=== PATIENT | female | born 1950 | race Caucasian/White ===

== ENCOUNTER 2024-09-03 23:57 | Inpatient (IN) | payer OTHER ==
[2024-09-04] MEDS ORDERED: ACETAMINOPHEN 500 MG TAB ONE (00:17)
[2024-09-04] MEDS ORDERED: ONDANSETRON 4 MG/2 ML VIAL ONE ×2 (00:17→18:12)
[2024-09-04] MEDS ORDERED: METHYLPREDNISOLONE 125 MG INJ ONE (00:17)
[2024-09-04] MEDS ORDERED: MORPHINE 2 MG/ML SYR ONE ×5 (00:18→16:24)
[2024-09-04 00:46] LABS: Absolute Basophils 0.1 K/uL (0-0.5); Absolute Eosinophils 0.2 K/uL (0-0.5); Absolute Lymphocytes (CBC) 1.1 K/uL (0.7-4.9); Absolute Monocytes 0.6 K/uL (0.1-1.3); Absolute Neutrophil 8.9 K/uL (1.8-8.0); Basophils % 0.8 % (0-1.3); Eosinophils % 1.6 % (0-4.4); Hematocrit 27.1 % (36.0-45.0); Hemoglobin 8.6 g/dL (12.0-15.0); Lymphocytes % 10.1 % (15.3-44.8); MCH 27.7 pg (27.0-35.0); MCHC 31.6 g/dL (32.0-36.0); MCV 87.4 fL (80-100); MPV 7.9 fL (7.6-11.3); Monocytes % 5.2 % (3.3-12.3); Neutrophils % 82.3 % (41.7-73.7); Nucleated Red Blood Cells % 0.1 % (0-0); Platelets 274 thou/uL (152-406); Red Cell Distribution Width 18.9 % (12.1-15.2)
[2024-09-04 01:17] LABS: ALT/SGPT 16 U/L (13-56); AST/SGOT 13 U/L (15-37); Albumin 2.7 g/dL (3.4-5.0); Albumin/Globulin Ratio 0.8 (1.1-1.8); Alkaline Phosphatase 99 U/L (45-117); Anion Gap 9.5 mEq/L (5.0-15.0); BUN Blood Urea Nitrogen 28 mg/dL (7-18); Bicarbonate 24 mEq/L (21-32); Bilirubin Total 0.3 mg/dL (0.2-1.0); Creatine Phosphokinase 45 U/L (26-192); D-Dimer 0.874 FEUug/mL (0-0.500); Globulin 3.2 g/dL (2.3-3.5); Glomerular Filtration Rate 61 ml/min (=/>90); Glucose Level 209 mg/dL (74-106); Lipase 21 U/L (13-75); Magnesium 2.1 mg/dL (1.6-2.4); NT PRO-BNP 1429 pg/mL (<450); Potassium 4.5 mEq/L (3.5-5.1); Protein, Total 5.9 g/dL (6.4-8.2); Protime INR 1.07; Sodium Level 140 mEq/L (136-145); Troponin High Sensitivity 13.6 pg/mL (<58.9)
[2024-09-04 01:27] LABS: Bilirubin Direct < 0.2 mg/dL (0-0.2); Bilirubin Indirect, Calculated 0.1 mg/dL (0.2-0.8)
[2024-09-04 01:43] LABS: SARS-CoV-2 Antigen CONTROL BLUE LINE VIS/BG OK; SARS-CoV-2 Antigen Rapid Res Negative (Negative)
--- NOTE | 2024-09-04 02:56 | RAD REPORT ---
EXAM: XR Chest, 1 View CLINICAL HISTORY: The patient is 74 years old and is Female; CHEST PAIN TECHNIQUE: Frontal view of the chest. COMPARISON: No relevant prior studies available. FINDINGS: Lungs: Mildly prominent interstitial markings. No consolidation. Small nonspecific 1 cm and 9 mm rounded opacities overlying the right lung base. Pleural space: Unremarkable. No pneumothorax. Heart: Unremarkable. Mediastinum: Unremarkable. Normal mediastinal contour. Bones/joints: No acute findings. Tubes, lines and devices: Left-sided pacemaker/AICD. IMPRESSION: No acute findings in the chest. Electronically signed by: Jason Kumar MD 09/04/2024 01:13 AM CDT RP 8 Due to temporary technical issues with the PACS/[employer] reporting system, reports are being nura d by the in-house radiologist without review as a courtesy to ensure prompt reporting the interpreting radiologist is fully responsible for the content of the report. Transcribed Date/Time: 09/04/2024 2:56 AM
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
--- NOTE | 2024-09-04 03:41 | EDPHYS ---
Physician Documentation [facility] Name: Caren Cuadra Age: 74 yrs Sex: Female : 1950 Arrival Date: 09/03/2024 Time: 23:57 Bed 7 Private MD: ED Physician Ferdinand Lobo HPI: 09/04 00:02 This 74 yrs old Female presents to ER via Unassigned with complaints of sp4 General complaint. 03:44 74-year-old female with past medical history of diabetes type 2, polyneuropathy, sp4 depression, back pain, anxiety, COPD, atrial fibrillation, history of CVA, overactive bladder, RLS, migraine headaches, left lower extremity chronic wounds, history of multiple allergies including iodine, presents with acute onset chest pain associated with chills. And recently admitted resident of [facility]. . Historical: - Allergies: 00:06 Codeine; bm8 00:06 Darvon; bm8 00:06 e-mycin; bm8 00:06 TETRACYCLINES; bm8 00:06 articane hydrochloride; bm8 00:06 dye senior care blue, green, red; bm8 00:06 idoxuridine; bm8 00:06 Iodine; bm8 00:06 Macrobid; bm8 - Home Meds: 00:06 Aimovig Autoinjector 140 mg/mL subcutaneous Auto-Injector 140 mg every month [Active]; bm8 alendronate 70 mg oral tablet 1 tab every week [Active]; aspirin 81 mg Oral capsule 1 cap daily [Active]; atorvastatin 20 mg oral tablet 1 tab daily [Active]; Breo Ellipta 100-25 mcg/dose inhalation Blister, With Inhalation Device 1 inhalation daily [Active]; carvedilol 3.125 mg oral tablet 1 tab 2 times per day [Active]; cetirizine 10 mg oral tablet 1 tab daily [Active]; donepezil 10 mg oral tablet 1 tab daily [Active]; FeroSul 325 mg (65 mg iron) oral tablet 1 tab daily [Active]; metformin 500 mg Oral Tablet, Extended Release 24 hr 1 tab 2 times per day [Active]; mirtazapine 30 mg Oral tablet 1 tab daily [Active]; montelukast 10 mg oral tablet 1 tab daily [Active]; oxybutynin chloride 15 mg Oral Tablet, Extended Release 24 hr 1 tab BID [Active]; pregabalin 25 mg Oral capsule 1 cap 2 times per day [Active]; ropinirole 0.5 mg oral tablet 1 tab daily [Active]; SPIRIVA 2.5 MCG DAILY INHALE 2 PUFFS DAILY [Active]; torsemide 20 mg oral tablet 2 tabs daily [Active]; hydrocodone-acetaminophen 5-325 mg Oral tablet 1 tab every 8 hours [Active]; nitroglycerin 0.4 mg SL Tablet, Sublingual 1 tab every 5 to 15 minutes for acute episode of anginal pain [Active]; Zofran Oral 4 mg as needed [Active]; Ubrelvy 100 mg oral tablet 1 tab [Active]; Ventolin HFA 90 mcg/actuation Nebulizer HFA Aerosol Inhaler 2 inhalations 6 times per day [Active]; - PMHx: 00:06 Diabetes mellitus; Depressive disorder; radiating back pain; Anxiety; COPD; Atrial bm8 fibrillation; CVA; OVERACTIVE BLADDER; RLS; Migraine; - PSHx: 00:06 None; bm8 - Immunization history:: Adult Immunizations up to date. - Infectious Disease History:: Denies. - Social history:: Smoking status: Patient denies any tobacco usage or history of. - Family history:: not pertinent. ROS: 03:44 Constitutional: Positive for chest pain and chills sp4 03:44 All other systems are negative, Exam: 03:44 Constitutional: Patient is elderly frail female with protuberant abdomen multiple sp4 chronic wounds to bilateral lower extremities, physically debilitated oxygen dependent female Head/Face: Normocephalic, atraumatic. Eyes: Pupils equal round and reactive to light, extra-ocular motions intact. Lids and lashes normal. Conjunctiva and sclera are not injected. Cornea within normal limits. Periorbital areas with no swelling, redness, or edema. ENT: Nares patent. No nasal discharge, no septal abnormalities noted. Tympanic membranes are normal and external auditory canals are clear. Oropharynx with no redness, swelling, or masses, exudates, or evidence of obstruction, uvula midline. Mucous membranes moist. Neck: Trachea midline, no thyromegaly or masses palpated, and no cervical lymphadenopathy. Supple, full range of motion without nuchal rigidity, or vertebral point tenderness. Chest/axilla: Normal chest wall appearance and motion. Nontender with no deformity. No lesions are appreciated. Cardiovascular: Regular rate and rhythm with a normal S1 and S2. No gallops, murmurs, or rubs. Normal PMI, no JVD. No pulse deficits. Respiratory: Lungs have equal breath sounds bilaterally, clear to auscultation and percussion. No rales, rhonchi or wheezes noted. No increased work of breathing, no retractions or nasal flaring. Abdomen/GI: Soft, with normal bowel sounds. No distension or tympany. No guarding or rebound. No evidence of tenderness throughout. Back: No spinal tenderness. No costovertebral tenderness. Skin: Warm, dry with normal turgor. Normal color with no rashes, no lesions, and no evidence of cellulitis. MS/ Extremity: Pulses equal, no cyanosis. Neurovascular intact. Full, normal range of motion. Neuro: Awake and alert, GCS 15, oriented to person, place, time, and situation. Cranial nerves II-XII grossly intact. Motor strength 5/5 in all extremities. Sensory grossly intact. Psych: Awake, alert, with orientation to person, place and time. Behavior, mood, and affect are within normal limits 03:44 ECG was reviewed by the Attending Physician. EKG at 000 2 electronic ventricular pacemaker rate 100 Vital Signs: 00:03 BP 133 / 79; Pulse 83; Resp 18; Temp 100.5; Pulse Ox 96% on 3 lpm NC; Weight 77.11 kg; bm8 Height 5 ft. 4 in. ; Pain 10/10; 00:45 BP 132 / 75; Pulse 87; Resp 18; Temp 99.6; Pulse Ox 97% on R/A; Pain 7/10; bm8 01:54 BP 134 / 76; Pulse 86; Resp 19; Temp 99.2; Pulse Ox 96% on 3 lpm NC; Pain 9/10; bm8 04:27 BP 120 / 85; Pulse 86; Resp 20; Temp 99.2; Pulse Ox 97% on 3 lpm NC; Pain 6/10; bm8 19:15 BP 114 / 66; Pulse 82; Resp 19; Pulse Ox 99% on R/A; br2 21:42 BP 114 / 66; Pulse 77; Resp 15; Temp 97.2; Pulse Ox 98% on 2 lpm NC; br2 00:03 Body Mass Index 29.18 (77.11 kg, 162.56 cm) bm8 00:03 Pain Scale: Adult bm8 00:45 Pain Scale: Adult bm8 01:54 Pain Scale: Adult bm8 04:27 Pain Scale: Adult bm8 Ariela Coma Score: 00:30 Eye Response: spontaneous(4). Motor Response: obeys commands(6). Verbal Response: bm8 oriented(5). Total: 15. 00:45 Eye Response: spontaneous(4). Motor Response: obeys commands(6). Verbal Response: bm8 oriented(5). Total: 15. 01:54 Eye Response: spontaneous(4). Motor Response: obeys commands(6). Verbal Response: bm8 oriented(5). Total: 15. 03:44 Eye Response: spontaneous(4). Motor Response: obeys commands(6). Verbal Response: sp4 oriented(5). Total: 15. 04:27 Eye Response: spontaneous(4). Motor Response: obeys commands(6). Verbal Response: bm8 oriented(5). Total: 15. MDM: 00:06 Medical Screening Exam initiated sp4 03:48 Differential Diagnosis altered mental status, sepsis, flu, Angina . Data reviewed: sp4 vital signs, nurses notes, EMS record, old medical records, lab test result(s), EKG, radiologic studies, CT scan, plain films. Consideration of Admission/Observation Patient was admitted/placed on observation. Escalation of care including admission/observation considered. 03:58 Management of patient was discussed with the following: Primary Care Provider: Eugene LANDRY sp4 . ED course: Presents with persistent chest pain that is rather atypical nonexertional however patient has extensive history of diabetes, hypertension, pacemaker, neuropathy, and she is a very high risk. At this time patient warrants admission for further evaluation cardiology consult. Patient also reported some fever. Will cover with Rocephin and Zithromax for atypical respiratory infections.. 09/04 00:08 Order name: BMP; Complete Time: sp4 09/04 00:08 Order name: Blood Culture Adult (2) sp4 09/04 00:08 Order name: CBC with Diff; Complete Time: sp4 09/04 00:08 Order name: CPK; Complete Time: 01:54 sp4 09/04 00:08 Order name: D-Dimer; Complete Time: :54 sp4 09/04 00:08 Order name: Hepatic Function; Complete Time: :4 09/04 00:08 Order name: Lipase; Complete Time: :4 09/04 00:08 Order name: Magnesium; Complete Time: :54 sp4 09/04 00:08 Order name: NT PRO-BNP; Complete Time: :4 09/04 00:08 Order name: PT-INR; Complete Time: :4 09/04 00:08 Order name: Ptt, Activated; Complete Time: :54 4 09/04 00:08 Order name: Troponin HS; Complete Time: :4 09/04 00:08 Order name: ABG; Complete Time: 07:4 09/04 00:14 Order name: Urinalysis W/Microscopic; Complete Time: 07:28 4 09/04 00:14 Order name: SARS RAPID; Complete Time: :54 4 09/04 00:14 Order name: Influenza Screen (a \T\ B); Complete Time: :4 09/04 03:25 Order name: Troponin High Sensitivity; Complete Time: 07:28 sp4 09/04 07:49 Order name: Glucose, Ancillary Testing; Complete Time: 20:55 EDMS 09/04 09:45 Order name: Troponin High Sensitivity; Complete Time: 20:55 EDMS 09/04 12:15 Order name: Glucose, Ancillary Testing; Complete Time: 20:55 EDMS 09/04 16:33 Order name: Glucose, Ancillary Testing; Complete Time: 20:55 EDMS 09/04 18:14 Order name: Troponin High Sensitivity; Complete Time: 20:55 EDMS 09/04 20:22 Order name: Troponin High Sensitivity; Complete Time: 20:55 EDMS 09/04 00:08 Order name: XRAY CXR (1 view); Complete Time: 07:28 sp4 09/04 03:36 Order name: CT Chest Abdomen Pelvis W/O Contrast; Complete Time: 07:28 sp4 09/04 00:08 Order name: EKG; Complete Time: 00:08 sp4 09/04 03:54 Order name: CONS Physician Consult EDMS 09/04 00:08 Order name: Cardiac monitoring; Complete Time: 00:34 sp4 09/04 00:08 Order name: EKG - Nurse/Tech; Complete Time: :34 sp4 09/04 00:08 Order name: Pena; Complete Time: 00:34 sp4 09/04 00:08 Order name: IV Saline Lock; Complete Time: 00:34 sp4 09/04 00:08 Order name: Labs collected and sent; Complete Time: 00: sp4 09/04 00:08 Order name: O2 Per Protocol; Complete Time: 00: sp4 09/04 00:08 Order name: O2 Sat Monitoring; Complete Time: 00: sp4 09/04 03:49 Order name: Misc. Order: apply Purevic; Complete Time: : sp4 EC:44 Rate is 100 beats/min. Rhythm is regular, Paced. Clinical impression: No evidence of sp4 ischemia. Interpreted by me. Reviewed by me. Administered Medications: 00:24 Drug: Acetaminophen PO 1000 mg PO once Route: PO; kd3 01:20 Follow up: Response: No adverse reaction bm8 00:24 Drug: morphine IVP or IV 2 mg IVP once over 4 mins Route: IVP; Infused Over: 4 mins; kd3 Site: right wrist; 01:20 Follow up: Response: No adverse reaction bm8 00:24 Drug: Ondansetron IVP 4 mg IVP once; over 2 minutes Route: IVP; Site: right wrist; kd3 01:20 Follow up: Response: No adverse reaction bm8 00:36 Drug: MethylPrednisoLONE IVP 125 mg IVP once Route: IVP; Site: right forearm; kd3 01:21 Follow up: Response: No adverse reaction bm8 01:52 Drug: morphine IVP or IV 2 mg IVP once over 4 mins Route: IVP; Infused Over: 4 mins; bm8 Site: right forearm; 02:28 Follow up: Response: No adverse reaction bm8 04:25 Drug: Furosemide IVP 40 mg IVP once; give over 2 minutes Route: IVP; Site: right bm8 antecubital; 04:30 Follow up: Response: No adverse reaction bm8 04:25 Drug: Rocephin - Rocephin (cefTRIAXone) IVPB 1 grams IVPB once over 30 mins; (mix in 50 bm8 mL NS) Route: IVPB; Infused Over: 30 mins; Site: right forearm; 04:30 Follow up: Response: No adverse reaction; IV Status: Completed infusion bm8 04:25 Drug: Zithromax IVPB 500 mg IVPB once over 1 hrs; mix in 250 mL NS Route: IVPB; Infused bm8 Over: 1 hrs; Site: right forearm; 05:15 Follow up: Response: No adverse reaction; IV Status: Completed infusion; IV Intake: bm8 250ml 04:26 Drug: morphine IVP or IV 2 mg IVP once over 4 mins Route: IVP; Infused Over: 4 mins; bm8 Site: right forearm; 04:30 Follow up: Response: No adverse reaction bm8 04:27 CANCELLED (Duplicate Order): [id number] mg IVP once bm8 Disposition Summary: 09/04/24 03:40 Hospitalization Ordered Notes: Hospitalization Status: Inpatient Admission sp4 Provider: Suresh Knight sp4 Condition: Stable sp4 Problem: new sp4 Symptoms: have improved sp4 Bed/Room Type: Standard sp4 Location: Telemetry/MedSurg (Inpatient)(09/04/24 20:35) rv1 Room Assignment: 212(09/04/24 20:35) rv1 Diagnosis - Unstable angina, COPD exacerbation, Anemia of chronic disease, sp4 Forms: - Medication Reconciliation Form sp4 - SBAR form sp4 - Leadership Thank You Letter sp4 Signatures: Dispatcher [employer] EDMS Maryjane Guillory RN RN lg3 Elodia Gaston RN RN kd3 Leidy Peterson rv1 Ferdinand Lobo MD MD sp4 Benjamin Suarez RN RN bm8 Corrections: (The following items were deleted from the chart) 00:08 00:08 BASIC METABOLIC PANEL+C.LAB.BRZ ordered. EDMS EDMS 00:08 00:08 BLOOD CULTURE*+BA.LAB.BRZ ordered. EDMS EDMS 00:08 00:08 CBC+H.LAB.BRZ ordered. EDMS EDMS 00:08 00:08 CREATINE PHOSPHOKINASE+C.LAB.BRZ ordered. EDMS EDMS 00:08 00:08 D-DIMER+COAG.LAB.BRZ ordered. EDMS EDMS 00:08 00:08 HEPATIC FUNCTION+C.LAB.BRZ ordered. EDMS EDMS 00:08 00:08 LIPASE+C.LAB.BRZ ordered. EDMS EDMS 00:08 00:08 MAGNESIUM+C.LAB.BRZ ordered. EDMS EDMS 00:08 00:08 PROBNP+C.LAB.BRZ ordered. EDMS EDMS 00:08 00:08 PROTIME (+INR)+COAG.LAB.BRZ ordered. EDMS EDMS 00:08 00:08 PTT, ACTIVATED+COAG.LAB.BRZ ordered. EDMS EDMS 00:08 00:08 Troponin High Sensitivity+C.LAB.BRZ ordered. EDMS EDMS 03:25 03:25 Troponin High Sensitivity+C.LAB.BRZ ordered. EDMS EDMS 03:47 03:40 Telemetry/MedSurg (observation) sp4 lg3 03:47 03:40 sp4 lg3 03:49 03:36 Chest For PE Angio+CT.RAD.BRZ ordered. EDMS EDMS 04:27 03:35 MethylPrednisoLONE IVP 125 mg IVP once ordered. sp4 bm8 20:35 03:47 BR ER HOLD lg3 rv1 20:35 03:47 ERHOLD- lg3 rv1
[2024-09-04] MEDS ORDERED: AZITHROMYCIN 500 MG INJ IVPB ONE (04:00)
[2024-09-04] MEDS ORDERED: CEFTRIAXONE 1000 MG/VIAL ONE (04:00)
[2024-09-04] MEDS ORDERED: FUROSEMIDE 40 MG/4 ML VIAL ONE (04:01)
[2024-09-04] MEDS ORDERED: NA CHLORIDE 0.9% 250 ML ONE (04:01)
[2024-09-04 04:31] LABS: Arterial Blood Carboxyhemoglob 0.9 % (0-1.5); Blood Gas Oxyhemoglobin 94.4 % (94-97); Blood Gas THB 8.7 g/dl (12-18); Blood O2 Saturation 98.1 % (92-98.5)
--- NOTE | 2024-09-04 05:07 | RAD REPORT ---
EXAM: CT Chest, Abdomen and Pelvis Without Intravenous Contrast CLINICAL HISTORY: The patient is 74 years old and is Female; Abdominal distention. TECHNIQUE: Axial computed tomography images of the chest, abdomen and pelvis without intravenous co ntrast. Sagittal and coronal reformatted images were created and reviewed. This CT exam was performed using one or more of the following dose reduction techniques: automated exposure control, adjustment of the mA and/or kV according to patient size, and/or use of iterative reconstruction technique. COMPARISON: XR Chest 09/04/2024, 12:41:13 AM. FINDINGS: CHEST: Lungs: Tree-in-bud opacities in the posterior right upper lobe and right lower lobe, suspicious f or small airways infection. Pleural space: Small bilateral pleural effusions, left larger than right. No pneumothorax. Heart: Cardiomegaly without significant pericardial fluid. No significant coronary artery calcifications. ABDOMEN: Liver: Unremarkable. Gallbladder and bile ducts: Gallbladder is contracted or removed. No choledocholithiasis. No ductal dilation. Pancreas: Unremarkable. No ductal dilation. Spleen: Unremarkable. No splenomegaly. Adrenals: Unremarkable. No mass. Kidneys and ureters: Lobulated kidneys. No hydronephrosis. Stomach and bowel: Prior gastric surgery. Colonic diverticulosis. No bowel dilatation or obstruction. No bowel wall thickening. PELVIS: Appendix: No findings to suggest acute appendicitis. Bladder: Unremarkable. No stones. Reproductive: Hysterectomy. No adnexal mass. CHEST, ABDOMEN and PELVIS: Intraperitoneal space: Unremarkable. No significant fluid collection. No free air. Bones/joints: Right hip arthroplasty hardware. No dislocation. Multilevel degenerative facet arthropathy. No acute fracture visualized. Soft tissues: Diffuse subcutaneous edema. Vasculature: Unremarkable. No aortic aneurysm. Lymph nodes: Unremarkable. No enlarged lymph nodes. Other findings: Left-sided ICD/pacer. IMPRESSION: 1. Tree-in-bud opacities in the posterior right upper lobe and right lower lobe, suspicious for sma ll airways infection. 2. Small pleural effusions. 3. Left-sided ICD/pacer. Cardiomegaly. 4. Prior gastric surgery. 5. Colonic diverticulosis. 6. Diffuse subcutaneous edema. 7. Additional non-emergent findings as above. Electronically signed by: Bere Jimenez MD 09/04/2024 05:02 AM CDT RP ND Due to temporary technical issues with the PACS/Powerscribe reporting system, reports are being nura d by the in-house radiologist without review as a courtesy to ensure prompt reporting the interpreting radiologist is fully responsible for the content of the report. Transcribed Date/Time: 09/04/2024 5:07 AM
[2024-09-04 05:14] VITALS: BMI 29.2
[2024-09-04 06:42] LABS: Specific Gravity 1.012 (1.005-1.030); Sqamous Epithelial None Seen /HPF (None Seen); Urine Bacteria 20-50 /HPF (<20); Urine Bilirubin NEGATIVE (Negative); Urine Blood Negative (Negative); Urine Clarity Turbid (Clear); Urine Color Light-Yellow (Yellow); Urine Culture Reflex Order NOT NEEDED; Urine Glucose NEGATIVE (Negative); Urine Ketones NEGATIVE (Negative); Urine Micro Reflex YN NO BILL MICROSCOPIC; Urine Nitrite NEGATIVE (Negative); Urine Protein NEGATIVE (Negative); Urine RBC <5 /HPF (None Seen); Urine Urobilinogen Normal (Normal); Urine WBC <5 /HPF (<5); Urine pH 5.5 (5.0-7.0)
[2024-09-04] MEDS ORDERED: GLUCAGON 1 MG/VIAL IM PRN (07:02)
[2024-09-04] MEDS ORDERED: D10W 125 ML IV PRN (07:02)
[2024-09-04] MEDS ORDERED: ACETAMINOPHEN 325 MG TABLET PO PRN (07:02)
[2024-09-04] MEDS: INSULIN REGULAR (HUMAN) 100 UNIT/ML SQ SCH (07:30)
[2024-09-04] MEDS ORDERED: INSULIN REGULAR (HUMAN) 100 UNIT/ML ONE ×3 (07:40→16:24)
[2024-09-04] MEDS: MORPHINE 2 MG/ML SYR IV PRN (07:42)
[2024-09-04] MEDS ORDERED: HYDRALAZINE HCL 20 MG/ML VIAL IV PRN (08:57)
[2024-09-04] MEDS ORDERED: ALBUTEROL 2.5 MG/3 ML NEB SOL NEB PRN (08:58)
[2024-09-04] MEDS: FUROSEMIDE 40 MG/4 ML VIAL IV SCH (09:00)
--- NOTE | 2024-09-04 09:05 | P.HP ---
Certification for Inpatient Patient admitted to: Inpatient With expected LOS: >2 Midnights Patient will require the following post-hospital care: None Practitioner: I am a practitioner with admitting privileges, knowledge of patient current condition, hospital course, and medical plan of care. Services: Services provided to patient in accordance with Admission requirements found in Title 42 Section 412.3 of the Code of Federal Regulations Patient History Date of Service: 09/04/24 Primary Care Provider: Eugene Reason for admission: CHF exacerbation History of Present Illness: Patient is a resident of [facility]. She has copd, chf, dementia and dm2. She is not very compliant with her diet or accuchecks. She was feeling cold and weak yesterday and asked to come to the ER. Was found to be hyperglycemic with an elevated bnp. She had fluid on her lungs on xray. Decision was made to admit her Allergies adhesive tape Allergy (Verified 09/04/24 06:22) Hives/Rash articaine Allergy (Verified 09/04/24 06:22) Hives codeine Allergy (Verified 09/04/24 06:22) Itching erythromycin base Allergy (Verified 09/04/24 06:22) Hives idoxuridine Allergy (Verified 09/04/24 06:22) Hives iodine Allergy (Verified 09/04/24 06:22) Hives nitrofurantoin Allergy (Verified 09/04/24 06:22) Hives propoxyphene [From Darvon] Allergy (Verified 09/04/24 06:22) Hives Tetracyclines Allergy (Verified 09/04/24 06:22) Hives dye LONG TERM blue, green, red Allergy (Uncoded 09/04/24 06:22) Hives - Past Medical/Surgical History Has patient received pneumonia vaccine in the past: Yes -: DM -: CVA -: Depression -: COPD -: Atrial Fibrillation -: RLS -: Migraines -: Overactive Bladder -: Pacemaker - Social History Smoking Status: Never smoker Review of Systems 10-point ROS is otherwise unremarkable General: Chills, Weakness, Malaise Physical Examination - Vital Signs Temperature: 98.5 F Blood Pressure: 125/78 Pulse: 90 Respirations: 18 Pulse Ox (%): 97 - Physical Exam General: Alert, In no apparent distress HEENT: Atraumatic, PERRLA, Mucous membr. moist/pink, EOMI, Sclerae nonicteric Neck: Supple, 2+ carotid pulse no bruit, No LAD, Without JVD or thyroid abnormality Respiratory: Clear to auscultation bilaterally, Normal air movement Cardiovascular: Regular rate/rhythm, Normal S1 S2, Edema (2+) Gastrointestinal: Normal bowel sounds, No tenderness Musculoskeletal: No tenderness Integumentary: No rashes Neurological: Normal gait, Normal speech, Normal strength at 5/5 x4 extr, Normal tone, Normal affect Lymphatics: No axilla or inguinal lymphadenopathy - Studies Laboratory Data (last 24 hrs) 09/04/24 09/04/24 09/04/24 00:09 00:09 00:09 WBC 10.80 Hgb 8.6 L Hct 27.1 L Plt Count 274 PT 12.0 INR 1.07 APTT 33.0 Sodium 140 Potassium 4.5 BUN 28 H Creatinine 0.97 Glucose 209 H Magnesium 2.1 Total Bilirubin 0.3 AST 13 L ALT 16 Alkaline Phosphatase 99 Lipase 21 Microbiology Data (last 24 hrs): 09/04/24 01:11 Nasopharnyx Influenza Type A Antigen Screen - Final 09/04/24 01:11 Nasopharnyx Influenza Type B Antigen Screen - Final Assessment and Plan - Problems (Diagnosis) (1) Acute exacerbation of CHF (congestive heart failure) Current Visit: Yes Status: Acute Plan: will start diuresis. Restart her on carvdilol and aspirin. Consult to Dr. Segovia and will order an echocardiogram Qualifiers: Heart failure type: unspecified Qualified Code(s): I50.9 - Heart failure, unspecified (2) DM2 (diabetes mellitus, type 2) Current Visit: Yes Status: Acute Plan: restart metformin tomorrow. Will start her on insulin sliding scale and a carb controlled diet Qualifiers: Diabetes mellitus fci insulin use: without terminal carman use Diabetes mellitus complication status: without complication Qualified Code(s): E11.9 - Type 2 diabetes mellitus without complications (3) Dementia Current Visit: Yes Status: Chronic Plan: restart her on home meds. Consult PT to ambulate the patient Qualifiers: Dementia type: unspecified type Dementia severity: moderate Dementia behavioral or psychological symptom: without behavioral, psychotic, or mood disturbance or anxiety Qualified Code(s): F03.B0 - Unspecified dementia, moderate, without behavioral disturbance, psychotic disturbance, mood disturbance, and anxiety (4) COPD (chronic obstructive pulmonary disease) Current Visit: Yes Status: Acute Plan: stable. She does not have her home inhalers. We can use albuterol nebulizer as needed Qualifiers: COPD type: chronic bronchitis Chronic bronchitis type: simple Qualified Code(s): J41.0 - Simple chronic bronchitis - Advance Directives Does patient have a Living Will: No Does patient have a Durable POA for Healthcare: No - Code Status/Comfort Care Code Status Assessed: No Physician Review: Patient Assessed, Agree with Above Assessment and Plan Critical Care: No Time Spent Managing Pts Care (In Minutes): 50
[2024-09-04] MEDS ORDERED: INSULIN REGULAR (HUMAN) 100 UNIT/ML SQ SCH (11:30)
--- NOTE | 2024-09-04 11:31 | P.CNS ---
Date of Consult: 09/04/24 Primary Care Provider: Eugene Chief Complaint: CHF exacerbation History of Present Illness: Patient with PMH of congestive heart failure, Atrial fibrillation, probably SSS, s/p pacemaker placement, presented with worsening SOB, weakness, report chest pain that has been going on for one week, feels like sharp, left sided, no radiation that is reproducible on exam, denies any other cardiac symptoms. Allergies adhesive tape Allergy (Verified 09/04/24 06:22) Hives/Rash articaine Allergy (Verified 09/04/24 06:22) Hives codeine Allergy (Verified 09/04/24 06:22) Itching erythromycin base Allergy (Verified 09/04/24 06:22) Hives idoxuridine Allergy (Verified 09/04/24 06:22) Hives iodine Allergy (Verified 09/04/24 06:22) Hives nitrofurantoin Allergy (Verified 09/04/24 06:22) Hives propoxyphene [From Darvon] Allergy (Verified 09/04/24 06:22) Hives Tetracyclines Allergy (Verified 09/04/24 06:22) Hives dye PENITENTIARY blue, green, red Allergy (Uncoded 09/04/24 06:22) Hives Home medications list reviewed: Yes - Past Medical/Surgical History -: DM -: CVA -: Depression -: COPD -: Atrial Fibrillation -: RLS -: Migraines -: Overactive Bladder -: Pacemaker Review of Systems 10-point ROS is otherwise unremarkable Physical Examination Temp Pulse Resp BP Pulse Ox 98.5 F 90 18 125/78 97 09/04/24 09:09 09/04/24 09:09 09/04/24 09:09 09/04/24 09:09 09/04/24 09:09 General: Alert, In no apparent distress HEENT: Atraumatic, PERRLA, Mucous membr. moist/pink, EOMI, Sclerae nonicteric Neck: Supple, 2+ carotid pulse no bruit, No LAD, Without JVD or thyroid abnormality Respiratory: Clear to auscultation bilaterally, Normal air movement Cardiovascular: Regular rate/rhythm, Normal S1 S2 Gastrointestinal: Normal bowel sounds, No tenderness Musculoskeletal: No tenderness Integumentary: No rashes Neurological: Normal gait, Normal speech, Normal tone, Normal affect Lymphatics: No axilla or inguinal lymphadenopathy Laboratory Data (last 24 hrs) 09/04/24 09/04/24 09/04/24 00:09 00:09 00:09 WBC 10.80 Hgb 8.6 L Hct 27.1 L Plt Count 274 PT 12.0 INR 1.07 APTT 33.0 Sodium 140 Potassium 4.5 BUN 28 H Creatinine 0.97 Glucose 209 H Magnesium 2.1 Total Bilirubin 0.3 AST 13 L ALT 16 Alkaline Phosphatase 99 Lipase 21 - Problems (1) Atrial fibrillation Current Visit: Yes Status: Acute Plan: Patient mention history of atrial fibrillation, EKG shows paced rhythm Continue Coreg 3.125 mg po BID Start Eliquis 5 mg po BID Monitor H&H (2) Acute exacerbation of CHF (congestive heart failure) Current Visit: Yes Status: Acute Plan: Patient mention that she was told she got congestive heart failure, elevated BNP. recommend Lasix 40 mg IV BID Monitor input and output and electrolytes get Echo Qualifiers: Heart failure type: unspecified Qualified Code(s): I50.9 - Heart failure, unspecified (3) Chest pain Current Visit: Yes Status: Acute Plan: looks like MSK in nature but patient gto multiple risk factors for CAD NPO after midnight for nuclear stress test in am (Lexiscan)
--- NOTE | 2024-09-04 11:50 | EKG ---
Test Date: 2024-09-04 Test Time: 00:02:47 Supervisor Rides: SATNAM MEASUREMENT RESULTS: Intervals: Rate: 101 IN: 134 QRSD: 146 QT: 412 QTc: 534 [place]: P: 70 IN: 134 QRS: 200 T: 57 INTERPRETIVE STATEMENTS: Electronic ventricular pacemaker No previous ECG available for comparison Electronically Signed On 09-04-24 11:49:49 CDT by Rigoberto Vasquez
--- NOTE | 2024-09-04 12:34 | ECHO ---
HEIGHT: 5 ft 4 in WEIGHT: 170 lb 0 oz DATE OF STUDY: 09/04/[address]: Suresh Knight MD 2-DIMENSIONAL: YES M.MODE: YES DOPPLER: YES COLOR FLOW: YES TDS: PORTABLE: YES DEFINITY: BUBBLE STUDY: DIAGNOSIS: CONGESTIVE HEART FAILURE EXACERBATION CARDIAC HISTORY: CATHERIZATION: YES SURGERY: NO PROSTHETIC VALVE: NO PACEMAKER: YES MEASUREMENTS (cm) DIASTOLIC (NORMALS) SYSTOLIC (NORMALS) IVSd 1.3 (0.6-1.2) LA Diam 2.9 (1.9-4.0) LVEF 55-60% LVIDd 3.5 (3.5-5.7) LVIDs 2.9 (2.0-3.5) %FS 17% LVPWd 1.3 (0.6-1.2) Ao Diam 2.9 (2.0-3.7) 2 DIMENSIONAL ASSESSMENT: RIGHT ATRIUM: NORMAL LEFT ATRIUM: NORMAL RIGHT VENTRICLE: NORMAL, PACEMAKER LEAD SEEN LEFT VENTRICLE: NORMAL TRICUSPID VALVE: MODERATE TRICUSPID REGURGITATION MITRAL VALVE: TRACE MITRAL REGURGITATION PULMONIC VALVE: NORMAL AORTIC VALVE: NORMAL PERICARDIAL EFFUSION: NONE AORTIC ROOT: NORMAL LEFT VENTRICULAR WALL MOTION: NORMAL DOPPLER/COLOR FLOW: GRADE II DIASTOLIC DYSFUNCTION COMMENTS: 1. NORMAL LEFT VENTRICULAR SYSTOLIC FUNCTION, EJECTION FRACTION 55-60%, NORMAL WALL MOTION 2. GRADE II DIASTOLIC DYSFUNCTION 3. MODERATE TRICUSPID REGURGITATION 4. MODERATE PULMONARY HYPERTENSION (RIGHT VENTRICULAR SYSTOLIC PRESSURE 50-55 mmHg) 5. ELEVATED FILLING PRESSURE (RIGHT ATRIUM 15-20 mmHg) TECHNOLOGIST: SULEMA MANUEL
[2024-09-04] MEDS ORDERED: FLU (Fluarix Triv) TS24-25(6MOS UP)/PF 45 MCG/0.5 ML Syringe IM ONE (16:00)
[2024-09-04] MEDS ORDERED: ENOXAPARIN 40 MG/0.4 ML SQ SCH (17:00)
[2024-09-04] MEDS: carvediloL 3.125 MG TAB PO SCH (18:00)
[2024-09-04] MEDS ORDERED: carvediloL 6.25 MG TAB ONE (18:12)
[2024-09-04] MEDS: ONDANSETRON 4 MG/2 ML VIAL IV PRN (18:15)
[2024-09-04] MEDS: DONEPEZIL HCL 5 MG TAB PO SCH (22:52)
[2024-09-04] MEDS: ATORVASTATIN 40 MG TAB PO SCH (22:53)
--- NOTE | 2024-09-05 09:06 | P.PN ---
Subjective Date of Service: 09/05/24 Primary Care Provider: Eugene Chief Complaint: CHF exacerbation Subjective: No new changes patient is in the respiratory lab for a stress test Review of Systems 10-point ROS is otherwise unremarkable Cardiovascular: Chest Pain Physical Examination - Vital Signs Temperature: 98.1 F Blood Pressure: 134/78 Pulse: 97 Respirations: 16 Pulse Ox (%): 98 - Physical Exam General: Alert, In no apparent distress HEENT: Atraumatic, PERRLA, EOMI Neck: Supple, JVD not distended Respiratory: Clear to auscultation bilaterally, Normal air movement Cardiovascular: Regular rate/rhythm, Normal S1 S2 Gastrointestinal: Normal bowel sounds, No tenderness Musculoskeletal: No tenderness Integumentary: No rashes Neurological: Normal speech, Normal tone, Normal affect Lymphatics: No axilla or inguinal lymphadenopathy Assessment And Plan - Current Problems (Diagnosis) (1) Acute exacerbation of CHF (congestive heart failure) Current Visit: Yes Status: Acute Plan: will start diuresis. Restart her on carvdilol and aspirin. Consult to Dr. Segovia and will order an echocardiogram Qualifiers: Heart failure type: unspecified Qualified Code(s): I50.9 - Heart failure, unspecified (2) DM2 (diabetes mellitus, type 2) Current Visit: Yes Status: Acute Plan: restart metformin tomorrow. Will start her on insulin sliding scale and a carb controlled diet Qualifiers: Diabetes mellitus intermodal customer service insulin use: without intermodal customer service use Diabetes mellitus complication status: without complication Qualified Code(s): E11.9 - Type 2 diabetes mellitus without complications (3) Dementia Current Visit: Yes Status: Chronic Plan: restart her on home meds. Consult PT to ambulate the patient Qualifiers: Dementia type: unspecified type Dementia severity: moderate Dementia behavioral or psychological symptom: without behavioral, psychotic, or mood disturbance or anxiety Qualified Code(s): F03.B0 - Unspecified dementia, moderate, without behavioral disturbance, psychotic disturbance, mood disturban ce, and anxiety (4) COPD (chronic obstructive pulmonary disease) Current Visit: Yes Status: Acute Plan: stable. She does not have her home inhalers. We can use albuterol nebulizer as needed Qualifiers: COPD type: chronic bronchitis Chronic bronchitis type: simple Qualified Code(s): J41.0 - Simple chronic bronchitis Discharge Plan: Home Plan to discharge in: 24 Hours - Code Status/Comfort Care Code Status Assessed: No Physician Review: Patient Assessed, Agree with Above Assessment and Plan Critical Care: No Time Spent Managing PTS Care (In Minutes): 20
[2024-09-05] MEDS ORDERED: REGADENOSON 0.4 MG/5 ML SYR IV ONE (09:16)
--- NOTE | 2024-09-05 10:24 | RAD REPORT ---
EXAM: Nuclear medicine cardiac perfusion examination with ejection fraction HISTORY: Chest pain [facility] MAIN 2 liter NC CP TECHNIQUE: Rest images: 10.5 mCi technetium 99m sestamibi Stress images: 28.3 mCi of technetium 99m sestamibi COMPARISON: None. FINDINGS: Tomographic images: No fixed or reversible perfusion defects. No finding to suspect hibernating myocardium. Ejection fraction of 50%. EDV: 67 mL ESV: 34 mL LHR: 0.31 TID: 0.94 IMPRESSION: No evidence of stress induced ischemia.
[2024-09-05] MEDS: ZOLPIDEM TARTRATE 5 MG TABLET PO PRN (22:02)
[2024-09-06] MEDS: ALBUTEROL 2.5 MG/3 ML NEB SOL NEB PRN (03:26)
[2024-09-06 04:40] VITALS: BP 139/72; TEMP 97
[2024-09-06 13:24] VITALS: O2SAT 97
--- NOTE | 2024-09-06 14:26 | P.DS ---
Admission Date: 09/04/24 Discharge Date: 09/06/24 Primary Care Provider: Eugene Disposition: ROUTINE DISCHARGE Discharge Condition: GOOD Reason for Admission: CHF exacerbation - Problems (1) Acute exacerbation of CHF (congestive heart failure) Current Visit: Yes Status: Acute Qualifiers: Heart failure type: unspecified Qualified Code(s): I50.9 - Heart failure, unspecified (2) DM2 (diabetes mellitus, type 2) Current Visit: Yes Status: Acute Qualifiers: Diabetes mellitus medical terminologist insulin use: without fpc use Diabetes mellitus complication status: without complication Qualified Code(s): E11.9 - Type 2 diabetes mellitus without complications (3) Dementia Current Visit: Yes Status: Chronic Qualifiers: Dementia type: unspecified type Dementia severity: moderate Dementia behavioral or psychological symptom: without behavioral, psychotic, or mood disturbance or anxiety Qualified Code(s): F03.B0 - Unspecified dementia, moderate, without behavioral disturbance, psychotic disturbance, mood disturbance, and anxiety (4) COPD (chronic obstructive pulmonary disease) Current Visit: Yes Status: Acute Qualifiers: COPD type: chronic bronchitis Chronic bronchitis type: simple Qualified Code(s): J41.0 - Simple chronic bronchitis Brief History of Present Illness: Patient is a resident of [facility]. She has copd, chf, dementia and dm2. She is not very compliant with her diet or accuchecks. She was feeling cold and weak yesterday and asked to come to the ER. Was found to be hyperglycemic with an elevated bnp. She had fluid on her lungs on xray. Decision was made to admit her Hospital Course: Patient was admitted for chf exacerbation. She had a stress test with Dr. Vasquez. No signs of ischemia and EF of 50%. she is doing well asks for a breathing treatment. She wheezes only when she wants. No wheeze when she talks. Is speaking in full sentences Will follow up with her in [facility]. Thank you for allowing me to take part in her care. Vital Signs/Physical Exam: Temp Pulse Resp BP Pulse Ox 97 F 77 16 139/72 99 09/06/24 04:00 09/06/24 04:00 09/06/24 13:21 09/06/24 04:00 09/06/24 13:21 General: Alert, In no apparent distress HEENT: Atraumatic, PERRLA, EOMI Neck: Supple, JVD not distended Respiratory: Clear to auscultation bilaterally, Normal air movement Cardiovascular: Regular rate/rhythm, Normal S1 S2 Gastrointestinal: Normal bowel sounds, No tenderness Musculoskeletal: No tenderness Integumentary: No rashes Neurological: Normal speech, Normal tone, Normal affect Lymphatics: No axilla or inguinal lymphadenopathy Laboratory Data at Discharge: WBC 10.80 thou/uL (4.3-10.9) 09/04/24 00:09 Hgb 8.6 g/dL (12.0-15.0) L 09/04/24 00:09 Hct 27.1 % (36.0-45.0) L 09/04/24 00:09 Plt Count 274 thou/uL (152-406) 09/04/24 00:09 PT 12.0 SECONDS (9.4-12.5) 09/04/24 00:09 INR 1.07 09/04/24 00:09 APTT 33.0 SECONDS (24.3-36.9) 09/04/24 00:09 Sodium 140 mEq/L (136-145) 09/04/24 00:09 Potassium 4.5 mEq/L (3.5-5.1) 09/04/24 00:09 BUN 28 mg/dL (7-18) H 09/04/24 00:09 Creatinine 0.97 mg/dL (0.55-1.02) 09/04/24 00:09 Glucose 209 mg/dL (74-106) H 09/04/24 00:09 Magnesium 2.1 mg/dL (1.6-2.4) 09/04/24 00:09 Total Bilirubin 0.3 mg/dL (0.2-1.0) 09/04/24 00:09 AST 13 U/L (15-37) L 09/04/24 00:09 ALT 16 U/L (13-56) 09/04/24 00:09 Alkaline Phosphatase 99 U/L (45-117) 09/04/24 00:09 Lipase 21 U/L (13-75) 09/04/24 00:09 Home Medications: Furosemide 40 mg PO DAILY 5 Days #5 tab 09/06/24 New Medications: Furosemide 40 mg PO DAILY 5 Days #5 tab Followup: Suresh Knight MD [Primary Care Provider] - Time spent managing pt's care (in minutes): 30
--- NOTE | 2024-09-06 21:36 | PN ---
Date of Progress Note: 09/05/2024 Subjective: Seen by bedside, doing clinically well. She is status post stress test that was negativ e. No further chest pain. Review of Systems: No chest pain. Has mild shortness of breath with no nausea, vomiting, diarrhea. No abdominal pain. No dysuria, polyuria, or urinary urgency. All other systems reviewed are negative. Physical Examination: Vital Signs: Reviewed. Head and Neck: Pupils are equal, reactive to light. Intact eye movements. No JVD no cervical. Nec k is supple. Thyroid is not enlarged. Lungs: Clear to auscultation bilaterally. No rhonchi, wheezing, or crackles. No accessory muscle u se. Heart: Irregularly irregular with systolic ejection murmur. Abdomen: Soft, nontender. Bowel sounds positive. No organomegaly. No masses or hernia. No rigidi ty or rebound. Extremities: No clubbing or cyanosis. Intact pulses. Skin: No rash. Neurologic: Alert, awake, and oriented x3. No acute focal deficits appreciated. Investigations: Labs reviewed. Assessment/recommendations: 1.Atrial fibrillation seems to be controlled. Her rhythm is paced. Continue beta gideon and Eliqu is. 2.Acute on chronic congestive heart failure exacerbation. Appears to be euvolemic. Continue curren t therapy. 3.Chest pain with negative stress test and pain is resolved. We will monitor. Asked her to follow up on outpatient basis. If pain recurs, then we will plan for outpatient angiogram. 4.Aortic systolic murmur suggestive of aortic valve stenosis. Recommend that she is to follow up within 3 months and repeat the official echo and plan accordingly. /SERJIO Voice ID: [id number] Report ID: [id number]
--- NOTE | 2024-09-08 08:22 | TREADPHA ---
DX: CHEST PAIN Date of Study: 09/05/2024 Ht: 5' 4 " Wt: 170 lb 0 oz Consulting Physician: ABDIEL MEDICATIONS: TYLENOL, PROVENTIL, LIPITOR, COREG, DEXTROSE, ARICEPT, GLUCAGEN, NOVOLIN-R, MORPHINE, ZOFRAN, AMBIEN HISTORY: 74 YEAR OLD FEMALE WITH COMPLAINTS OF CHEST PAIN, SHORTNESS OF BREATH. HISTORY OF CEREBRAL VASCULAR ACCIDENT, DEPRESSION, CHRONIC OBSTRUCTIVE PULMONARY DISEASE, ATRIAL FIBRILLTION, RESTLESS LEG SYNDROME, MIGRAINES, HYPERTENSION, HYPERLIPIDEMIA, CONGESTIVE HEART FALILURE, DEFIBRILLATOR/ PACEMAKER, NON SMOKER, NON DRINKER. PHYSICIAL EXAMINATION: RESTING B.P.: 119/57 RESTING H.R.: 75 RESTING EKG: VENTRICULAR PACED PROTOCOL: PHARMACOLOGIC EXERCISE TIME: 3:30 B.P. AT PEAK STRESS: 108/59 IMPRESSION: LEXISCAN INJECTED, FOLLOWED BY RON PER PROTOCOL. SEE NUCLEAR MEDICINE REPORT. NO SUPRAVENTRICULAR TACHYCARDIA, VENTRICULAR TACHYCARDIA, PREMATURE ATRIAL COMPLEXES, PREMATURE VENTRICULAR COMPLEXES. PATIENT HAS PACED RHYTHM. PATIENT REPOTS NO CHANGE IN CHEST PAIN. PATIENT HAD SHORT RUN OF VENTRICULAR TACHYCARDIA PRIOR TO TEST. DOCTOR GABRIELLA WAS NOTIFIED AND HIS ORDERS WERE CONTINUE WITH PLAN OF CARE. NO ELECTORCARDIOGRAM CHANGES WITH LEXISCAN.
== END 2024-09-06 16:54 | DRG 291 ==
LOC: ER 23:57 → ERHOLD 09-04 03:50 → 2ND 09-04 22:08
PROVIDERS: ADMIT Internal Medicine; ATTEND Internal Medicine
PROC: 4A033R1 Measurement of Arterial Saturation, Peripheral, Percutaneous Approach (ICD-10-PCS; principal; 2024-09-04)
DX: I11.0 Hypertensive heart disease with heart failure (principal); I50.33 Acute on chronic diastolic (congestive) heart failure; I20.0 Unstable angina; E11.42 Type 2 diabetes mellitus with diabetic polyneuropathy; E11.65 Type 2 diabetes mellitus with hyperglycemia; D63.8 Anemia in other chronic diseases classified elsewhere; G25.81 Restless legs syndrome; J41.0 Simple chronic bronchitis; I35.0 Nonrheumatic aortic (valve) stenosis; I48.91 Unspecified atrial fibrillation; F03.B0 Unspecified dementia, moderate, without behavioral disturbance, psychotic disturbance, mood disturbance, and anxiety; Z95.0 Presence of cardiac pacemaker; Z88.5 Allergy status to narcotic agent; Z88.1 Allergy status to other antibiotic agents; Z88.8 Allergy status to other drugs, medicaments and biological substances; Z79.82 Long term (current) use of aspirin; Z11.52 Encounter for screening for COVID-19; Z79.02 Long term (current) use of antithrombotics/antiplatelets; Z86.73 Personal history of transient ischemic attack (TIA), and cerebral infarction without residual deficits; Z79.899 Other long term (current) drug therapy; Z91.119 Patient's noncompliance with dietary regimen due to unspecified reason
CPT/HCPCS: 36415; 36600; 71045; 71250; 74176; 78452; 80048; 80076; 81001; 82550; 82805; 82947; 83690; 83735; 83880; 84484; 85025; 85379; 85610; 85730; 87040; 87804; 87811; 93005; 93017; 93306; 94640; 99285; A9500; J0696; J1940; J2270; J2405; J2785; J2919; J7050; J7613

== ENCOUNTER 2024-09-20 22:16 | Inpatient (IN) | payer OTHER ==
[2024-09-20 22:59] LABS: Absolute Basophils 0.1 K/uL (0-0.5); Absolute Eosinophils 0.4 K/uL (0-0.5); Absolute Lymphocytes (CBC) 1.2 K/uL (0.7-4.9); Absolute Monocytes 0.7 K/uL (0.1-1.3); Absolute Neutrophil 6.3 K/uL (1.8-8.0); Basophils % 1.1 % (0-1.3); Eosinophils % 4.3 % (0-4.4); Hematocrit 29.1 % (36.0-45.0); Hemoglobin 8.9 g/dL (12.0-15.0); MCH 27.2 pg (27.0-35.0); MCHC 30.6 g/dL (32.0-36.0); MCV 88.8 fL (80-100); MPV 8.1 fL (7.6-11.3); Monocytes % 7.6 % (3.3-12.3); Platelets 301 thou/uL (152-406); RBC Red Blood Cell Count 3.28 M/uL (3.86-4.86); Red Cell Distribution Width 18.6 % (12.1-15.2)
[2024-09-20 23:06] LABS: PT Prothrombin Time 11.9 SECONDS (9.4-12.5); Protime INR 1.06
[2024-09-20 23:20] LABS: Albumin 2.9 g/dL (3.4-5.0); Albumin/Globulin Ratio 0.8 (1.1-1.8); Alkaline Phosphatase 108 U/L (45-117); Anion Gap 8.7 mEq/L (5.0-15.0); BUN Blood Urea Nitrogen 34 mg/dL (7-18); Bicarbonate 27 mEq/L (21-32); Bilirubin Total 0.2 mg/dL (0.2-1.0); Globulin 3.8 g/dL (2.3-3.5); Glomerular Filtration Rate 45 ml/min (=/>90); Glucose Level 157 mg/dL (74-106); Lipase 35 U/L (13-75); Magnesium 2.2 mg/dL (1.6-2.4); NT PRO-BNP 1982 pg/mL (<450); Potassium 4.7 mEq/L (3.5-5.1); Protein, Total 6.7 g/dL (6.4-8.2); Sodium Level 137 mEq/L (136-145)
[2024-09-20] MEDS ORDERED: ONDANSETRON 4 MG/2 ML VIAL ONE (23:29)
[2024-09-20] MEDS ORDERED: FUROSEMIDE 20 MG/ 2ML VIAL ONE (23:30)
[2024-09-20] MEDS ORDERED: MORPHINE 2 MG/ML SYR ONE (23:30)
[2024-09-20 23:32] LABS: ALT/SGPT < 14 U/L (13-56); AST/SGOT < 10 U/L (15-37); Bilirubin Direct < 0.2 mg/dL (0-0.2)
[2024-09-20 23:46] LABS: Specific Gravity 1.011 (1.005-1.030); Sqamous Epithelial <5 /HPF (None Seen); Urine Bacteria 20-50 /HPF (<20); Urine Bilirubin NEGATIVE (Negative); Urine Blood Negative (Negative); Urine Clarity Turbid (Clear); Urine Color Light-Yellow (Yellow); Urine Culture Reflex Order NOT NEEDED; Urine Glucose NEGATIVE (Negative); Urine Ketones NEGATIVE (Negative); Urine Microscopic Reflex YN ORDER UMIC; Urine Mucus Slight /HPF (None Seen); Urine Nitrite 1+ (Negative); Urine Protein NEGATIVE (Negative); Urine RBC <5 /HPF (None Seen); Urine Urobilinogen Normal (Normal); Urine WBC Clump Rare /HPF (None Seen); Urine pH 5.5 (5.0-7.0)
--- NOTE | 2024-09-20 23:59 | EDPHYS ---
Physician Documentation [facility] Name: Caren Cuadra Age: 74 yrs Sex: Female : 1950 Arrival Date: 09/20/2024 Time: 22:16 Bed 2 Private MD: ED Physician Michael Preciado HPI: 09/20 23:02 This 74 yrs old Female presents to ER via EMS with complaints of Chest Pain, josue Shortness Of Breath. Historical: - Allergies: 22:36 articane hydrochloride; al5 22:36 Codeine; al5 22:36 Darvon; al5 22:36 dye fci blue; al5 22:36 e-mycin; al5 22:36 idoxuridine; al5 22:36 Iodine; al5 22:36 Macrobid; al5 22:36 TETRACYCLINES; al5 - Home Meds: 22:36 Aimovig Autoinjector 140 mg/mL subcutaneous Auto-Injector 140 mg every month [Active]; al5 alendronate 70 mg Oral tablet 1 tab every week [Active]; aspirin 81 mg Oral capsule 1 cap daily [Active]; atorvastatin 20 mg Oral tablet 1 tab daily [Active]; Breo Ellipta 100-25 mcg/dose inhalation Blister 1 inhalation daily [Active]; carvedilol 3.125 mg Oral tablet 1 tab 2 times per day [Active]; cetirizine 10 mg Oral tablet 1 tab daily [Active]; donepezil 10 mg Oral tablet 1 tab daily [Active]; FeroSul 325 mg (65 mg iron) Oral tablet 1 tab daily [Active]; hydrocodone-acetaminophen 5-325 mg Oral tablet 1 tab every 8 hours [Active]; metformin 500 mg Oral Tablet 1 tab 2 times per day [Active]; mirtazapine 30 mg Oral tablet 1 tab daily [Active]; montelukast 10 mg Oral tablet 1 tab daily [Active]; nitroglycerin 0.4 mg SL Tablet 1 tab every 5 to 15 minutes for acute episode of anginal pain [Active]; oxybutynin chloride 15 mg Oral Tablet 1 tab BID [Active]; pregabalin 25 mg Oral capsule 1 cap 2 times per day [Active]; ropinirole 0.5 mg Oral tablet 1 tab daily [Active]; SPIRIVA 2.5 MCG DAILY INHALE 2 PUFFS DAILY [Active]; torsemide 20 mg Oral tablet 2 tabs daily [Active]; Ubrelvy 100 mg Oral tablet 1 tab [Active]; Ventolin HFA 90 mcg/actuation Nebulizer HFA Aerosol Inhaler 2 inhalations 6 times per day [Active]; Zofran Oral 4 mg as needed [Active]; - PMHx: 22:36 Anxiety; Atrial fibrillation; COPD; CVA; depressive disorder; diabetes mellitus; al5 Migraine; overactive bladder; radiating back pain; RLS; - PSHx: 22:36 None; al5 - Immunization history:: Adult Immunizations up to date. - Infectious Disease History:: Denies. - Social history:: Smoking status: Patient denies any tobacco usage or history of. ROS: 23:03 Constitutional: Negative for fever, chills, and weight loss, Eyes: Negative for injury, josue pain, redness, and discharge, ENT: Negative for injury, pain, and discharge, Neck: Negative for injury, pain, and swelling, Cardiovascular: Negative for chest pain, palpitations, and edema, Abdomen/GI: Negative for abdominal pain, nausea, vomiting, diarrhea, and constipation, Back: Negative for injury and pain, : Negative for injury, bleeding, discharge, and swelling, Skin: Negative for injury, rash, and discoloration, Neuro: Negative for headache, weakness, numbness, tingling, and seizure, Psych: Negative for depression, anxiety, suicide ideation, homicidal ideation, and hallucinations, Allergy/Immunology: Negative for hives, rash, and allergies, Endocrine: Negative for neck swelling, polydipsia, polyuria, polyphagia, and marked weight changes, Hematologic/Lymphatic: Negative for swollen nodes, abnormal bleeding, and unusual bruising, 23:03 Respiratory: Positive for shortness of breath, Exam: 23:08 Constitutional: This is a well developed, well nourished patient who is awake, alert, josue and in no acute distress. Head/Face: Normocephalic, atraumatic. Eyes: Pupils equal round and reactive to light, extra-ocular motions intact. Lids and lashes normal. Conjunctiva and sclera are non-icteric and not injected. Cornea within normal limits. Periorbital areas with no swelling, redness, or edema. ENT: Nares patent. No nasal discharge, no septal abnormalities noted. Tympanic membranes are normal and external auditory canals are clear. Oropharynx with no redness, swelling, or masses, exudates, or evidence of obstruction, uvula midline. Mucous membranes moist. Neck: Trachea midline, no thyromegaly or masses palpated, and no cervical lymphadenopathy. Supple, full range of motion without nuchal rigidity, or vertebral point tenderness. No Meningismus. Chest/axilla: Normal chest wall appearance and motion. Nontender with no deformity. No lesions are appreciated. Cardiovascular: Regular rate and rhythm with a normal S1 and S2. No gallops, murmurs, or rubs. Normal PMI, no JVD. No pulse deficits. Abdomen/GI: Soft, non-tender, with normal bowel sounds. No distension or tympany. No guarding or rebound. No evidence of tenderness throughout. Back: No spinal tenderness. No costovertebral tenderness. Full range of motion. Female : Normal external genitalia. Skin: Warm, dry with normal turgor. Normal color with no rashes, no lesions, and no evidence of cellulitis. Neuro: Awake and alert, GCS 15, oriented to person, place, time, and situation. Cranial nerves II-XII grossly intact. Motor strength 5/5 in all extremities. Sensory grossly intact. Cerebellar exam normal. Normal gait. Psych: Awake, alert, with orientation to person, place and time. Behavior, mood, and affect are within normal limits. 23:08 ECG was reviewed by the Attending Physician. 23:08 Respiratory: the patient does not display signs of respiratory distress, Respirations: normal, Breath sounds: rales, decreased breath sounds, that are mild, are located in both bases, Vital Signs: 22:34 BP 137 / 74; Pulse 81; Resp 18; Temp 98.1; Pulse Ox 100% on 3 lpm NC; Weight 73.94 kg al5 (M); Height 5 ft. 5 in. ; Pain 9/10; 22:40 BP 142 / 124; Pulse 82; Resp 18; Pulse Ox 100% on 3 lpm NC; al5 23:00 BP 137 / 115; Pulse 109; Resp 18; Pulse Ox 100% on 3 lpm NC; al5 23:13 BP 117 / 80; Pulse 79; Resp 19; Pulse Ox 100% on 3 lpm NC; al5 23:26 BP 112 / 71; Pulse 79; Resp 15; Pulse Ox 100% on 3 lpm NC; al5 23:41 BP 123 / 71; Pulse 78; Resp 19; Pulse Ox 100% on 3 lpm NC; al5 09/21 00:00 BP 118 / 77; Pulse 79; Resp 18; Pulse Ox 100% on 3 lpm NC; al5 00:20 BP 120 / 78; Pulse 79; Resp 20; Pulse Ox 100% on 3 lpm NC; al5 00:40 BP 121 / 67; Pulse 77; Resp 16; Pulse Ox 100% on 3 lpm NC; al5 01:00 BP 118 / 77; Pulse 75; Resp 18; Pulse Ox 99% on 3 lpm NC; al5 01:20 BP 123 / 78; Pulse 82; Resp 15; Pulse Ox 100% on 3 lpm NC; al5 01:40 BP 104 / 68; Pulse 88; Resp 15; Pulse Ox 98% on R/A; al5 02:00 BP 126 / 79; Pulse 77; Resp 18; Pulse Ox 100% on 3 lpm NC; al5 02:30 BP 121 / 79; Pulse 74; Resp 16; Pulse Ox 99% on 3 lpm NC; al5 03:00 BP 122 / 80; Pulse 99; Resp 15; Pulse Ox 100% on 3 lpm NC; al5 09/20 22:34 Body Mass Index 27.12 (73.94 kg, 165.1 cm) ma5 09/20 22:34 Pain Scale: Adult [facility] MDM: 09/20 22:40 Medical Screening Exam initiated josue 23:10 Differential diagnosis: abnormal EKG, acute myocardial infarction, acute pericarditis, josue anxiety, coronary artery disease chest wall pain, Cholelithiasis esophagitis, hiatal hernia, pancreatitis, peptic ulcer disease, pericarditis, pleurisy, pneumonia, pneumothorax, pulmonary embolus, stable angina, unstable angina. HEART Score: ECG: Non specific repolarization disturbance / LBTB / PM (1), Risk Factors: > or = 3 Risk factors for atherosclerotic disease (2), [Hypertension] [DM] [+ Family HX] Troponin: < or = 1 x Normal Limit (0). Data reviewed: vital signs, nurses notes, EMS record, lab test result(s), EKG, radiologic studies, plain films. I considered the following discharge prescriptions or medication management in the emergency department Medications were administered in the Emergency Department. See MAR. Test considered but Not performed: Ultrasound no 2 d echo. Care significantly affected by the following chronic conditions: Diabetes, Hypertension, Congestive Heart Failure, depression, migrain , pacemaker. 09/20 22:26 Order name: Basic Metabolic Panel; Complete Time: 23:51 [facility] 09/20 22:26 Order name: CBC with Diff; Complete Time: 23:51 [facility] 09/20 22:26 Order name: LFT's; Complete Time: 23:51 [facility] 09/20 22:26 Order name: Magnesium; Complete Time: 23:51 [facility] 09/20 22:26 Order name: NT PRO-BNP; Complete Time: 23:51 [facility] 09/20 22:26 Order name: PT-INR; Complete Time: 23:51 [facility] 09/20 22:26 Order name: Troponin HS; Complete Time: 23:51 [facility] 09/20 22:26 Order name: Urinalysis w/ reflexes; Complete Time: 23:51 [facility] 09/20 22:26 Order name: Lipase; Complete Time: 23:51 [facility] 09/21 00:45 Order name: Creatine Phosphokinase [facility] 09/21 00:45 Order name: Lactate w/ 2H reflex if indic. [facility] 09/21 00:45 Order name: Magnesium [facility] 09/21 00:45 Order name: NT PRO-BNP [facility] 09/21 00:45 Order name: Phosphorus [facility] 09/21 00:45 Order name: Thyroid Stimulating Hormone [facility] 09/21 00:45 Order name: Urinalysis w/ reflexes [facility] 09/21 00:45 Order name: Lipid Profile [facility] 09/21 00:46 Order name: Lipid Profile [facility] 09/21 00:46 Order name: Troponin High Sensitivity [facility] 09/21 00:46 Order name: Troponin High Sensitivity [facility] 09/21 00:46 Order name: Troponin High Sensitivity [facility] 09/21 00:46 Order name: Troponin High Sensitivity [facility] 09/20 22:26 Order name: XRAY Chest (1 view) [facility] 09/20 22:55 Order name: US Extremity Venous W Compression Justin [facility] 09/21 00:47 Order name: Chest For Pe Angio [facility] 09/21 00:45 Order name: CONS Physician Consult [facility] 09/21 00:45 Order name: CONS Physician Consult [facility] 09/21 00:45 Order name: Physical Therapy Consult [facility] 09/21 00:46 Order name: Respiratory Therapy Consult [facility] 09/20 22:26 Order name: Cardiac monitoring; Complete Time: 23:05 [facility] 09/20 22:26 Order name: EKG - Nurse/Tech; Complete Time: 23:05 [facility] 09/20 22:26 Order name: IV Saline Lock; Complete Time: 22:49 [facility] 09/20 22:26 Order name: Labs collected and sent; Complete Time: 22:49 [facility] 09/20 22:26 Order name: O2 Per Protocol; Complete Time: 23:04 [facility] 09/20 22:26 Order name: O2 Sat Monitoring; Complete Time: 23:04 [facility] 09/20 23:26 Order name: Wound Care; Complete Time: 01:06 [facility] EC:08 Rate is 102 beats/min. Rhythm is regular. QRS [place] is Normal. MS interval is normal. josue QRS interval is normal. QT interval is normal. No Q waves. T waves are Normal. No ST changes noted. Clinical impression: Abnormal EKG without significant change and No evidence of ischemia. Interpreted by me. Reviewed by me. Administered Medications: 23:40 Drug: Furosemide IVP 20 mg IVP once; give over 2 minutes Route: IVP; Site: left forearm;al5 09/21 00:47 Follow up: Response: No adverse reaction [facility] 09/20 23:41 Drug: morphine IVP or IV 2 mg IVP once over 4 mins Route: IVP; Infused Over: 4 mins; al5 Site: left forearm; 09/21 00:46 Follow up: Response: No adverse reaction; Pain is decreased al5 09/20 23:41 Drug: Ondansetron IVP 4 mg IVP once; over 2 minutes Route: IVP; Site: left forearm; al5 09/21 00:46 Follow up: Response: No adverse reaction; Nausea is decreased al5 00:46 Drug: Mupirocin Topical Ointment 2 % 1 application Topical once Route: Topical; Site: al5 affected area; 00:55 Drug: Rocephin IV 1 grams IV at per protocol once; Given slow IV push per pharmacy al5 instructions Route: IV; Rate: per protocol; Site: right forearm; 01:37 Follow up: Response: No adverse reaction; IV Status: Completed infusion; IV Intake: al5 100ml Disposition Summary: 09/20/24 23:58 Hospitalization Ordered Notes: Hospitalization Status: Inpatient Admission josue Provider: Marlene Sharif cha Location: Telemetry/MedSurg (Inpatient) josue Condition: Stable josue Problem: new josue Symptoms: have improved josue Bed/Room Type: Standard josue Room Assignment: 207(09/21/24 00:56) kmf Diagnosis - Chest pain, unspecified josue - Chronic combined systolic (congestive) and diastolic (congestive) heart failure josue - Edema, unspecified josue - Venous insufficiency (chronic) (peripheral) josue - Presence of cardiac pacemaker josue - UTI/ Urinary tract infection, site not specified josue - Anemia, unspecified josue Forms: - Medication Reconciliation Form josue - SBAR form josue - Leadership Thank You Letter josue Signatures: Dispatcher [employer] EDMS Michael Preciado MD MD cha Forrester, Kelsey Maroul [facility] Kaia Red RN RN al5 Corrections: (The following items were deleted from the chart) 09/20 22:27 22:27 BASIC METABOLIC PANEL+C.LAB.BRZ ordered. EDNM EDNM 22:27 22:27 CBC+H.LAB.BRZ ordered. EDMS EDMS 22:27 22:27 HEPATIC FUNCTION+C.LAB.BRZ ordered. EDNM EDMS 22:27 22:27 MAGNESIUM+C.LAB.BRZ ordered. EDNM EDMS 22:27 22:27 PROBNP+C.LAB.BRZ ordered. EDNM EDMS 22:27 22:27 PROTIME (+INR)+COAG.LAB.BRZ ordered. EDNM EDMS 22:27 22:27 Troponin High Sensitivity+C.LAB.BRZ ordered. EDNM EDMS 22:27 22:27 Urinalysis+U.LAB.BRZ ordered. EDMS EDMS 22:27 22:27 LIPASE+C.LAB.BRZ ordered. EDNM EDMS 22:27 22:27 Chest Single View+RAD.RAD.BRZ ordered. EDNM EDNM :56 22:56 Extrem Venous W Compression Justin+US.RAD.BRZ ordered. EDNM EDNM 09/21 00:56 09/20 23:58 josue kmf
--- NOTE | 2024-09-20 23:59 | ER ---
Nurse's Notes [facility] Name: Caren Cuadra Age: 74 yrs Sex: Female : 1950 Arrival Date: 09/20/2024 Time: 22:16 Bed 2 Private MD: Diagnosis: Chest pain, unspecified;Chronic combined systolic (congestive) and diastolic (congestive) heart failure;Edema, unspecified;Venous insufficiency (chronic) (peripheral);Presence of cardiac pacemaker;UTI/ Urinary tract infection, site not specified;Anemia, unspecified Presentation: 09/20 22:34 Chief complaint: EMS states: from [facility] c/o CP and shortness of breath al5 since 3 pm, also is experiencing pain, swelling, redness, and tightening of the skin in the lower extremities. Coronavirus screen: At this time, the client does not indicate any symptoms associated with coronavirus-19. Ebola Screen: No symptoms or risks identified at this time. Initial Sepsis Screen: Does the patient meet any 2 criteria? No. Patient's initial sepsis screen is negative. Does the patient have a suspected source of infection? No. Patient's initial sepsis screen is negative. Risk Assessment: Do you want to hurt yourself or someone else? Patient reports no desire to harm self or others. Onset of symptoms was September 20, 2024. Care prior to arrival: Medication(s) given: 50 mcg fentanyl, 4 mg zofran IV initiated. 24G R hand. 22:34 Method Of Arrival: EMS: [facility] al5 22:34 Acuity: ROSEMARIE 2 al5 22:41 Care prior to arrival: nasal cannula, normally is on 3L at [facility]. al5 Triage Assessment: 22:38 General: Appears in no apparent distress. uncomfortable, Behavior is calm, cooperative. al5 Pain: Complains of pain in chest, right leg and left leg Pain currently is 9 out of 10 on a pain scale. EENT: No signs and/or symptoms were reported regarding the EENT system. Neuro: Level of Consciousness is awake, alert, obeys commands, Oriented to person, place, time, situation. Cardiovascular: Reports chest pain, shortness of breath, Capillary refill < 3 seconds Patient's skin is warm and dry. Rhythm is sinus rhythm. Respiratory: Airway is patent Respiratory effort is even, unlabored, Respiratory pattern is regular, symmetrical. GI: No signs and/or symptoms were reported involving the gastrointestinal system. Abdomen is round. : No signs and/or symptoms were reported regarding the genitourinary system. Derm: redness and swelling bilateral lower extremities. Musculoskeletal: No signs and/or symptoms reported regarding the musculoskeletal system. Historical: - Allergies: 22:36 articane hydrochloride; al5 22:36 Codeine; al5 22:36 Darvon; al5 22:36 dye assisted blue; al5 22:36 e-mycin; al5 22:36 idoxuridine; al5 22:36 Iodine; al5 22:36 Macrobid; al5 22:36 TETRACYCLINES; al5 - Home Meds: 22:36 Aimovig Autoinjector 140 mg/mL subcutaneous Auto-Injector 140 mg every month [Active]; al5 alendronate 70 mg Oral tablet 1 tab every week [Active]; aspirin 81 mg Oral capsule 1 cap daily [Active]; atorvastatin 20 mg Oral tablet 1 tab daily [Active]; Breo Ellipta 100-25 mcg/dose inhalation Blister 1 inhalation daily [Active]; carvedilol 3.125 mg Oral tablet 1 tab 2 times per day [Active]; cetirizine 10 mg Oral tablet 1 tab daily [Active]; donepezil 10 mg Oral tablet 1 tab daily [Active]; FeroSul 325 mg (65 mg iron) Oral tablet 1 tab daily [Active]; hydrocodone-acetaminophen 5-325 mg Oral tablet 1 tab every 8 hours [Active]; metformin 500 mg Oral Tablet 1 tab 2 times per day [Active]; mirtazapine 30 mg Oral tablet 1 tab daily [Active]; montelukast 10 mg Oral tablet 1 tab daily [Active]; nitroglycerin 0.4 mg SL Tablet 1 tab every 5 to 15 minutes for acute episode of anginal pain [Active]; oxybutynin chloride 15 mg Oral Tablet 1 tab BID [Active]; pregabalin 25 mg Oral capsule 1 cap 2 times per day [Active]; ropinirole 0.5 mg Oral tablet 1 tab daily [Active]; SPIRIVA 2.5 MCG DAILY INHALE 2 PUFFS DAILY [Active]; torsemide 20 mg Oral tablet 2 tabs daily [Active]; Ubrelvy 100 mg Oral tablet 1 tab [Active]; Ventolin HFA 90 mcg/actuation Nebulizer HFA Aerosol Inhaler 2 inhalations 6 times per day [Active]; Zofran Oral 4 mg as needed [Active]; - PMHx: 22:36 Anxiety; Atrial fibrillation; COPD; CVA; depressive disorder; diabetes mellitus; al5 Migraine; overactive bladder; radiating back pain; RLS; - PSHx: 22:36 None; al5 - Immunization history:: Adult Immunizations up to date. - Infectious Disease History:: Denies. - Social history:: Smoking status: Patient denies any tobacco usage or history of. Screenin:42 [facility] ED Fall Risk Assessment (Adult) History of falling in the last 3 months, al5 including since admission No falls in past 3 months (0 pts) Confusion or Disorientation No (0 pts) Intoxicated or Sedated Yes (3 pts) Impaired Gait Yes (1 pt) Mobility Assist Device Used Yes (1 pt) Altered Elimination Yes (1 pt) Score/Fall Risk Level 3 or more points = High Risk Oriented to surroundings, Maintained a safe environment, Hourly rounding (assess needs \T\ fall precautionary measures) done, Apply high fall risk patient identification: yellow non skid footwear/ fall signage. Abuse screen: Denies threats or abuse. Denies injuries from another. Nutritional screening: No deficits noted. Tuberculosis screening: No symptoms or risk factors identified. Assessment: 22:42 Reassessment: see triage assessment. Pain: Pain does not radiate. Pain began 7 hours al5 ago. 1103 00:00 Reassessment: Patient appears in no apparent distress at this time. No changes from al5 previously documented assessment. Patient and/or family updated on plan of care and expected duration. Pain level reassessed. Patient is alert, oriented x 3, equal unlabored respirations, skin warm/dry/pink. 01:16 Reassessment: Patient appears in no apparent distress at this time. No changes from al5 previously documented assessment. Patient and/or family updated on plan of care and expected duration. Pain level reassessed. Patient is alert, oriented x 3, equal unlabored respirations, skin warm/dry/pink. 03:16 Reassessment: Patient appears in no apparent distress at this time. No changes from al5 previously documented assessment. Patient and/or family updated on plan of care and expected duration. Pain level reassessed. Patient is alert, oriented x 3, equal unlabored respirations, skin warm/dry/pink. Vital Signs: 09/20 22:34 BP 137 / 74; Pulse 81; Resp 18; Temp 98.1; Pulse Ox 100% on 3 lpm NC; Weight 73.94 kg al5 (M); Height 5 ft. 5 in. ; Pain 9/10; 22:40 BP 142 / 124; Pulse 82; Resp 18; Pulse Ox 100% on 3 lpm NC; al5 23:00 BP 137 / 115; Pulse 109; Resp 18; Pulse Ox 100% on 3 lpm NC; al5 23:13 BP 117 / 80; Pulse 79; Resp 19; Pulse Ox 100% on 3 lpm NC; al5 23:26 BP 112 / 71; Pulse 79; Resp 15; Pulse Ox 100% on 3 lpm NC; al5 23:41 BP 123 / 71; Pulse 78; Resp 19; Pulse Ox 100% on 3 lpm NC; al5 09/21 00:00 BP 118 / 77; Pulse 79; Resp 18; Pulse Ox 100% on 3 lpm NC; al5 00:20 BP 120 / 78; Pulse 79; Resp 20; Pulse Ox 100% on 3 lpm NC; al5 00:40 BP 121 / 67; Pulse 77; Resp 16; Pulse Ox 100% on 3 lpm NC; al5 01:00 BP 118 / 77; Pulse 75; Resp 18; Pulse Ox 99% on 3 lpm NC; al5 01:20 BP 123 / 78; Pulse 82; Resp 15; Pulse Ox 100% on 3 lpm NC; al5 01:40 BP 104 / 68; Pulse 88; Resp 15; Pulse Ox 98% on R/A; al5 02:00 BP 126 / 79; Pulse 77; Resp 18; Pulse Ox 100% on 3 lpm NC; al5 02:30 BP 121 / 79; Pulse 74; Resp 16; Pulse Ox 99% on 3 lpm NC; al5 03:00 BP 122 / 80; Pulse 99; Resp 15; Pulse Ox 100% on 3 lpm NC; al5 09/20 22:34 Body Mass Index 27.12 (73.94 kg, 165.1 cm) al5 09/20 22:34 Pain Scale: Adult [facility] ED Course: 09/20 22:25 Patient arrived in ED. jj7 22:26 Michael Preciado MD is Attending Physician. [facility] 22:33 Kaia Red RN is Primary Nurse. al5 22:36 Triage completed. al5 22:41 Arm band placed on right wrist. Patient placed in the treatment room, on a stretcher. al5 22:43 Patient has correct armband on for positive identification. Bed in low position. Call al5 light in reach. Side rails up X2. Provided Education on: plan of care. Client placed on continuous cardiac and pulse oximetry monitoring. NIBP monitoring applied. potline monitor on. 22:43 No provider procedures requiring assistance completed. Maintain EMS IV. Dressing al5 intact. Good blood return noted. Site clean \T\ dry. Gauge \T\ site: 24G R hand. Oxygen administration via nasal cannula \T\ 3L/min. 22:49 Basic Metabolic Panel Sent. af3 22:49 CBC with Diff Sent. af3 22:49 LFT's Sent. af3 22:49 Magnesium Sent. af3 22:49 NT PRO-BNP Sent. af3 22:49 PT-INR Sent. af3 22:49 Troponin HS Sent. af3 22:49 Lipase Sent. af3 22:49 Inserted saline lock: 22 gauge in left forearm, using aseptic technique. Blood af3 collected. Flushed with 10 mL NS. 23:03 XRAY Chest (1 view) In Process Unspecified. EDMS 23:05 EKG done, by debug technician. af3 23:56 Marlene Sharif MD is Hospitalizing Provider. [facility] 09/21 00:15 US Extremity Venous W Compression Justin In Process Unspecified. EDMS 01:19 Patient admitted, IV remains in place. al5 Administered Medications: 09/20 23:40 Drug: Furosemide IVP 20 mg IVP once; give over 2 minutes Route: IVP; Site: left forearm;al5 09/21 00:47 Follow up: Response: No adverse reaction al5 09/20 23:41 Drug: morphine IVP or IV 2 mg IVP once over 4 mins Route: IVP; Infused Over: 4 mins; al5 Site: left forearm; 09/21 00:46 Follow up: Response: No adverse reaction; Pain is decreased al5 09/20 23:41 Drug: Ondansetron IVP 4 mg IVP once; over 2 minutes Route: IVP; Site: left forearm; al5 09/21 00:46 Follow up: Response: No adverse reaction; Nausea is decreased al5 00:46 Drug: Mupirocin Topical Ointment 2 % 1 application Topical once Route: Topical; Site: al5 affected area; 00:55 Drug: Rocephin IV 1 grams IV at per protocol once; Given slow IV push per pharmacy al5 instructions Route: IV; Rate: per protocol; Site: right forearm; 01:37 Follow up: Response: No adverse reaction; IV Status: Completed infusion; IV Intake: al5 100ml Medication: 09/20 22:43 VIS not applicable for this client. al5 Intake: 09/21 01:37 IV: 100ml; Total: 100ml. al5 Outcome: 09/20 23:58 Decision to Hospitalize by Provider. josue 09/21 01:53 Admitted to Med/surg room 207, Report called to SACHIN KHOURY AND SBAR FAXED TO M/S juanElizabeth 207 03:16 Condition: stable al5 03:18 Patient left the ED. al5 Signatures: Dispatcher [employer] EDLA Michael Preciado MD MD cha Johnson, Juwairiyah RN RN jjKaia Boland RN RN al5 Fry, Ashley af3
--- NOTE | 2024-09-21 00:21 | RAD REPORT ---
EXAM: XR Chest, 1 View CLINICAL HISTORY: The patient is 74 years old and is Female; DYSPNEA TECHNIQUE: Frontal view of the chest. COMPARISON: Chest radiograph September 04, 2024 FINDINGS: LUNGS: Unremarkable. No consolidation. PLEURAL SPACE: Unremarkable. No pneumothorax. HEART: The cardiac silhouette is enlarged. MEDIASTINUM: Unremarkable. Normal mediastinal contour. BONES/JOINTS: Degenerative changes of the bones is noted. No acute fracture. TUBES, LINES AND DEVICES: A left-sided pacemaker is present. UPPER ABDOMEN: Unremarkable as visualized. IMPRESSION: Cardiomegaly without failure. Electronically signed by: Nicole Morrison MD 09/20/2024 11:47 PM CDT RP Due to temporary technical issues with the PACS/[employer] reporting system, reports are being nura d by the in-house radiologist without review as a courtesy to ensure prompt reporting the interpreting radiologist is fully responsible for the content of the report. Transcribed Date/Time: 09/21/2024 12:21 AM
[2024-09-21] MEDS ORDERED: ALBUTEROL 2.5 MG/3 ML NEB SOL NEB PRN (00:38)
[2024-09-21] MEDS ORDERED: D10W 125 ML IV PRN (00:44)
[2024-09-21] MEDS ORDERED: GLUCAGON 1 MG/VIAL IM PRN (00:44)
[2024-09-21] MEDS: CEFTRIAXONE 1000 MG/VIAL IM ONE (00:45)
[2024-09-21] MEDS ORDERED: NA CHLORIDE 0.9% 50 ML ONE (00:49)
[2024-09-21] MEDS ORDERED: CEFTRIAXONE 1000 MG/VIAL ONE (00:49)
--- NOTE | 2024-09-21 00:56 | P.HP ---
Certification for Inpatient With expected LOS: <2 Midnights <Abbey Landin - Last Filed: 09/21/24 00:50> Patient History Date of Service: 09/21/24 Reason for admission: CHF exacerbation, UTI History of Present Illness: 74-year-old woman with a past medical history significant for dementia, A-fib, DM non-insulin dependent, COPD, and CHF presented [facility] emergency room [facility] complaining of shortness of breath that began earlier today. The patient was last seen in this ED on 09/11 with similar complaint. She reports that she is not on home oxygen. Also, she reports she noticed swelling in her bilateral lower extremities today. She has not attempted any treatment for her complaint, and states that nothing worsens her shortness of breath. Patient states that she is a never smoker. She denies fever and chest pain at this time. - Past Medical/Surgical History Diabetic: Yes -: DM -: CVA -: Depression -: COPD -: Atrial Fibrillation -: RLS -: Migraines -: Overactive Bladder -: dementia -: Pacemaker - Social History Smoking Status: Never smoker Alcohol use: No <Abbey Landin - Last Filed: 09/21/24 00:50> Date of Service: 09/21/24 <brian goyal - Last Filed: 09/21/24 17:30> Allergies adhesive tape Allergy (Verified 09/04/24 06:22) Hives/Rash articaine Allergy (Verified 09/04/24 06:22) Hives codeine Allergy (Verified 09/04/24 06:22) Itching erythromycin base Allergy (Verified 09/04/24 06:22) Hives idoxuridine Allergy (Verified 09/04/24 06:22) Hives iodine Allergy (Verified 09/04/24 06:22) Hives nitrofurantoin Allergy (Verified 09/04/24 06:22) Hives propoxyphene [From Darvon] Allergy (Verified 09/04/24 06:22) Hives Tetracyclines Allergy (Verified 09/04/24 06:22) Hives dye JAIL blue, green, red Allergy (Uncoded 09/04/24 06:22) Hives Home Medications: Furosemide 40 mg PO DAILY 5 Days #5 tab 09/06/24 Review of Systems Respiratory: Shortness of Breath Cardiovascular: Edema Gastrointestinal: Abdominal Pain (right upper quadrant) Genitourinary: Other (adult diaper intact) <,Abbey Q - Last Filed: 09/21/24 00:50> Physical Examination - Vital Signs Temperature: 98.1 F Blood Pressure: 118/77 Pulse: 75 Respirations: 20 Pulse Ox (%): 100 (has nasal cannula) - Physical Exam General: Alert, Oriented x3 HEENT: Atraumatic, Normocephalic Neck: JVD not distended Respiratory: Crackles/rales Cardiovascular: Regular rate/rhythm, No gallops, No murmurs Gastrointestinal: Normal bowel sounds, Non-distended, Tenderness (right upper quadrant) Musculoskeletal: Swelling, Tenderness (b/l lower extremites edematous, right worse than left. open blister to left leg, covered blister on right leg) Neurological: Normal strength at 5/5 x4 extr, Sensation intact Urinary: Other (adult diaper intact) - Studies Laboratory Data (last 24 hrs) 09/20/24 09/20/24 09/20/24 22:47 22:47 22:47 WBC 8.60 Hgb 8.9 L Hct 29.1 L Plt Count 301 PT 11.9 INR 1.06 Sodium 137 Potassium 4.7 BUN 34 H Creatinine 1.24 H Glucose 157 H Magnesium 2.2 Total Bilirubin 0.2 AST < 10 L ALT < 14 Alkaline Phosphatase 108 Lipase 35 <Abbey Landin Q - Last Filed: 09/21/24 00:50> - Studies Laboratory Data (last 24 hrs) 09/20/24 09/20/24 09/20/24 22:47 22:47 22:47 WBC 8.60 Hgb 8.9 L Hct 29.1 L Plt Count 301 PT 11.9 INR 1.06 Sodium 137 Potassium 4.7 BUN 34 H Creatinine 1.24 H Glucose 157 H Magnesium 2.2 Total Bilirubin 0.2 AST < 10 L ALT < 14 Alkaline Phosphatase 108 Lipase 35 <brian goyal - Last Filed: 09/21/24 17:30> Assessment and Plan - Problems (Diagnosis) (1) Acute exacerbation of CHF (congestive heart failure) Current Visit: No Status: Acute Qualifiers: Heart failure type: diastolic Qualified Code(s): I50.33 - Acute on chronic diastolic (congestive) heart failure (2) COPD (chronic obstructive pulmonary disease) Current Visit: No Status: Acute Qualifiers: COPD type: chronic bronchitis Chronic bronchitis type: simple Qualified Code(s): J41.0 - Simple chronic bronchitis (3) DM2 (diabetes mellitus, type 2) Current Visit: No Status: Acute Qualifiers: Diabetes mellitus detention insulin use: without detention use Diabetes mellitus complication status: without complication Qualified Code(s): E11.9 - Type 2 diabetes mellitus without complications (4) Dementia Current Visit: No Status: Chronic Qualifiers: Dementia type: unspecified type Dementia severity: moderate Dementia behavioral or psychological symptom: without behavioral, psychotic, or mood disturbance or anxiety Qualified Code(s): F03.B0 - Unspecified dementia, mod erate, without behavioral disturbance, psychotic disturbance, mood disturbance, and anxiety (5) UTI (urinary tract infection) Current Visit: Yes Status: Acute (6) Frailty Current Visit: Yes Status: Acute - Plan CHF exacerbation: Admit to floor Telemetry ordered Cardiology consulted Pulm consulted Echocardiogram from 09/11 revealed diastolic dysfunction. EF 55 to 60% Nuclear stress test from 09/11 revealed no stress induced ischemia Pharm stress test from 09/11 revealed paced rhythm (has pacemaker appropriately placed) IV Lasix ordered (IV Lasix 20 given in ED) CT chest ordered to rule out pulmonary embolism (premedicated with Benadryl due to allergy) BNP, trop, other lab work ordered to trend Will monitor input/output, daily weights COPD: IV Solu-Medrol once ordered CXR revealed no abnormality Ultrasound of bilateral lower extremities revealed no DVT UTI: Ceftriaxone once given Pena order placed Dementia: Resumed home medication DM: On insulin sliding scale Frailty: PT/OT ordered to improve function Encouraged increased protein intake Encouraged healthy sleep habits - Advance Directives Does patient have a Living Will: No Does patient have a Durable POA for Healthcare: No - Code Status/Comfort Care Code Status Assessed: Yes Code Status: Full Code <Abbey Landin - Last Filed: 09/21/24 00:50>
--- NOTE | 2024-09-21 00:58 | RAD REPORT ---
EXAM: US Duplex Bilateral Lower Extremities Veins CLINICAL HISTORY: The patient is 74 years old and is Female; Pain;Swelling TECHNIQUE: Real-time duplex ultrasound scan of the bilateral lower extremity veins integrating B-mode two-dime nsional vascular structure, Doppler spectral analysis, color flow Doppler imaging and compression. COMPARISON: No relevant prior studies available. FINDINGS: RIGHT DEEP VEINS: Unremarkable. No DVT in the visualized common femoral, femoral, proximal deep femoral, popliteal, posterior tibial veins. The veins demonstrate normal color flow, are normally compressible, with normal phasic flow and/or augmentation response. RIGHT SUPERFICIAL VEINS: Unremarkable. No thrombus in the visualized right great saphenous vein . LEFT DEEP VEINS: Unremarkable. No DVT in the visualized common femoral, femoral, proximal deep femoral, popliteal, posterior tibial veins. The veins demonstrate normal color flow, are normally compressible, with normal phasic flow and/or augmentation response. LEFT SUPERFICIAL VEINS: Unremarkable. No thrombus in the visualized left great saphenous vein. SOFT TISSUES: A linear collection within the subcutaneous tissues of the right inner thigh is noted of uncertain etiology. No popliteal cyst. IMPRESSION: 1. No DVT within the bilateral lower extremity vessels. 2. Small anechoic collection within the subcutaneous tissues of the right inner thigh. Electronically signed by: Nicole Morrison MD 09/21/2024 12:54 AM CDT RP Due to temporary technical issues with the PACS/[employer] reporting system, reports are being sign ed by the in-house radiologist without review as a courtesy to ensure prompt reporting the interpreting rad iologist is fully responsible for the content of the report. Transcribed Date/Time: 09/21/2024 12:58 AM
[2024-09-21] MEDS: INSULIN REGULAR (HUMAN) 100 UNIT/ML SQ SCH (01:00)
[2024-09-21] MEDS: DIPHENHYDRAMINE 25 MG TAB/CAP PO ONE (01:12)
[2024-09-21] MEDS ORDERED: IPRATROPIUM BROM 0.5MG/2.5ML ONE (02:27)
[2024-09-21] MEDS: IPRATROPIUM BROM 0.5MG/2.5ML NEB SCH (02:43)
[2024-09-21] MEDS: DIPHENHYDRAMINE 25 MG TAB/CAP ONE (03:47)
[2024-09-21] MEDS: METHYLPREDNISOLONE 125 MG INJ ONE (03:48)
[2024-09-21] MEDS: METHYLPREDNISOLONE 125 MG INJ IV ONE (04:05)
[2024-09-21] MEDS: MORPHINE 2 MG/ML SYR IV ONE (04:47)
[2024-09-21 07:50] LABS: Magnesium 2.2 mg/dL (1.6-2.4); Phosphorus 4.1 mg/dL (2.5-4.9); Thyroid Stimulating Hormone 3.15 uIU/mL (0.358-3.740)
[2024-09-21] MEDS: FUROSEMIDE 40 MG/4 ML VIAL IV SCH (08:19)
[2024-09-21] MEDS: ENOXAPARIN 40 MG/0.4 ML SQ SCH ×2 (08:24→09:00)
[2024-09-21] MEDS: ACETAMINOPHEN 325 MG TABLET PO PRN (08:26)
[2024-09-21] MEDS: Oxycodone HCl/Acetaminophen 5/325 MG TAB PO PRN (10:26)
[2024-09-21] MEDS: SPIRONOLACTONE 25 MG TABLET PO SCH (10:52)
[2024-09-21] MEDS: CEPHALEXIN 500 MG CAP PO SCH (12:28)
[2024-09-21] MEDS: ONDANSETRON 4 MG (ODT) TAB PO PRN (13:08)
[2024-09-21] MEDS: MORPHINE 2 MG/ML SYR IV PRN (13:16)
[2024-09-21] MEDS: ARFORMOTEROL TARTRATE 15 MCG/2 ML VIAL.NEB NEB SCH (20:01)
[2024-09-21] MEDS: DONEPEZIL HCL 5 MG TAB PO SCH (20:36)
[2024-09-22 05:38] LABS: Troponin High Sensitivity 9.7 pg/mL (<58.9)
[2024-09-22 06:49] LABS: Absolute Basophils 0.1 K/uL (0-0.5); Absolute Eosinophils 0.3 K/uL (0-0.5); Absolute Lymphocytes (CBC) 1.5 K/uL (0.7-4.9); Absolute Monocytes 0.6 K/uL (0.1-1.3); Absolute Neutrophil 3.9 K/uL (1.8-8.0); Eosinophils % 4.4 % (0-4.4); Hematocrit 29.4 % (36.0-45.0); Hemoglobin 9.1 g/dL (12.0-15.0); Lymphocytes % 23.1 % (15.3-44.8); MCH 27.4 pg (27.0-35.0); MCHC 30.9 g/dL (32.0-36.0); MCV 88.8 fL (80-100); MPV 8.1 fL (7.6-11.3); Neutrophils % 61.5 % (41.7-73.7); Nucleated Red Blood Cells % 0.1 % (0-0); Platelets 326 thou/uL (152-406); RBC Red Blood Cell Count 3.31 M/uL (3.86-4.86); Red Cell Distribution Width 18.2 % (12.1-15.2)
[2024-09-22] MEDS: FLU (Fluarix Triv) TS24-25(6MOS UP)/PF 45 MCG/0.5 ML Syringe IM ONE (07:15)
[2024-09-22 07:47] LABS: AST/SGOT 14 U/L (15-37); Albumin 2.6 g/dL (3.4-5.0); Albumin/Globulin Ratio 0.7 (1.1-1.8); Alkaline Phosphatase 100 U/L (45-117); Anion Gap 9.8 mEq/L (5.0-15.0); BUN Blood Urea Nitrogen 40 mg/dL (7-18); Bicarbonate 27 mEq/L (21-32); Bilirubin Total 0.2 mg/dL (0.2-1.0); Ferritin 8.2 ng/mL (8-252); Globulin 3.7 g/dL (2.3-3.5); Glomerular Filtration Rate 46 ml/min (=/>90); Glucose Level 173 mg/dL (74-106); NT PRO-BNP 1766 pg/mL (<450); Potassium 4.8 mEq/L (3.5-5.1); Protein, Total 6.3 g/dL (6.4-8.2); Sodium Level 137 mEq/L (136-145)
[2024-09-22 07:50] LABS: ALT/SGPT < 14 U/L (13-56)
[2024-09-22] MEDS: SILVER SULFADIAZINE 1% 50 GM TOP SCH (09:00)
--- NOTE | 2024-09-22 10:39 | P.PN ---
Date of Service: 09/22/24 Review of Systems Respiratory: Shortness of Breath Cardiovascular: Edema Gastrointestinal: Abdominal Pain (right upper quadrant) Genitourinary: Other Physical Examination - Vital Signs reviewed (HTN this am, will reconcile meds, Nifedepine for now) - Physical Exam General: Alert, Oriented x3 HEENT: Atraumatic, Normocephalic Neck: JVD not distended Respiratory: Crackles/rales, expiratory wheeze Cardiovascular: Regular rate/rhythm, No gallops, No murmurs Gastrointestinal: Normal bowel sounds, Non-distended, Tenderness (right upper quadrant) Musculoskeletal: Swelling, Tenderness (b/l lower extremites edematous, right worse than left. covered open blister to left leg, covered blister on right leg) Neurological: Normal strength at 5/5 x4 extr, Sensation intact Urinary: Other (adult diaper intact) Assessment and Plan - Problems (Diagnosis) (1) Acute exacerbation of CHF (congestive heart failure) Current Visit: No Status: Acute Qualifiers: Heart failure type: diastolic Qualified Code(s): I50.33 - Acute on chronic diastolic (congestive) heart failure (2) COPD (chronic obstructive pulmonary disease) Current Visit: No Status: Acute Qualifiers: COPD type: chronic bronchitis Chronic bronchitis type: simple Qualified Code(s): J41.0 - Simple chronic bronchitis (3) DM2 (diabetes mellitus, type 2) Current Visit: No Status: Acute Qualifiers: Diabetes mellitus head librarian insulin use: without head librarian use Diabetes mellitus complication status: without complication Qualified Code(s): E11.9 - Type 2 diabetes mellitus without complications (4) Dementia Current Visit: No Status: Chronic Qualifiers: Dementia type: unspecified type Dementia severity: moderate Dementia behavioral or psychological symptom: without behavioral, psychotic, or mood disturbance or anxiety Qualified Code(s): F03.B0 - Unspecified dementia, moderate, without behavioral disturbance, psychotic disturbance, mood disturbance, and anxiety (5) UTI (urinary tract infection) Current Visit: Yes Status: Acute (6) Frailty Current Visit: Yes Status: Acute - Plan CHF exacerbation: Admit to floor Telemetry ordered Cardiology consulted Pulm consulted Echocardiogram from 09/11 revealed diastolic dysfunction. EF 55 to 60% Nuclear stress test from 09/11 revealed no stress induced ischemia Pharm stress test from 09/11 revealed paced rhythm (has pacemaker appropriately placed) IV Lasix ordered (IV Lasix 20 given in ED) CT chest ordered to rule out pulmonary embolism (premedicated with Benadryl due to allergy) BNP, trop, other lab work ordered to trend Will monitor input/output, daily weights COPD: IV Solu-Medrol once ordered CXR revealed no abnormality Ultrasound of bilateral lower extremities revealed no DVT UTI: Ceftriaxone Pena order placed Dementia: Resumed home medication DM: On insulin sliding scale blood glucose monitoring Frailty: PT/OT ordered to improve function Encouraged increased protein intake Encouraged healthy sleep habits - Advance Directives Does patient have a Living Will: No Does patient have a Durable POA for Healthcare: No - Code Status/Comfort Care Code Status Assessed: Yes Code Status: Full Code
--- NOTE | 2024-09-22 11:23 | P.CNS ---
Date of Consult: 09/22/24 Chief Complaint: CHF exacerbation, UTI History of Present Illness: patient with PMH of diastolic heart failure, atrial fibrillation, presented with worsening SOB and bilateral lower extremities swelling, denies any other cardiac symptoms. Allergies adhesive tape Allergy (Verified 09/04/24 06:22) Hives/Rash articaine Allergy (Verified 09/04/24 06:22) Hives codeine Allergy (Verified 09/04/24 06:22) Itching erythromycin base Allergy (Verified 09/04/24 06:22) Hives idoxuridine Allergy (Verified 09/04/24 06:22) Hives iodine Allergy (Verified 09/04/24 06:22) Hives nitrofurantoin Allergy (Verified 09/04/24 06:22) Hives propoxyphene [From Darvon] Allergy (Verified 09/04/24 06:22) Hives Tetracyclines Allergy (Verified 09/04/24 06:22) Hives dye SHELTER blue, green, red Allergy (Uncoded 09/04/24 06:22) Hives Home medications list reviewed: Yes Home Medications: Furosemide 40 mg PO DAILY 5 Days #5 tab 09/06/24 - Past Medical/Surgical History Diabetic: Yes -: DM -: CVA -: Depression -: COPD -: Atrial Fibrillation -: RLS -: Migraines -: Overactive Bladder -: dementia -: Pacemaker - Social History Alcohol use: No Place of Residence: Prison Review of Systems 10-point ROS is otherwise unremarkable Physical Examination Temp Pulse Resp BP Pulse Ox 96.8 F 77 20 137/71 99 09/22/24 08:00 09/22/24 08:00 09/22/24 10:35 09/22/24 08:00 09/22/24 10:35 General: Alert, In no apparent distress HEENT: Atraumatic, PERRLA, Mucous membr. moist/pink, EOMI, Sclerae nonicteric Neck: Supple, 2+ carotid pulse no bruit, No LAD, Without JVD or thyroid abnormality Respiratory: Clear to auscultation bilaterally, Normal air movement Cardiovascular: Regular rate/rhythm, Normal S1 S2 Gastrointestinal: Normal bowel sounds, No tenderness Musculoskeletal: No tenderness Integumentary: No rashes Neurological: Normal gait, Normal speech, Normal tone, Normal affect Lymphatics: No axilla or inguinal lymphadenopathy - Problems (1) Acute on chronic diastolic heart failure Current Visit: Yes Status: Acute Plan: Lasix 40 mg IV bid Aldactone 25 mg daily Continue to monitor input and output and electrolytes. (2) Atrial fibrillation Current Visit: No Status: Acute Plan: Currently she is paced Metoprolol 12.5 mg po BID Eliquis 2.5 mg po BID
[2024-09-22] MEDS: SOD FERRIC GLUC COMPLX/SUCROSE 125 MG in NA CHLORIDE 0.9% 100 ML IV SCH (11:44)
--- NOTE | 2024-09-22 12:15 | EKG ---
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
[2024-09-22] MEDS: METOPROLOL TAR 25 MG TAB PO SCH (17:11)
[2024-09-22] MEDS: APIXABAN 2.5 MG TABLET PO SCH (20:31)
[2024-09-23 06:14] LABS: Albumin 2.8 g/dL (3.4-5.0); Albumin/Globulin Ratio 0.8 (1.1-1.8); Alkaline Phosphatase 94 U/L (45-117); Anion Gap 8.8 mEq/L (5.0-15.0); BUN Blood Urea Nitrogen 41 mg/dL (7-18); Bicarbonate 29 mEq/L (21-32); Bilirubin Total 0.2 mg/dL (0.2-1.0); Globulin 3.5 g/dL (2.3-3.5); Glomerular Filtration Rate 56 ml/min (=/>90); Glucose Level 162 mg/dL (74-106); Potassium 4.8 mEq/L (3.5-5.1); Protein, Total 6.3 g/dL (6.4-8.2); Sodium Level 136 mEq/L (136-145); Troponin High Sensitivity 10.6 pg/mL (<58.9)
[2024-09-23 06:20] LABS: ALT/SGPT < 14 U/L (13-56); AST/SGOT < 10 U/L (15-37)
[2024-09-23 06:26] LABS: Absolute Eosinophils 0.4 K/uL (0-0.5); Absolute Lymphocytes (CBC) 0.8 K/uL (0.7-4.9); Absolute Monocytes 0.3 K/uL (0.1-1.3); Absolute Neutrophil 5.2 K/uL (1.8-8.0); Basophils % 0.7 % (0-1.3); Eosinophils % 5.6 % (0-4.4); Hemoglobin 9.5 g/dL (12.0-15.0); Lymphocytes % 12.5 % (15.3-44.8); MCHC 31.5 g/dL (32.0-36.0); MCV 88.8 fL (80-100); MPV 7.9 fL (7.6-11.3); Monocytes % 3.8 % (3.3-12.3); Neutrophils % 77.4 % (41.7-73.7); Platelets 313 thou/uL (152-406); RBC Red Blood Cell Count 3.38 M/uL (3.86-4.86); Red Cell Distribution Width 18.2 % (12.1-15.2)
--- NOTE | 2024-09-23 11:40 | P.PN ---
Subjective Date of Service: 09/23/24 Chief Complaint: CHF exacerbation, UTI Subjective: No new changes, No C/O voiced, Tolerating diet, Ambulating, Improving Review of Systems 10-point ROS is otherwise unremarkable Physical Examination - Vital Signs Temperature: 98.4 F Blood Pressure: 134/81 Pulse: 105 Respirations: 18 Pulse Ox (%): 98 - Physical Exam General: Alert, In no apparent distress HEENT: Atraumatic, PERRLA, EOMI Neck: Supple, JVD not distended Respiratory: Clear to auscultation bilaterally, Normal air movement Cardiovascular: Regular rate/rhythm, Normal S1 S2 Gastrointestinal: Normal bowel sounds, No tenderness Musculoskeletal: No tenderness Integumentary: No rashes Neurological: Normal speech, Normal tone, Normal affect Lymphatics: No axilla or inguinal lymphadenopathy - Studies Medications List Reviewed: Yes Assessment And Plan - Current Problems (Diagnosis) (1) Acute on chronic diastolic heart failure Current Visit: Yes Status: Acute Plan: Lasix 40 mg IV bid Aldactone 25 mg daily Continue to monitor input and output and electrolytes. (2) Atrial fibrillation Current Visit: No Status: Acute Plan: Currently she is paced Metoprolol 12.5 mg po BID Eliquis 2.5 mg po BID
--- NOTE | 2024-09-24 12:51 | P.PN ---
Subjective Date of Service: 09/24/24 Chief Complaint: CHF exacerbation, UTI Subjective: No new changes, No C/O voiced, Tolerating diet, Ambulating, Improving still feel she got fluids Review of Systems 10-point ROS is otherwise unremarkable Physical Examination - Vital Signs Temperature: 97.4 F Blood Pressure: 111/65 Pulse: 78 Respirations: 16 Pulse Ox (%): 97 - Physical Exam General: Alert, In no apparent distress HEENT: Atraumatic, PERRLA, EOMI Neck: Supple, JVD not distended Respiratory: Clear to auscultation bilaterally, Normal air movement Cardiovascular: Regular rate/rhythm, Normal S1 S2 Gastrointestinal: Normal bowel sounds, No tenderness Musculoskeletal: No tenderness Integumentary: No rashes Neurological: Normal speech, Normal tone, Normal affect Lymphatics: No axilla or inguinal lymphadenopathy - Studies Medications List Reviewed: Yes Assessment And Plan - Current Problems (Diagnosis) (1) Acute on chronic diastolic heart failure Current Visit: Yes Status: Acute Plan: Lasix 40 mg IV bid Aldactone 25 mg daily Continue to monitor input and output and electrolytes. (2) Atrial fibrillation Current Visit: No Status: Acute Plan: Currently she is paced Metoprolol 12.5 mg po BID Eliquis 2.5 mg po BID
--- NOTE | 2024-09-24 15:47 | P.PN ---
Date of Service: 09/24/24 Review of Systems leg pain all other 10 pt ROS unremarkable Physical Examination - Vital Signs reviewed - Physical Exam General: Alert, Oriented x3 HEENT: Atraumatic, Normocephalic Neck: JVD not distended Respiratory: Crackles/rales, expiratory wheeze Cardiovascular: Regular rate/rhythm, No gallops, No murmurs Gastrointestinal: Normal bowel sounds, Non-distended, Tenderness (right upper quadrant) Musculoskeletal: Swelling, Tenderness (b/l lower extremites mildly edematous, clean and dry dressings to bilateral lower ankles Neurological: Normal strength at 5/5 x4 extr, Sensation intact Urinary: Other (adult diaper intact) Assessment and Plan - Problems (Diagnosis) (1) Acute exacerbation of CHF (congestive heart failure) Current Visit: No Status: Acute Qualifiers: Heart failure type: diastolic Qualified Code(s): I50.33 - Acute on chronic diastolic (congestive) heart failure (2) COPD (chronic obstructive pulmonary disease) Current Visit: No Status: Acute Qualifiers: COPD type: chronic bronchitis Chronic bronchitis type: simple Qualified Code(s): J41.0 - Simple chronic bronchitis (3) DM2 (diabetes mellitus, type 2) Current Visit: No Status: Acute Qualifiers: Diabetes mellitus prison insulin use: without ocean transportation intermediary use Diabetes mellitus complication status: without complication Qualified Code(s): E11.9 - Type 2 diabetes mellitus without complications (4) Dementia Current Visit: No Status: Chronic Qualifiers: Dementia type: unspecified type Dementia severity: moderate Dementia behavioral or psychological symptom: without behavioral, psychotic, or mood disturbance or anxiety Qualified Code(s): F03.B0 - Unspecified dementia, moderate, without behavioral disturbance, psychotic disturbance, mood disturbance, and anxiety (5) UTI (urinary tract infection) Current Visit: Yes Status: Acute (6) Frailty Current Visit: Yes Status: Acute - Plan CHF exacerbation: Admit to floor Telemetry ordered Cardiology consulted Pulm consulted Echocardiogram from 09/11 revealed diastolic dysfunction. EF 55 to 60% Nuclear stress test from 09/11 revealed no stress induced ischemia Pharm stress test from 09/11 revealed paced rhythm (has pacemaker appropriately placed) IV Lasix ordered (IV Lasix 20 given in ED) CT chest ordered to rule out pulmonary embolism (premedicated with Benadryl due to allergy) BNP, trop, other lab work ordered to trend Will monitor input/output, daily weights COPD: IV Solu-Medrol once ordered CXR revealed no abnormality Ultrasound of bilateral lower extremities revealed no DVT UTI: Ceftriaxone Pena order placed Dementia: Resumed home medication DM: On insulin sliding scale blood glucose monitoring Frailty: PT/OT ordered to improve function Encouraged increased protein intake Encouraged healthy sleep habits 09/24/24 Pt medically ready to return to [facility]. She has thus far refused PT. Discussed with her that she must work with PT or will not be able to return to [facility]. Awaiting PT eval - Advance Directives Does patient have a Living Will: No Does patient have a Durable POA for Healthcare: No - Code Status/Comfort Care Code Status Assessed: Yes Code Status: Full Code
[2024-09-24] MEDS: Oxycodone HCl/Acetaminophen 5/325 MG TAB PO PRN (17:52)
[2024-09-24] MEDS: MORPHINE 2 MG/ML SYR IV ONE (20:01)
[2024-09-24] MEDS: MORPHINE 2 MG/ML SYR IM PRN (21:20)
[2024-09-25 00:21] VITALS: O2SAT 98
[2024-09-25] MEDS: HYDROCODONE/APAP 5/325 MG TAB PO PRN (00:58)
[2024-09-25] MEDS: MORPHINE 2 MG/ML SYR IM ONE (03:35)
[2024-09-25 04:49] LABS: Absolute Eosinophils 0.4 K/uL (0-0.5); Absolute Lymphocytes (CBC) 1.3 K/uL (0.7-4.9); Absolute Monocytes 0.5 K/uL (0.1-1.3); Basophils % 0.9 % (0-1.3); Hematocrit 27.4 % (36.0-45.0); Hemoglobin 8.4 g/dL (12.0-15.0); Lymphocytes % 25.3 % (15.3-44.8); MCH 27.2 pg (27.0-35.0); MCHC 30.7 g/dL (32.0-36.0); MCV 88.8 fL (80-100); Neutrophils % 56.8 % (41.7-73.7); Platelets 294 thou/uL (152-406); RBC Red Blood Cell Count 3.08 M/uL (3.86-4.86); Red Cell Distribution Width 17.8 % (12.1-15.2)
[2024-09-25 05:07] LABS: AST/SGOT 11 U/L (15-37); Albumin 2.6 g/dL (3.4-5.0); Albumin/Globulin Ratio 0.7 (1.1-1.8); Alkaline Phosphatase 88 U/L (45-117); Anion Gap 8.7 mEq/L (5.0-15.0); BUN Blood Urea Nitrogen 38 mg/dL (7-18); Bicarbonate 30 mEq/L (21-32); Bilirubin Total 0.2 mg/dL (0.2-1.0); Globulin 3.6 g/dL (2.3-3.5); Glomerular Filtration Rate 54 ml/min (=/>90); Glucose Level 190 mg/dL (74-106); Potassium 4.7 mEq/L (3.5-5.1); Protein, Total 6.2 g/dL (6.4-8.2); Sodium Level 135 mEq/L (136-145)
[2024-09-25 05:09] LABS: ALT/SGPT < 14 U/L (13-56)
[2024-09-25 07:26] VITALS: BMI 26.4
[2024-09-25 08:22] VITALS: TEMP 97.6
--- NOTE | 2024-09-25 10:48 | P.PN ---
Subjective Date of Service: 09/25/24 Chief Complaint: CHF exacerbation, UTI Subjective: No new changes, No C/O voiced, Tolerating diet, Ambulating, Improving still feel she got fluids Review of Systems 10-point ROS is otherwise unremarkable Physical Examination - Vital Signs Temperature: 97.6 F Blood Pressure: 111/72 Pulse: 85 Respirations: 14 Pulse Ox (%): 100 - Physical Exam General: Alert, In no apparent distress HEENT: Atraumatic, PERRLA, EOMI Neck: Supple, JVD not distended Respiratory: Clear to auscultation bilaterally, Normal air movement Cardiovascular: Regular rate/rhythm, Normal S1 S2 Gastrointestinal: Normal bowel sounds, No tenderness Musculoskeletal: No tenderness Integumentary: No rashes Neurological: Normal speech, Normal tone, Normal affect Lymphatics: No axilla or inguinal lymphadenopathy - Studies Medications List Reviewed: Yes Assessment And Plan - Current Problems (Diagnosis) (1) Acute on chronic diastolic heart failure Current Visit: Yes Status: Acute Plan: switch Lasix to 40 mg po BID Aldactone 25 mg daily Cardiology will sign off (2) Atrial fibrillation Current Visit: No Status: Acute Plan: Currently she is paced Metoprolol 12.5 mg po BID Eliquis 2.5 mg po BID
--- NOTE | 2024-09-25 11:47 | P.DS ---
Admission Date: 09/21/24 Discharge Date: 09/25/24 Disposition: TRANSFER TO LONGTERM Comment: [place] Reason for Admission: CHF exacerbation, UTI Consultations: Dr. Vasquez Brief History of Present Illness: 74-year-old woman with a past medical history significant for dementia, A-fib, DM non-insulin dependent, COPD, and CHF presented to the emergency room from her residential complaining of shortness of breath that began earlier today. The patient was last seen in this ED on 09/11 with similar complaint. She reports that she is not on home oxygen. Also, she reports she noticed swelling in her bilateral lower extremities today. She has not attempted any treatment for her complaint, and states that nothing worsens her shortness of breath. Patient states that she is a never smoker. She denies fever and chest pain at this time. Hospital Course: Mrs. Cuadra is stable for discharge. She declined working with PT while inpatient. The wounds on bilateral shins and clean and look healthy. We will continue wound care with her current regimen. She does have some acute on chronic heart failure. Dr. Vasquez recommends Lasix 40mg po BID, Spironolactone 25mg po daily, and continuation of her regular medications. She has been on 1-2L O2 "for comfort" but has not been hypoxic. No respiratory distress. Mrs. Cuadra transferred to W/C with assist to void x 2 overnight. W/C requested by patient has been delivered. renewal order to [facility] ordered. Vital Signs/Physical Exam: Temp Pulse Resp BP Pulse Ox 97.6 F 85 14 111/72 100 09/25/24 10:48 09/25/24 10:48 09/25/24 10:48 09/25/24 10:48 09/25/24 10:48 General: Alert, In no apparent distress, Oriented x3, Obese HEENT: Atraumatic, Normocephalic Neck: Supple Respiratory: Expiratory wheezes (mild) Cardiovascular: Regular rate/rhythm (paced), Edema (mild), Systolic murmur Capillary refill: <2 Seconds Gastrointestinal: Normal bowel sounds Musculoskeletal: Tenderness (bilateral lower ext) Integumentary: Other (ruptured blisters to anterior shins bilat. Clean and dry. Right side is larger than left. Both healthy appearing) Neurological: Normal speech, Normal affect, Abnormal tone Lymphatics: No axilla or inguinal lymphadenopathy External genitalia: Deferred Rectal: Deferred Laboratory Data at Discharge: WBC 5.30 thou/uL (4.3-10.9) 09/25/24 04:23 Hgb 8.4 g/dL (12.0-15.0) L 09/25/24 04:23 Hct 27.4 % (36.0-45.0) L 09/25/24 04:23 Plt Count 294 thou/uL (152-406) 09/25/24 04:23 PT 11.9 SECONDS (9.4-12.5) 09/20/24 22:47 INR 1.06 09/20/24 22:47 Sodium 135 mEq/L (136-145) L 09/25/24 04:23 Potassium 4.7 mEq/L (3.5-5.1) 09/25/24 04:23 BUN 38 mg/dL (7-18) H 09/25/24 04:23 Creatinine 1.07 mg/dL (0.55-1.02) H 09/25/24 04:23 Glucose 190 mg/dL (74-106) H 09/25/24 04:23 Phosphorus 4.1 mg/dL (2.5-4.9) 09/21/24 07:15 Magnesium 2.2 mg/dL (1.6-2.4) 09/21/24 07:15 Total Bilirubin 0.2 mg/dL (0.2-1.0) 09/25/24 04:23 AST 11 U/L (15-37) L 09/25/24 04:23 ALT < 14 U/L (13-56) 09/25/24 04:23 Alkaline Phosphatase 88 U/L (45-117) 09/25/24 04:23 Triglycerides 57 mg/dL (<150) 09/22/24 05:03 Cholesterol 76 mg/dL (<200) 09/22/24 05:03 HDL Cholesterol 52 mg/dL (40-60) 09/22/24 05:03 Cholesterol/HDL Ratio 1.46 09/22/24 05:03 Lipase 35 U/L (13-75) 09/20/24 22:47 Home Medications: Furosemide 40 mg PO DAILY 5 Days #5 tab 09/06/24 Apixaban [Eliquis *] 2.5 mg PO BID 09/25/24 Cephalexin [Keflex*] 500 mg PO Q6HR #40 cap 09/25/24 Donepezil [Aricept*] 10 mg PO BEDTIME tab 09/25/24 Furosemide [Lasix] 40 mg PO BIDL #60 tab 09/25/24 Hydrocodone 5/APAP 325 [[place] 5/325*] 1 tab PO Q6H PRN tab 09/25/24 Insulin Regular, Human [Novolin R] See Protocol SQ ACHS ml 09/25/24 Silver Sulfadiazine Crm [Silvadene*] 1 appl TOP DAILY #1 tube 09/25/24 Spironolactone [Aldactone*] 25 mg PO DAILY #30 tab 09/25/24 New Medications: Spironolactone [Aldactone*] 25 mg PO DAILY #30 tab Cephalexin [Keflex*] 500 mg PO Q6HR #40 cap Furosemide [Lasix] 40 mg PO BIDL #60 tab Silver Sulfadiazine Crm [Silvadene*] 1 appl TOP DAILY #1 tube Physician Discharge Instructions: Follow up appointments scheduled by [employer]: Dr. Segovia: 10/13/24 at 2:40pm Dr. Watts: reordered Mrs. Cuadra is stable for discharge. She declined working with PT while inpatient. The wounds on bilateral shins and clean and look healthy. We will continue wound care with her current regimen. She does have some acute on chronic heart failure. Dr. Vasquez recommends Lasix 40mg po BID, Spironolactone 25mg po daily, and continuation of her regular medications. She has been on 1-2L O2 "for comfort" but has not been hypoxic. No respiratory distress. Mrs. Cuadra transferred to W/C with assist to void x 2 overnight. W/C requested by patient has been delivered. renewal order to [facility] ordered. Continue home medicines as previously prescribed GOAL: Clear understanding of disease process Diet: AHA, low sodium Activity: Fall precautions INSTRUCTIONS: Physician Discharge Instructions: Okay to DC IV and DC home Follow-up with primary care provider in 1 to 2 weeks Please call the inpatient unit for any questions or concerns regarding hospital stay Return to the ER for worsening symptoms Diet: AHA Activity: Fall precautions Followup: Josh Watts MD [ACTIVE - CAN ADMIT] - Jitendra Segovia MD [ACTIVE - CAN ADMIT] - Queenie Nice MD [Primary Care Provider] -
[2024-09-25 12:05] VITALS: BP 123/70
== END 2024-09-25 13:50 | DRG 291 ==
LOC: ER 22:16 → ERHOLD 09-21 00:38 → 2ND 09-21 01:51
PROVIDERS: ADMIT Hospitalist; ATTEND Internal Medicine
PROC: 0T9B70Z Drainage of Bladder with Drainage Device, Via Natural or Artificial Opening (ICD-10-PCS; principal; 2024-09-21)
DX: I11.0 Hypertensive heart disease with heart failure (principal); I50.33 Acute on chronic diastolic (congestive) heart failure; J96.20 Acute and chronic respiratory failure, unspecified whether with hypoxia or hypercapnia; N39.0 Urinary tract infection, site not specified; E11.9 Type 2 diabetes mellitus without complications; I48.91 Unspecified atrial fibrillation; I87.2 Venous insufficiency (chronic) (peripheral); D64.9 Anemia, unspecified; J41.0 Simple chronic bronchitis; G25.81 Restless legs syndrome; F03.B0 Unspecified dementia, moderate, without behavioral disturbance, psychotic disturbance, mood disturbance, and anxiety; Z88.5 Allergy status to narcotic agent; Z88.1 Allergy status to other antibiotic agents; Z88.8 Allergy status to other drugs, medicaments and biological substances; Z79.82 Long term (current) use of aspirin; Z79.02 Long term (current) use of antithrombotics/antiplatelets; Z79.899 Other long term (current) drug therapy; Z79.84 Long term (current) use of oral hypoglycemic drugs; Z86.73 Personal history of transient ischemic attack (TIA), and cerebral infarction without residual deficits; Z95.0 Presence of cardiac pacemaker
CPT/HCPCS: 36415; 71045; 80048; 80053; 80061; 80076; 81001; 82550; 82728; 82947; 83540; 83605; 83690; 83735; 83880; 84100; 84443; 84484; 85025; 85610; 93005; 93970; 94640; 94760; 96365; 96366; 96375; 97116; 97161; 97530; 99285; J0696; J1650; J1940; J2270; J2405; J2916; J2919; J7605; J7644; Q0162

== ENCOUNTER 2024-10-26 21:55 | Inpatient (IN) | payer OTHER ==
[2024-10-26] MEDS ORDERED: MORPHINE 4 MG/ML SYR ONE (23:08)
[2024-10-26 23:25] LABS: Absolute Basophils 0.1 K/uL (0-0.5); Absolute Eosinophils 0.2 K/uL (0-0.5); Absolute Lymphocytes (CBC) 1.1 K/uL (0.7-4.9); Absolute Monocytes 0.4 K/uL (0.1-1.3); Absolute Neutrophil 7.1 K/uL (1.8-8.0); Basophils % 0.7 % (0-1.3); Eosinophils % 1.7 % (0-4.4); Hematocrit 32.3 % (36.0-45.0); Hemoglobin 10.1 g/dL (12.0-15.0); Lymphocytes % 12.6 % (15.3-44.8); MCH 28.7 pg (27.0-35.0); MCHC 31.2 g/dL (32.0-36.0); MCV 92.2 fL (80-100); Platelets 208 thou/uL (152-406); RBC Red Blood Cell Count 3.51 M/uL (3.86-4.86); Red Cell Distribution Width 21.1 % (12.1-15.2)
[2024-10-26 23:26] LABS: PT Prothrombin Time 13.6 SECONDS (9.4-12.5); Protime INR 1.22
[2024-10-26 23:42] LABS: Anion Gap 8.7 mEq/L (5.0-15.0); Potassium 4.7 mEq/L (3.5-5.1)
--- NOTE | 2024-10-27 00:53 | RAD REPORT ---
EXAM DESCRIPTION: Chest Single View CLINICAL HISTORY: CHEST PAIN COMPARISON: None TECHNIQUE: Single AP view of the chest. FINDINGS: Left-sided cardiac conduction device noted. Lung volumes adequate. Cardiac silhouette is normal in size. No pneumothorax. No large pleural effusion. No focal consolidation. No acute bony finding. IMPRESSION: No acute cardiopulmonary findings. Electronically signed by: Miguel Rodriguez MD 10/26/2024 11:02 PM [employer] Z9 Due to temporary technical issues with the PACS/Dennoo reporting system, reports are being nura d by the in-house radiologist without review as a courtesy to ensure prompt reporting the interpreting radiologist is fully responsible for the content of the report. Transcribed Date/Time: 10/27/2024 12:52 AM
[2024-10-27 01:02] LABS: Anisocytosis 1+; Blood Morphology Comment NOTED (NOT SEEN); Platelet Estimate ADEQ; White Blood Cell Scan OK (OK)
[2024-10-27] MEDS ORDERED: MORPHINE 4 MG/ML SYR ONE (02:14)
--- NOTE | 2024-10-27 02:27 | ER ---
Nurse's Notes [facility] Name: Caren Cuadra Age: 74 yrs Sex: Female : 1950 Arrival Date: 10/26/2024 Time: 21:55 Bed 20 Private MD: Diagnosis: Chest pain, unspecified Presentation: 10/26 22:06 Chief complaint: EMS states: patient complaints of severe chest pain and she had it rg5 ongoing intermittently for over a week now. Coronavirus screen: Client denies travel out of the [place] in the last 14 days. Ebola Screen: Patient denies exposure to infectious person. Initial Sepsis Screen: Does the patient meet any 2 criteria? No. Patient's initial sepsis screen is negative. Does the patient have a suspected source of infection? No. Patient's initial sepsis screen is negative. Risk Assessment: Do you want to hurt yourself or someone else? Patient reports no desire to harm self or others. Onset of symptoms was October 26, 2024. Care prior to arrival: Medication(s) given: ASA, 81 mg, x 4, Nitroglycerin, 0.4 mg SL IV initiated. 20 GA, in the left hand, Glucose check: 270 Oxygen administered. via nasal cannula, 3LPM. 22:06 Method Of Arrival: EMS: [facility] rg5 22:06 Acuity: ROSEMARIE 3 rg5 Triage Assessment: 22:11 General: Appears in no apparent distress. comfortable, Behavior is calm, cooperative, rg5 appropriate for age. Pain: Complains of pain in chest Pain currently is 8 out of 10 on a pain scale. Quality of pain is described as aching. EENT: No deficits noted. Neuro: Level of Consciousness is awake, alert, obeys commands, Oriented to person, place, time. Cardiovascular: Reports chest pain, Patient's skin is warm and dry. Rhythm is atrial fibrillation. Respiratory: Airway is patent Trachea midline Respiratory effort is even, unlabored, Respiratory pattern is regular, symmetrical, Breath sounds are clear bilaterally. GI: Abdomen is round obese, Abd is soft and non tender. : No signs and/or symptoms were reported regarding the genitourinary system. Derm: Skin is fragile, Skin is dry, Skin is normal. Musculoskeletal: Circulation, motion, and sensation intact. Range of motion: intact in all extremities. Historical: - Allergies: 22:11 Codeine; rg5 22:11 Iodine; rg5 22:11 TETRACYCLINES; rg5 22:11 Macrobid; rg5 22:11 idoxuridine; rg5 22:11 e-mycin; rg5 22:11 Darvon; rg5 22:11 articane hydrochloride; rg5 - Home Meds: 22:11 Aimovig Autoinjector 140 mg/mL subcutaneous Auto-Injector 140 mg every month [Active]; rg5 alendronate 70 mg Oral tablet 1 tab every week [Active]; aspirin 81 mg Oral capsule 1 cap daily [Active]; atorvastatin 20 mg Oral tablet 1 tab daily [Active]; 10/27 01:29 Zofran Oral 4 mg as needed [Active]; montelukast 10 mg Oral tablet 1 tab daily rg5 [Active]; mirtazapine 30 mg Oral tablet 1 tab daily [Active]; metformin 500 mg Oral tablet 1 tab 2 times per day [Active]; hydrocodone-acetaminophen 5-325 mg Oral tablet 1 tab every 8 hours [Active]; pregabalin 25 mg Oral capsule 1 cap 2 times per day [Active]; donepezil 10 mg Oral tablet 1 tab daily [Active]; cetirizine 10 mg Oral tablet 1 tab daily [Active]; carvedilol 3.125 mg Oral tablet 1 tab 2 times per day [Active]; oxybutynin chloride 15 mg Oral tablet 1 tab BID [Active]; SPIRIVA 2.5 MCG DAILY INHALE 2 PUFFS DAILY [Active]; ropinirole 0.5 mg Oral tablet 1 tab daily [Active]; - PMHx: 10/26 22:11 CVA; Atrial fibrillation; COPD; diabetes mellitus; depressive disorder; RLS; Anxiety; rg5 Migraine; overactive bladder; radiating back pain; - Immunization history:: Adult Immunizations not up to date. - Infectious Disease History:: Denies. - Social history:: Smoking status: Patient denies any tobacco usage or history of. Screenin:16 [facility] ED Fall Risk Assessment (Adult) History of falling in the last 3 months, rg5 including since admission No falls in past 3 months (0 pts) Confusion or Disorientation No (0 pts) Intoxicated or Sedated No (0 pts) Impaired Gait Yes (1 pt) Mobility Assist Device Used Yes (1 pt) Altered Elimination Yes (1 pt) Score/Fall Risk Level 3 or more points = High Risk Oriented to surroundings, Maintained a safe environment, Hourly rounding (assess needs \T\ fall precautionary measures) done. Abuse screen: Denies threats or abuse. Nutritional screening: No deficits noted. Tuberculosis screening: No symptoms or risk factors identified. Assessment: 22:00 Reassessment: No changes from previously documented assessment. Patient and/or family rg5 updated on plan of care and expected duration. Pain level reassessed. Patient is alert, oriented x 3, equal unlabored respirations, skin warm/dry/pink. Pain: Complains of pain in chest Pain does not radiate. Pain began 1 hour ago. 22:16 Reassessment: SEE TRIAGE ASSESSMENT. rg5 23:00 Reassessment: No changes from previously documented assessment. Patient and/or family rg5 updated on plan of care and expected duration. Pain level reassessed. Patient is alert, oriented x 3, equal unlabored respirations, skin warm/dry/pink. 10/27 00:10 Reassessment: No changes from previously documented assessment. Patient and/or family rg5 updated on plan of care and expected duration. Pain level reassessed. Patient is alert, oriented x 3, equal unlabored respirations, skin warm/dry/pink. Patient states symptoms have improved. 01:15 Reassessment: Patient and/or family updated on plan of care and expected duration. Pain rg5 level reassessed. Patient is alert, oriented x 3, equal unlabored respirations, skin warm/dry/pink. 02:21 Reassessment: Patient and/or family updated on plan of care and expected duration. Pain rg5 level reassessed. Patient is alert, oriented x 3, equal unlabored respirations, skin warm/dry/pink. Vital Signs: 10/26 22:06 BP 118 / 68; Pulse 76; Resp 19; Temp 98(O); Pulse Ox 98% on 3 lpm NC; Weight 77.56 kg; rg5 Height 5 ft. 6 in. ; Pain 7/10; 22:30 BP 112 / 80; Pulse 77; Resp 18 S; Pulse Ox 99% on 3 lpm NC; rg5 23:00 BP 111 / 75; Pulse 71; Resp 18; Pulse Ox 96% on 3 lpm NC; Pain 7/10; rg5 10/27 00:06 BP 105 / 68; Pulse 89; Resp 18; Pulse Ox 97% on 3 lpm NC; Pain 5/10; rg5 01:26 BP 114 / 92; Pulse 77; Resp 18; Pulse Ox 99% on 3 lpm NC; rg5 02:24 BP 105 / 72; Pulse 103; Resp 18; Pulse Ox 97% on 3 lpm NC; Pain 8/10; rg5 08 22:06 Body Mass Index 27.60 (77.56 kg, 167.64 cm) rg5 10/26 22:06 Pain Scale: Adult rg5 23:00 Pain Scale: Adult rg5 10/27 00:06 Pain Scale: Adult rg5 02:24 Pain Scale: Adult rg5 ED Course: 10/26 22:01 Patient arrived in ED. gm2 22:06 George Simmons, RN is Primary Nurse. rg5 22:11 Triage completed. rg5 22:11 Arm band placed on. EKG completed in triage. Results shown to MD. rg5 22:16 Patient has correct armband on for positive identification. Bed in low position. Call rg5 light in reach. Side rails up X 1. Client placed on continuous cardiac and pulse oximetry monitoring. NIBP monitoring applied. monitoring engineer on. Pulse ox on. Door closed. Noise minimized. Warm blanket given. 22:16 No provider procedures requiring assistance completed. Maintain EMS IV. Dressing rg5 intact. IV is patent, Flushed left hand with 5 ml normal saline. Oxygen administration via nasal cannula \T\ 3L/min. 22:21 Arias Rico MD is Attending Physician. ec2 22:30 Inserted saline lock: 20 gauge in right forearm, using aseptic technique. Blood rg5 collected. Flushed with 10 mL NS. 22:41 XRAY Chest (1 view) In Process Unspecified. EDMS 10/27 02:26 Gabriel Mckenna MD is Hospitalizing Provider. ec2 03:12 Patient admitted, IV remains in place. intact, No redness/swelling at site. rg5 03:13 Provided Education on: need for admit. rg5 06:37 Arias Rico MD is Attending Physician. ec2 Administered Medications: 10/26 23:11 Drug: morphine IVP or IV 4 mg IVP once over 4 mins Route: IVP; Infused Over: 4 mins; rg5 Site: right forearm; 10/27 02:42 Follow up: Response: No adverse reaction; Pain is decreased rg5 02:20 Drug: morphine IVP or IV 4 mg IVP once over 4 mins Route: IVP; Infused Over: 4 mins; rg5 Site: right forearm; 02:42 Follow up: Response: No adverse reaction; Pain is decreased rg5 Medication: 10/26 22:16 VIS not applicable for this client. rg5 Outcome: 10/27 02:26 Decision to Hospitalize by Provider. ec2 03:13 Admitted to ER Hold. Please see [facility] for further documentation. rg5 03:13 Condition: stable 03:13 Instructed on the need for admit, 14:29 Patient left the ED. kc6 Signatures: Dispatcher [employer] Naomi Zabala, RN RN kc6 Arias Rico MD MD ec2 Galina Gupta 2 George Simmons RN RN rg5
--- NOTE | 2024-10-27 02:27 | EDPHYS ---
Physician Documentation [facility] Name: Caren Cuadra Age: 74 yrs Sex: Female : 1950 Arrival Date: 10/26/2024 Time: 21:55 Bed 20 Private MD: ED Physician Arias Rico HPI: 10/26 23:03 This 74 yrs old Female presents to ER via EMS with complaints of Chest Pain. ec2 23:03 Patient arrives today for left-sided nonexertional chest pain that has been ongoing for ec2 the past week that is intermittent without any specific alleviating or exacerbating factors. Reports history of heart disease, hypertension, hyperlipidemia, history of implantable defibrillator.. Historical: - Allergies: 22:11 Codeine; rg5 22:11 Iodine; rg5 22:11 TETRACYCLINES; rg5 22:11 Macrobid; rg5 22:11 idoxuridine; rg5 22:11 e-mycin; rg5 22:11 Darvon; rg5 22:11 articane hydrochloride; rg5 - Home Meds: 22:11 Aimovig Autoinjector 140 mg/mL subcutaneous Auto-Injector 140 mg every month [Active]; rg5 alendronate 70 mg Oral tablet 1 tab every week [Active]; aspirin 81 mg Oral capsule 1 cap daily [Active]; atorvastatin 20 mg Oral tablet 1 tab daily [Active]; 10/27 01:29 Zofran Oral 4 mg as needed [Active]; montelukast 10 mg Oral tablet 1 tab daily rg5 [Active]; mirtazapine 30 mg Oral tablet 1 tab daily [Active]; metformin 500 mg Oral tablet 1 tab 2 times per day [Active]; hydrocodone-acetaminophen 5-325 mg Oral tablet 1 tab every 8 hours [Active]; pregabalin 25 mg Oral capsule 1 cap 2 times per day [Active]; donepezil 10 mg Oral tablet 1 tab daily [Active]; cetirizine 10 mg Oral tablet 1 tab daily [Active]; carvedilol 3.125 mg Oral tablet 1 tab 2 times per day [Active]; oxybutynin chloride 15 mg Oral tablet 1 tab BID [Active]; SPIRIVA 2.5 MCG DAILY INHALE 2 PUFFS DAILY [Active]; ropinirole 0.5 mg Oral tablet 1 tab daily [Active]; - PMHx: 10/26 22:11 CVA; Atrial fibrillation; COPD; diabetes mellitus; depressive disorder; RLS; Anxiety; rg5 Migraine; overactive bladder; radiating back pain; - Immunization history:: Adult Immunizations not up to date. - Infectious Disease History:: Denies. - Social history:: Smoking status: Patient denies any tobacco usage or history of. ROS: 23:03 Constitutional: as per hpi ec2 Exam: 23:03 Constitutional: GEN: NAD Head: atraumatic Eyes: EOMI Ears: External ears are ec2 normal. CV: regular rate LUNGS: no respiratory distress ABD: non-distended SKIN: no evidence of rashes MSK: no evidence of trauma Vital Signs: 22:06 BP 118 / 68; Pulse 76; Resp 19; Temp 98(O); Pulse Ox 98% on 3 lpm NC; Weight 77.56 kg; [facility] Height 5 ft. 6 in. ; Pain 7/10; 22:30 BP 112 / 80; Pulse 77; Resp 18 S; Pulse Ox 99% on 3 lpm NC; 5 23:00 BP 111 / 75; Pulse 71; Resp 18; Pulse Ox 96% on 3 lpm NC; Pain 7/10; [facility] 10/27 00:06 BP 105 / 68; Pulse 89; Resp 18; Pulse Ox 97% on 3 lpm NC; Pain 5/10; [facility] 01:26 BP 114 / 92; Pulse 77; Resp 18; Pulse Ox 99% on 3 lpm NC; [facility] 02:24 BP 105 / 72; Pulse 103; Resp 18; Pulse Ox 97% on 3 lpm NC; Pain 8/10; [facility] 10/26 22:06 Body Mass Index 27.60 (77.56 kg, 167.64 cm) [facility] 10/26 22:06 Pain Scale: Adult [facility] 23:00 Pain Scale: Adult [facility] 10/27 00:06 Pain Scale: Adult [facility] 02:24 Pain Scale: Adult [facility] MDM: 10/26 22:30 Medical Screening Exam initiated ec2 23:03 Data reviewed: vital signs, nurses notes. ED course: Patient arrives today for ec2 evaluation of the left-sided chest pain. Examination is revealing for well-appearing nontoxic hemodynamically stable individuals otherwise in no acute distress will obtain lab work, chest x-ray and treat the patient's pain.. 23:13 ED course: EKG independently reviewed and interpreted by me, shows ventricularly paced ec2 rate at 77 otherwise no actionable processes identified.. 10/27 02:25 ED course: Patient with recurrent chest pain, will admit for chest pain evaluation. ec2 Discussed with hospitalist, pending admission.. 10/26 22:04 Order name: Basic Metabolic Panel; Complete Time: 02:13 ec2 10/26 22:04 Order name: CBC with Diff; Complete Time: 02:13 ec2 10/26 22:04 Order name: NT PRO-BNP; Complete Time: 02:13 ec2 10/26 22:04 Order name: PT-INR; Complete Time: 02:13 ec2 10/26 22:04 Order name: Troponin HS; Complete Time: 02:13 ec2 10/26 23:30 Order name: CBC Smear Scan; Complete Time: 02:13 EDMS 10/27 02:13 Order name: Troponin High Sensitivity ec2 10/27 02:44 Order name: Urinalysis w/ reflexes EDMS 10/27 02:44 Order name: CBC with Automated Diff EDMS 10/27 02:44 Order name: CBC with Automated Diff EDMS 10/27 02:44 Order name: Comprehensive Metabolic Panel EDMS 10/27 02:44 Order name: Comprehensive Metabolic Panel EDMS 10/27 02:44 Order name: Troponin High Sensitivity EDMS 10/27 02:44 Order name: Troponin High Sensitivity EDMS 10/27 02:44 Order name: Troponin High Sensitivity EDMS 10/27 02:44 Order name: Troponin High Sensitivity EDMS 10/27 07:27 Order name: Glucose, Ancillary Testing EDMS 10/27 08:27 Order name: Basic Metabolic Panel EDMS 10/27 08:27 Order name: Magnesium EDMS 10/27 11:42 Order name: Phosphorus kc6 10/27 11:55 Order name: Glucose, Ancillary Testing EDMS 10/27 12:12 Order name: Phosphorus EDMS 10/26 22:04 Order name: XRAY Chest (1 view) ec2 10/26 22:04 Order name: EKG; Complete Time: 22:04 ec2 10/26 22:04 Order name: Cardiac monitoring; Complete Time: 22:34 ec2 10/26 22:04 Order name: EKG - Nurse/Tech; Complete Time: 22:34 ec2 10/26 22:04 Order name: IV Saline Lock; Complete Time: 22:34 ec2 10/26 22:04 Order name: Labs collected and sent; Complete Time: 22:50 ec2 10/26 22:04 Order name: O2 Per Protocol; Complete Time: 22:34 ec2 10/26 22:04 Order name: O2 Sat Monitoring; Complete Time: 22:34 ec2 10/27 02:13 Order name: EKG - Nurse/Tech; Complete Time: 02:42 ec2 Administered Medications: 10/26 23:11 Drug: morphine IVP or IV 4 mg IVP once over 4 mins Route: IVP; Infused Over: 4 mins; rg5 Site: right forearm; 10/27 02:42 Follow up: Response: No adverse reaction; Pain is decreased rg5 02:20 Drug: morphine IVP or IV 4 mg IVP once over 4 mins Route: IVP; Infused Over: 4 mins; rg5 Site: right forearm; 02:42 Follow up: Response: No adverse reaction; Pain is decreased rg5 Disposition Summary: 10/27/24 02:26 Hospitalization Ordered Notes: Hospitalization Status: Inpatient Admission ec2 Provider: Gabriel Mckenna ec2 Condition: Stable ec2 Problem: an acute exacerbation ec2 Symptoms: have improved ec2 Bed/Room Type: Standard ec2 Location: Telemetry/MedSurg (Inpatient)(10/27/24 12:56) bd Room Assignment: 417(10/27/24 12:56) bd Diagnosis - Chest pain, unspecified ec2 Forms: - Medication Reconciliation Form ec2 - SBAR form ec2 - Leadership Thank You Letter ec2 Signatures: Dispatcher [employer] Merle Ellison Shawna sp Corral, Edwin, MD MD ec2 George Simmons RN RN rg5 Corrections: (The following items were deleted from the chart) 10/26 22:04 22:04 BASIC METABOLIC PANEL+C.LAB.BRZ ordered. EDMS EDMS 22:04 22:04 CBC+H.LAB.BRZ ordered. EDMS EDMS 22:04 22:04 PROBNP+C.LAB.BRZ ordered. EDMS EDMS 22:04 22:04 PROTIME (+INR)+COAG.LAB.BRZ ordered. EDMS EDMS 22: 22:04 Troponin High Sensitivity+C.LAB.BRZ ordered. EDMS EDMS 10/27 02:50 02:26 Telemetry/MedSurg (Inpatient) ec2 sp 02:50 02:26 ec2 sp 12:56 02:50 [facility] ER HOLD sp bd 12:56 02:50 ERHOLD- sp bd
[2024-10-27] MEDS ORDERED: ACETAMINOPHEN 325 MG TABLET PO PRN (02:38)
--- NOTE | 2024-10-27 02:38 | P.HP ---
Certification for Inpatient Patient admitted to: Observation With expected LOS: <2 Midnights Practitioner: I am a practitioner with admitting privileges, knowledge of patient current condition, hospital course, and medical plan of care. Services: Services provided to patient in accordance with Admission requirements found in Title 42 Section 412.3 of the Code of Federal Regulations Patient History Date of Service: 10/27/24 Reason for admission: CP History of Present Illness: 74 yrs old Female with past medical history of hypertension, hyperlipidemia, dementia, A-fib, DM , COPD, CAD, and CHF brought to ER with complaints of chest pain. Patient has left-sided nonexertional chest pain which has been going on for the last 1 week and has been progressively getting worse. Pain is intermittent. Worse with movements and exertions. No diaphoresis. Denies any shortness of breath. Has a previous history of hypertension, hyperlipidemia, history of CHF status post AICD placement. Patient was assessed in the ER and is admitted for further management of chest pain to rule out ACS. Allergies adhesive tape Allergy (Verified 09/04/24 06:22) Hives/Rash articaine Allergy (Verified 09/04/24 06:22) Hives codeine Allergy (Verified 09/04/24 06:22) Itching erythromycin base Allergy (Verified 09/04/24 06:22) Hives idoxuridine Allergy (Verified 09/04/24 06:22) Hives iodine Allergy (Verified 09/04/24 06:22) Hives nitrofurantoin Allergy (Verified 09/04/24 06:22) Hives propoxyphene [From Darvon] Allergy (Verified 09/04/24 06:22) Hives Tetracyclines Allergy (Verified 09/04/24 06:22) Hives dye [facility] blue, green, red Allergy (Uncoded 09/04/24 06:22) Hives Home medications list reviewed: Yes Home Medications: Furosemide 40 mg PO DAILY 5 Days #5 tab 09/06/24 Apixaban [Eliquis *] 2.5 mg PO BID 09/25/24 Cephalexin [Keflex*] 500 mg PO Q6HR #40 cap 09/25/24 Donepezil [Aricept*] 10 mg PO BEDTIME tab 09/25/24 Furosemide [Lasix] 40 mg PO BIDL #60 tab 09/25/24 Hydrocodone 5/APAP 325 [[place] 5/325*] 1 tab PO Q6H PRN tab 09/25/24 Insulin Regular, Human [Novolin R] See Protocol SQ ACHS ml 09/25/24 Silver Sulfadiazine Crm [Silvadene*] 1 appl TOP DAILY #1 tube 09/25/24 Spironolactone [Aldactone*] 25 mg PO DAILY #30 tab 09/25/24 - Past Medical/Surgical History Diabetic: Yes Past Medical History: Reviewed- Non-Contributory -: DM -: CVA -: Depression -: COPD -: Atrial Fibrillation -: RLS -: Migraines -: Overactive Bladder -: dementia Past Surgical History: Reviewed- Non-Contributory -: Pacemaker - Family History Family History: Reviewed- Non-Contributory - Social History Smoking Status: Never smoker Alcohol use: No Review of Systems 10-point ROS is otherwise unremarkable Physical Examination - Vital Signs Temperature: 97.9 F Blood Pressure: 113/82 Pulse: 73 Respirations: 18 Pulse Ox (%): 98 - Physical Exam General: Alert, In no apparent distress, Demented HEENT: Atraumatic, Normocephalic Neck: Supple, No Thyromegaly Respiratory: Clear to auscultation bilaterally, Normal air movement Cardiovascular: Regular rate/rhythm, Normal S1 S2 Capillary refill: <2 Seconds Gastrointestinal: Soft and benign, W/out hepatosplenomegaly Musculoskeletal: No clubbing, No swelling Integumentary: No rashes, Skin breakdown, Tenderness/swelling Neurological: Normal speech, Cranial nerves 3-12 intact, Normal reflexes 2+, Normal affect Lymphatics: No axilla or inguinal lymphadenopathy - Studies Laboratory Data (last 24 hrs) 10/26/24 10/26/24 10/26/24 23:04 23:04 23:04 WBC 8.80 Hgb 10.1 L Hct 32.3 L Plt Count 208 PT 13.6 H INR 1.22 Sodium 138 Potassium 4.7 BUN 37 H Creatinine 1.13 H Glucose 181 H Assessment and Plan - Plan Unstable angina Will trend cardiac enzymes Will monitor telemetry Started on aspirin and statin EKG did not show any acute changes suggestive of acute ischemia Will get an echocardiogram Cardiology consult COPD not in exacerbation Continue home medications and titrate as needed CHF not in exacerbation Continue home medications and titrate as needed Dementia: Resumed home medication Hypertension Antihypertensives titrated Continue home medications and titrate as needed Hyperlipidemia Continue statin CKD stage II Monitor renal parameters Electrolytes monitor and replace accordingly Diabetes Insulin sliding scale Accu-Chek before every meal and at bedtime GI/DVT prophylaxis Advanced directive full code Discharge Plan: Long-Term Plan to discharge in: 48 Hours - Advance Directives Does patient have a Living Will: No Does patient have a Durable POA for Healthcare: No - Code Status/Comfort Care Code Status: Full Code Time Spent Managing Pts Care (In Minutes): 48
[2024-10-27 03:30] VITALS: BMI 27.6
[2024-10-27] MEDS: INSULIN REGULAR (HUMAN) 100 UNIT/ML SQ SCH (07:17)
[2024-10-27] MEDS ORDERED: FUROSEMIDE 40 MG TABLET ONE (08:00)
[2024-10-27] MEDS ORDERED: HYDROCODONE/APAP 5/325 MG TAB ONE (08:01)
[2024-10-27] MEDS ORDERED: ASPIRIN EC 81 MG TAB PO ONE (08:01)
[2024-10-27] MEDS: FUROSEMIDE 40 MG TABLET PO SCH (08:08)
[2024-10-27] MEDS: HYDROCODONE/APAP 5/325 MG TAB PO PRN (08:08)
[2024-10-27] MEDS: ASPIRIN EC 81 MG TAB PO SCH (08:08)
[2024-10-27] MEDS: APIXABAN 2.5 MG TABLET PO SCH (08:08)
[2024-10-27 08:26] LABS: Anion Gap 6.1 mEq/L (5.0-15.0); Magnesium 2.4 mg/dL (1.6-2.4); Potassium 5.1 mEq/L (3.5-5.1); Troponin High Sensitivity 8.9 pg/mL (<58.9)
[2024-10-27] MEDS ORDERED: ENOXAPARIN 40 MG/0.4 ML SQ SCH (09:00)
--- NOTE | 2024-10-27 11:52 | P.PN ---
Date of Service: 10/27/24 Problem List Chest pain a-fib s/p pacemaker; on anticoagulation hx CAD Chronic CHF COPD, chronic Dementia HTN, HLD, CKD, DM Recent stress test 09/05/24 negative for stress induced ischemia Echo 09/05: 55-60%EF, grade 2 diastolic dysfunction, moderate TR, moderate pulm htn, elevated filling pressure. Cardiology consult trend troponins check EKG confirm home meds states recently saw Dr. Segovia in office and planning for cardiac cath in November also reports some dysuria for last ~2 days or so urine sample not obtained yet, UA ordered no SIRS
[2024-10-27 12:12] LABS: Phosphorus 5.4 mg/dL (2.5-4.9); Troponin High Sensitivity 8.6 pg/mL (<58.9)
[2024-10-27] MEDS ORDERED: INSULIN REGULAR (HUMAN) 100 UNIT/ML ONE (13:13)
[2024-10-27] MEDS ORDERED: ONDANSETRON 4 MG/2 ML VIAL ONE (13:37)
[2024-10-27] MEDS: ONDANSETRON 4 MG/2 ML VIAL IV PRN (13:45)
[2024-10-27] MEDS ORDERED: FLU (Fluarix Triv) TS24-25(6MOS UP)/PF 45 MCG/0.5 ML Syringe IM ONE (16:15)
[2024-10-27 18:05] LABS: Specific Gravity 1.011 (1.005-1.030); Sqamous Epithelial <5 /HPF (None Seen); Urine Bacteria 20-50 /HPF (<20); Urine Bilirubin NEGATIVE (Negative); Urine Blood Negative (Negative); Urine Clarity Turbid (Clear); Urine Color Light-Yellow (Yellow); Urine Culture Reflex Order NOT NEEDED; Urine Glucose NEGATIVE (Negative); Urine Ketones NEGATIVE (Negative); Urine Microscopic Reflex YN ORDER UMIC; Urine Mucus Slight /HPF (None Seen); Urine Nitrite 2+ (Negative); Urine Protein NEGATIVE (Negative); Urine RBC <5 /HPF (None Seen); Urine Urobilinogen Normal (Normal); Urine WBC None Seen /HPF (<5); Urine pH 5.5 (5.0-7.0)
[2024-10-27] MEDS: ATORVASTATIN 40 MG TAB PO SCH (20:47)
[2024-10-27] MEDS: DONEPEZIL HCL 5 MG TAB PO SCH (20:47)
[2024-10-27] MEDS: MORPHINE 2 MG/ML SYR IV ONE (21:55)
[2024-10-28 07:09] LABS: Absolute Eosinophils 0.3 K/uL (0-0.5); Absolute Lymphocytes (CBC) 0.8 K/uL (0.7-4.9); Absolute Monocytes 0.4 K/uL (0.1-1.3); Absolute Neutrophil 5.1 K/uL (1.8-8.0); Basophils % 0.6 % (0-1.3); Hematocrit 32.7 % (36.0-45.0); Hemoglobin 10.3 g/dL (12.0-15.0); Lymphocytes % 12.6 % (15.3-44.8); MCH 29.1 pg (27.0-35.0); MCHC 31.4 g/dL (32.0-36.0); MCV 92.7 fL (80-100); MPV 8.2 fL (7.6-11.3); Monocytes % 5.9 % (3.3-12.3); Neutrophils % 76.9 % (41.7-73.7); Nucleated Red Blood Cells % 0.1 % (0-0); Platelets 208 thou/uL (152-406); RBC Red Blood Cell Count 3.53 M/uL (3.86-4.86)
[2024-10-28 07:40] LABS: AST/SGOT 12 U/L (15-37); Albumin 2.6 g/dL (3.4-5.0); Albumin/Globulin Ratio 0.8 (1.1-1.8); Alkaline Phosphatase 90 U/L (45-117); Anion Gap 9.4 mEq/L (5.0-15.0); BUN Blood Urea Nitrogen 38 mg/dL (7-18); Bicarbonate 26 mEq/L (21-32); Bilirubin Total 0.3 mg/dL (0.2-1.0); Globulin 3.2 g/dL (2.3-3.5); Glomerular Filtration Rate 67 ml/min (=/>90); Glucose Level 111 mg/dL (74-106); Potassium 4.4 mEq/L (3.5-5.1); Protein, Total 5.8 g/dL (6.4-8.2); Sodium Level 138 mEq/L (136-145)
[2024-10-28 07:44] LABS: ALT/SGPT < 14 U/L (13-56)
--- NOTE | 2024-10-28 11:54 | P.CNS ---
Date of Consult: 10/28/24 Chief Complaint: CP History of Present Illness: Patient with PMH of AF, diastolic heart failure, PAD presented with chest pain, left sided, SOB, and bilateral lower extremities non healing wounds, she sees cardiology as outpatient and had a negative stress test recently. Allergies adhesive tape Allergy (Verified 09/04/24 06:22) Hives/Rash articaine Allergy (Verified 09/04/24 06:22) Hives codeine Allergy (Verified 09/04/24 06:22) Itching erythromycin base Allergy (Verified 09/04/24 06:22) Hives idoxuridine Allergy (Verified 09/04/24 06:22) Hives iodine Allergy (Verified 09/04/24 06:22) Hives nitrofurantoin Allergy (Verified 09/04/24 06:22) Hives propoxyphene [From Darvon] Allergy (Verified 09/04/24 06:22) Hives Tetracyclines Allergy (Verified 09/04/24 06:22) Hives dye [facility] blue, green, red Allergy (Uncoded 09/04/24 06:22) Hives Home medications list reviewed: Yes Home Medications: Furosemide 40 mg PO DAILY 5 Days #5 tab 09/06/24 Apixaban [Eliquis *] 2.5 mg PO BID 09/25/24 Cephalexin [Keflex*] 500 mg PO Q6HR #40 cap 09/25/24 Donepezil [Aricept*] 10 mg PO BEDTIME tab 09/25/24 Furosemide [Lasix] 40 mg PO BIDL #60 tab 09/25/24 Insulin Regular, Human [Novolin R] See Protocol SQ ACHS ml 09/25/24 Silver Sulfadiazine Crm [Silvadene*] 1 appl TOP DAILY #1 tube 09/25/24 Spironolactone [Aldactone*] 25 mg PO DAILY #30 tab 09/25/24 Alendronate Sodium 70 mg PO Q7D 10/27/24 Aspirin [Aspirin EC] 81 mg PO DAILY 10/27/24 Atorvastatin Calcium 20 mg PO BEDTIME 10/27/24 Carvedilol [Coreg] 3.125 mg PO BID 10/27/24 Cetirizine HCl [All Day Allergy] 10 mg PO DAILY 10/27/24 Donepezil [Aricept*] 10 mg PO DAILY 10/27/24 Ferosul Tab 325 mg PO DAILY 10/27/24 Fluticasone/Vilanterol [Breo Ellipta 100-25 Mcg INH] 1 each IH DAILY 10/27/24 Hydrocodone 5/APAP 325 [[place] 5/325*] 1 tab PO Q8HR PRN 10/28/24 Ubrogepant [Ubrelvy] 100 mg PO SEECOM PRN 10/28/24 - Past Medical/Surgical History Diabetic: Yes -: DM -: CVA -: Depression -: COPD -: Atrial Fibrillation -: RLS -: Migraines -: Overactive Bladder -: dementia -: Pacemaker - Social History Alcohol use: No Review of Systems 10-point ROS is otherwise unremarkable Physical Examination Temp Pulse Resp BP Pulse Ox 98.6 F 84 16 118/74 100 10/28/24 08:00 10/28/24 08:12 10/28/24 08:00 10/28/24 08:12 10/28/24 08:00 General: Alert, In no apparent distress HEENT: Atraumatic, PERRLA, Mucous membr. moist/pink, EOMI, Sclerae nonicteric Neck: Supple, 2+ carotid pulse no bruit, No LAD, Without JVD or thyroid abnormality Respiratory: Clear to auscultation bilaterally, Normal air movement Cardiovascular: Regular rate/rhythm, Normal S1 S2 Gastrointestinal: Normal bowel sounds, No tenderness Musculoskeletal: No tenderness Integumentary: No rashes Neurological: Normal gait, Normal speech, Normal tone, Normal affect Lymphatics: No axilla or inguinal lymphadenopathy - Problems (1) Atrial fibrillation Current Visit: No Status: Acute Plan: Patient is currently paced. continue Eliquis 2.5 mg po BID (2) Chest pain Current Visit: No Status: Acute Plan: troponin negative x 3, ACS ruled out keep outpatient scheduled cath in November with Dr. Segovia no further inpatient cardiac work up needed. (3) Acute on chronic diastolic heart failure Current Visit: No Status: Acute Plan: continue patient home dose coreg and spironlactone continue lasix, lower down to 40 mg daily
[2024-10-28 12:30] VITALS: BP 105/60; TEMP 98.8
--- NOTE | 2024-10-28 13:41 | P.DS ---
Admission Date: 10/27/24 Discharge Date: 10/28/24 Disposition: ROUTINE DISCHARGE Discharge Condition: FAIR Reason for Admission: CP Hospital Course: Diagnosis Chest pain Acute on chronic diastolic heart failure Chronic atrial fibrillation DM type II Chronic anemia Bilateral lower extremity venous stasis dermatitis and ulcers Patient presents with intermittent chest pain for ~1 week. Cardiac workup including Chest xray, EKG, troponins were all negative. Patient noted to recently have stress test 09/05 which was negative for stress induced ischemia. Patient also had echo at the time which noted 55-60%EF, grade 2 diastolic dysfunction, moderate TR, moderate pulm htn, elevated filling pressure. Cardiology was consulted and recommended following up in office in next 2-4 weeks for further management. No evidence to warrant further inpatient work up. Patient was feeling better, chest pain resolved, no shortness of breath and stable on room air, and was deemed stable for discharge. Vital Signs/Physical Exam: Temp Pulse Resp BP Pulse Ox 98.8 F 85 16 105/60 100 10/28/24 12:00 10/28/24 12:00 10/28/24 12:00 10/28/24 12:00 10/28/24 12:00 General: Alert, In no apparent distress, Oriented x3 HEENT: Mucous membr. moist/pink, Sclerae nonicteric Neck: Supple, JVD not distended Respiratory: Clear to auscultation bilaterally, Normal air movement Cardiovascular: No edema, Normal S1 S2, Irregular heart rate/rhythm Gastrointestinal: Normal bowel sounds, Soft and benign, Non-distended, No tenderness Musculoskeletal: No swelling, No warmth Integumentary: Other (Bilateral lower extremity venous stasis dermatitis and ulcers) Neurological: Normal speech, Normal strength at 5/5 x4 extr Laboratory Data at Discharge: WBC 6.60 thou/uL (4.3-10.9) 10/28/24 06:04 Hgb 10.3 g/dL (12.0-15.0) L 10/28/24 06:04 Hct 32.7 % (36.0-45.0) L 10/28/24 06:04 Plt Count 208 thou/uL (152-406) 10/28/24 06:04 PT 13.6 SECONDS (9.4-12.5) H 10/26/24 23:04 INR 1.22 10/26/24 23:04 Sodium 138 mEq/L (136-145) 10/28/24 06:04 Potassium 4.4 mEq/L (3.5-5.1) D 10/28/24 06:04 BUN 38 mg/dL (7-18) H 10/28/24 06:04 Creatinine 0.90 mg/dL (0.55-1.02) 10/28/24 06:04 Glucose 111 mg/dL (74-106) H 10/28/24 06:04 Phosphorus Cancelled 10/27/24 11:42 Magnesium 2.4 mg/dL (1.6-2.4) 10/27/24 07:44 Total Bilirubin 0.3 mg/dL (0.2-1.0) 10/28/24 06:04 AST 12 U/L (15-37) L 10/28/24 06:04 ALT < 14 U/L (13-56) 10/28/24 06:04 Alkaline Phosphatase 90 U/L (45-117) 10/28/24 06:04 Home Medications: Furosemide 40 mg PO DAILY 5 Days #5 tab 09/06/24 Apixaban [Eliquis *] 2.5 mg PO BID 09/25/24 Cephalexin [Keflex*] 500 mg PO Q6HR #40 cap 09/25/24 Donepezil [Aricept*] 10 mg PO BEDTIME tab 09/25/24 Insulin Regular, Human [Novolin R] See Protocol SQ ACHS ml 09/25/24 Silver Sulfadiazine Crm [Silvadene*] 1 appl TOP DAILY #1 tube 09/25/24 Spironolactone [Aldactone*] 25 mg PO DAILY #30 tab 09/25/24 Alendronate Sodium 70 mg PO Q7D 10/27/24 Aspirin [Aspirin EC] 81 mg PO DAILY 10/27/24 Atorvastatin Calcium 20 mg PO BEDTIME 10/27/24 Carvedilol [Coreg] 3.125 mg PO BID 10/27/24 Cetirizine HCl [All Day Allergy] 10 mg PO DAILY 10/27/24 Donepezil [Aricept*] 10 mg PO DAILY 10/27/24 Ferosul Tab 325 mg PO DAILY 10/27/24 Fluticasone/Vilanterol [Breo Ellipta 100-25 Mcg Inhalr] 1 each IH DAILY 10/27/24 Furosemide [Lasix*] 40 mg PO DAILY #30 tab 10/28/24 Hydrocodone 5/APAP 325 [[place] 5/325*] 1 tab PO Q8HR PRN 10/28/24 Ubrogepant [Ubrelvy] 100 mg PO SEECOM PRN 10/28/24 New Medications: Furosemide [Lasix*] 40 mg PO DAILY #30 tab Physician Discharge Instructions: Physician discharge instructions: Patient presents with intermittent chest pain for ~1 week. Cardiac workup including Chest xray, EKG, troponins were all negative. Patient noted to recently have stress test 09/05 which was negative for stress induced ischemia. Patient also had echo at the time which noted 55-60%EF, grade 2 diastolic dysfunction, moderate TR, moderate pulm htn, elevated filling pressure. Cardiology was consulted and recommended following up in office in next 2-4 weeks for further management. No evidence to warrant further inpatient work up. Patient was feeling better, chest pain improved, breathing okay on room air, and was deemed stable for discharge. Medications: Follow up: PCP 3-5 days Cardiology 2-4 weeks Please call to schedule / confirm appointments Diet: ADA Activity: Fall precautions Followup: OOT,OOT [UNKNOWN] - 1 Week Jitendra Segovia MD [ACTIVE - CAN ADMIT] - Time spent managing pt's care (in minutes): 34
[2024-10-28 15:32] VITALS: O2SAT 99
--- NOTE | 2024-10-31 16:03 | EKG ---
Test Date: 2024-10-27 Test Time: 02:34:31 Powder Blender And Pourer: MARI MEASUREMENT RESULTS: Intervals: Rate: 91 [place]: 136 QRSD: 136 QT: 442 QTc: 543 [place]: P: 66 [place]: 136 QRS: 214 T: 62 INTERPRETIVE STATEMENTS: Electronic ventricular pacemaker Compared to ECG 10/26/2024 22:01:57 No significant changes Electronically Signed On 10-31-24 15:54:41 [employer] PACKER by Rigoberto Vasquez
--- NOTE | 2024-10-31 16:04 | EKG ---
Test Date: 2024-10-26 Test Time: 22:01:57 Echo Vascular Tech: RV MEASUREMENT RESULTS: Intervals: Rate: 77 [place]: 140 QRSD: 134 QT: 450 QTc: 509 [place]: P: 64 [place]: 140 QRS: 201 T: 55 INTERPRETIVE STATEMENTS: Electronic ventricular pacemaker Compared to ECG 09/20/2024 23:01:22 Atrial-sensed ventricular-paced complex(es) or rhythm no longer present Electronically Signed On 10-31-24 15:55:22 [employer] by Rigoberto Vasquez
== END 2024-10-28 16:11 | DRG 291 ==
LOC: ER 21:55 → ERHOLD 10-27 02:38 → 4TH 10-27 13:29 → OBSVTOIN 10-28 15:50
PROVIDERS: ADMIT Family Medicine; ATTEND Internal Medicine
DX: I13.0 Hypertensive heart and chronic kidney disease with heart failure and stage 1 through stage 4 chronic kidney disease, or unspecified chronic kidney disease (principal); I50.33 Acute on chronic diastolic (congestive) heart failure; I48.20 Chronic atrial fibrillation, unspecified; L97.929 Non-pressure chronic ulcer of unspecified part of left lower leg with unspecified severity; L97.919 Non-pressure chronic ulcer of unspecified part of right lower leg with unspecified severity; I87.2 Venous insufficiency (chronic) (peripheral); N18.2 Chronic kidney disease, stage 2 (mild); E11.22 Type 2 diabetes mellitus with diabetic chronic kidney disease; E11.51 Type 2 diabetes mellitus with diabetic peripheral angiopathy without gangrene; E78.5 Hyperlipidemia, unspecified; J44.9 Chronic obstructive pulmonary disease, unspecified; I27.20 Pulmonary hypertension, unspecified; I25.10 Atherosclerotic heart disease of native coronary artery without angina pectoris; F03.90 Unspecified dementia, unspecified severity, without behavioral disturbance, psychotic disturbance, mood disturbance, and anxiety; Z79.4 Long term (current) use of insulin; Z88.5 Allergy status to narcotic agent; Z88.1 Allergy status to other antibiotic agents; Z88.8 Allergy status to other drugs, medicaments and biological substances; Z79.82 Long term (current) use of aspirin; Z79.84 Long term (current) use of oral hypoglycemic drugs; Z86.73 Personal history of transient ischemic attack (TIA), and cerebral infarction without residual deficits; Z79.899 Other long term (current) drug therapy; Z95.810 Presence of automatic (implantable) cardiac defibrillator
CPT/HCPCS: 36415; 71045; 80048; 80053; 81001; 82947; 83735; 83880; 84100; 84484; 85025; 85610; 87070; 87077; 87186; 87205; 93005; 94760; 96374; 99285; G0378; J2270; J2405

== ENCOUNTER 2024-11-16 03:48 | Inpatient (IN) | payer OTHER ==
[2024-11-16] MEDS ORDERED: MORPHINE 4 MG/ML SYR ONE (04:11)
[2024-11-16 04:31] LABS: PT Prothrombin Time 12.1 SECONDS (9.4-12.5); Protime INR 1.08
[2024-11-16 04:32] LABS: Absolute Basophils 0.1 K/uL (0-0.5); Absolute Eosinophils 0.2 K/uL (0-0.5); Absolute Monocytes 0.3 K/uL (0.1-1.3); Absolute Neutrophil 3.5 K/uL (1.8-8.0); Eosinophils % 4.8 % (0-4.4); Hematocrit 33.5 % (36.0-45.0); Hemoglobin 10.6 g/dL (12.0-15.0); Lymphocytes % 19.5 % (15.3-44.8); MCHC 31.8 g/dL (32.0-36.0); MCV 91.3 fL (80-100); MPV 7.6 fL (7.6-11.3); Monocytes % 6.4 % (3.3-12.3); Neutrophils % 68.3 % (41.7-73.7); Nucleated Red Blood Cells % 0.1 % (0-0); Platelets 267 thou/uL (152-406); RBC Red Blood Cell Count 3.67 M/uL (3.86-4.86); Red Cell Distribution Width 19.1 % (12.1-15.2)
[2024-11-16 04:47] LABS: Anion Gap 9.3 mEq/L (5.0-15.0); Potassium 4.3 mEq/L (3.5-5.1); Troponin High Sensitivity 11.4 pg/mL (<58.9)
[2024-11-16] MEDS ORDERED: FAMOTIDINE 20 MG/2 ML VIAL IV ONE (04:49)
[2024-11-16] MEDS ORDERED: FUROSEMIDE 40 MG/4 ML VIAL ONE (04:50)
--- NOTE | 2024-11-16 04:50 | ER ---
Nurse's Notes [facility] Name: Caren Cuadra Age: 74 yrs Sex: Female : 1950 Arrival Date: 11/16/2024 Time: 03:48 Bed 18 Private MD: Diagnosis: Volume Overload Presentation: 11/16 03:50 Chief complaint: Patient states: PT STATES SHE HAD SUDDEN ONSET OF CP WHILE SHE WAS br2 SLEEPING AND IT WOKE HER UP...LEFT CHEST WALL PRESSURE, SOB, COUGH. Coronavirus screen: Client denies travel out of the [place] in the last 14 days. Ebola Screen: Patient denies exposure to infectious person. Patient denies travel to an Ebola-affected area in the 21 days before illness onset. Initial Sepsis Screen: Does the patient meet any 2 criteria? No. Patient's initial sepsis screen is negative. Does the patient have a suspected source of infection? No. Patient's initial sepsis screen is negative. Risk Assessment: Do you want to hurt yourself or someone else? Patient reports no desire to harm self or others. Onset of symptoms was November 16, 2024 at 02:00. 03:50 Method Of Arrival: EMS: [facility] br2 03:50 Acuity: ROSEMARIE 3 br2 Triage Assessment: 03:50 General: Appears in no apparent distress. comfortable, Behavior is calm, cooperative. br2 Pain: Complains of pain in anterior aspect of left upper chest Pain does not radiate. Pain currently is 8 out of 10 on a pain scale. EENT: No signs and/or symptoms were reported regarding the EENT system. Neuro: Van Agitation-Sedation Scale (RASS): 0 - Alert and Calm Level of Consciousness is awake, alert, obeys commands, Oriented to person, place, time, situation. Cardiovascular: Reports chest pain, shortness of breath, Capillary refill < 3 seconds Rhythm is Respiratory: Airway is patent Respiratory effort is even, unlabored, Respiratory pattern is regular, symmetrical, Breath sounds with crackles bilaterally. GI: No signs and/or symptoms were reported involving the gastrointestinal system. : No signs and/or symptoms were reported regarding the genitourinary system. Derm: No signs and/or symptoms reported regarding the dermatologic system. Musculoskeletal: Reports weakness in right leg and left leg. Historical: - Allergies: 04:19 articane hydrochloride; br2 04:19 Codeine; br2 04:19 Darvon; br2 04:19 idoxuridine; br2 04:19 e-mycin; br2 04:19 Macrobid; br2 04:19 Iodine; br2 04:19 TETRACYCLINES; br2 - PMHx: 04:19 Anxiety; Atrial fibrillation; COPD; CVA; depressive disorder; diabetes mellitus; br2 Migraine; overactive bladder; radiating back pain; RLS; - Immunization history:: Adult Immunizations up to date. - Infectious Disease History:: Denies. - Social history:: Smoking status: Patient denies any tobacco usage or history of. Patient uses alcohol, occasionally. Screenin:50 [facility] ED Fall Risk Assessment (Adult) History of falling in the last 3 months, br2 including since admission Yes- fall prone (multiple falls) (3 pts) Confusion or Disorientation No (0 pts) Intoxicated or Sedated No (0 pts) Mobility Assist Device Used Yes (1 pt) Altered Elimination No (0 pt) Score/Fall Risk Level 3 or more points = High Risk Oriented to surroundings, Maintained a safe environment. [facility] ED Fall Risk Assessment (Adult) Impaired Gait Yes (1 pt). Abuse screen: Denies threats or abuse. Denies injuries from another. Nutritional screening: No deficits noted. Tuberculosis screening: No symptoms or risk factors identified. Assessment: 03:50 Reassessment: SEE TRIAGE ASSESSMENT. br2 03:50 Pain: Pain began suddenly. br2 06:34 Reassessment: Patient and/or family updated on plan of care and expected duration. Pain br2 level reassessed. Patient is alert, oriented x 3, equal unlabored respirations, skin warm/dry/pink. Patient states symptoms have improved. 06:43 Reassessment: Patient and/or family updated on plan of care and expected duration. Pain br2 level reassessed. 06:46 Reassessment: [place] LE[place]INGR[employer] AT BEDSIDE CHANGING PATIENT. br2 Vital Signs: 03:50 BP 118 / 81; Pulse 81; Resp 18; Temp 97.2(TE); Pulse Ox 100% on 3.5 lpm NC; Weight br2 77.11 kg; Height 5 ft. 6 in. ; Pain 8/10; 06:33 BP 117 / 75; Pulse 82; Resp 21 S; Pulse Ox 100% on R/A; br2 03:50 Body Mass Index 27.44 (77.11 kg, 167.64 cm) br2 03:50 Pain Scale: Adult br2 ED Course: 03:49 Patient arrived in ED. [email or web address] 03:50 Inserted saline lock: 22 gauge in right forearm, using aseptic technique. Blood br2 collected. Flushed with 10 mL NS Maintain EMS IV. Dressing intact. Gauge \T\ site: 20G LEFT WRIST. Flushed with 10 mL NS. Oxygen administration via nasal cannula \T\ 3L/min. 03:50 Allergy band placed. Placed in gown. Bed in low position. Call light in reach. Side br2 rails up X 1. Provided Education on: PLAN OF CARE. Client placed on continuous cardiac and pulse oximetry monitoring. NIBP monitoring applied. patient monitor on. 03:50 Arm band placed on right wrist. br2 03:55 Arias Rico MD is Attending Physician. ec2 03:57 Sanjana Camacho RN is Primary Nurse. br2 04:02 EKG done, by facility environmental technician. af3 04:09 Basic Metabolic Panel Sent. br2 04:09 CBC with Diff Sent. br2 04:09 NT PRO-BNP Sent. br2 04:09 PT-INR Sent. br2 04:09 Troponin HS Sent. br2 04:19 Triage completed. br2 04:25 X-ray completed. Portable x-ray completed in exam room. Patient tolerated procedure mh1 well. 04:30 XRAY Chest (1 view) In Process Unspecified. EDMS 04:49 Gabriel Mckenna MD is Hospitalizing Provider. ec2 05:[address] BY TSERING CURTIS. br2 06:41 No provider procedures requiring assistance completed. Patient admitted, IV remains in br2 place. Administered Medications: 04:16 Drug: morphine IVP or IV 4 mg IVP once over 4 mins Route: IVP; Infused Over: 4 mins; br2 Site: right wrist; 04:45 Follow up: Response: No adverse reaction; Pain is unchanged, physician notified br2 05:13 Drug: Furosemide IVP 40 mg IVP once; give over 2 minutes Route: IVP; Site: right br2 forearm; 05:45 Follow up: Response: No adverse reaction br2 05:14 Drug: Famotidine IVP 20 mg IVP once; dilute with 10 mL 0.9% NaCl; give over 2 minutes br2 Route: IVP; Site: right forearm; 05:45 Follow up: Response: No adverse reaction br2 Medication: 06:42 VIS not applicable for this client. br2 Outcome: 04:49 Decision to Hospitalize by Provider. ec2 06:41 Admitted to Med/surg accompanied by tech, via stretcher, room 204, with oxygen, br2 06:41 Condition: improved 06:41 Instructed on the need for admit, Demonstrated understanding of instructions, 06:50 Patient left the ED. vc1 Signatures: Dispatcher [employer] EDMS Arlyn San 1 Ceci Eastonj6 Chloe Kate RN RN vc1 Arias Rico MD MD ec2 Sanjana Camacho RN RN br2 Rola Helton3 Corrections: (The following items were deleted from the chart) 06:36 05:45 Response: No adverse reaction; Pain is unchanged, physician notified br2 br2 06:47 05:15 JIMI 2 br2
--- NOTE | 2024-11-16 04:50 | EDPHYS ---
Physician Documentation [facility] Name: Caren Cuadra Age: 74 yrs Sex: Female : 1950 Arrival Date: 11/16/2024 Time: 03:48 Bed 18 Private MD: ED Physician Arias Rico HPI: 11/16 03:55 This 74 yrs old Female presents to ER via Unassigned with complaints of Chest ec2 Pain. 03:55 Patient arrives today for cough, chest tightness and shortness of breath. Patient ec2 reports history of CHF, COPD, on baseline oxygen requirement. Patient reports some chest tightness has been progressively worsening. Patient reports history of similar types of chest pain. EMS reports they gave the patient aspirin prior to arrival.. Historical: - Allergies: 04:19 articane hydrochloride; br2 04:19 Codeine; br2 04:19 Darvon; br2 04:19 idoxuridine; br2 04:19 e-mycin; br2 04:19 Macrobid; br2 04:19 Iodine; br2 04:19 TETRACYCLINES; br2 - PMHx: 04:19 Anxiety; Atrial fibrillation; COPD; CVA; depressive disorder; diabetes mellitus; br2 Migraine; overactive bladder; radiating back pain; RLS; - Immunization history:: Adult Immunizations up to date. - Infectious Disease History:: Denies. - Social history:: Smoking status: Patient denies any tobacco usage or history of. Patient uses alcohol, occasionally. ROS: 03:56 Constitutional: as per hpi ec2 Exam: 03:56 Constitutional: GEN: NAD Head: atraumatic Eyes: EOMI Ears: External ears are ec2 normal. CV: regular rate, lower extremity edema LUNGS: no respiratory distress ABD: non-distended SKIN: no evidence of rashes MSK: no evidence of trauma Vital Signs: 03:50 BP 118 / 81; Pulse 81; Resp 18; Temp 97.2(TE); Pulse Ox 100% on 3.5 lpm NC; Weight br2 77.11 kg; Height 5 ft. 6 in. ; Pain 8/10; 06:33 BP 117 / 75; Pulse 82; Resp 21 S; Pulse Ox 100% on R/A; br2 03:50 Body Mass Index 27.44 (77.11 kg, 167.64 cm) br2 03:50 Pain Scale: Adult br2 MDM: 03:55 Medical Screening Exam initiated ec2 03:56 Data reviewed: vital signs, nurses notes. ED course: Patient arrives today for chest ec2 tightness. Examination yields lower extremity edema. Will obtain lab work, EKG, chest x-ray. Differential clues processes such as ACS, CHF exacerbation, doubt PE, doubt dissection.. 04:48 ED course: BNP elevated at 1600. Patient does have lower extremity edema and complains ec2 of cough and orthopnea. Will admit for diuresis. Discussed with hospitalist, pending admission.. 11/16 03:55 Order name: Basic Metabolic Panel; Complete Time: 04:48 ec2 11/16 03:55 Order name: CBC with Diff; Complete Time: 04:47 ec2 11/16 03:55 Order name: NT PRO-BNP; Complete Time: 04:48 ec2 11/16 03:55 Order name: PT-INR; Complete Time: 04:47 ec2 11/16 03:55 Order name: Troponin HS; Complete Time: 04:48 ec2 11/16 05:45 Order name: Urinalysis w/ reflexes EDMS 11/16 05:45 Order name: CBC with Automated Diff EDMS 11/16 05:45 Order name: CBC with Automated Diff EDMS 11/16 05:45 Order name: Comprehensive Metabolic Panel EDMS 11/16 05:45 Order name: Comprehensive Metabolic Panel EDMS 11/16 03:55 Order name: XRAY Chest (1 view) ec2 11/16 03:55 Order name: Cardiac monitoring; Complete Time: 04:02 ec2 11/16 03:55 Order name: EKG - Nurse/Tech; Complete Time: 04:02 ec2 11/16 03:55 Order name: IV Saline Lock; Complete Time: 04:45 ec2 11/16 03:55 Order name: Labs collected and sent; Complete Time: 04:09 ec2 11/16 03:55 Order name: O2 Per Protocol; Complete Time: 04:02 ec2 11/16 03:55 Order name: O2 Sat Monitoring; Complete Time: 04:02 ec2 Administered Medications: 04:16 Drug: morphine IVP or IV 4 mg IVP once over 4 mins Route: IVP; Infused Over: 4 mins; br2 Site: right wrist; 04:45 Follow up: Response: No adverse reaction; Pain is unchanged, physician notified br2 05:13 Drug: Furosemide IVP 40 mg IVP once; give over 2 minutes Route: IVP; Site: right br2 forearm; 05:45 Follow up: Response: No adverse reaction br2 05:14 Drug: Famotidine IVP 20 mg IVP once; dilute with 10 mL 0.9% NaCl; give over 2 minutes br2 Route: IVP; Site: right forearm; 05:45 Follow up: Response: No adverse reaction br2 Disposition Summary: 11/16/24 04:49 Hospitalization Ordered Notes: Hospitalization Status: Inpatient Admission ec2 Provider: Gabriel Mckenna ec2 Location: Telemetry/MedSurg (Inpatient) ec2 Condition: Stable ec2 Problem: an acute exacerbation ec2 Symptoms: are unchanged ec2 Bed/Room Type: Standard ec2 Room Assignment: 204(11/16/24 05:55) cg Diagnosis - Volume Overload ec2 Forms: - Medication Reconciliation Form ec2 - SBAR form ec2 - Leadership Thank You Letter ec2 Signatures: Dispatcher [employer] Jessica Rodriguez, RN RN cg Arias Rico MD MD ec2 Sanjana Camacho RN RN br2 Corrections: (The following items were deleted from the chart) 03:56 03:56 BASIC METABOLIC PANEL+C.LAB.BRZ ordered. EDMS EDMS 03:56 03:56 CBC+H.LAB.BRZ ordered. EDMS EDMS 03:56 03:56 PROBNP+C.LAB.BRZ ordered. EDMS EDMS 03:56 03:56 PROTIME (+INR)+COAG.LAB.BRZ ordered. EDMS EDMS 03:56 03:56 Troponin High Sensitivity+C.LAB.BRZ ordered. EDMS EDMS 03:56 03:56 Chest Single View+RAD.RAD.BRZ ordered. EDMS EDMS 05:55 04:49 ec2 cg
--- NOTE | 2024-11-16 05:39 | P.HP ---
Certification for Inpatient Patient admitted to: Inpatient With expected LOS: >2 Midnights Practitioner: I am a practitioner with admitting privileges, knowledge of patient current condition, hospital course, and medical plan of care. Services: Services provided to patient in accordance with Admission requirements found in Title 42 Section 412.3 of the Code of Federal Regulations Patient History Date of Service: 11/16/24 Reason for admission: SOB History of Present Illness: 74 yrs old Female with past medical history of hypertension, hyperlipidemia, dementia, A-fib, DM , COPD, CAD, and CHF brought to ER with complaints of cough, chest tightness and shortness of breath. Patient has left- sided nonexertional chest pain which has been going on for the last 1 week and has been progressively getting worse. Pain is intermittent. Worse with movements and exertions. No diaphoresis. Denies any shortness of breath. Has a previous history of hypertension, hyperlipidemia, history of CHF status post AICD placement. Patient was assessed in the ER and is admitted for further management of chest pain to rule out ACS. and CHF exacerbation Allergies adhesive tape Allergy (Verified 09/04/24 06:22) Hives/Rash articaine Allergy (Verified 09/04/24 06:22) Hives codeine Allergy (Verified 09/04/24 06:22) Itching erythromycin base Allergy (Verified 09/04/24 06:22) Hives idoxuridine Allergy (Verified 09/04/24 06:22) Hives iodine Allergy (Verified 09/04/24 06:22) Hives nitrofurantoin Allergy (Verified 09/04/24 06:22) Hives propoxyphene [From Darvon] Allergy (Verified 09/04/24 06:22) Hives Tetracyclines Allergy (Verified 09/04/24 06:22) Hives dye SNF blue, green, red Allergy (Uncoded 09/04/24 06:22) Hives Home medications list reviewed: Yes Home Medications: Furosemide 40 mg PO DAILY 5 Days #5 tab 09/06/24 Apixaban [Eliquis *] 2.5 mg PO BID 09/25/24 Cephalexin [Keflex*] 500 mg PO Q6HR #40 cap 09/25/24 Donepezil [Aricept*] 10 mg PO BEDTIME tab 09/25/24 Insulin Regular, Human [Novolin R] See Protocol SQ ACHS ml 09/25/24 Silver Sulfadiazine Crm [Silvadene*] 1 appl TOP DAILY #1 tube 09/25/24 Spironolactone [Aldactone*] 25 mg PO DAILY #30 tab 09/25/24 Alendronate Sodium 70 mg PO Q7D 10/27/24 Aspirin [Aspirin EC] 81 mg PO DAILY 10/27/24 Atorvastatin Calcium 20 mg PO BEDTIME 10/27/24 Carvedilol [Coreg] 3.125 mg PO BID 10/27/24 Cetirizine HCl [All Day Allergy] 10 mg PO DAILY 10/27/24 Donepezil [Aricept*] 10 mg PO DAILY 10/27/24 Ferosul Tab 325 mg PO DAILY 10/27/24 Fluticasone/Vilanterol [Breo Ellipta 100-25 Mcg Inhalr] 1 each IH DAILY 10/27/24 Furosemide [Lasix*] 40 mg PO DAILY #30 tab 10/28/24 Hydrocodone 5/APAP 325 [[place] 5/325*] 1 tab PO Q8HR PRN 10/28/24 Ubrogepant [Ubrelvy] 100 mg PO SEECOM PRN 10/28/24 - Past Medical/Surgical History Diabetic: Yes Past Medical History: Reviewed- Non-Contributory -: DM -: CVA -: Depression -: COPD -: Atrial Fibrillation -: RLS -: Migraines -: Overactive Bladder -: dementia Past Surgical History: Reviewed- Non-Contributory -: Pacemaker - Family History Family History: Reviewed- Non-Contributory - Social History Smoking Status: Never smoker Alcohol use: No Review of Systems 10-point ROS is otherwise unremarkable Physical Examination - Vital Signs Temperature: 97.8 F Pulse: 102 Respirations: 20 Pulse Ox (%): 94 - Physical Exam General: Alert, Oriented x3, Moderate distress HEENT: Atraumatic, Normocephalic Neck: Supple, JVD not distended Respiratory: Diminished, Crackles/rales Cardiovascular: Normal S1 S2, Edema Capillary refill: <2 Seconds Gastrointestinal: Soft and benign, W/out hepatosplenomegaly Musculoskeletal: No clubbing Integumentary: No rashes Neurological: Other (Alert, Awake ) Lymphatics: No axilla or inguinal lymphadenopathy - Studies Laboratory Data (last 24 hrs) 11/16/24 11/16/24 11/16/24 04:08 04:08 04:08 WBC 5.10 Hgb 10.6 L Hct 33.5 L Plt Count 267 PT 12.1 INR 1.08 Sodium 138 Potassium 4.3 BUN 31 H Creatinine 1.10 H Glucose 117 H Assessment and Plan - Plan Acute on chronic CHF Diastolic Monitor closely on telemetry Started on aggressive diuresis X-ray findings consistent with CHF Oxygen supplementation Will try to wean down oxygen requirement Continue home medications Titrate as needed Cardiology consult Recent echocardiogram in July showed normal EF with grade 2 diastolic dysfunction Unstable angina Will trend cardiac enzymes Will monitor telemetry Started on aspirin and statin EKG did not show any acute changes suggestive of acute ischemia COPD not in exacerbation Continue home medications and titrate as needed Afib Rate Controlled Continue Eliquis and betablocker Dementia: Resumed home medication Hypertension Antihypertensives titrated Continue home medications and titrate as needed Hyperlipidemia Continue statin CKD stage II Monitor renal parameters Electrolytes monitor and replace accordingly Diabetes Insulin sliding scale Accu-Chek before every meal and at bedtime GI/DVT prophylaxis Advanced directive full code Discharge Plan: Home Plan to discharge in: 48 Hours - Advance Directives Does patient have a Living Will: No Does patient have a Durable POA for Healthcare: No - Code Status/Comfort Care Code Status: Full Code Time Spent Managing Pts Care (In Minutes): 48
[2024-11-16] MEDS ORDERED: ALENDRONATE 70 MG TAB PO SCH (06:00)
--- NOTE | 2024-11-16 06:55 | RAD REPORT ---
EXAM: Chest Single View HISTORY: COUGH COMPARISON: 10/26/2022 FINDINGS: LUNGS/PLEURA: Pulmonary vascular congestion. No definite edema. No consolidative airspace disease. So me benign calcified nodules in the right lower lobe. MEDIASTINUM: The mediastinal silhouette is within normal limits. CARDIAC: Cardiomegaly. UPPER ABDOMEN: No significant abnormality. BONES: No acute fracture. LINES/TUBES/OTHER: Pacemaker/ICD. IMPRESSION: Pulmonary vascular congestion. No anthony pulmonary edema. No consolidative airspace disease.
[2024-11-16] MEDS: INSULIN REGULAR (HUMAN) 100 UNIT/ML SQ SCH (07:30)
[2024-11-16] MEDS: DULERA 100/5 (MOMETASONE/FORMOTEROL) INHALER IH SCH (09:00)
[2024-11-16] MEDS: ASPIRIN EC 81 MG TAB PO SCH (09:43)
[2024-11-16] MEDS: DONEPEZIL HCL 5 MG TAB PO SCH (09:43)
[2024-11-16] MEDS: SPIRONOLACTONE 25 MG TABLET PO SCH (09:43)
[2024-11-16] MEDS: carvediloL 3.125 MG TAB PO SCH (09:43)
[2024-11-16] MEDS: FUROSEMIDE 40 MG/4 ML VIAL IV SCH (09:44)
[2024-11-16] MEDS: APIXABAN 2.5 MG TABLET PO SCH (09:44)
[2024-11-16] MEDS: MORPHINE 2 MG/ML SYR IV ONE (10:27)
[2024-11-16] MEDS: FLU (Fluarix Triv) TS24-25(6MOS UP)/PF 45 MCG/0.5 ML Syringe IM ONE (12:00)
[2024-11-16] MEDS: PNEUMOCOCCAL VACCINE 0.5 ML IMVAC ONE (12:00)
[2024-11-16] MEDS: ATORVASTATIN 20 MG TAB PO SCH (22:43)
[2024-11-16] MEDS: HYDROCODONE/APAP 5/325 MG TAB PO PRN (22:49)
--- NOTE | 2024-11-17 01:39 | P.PN ---
Date of Service: 11/16/24 Subjective Patient is clinically doing well. Volume status is much better. Continue with diuresing patient. Physical Examination - Vital Signs Reviewed - Physical Exam General: Alert, Oriented x3, Moderate distress Respiratory: Diminished, Crackles/rales Cardiovascular: Normal S1 S2, Edema Gastrointestinal: Soft and benign, W/out hepatosplenomegaly Musculoskeletal: No clubbing Integumentary: No rashes Neurological: Other (Alert, Awake ) Assessment and Plan - Assessment /Plan 1. Acute on chronic CHF Diastolic; Patient was short of breath and patient was diuresed. Patient clinically doing much better. Continue with cardiac meds. Cardiology was consulted. Echocardiogram pending. Working on discharge planning. 2. COPD; COPD is stable. Continue with nebs and inhaler therapy. 3. Atrial fibrillation; rate control; continue with anticoagulation 4. Dementia; continue with home medications 5. History of hypertension; resume antihypertensive 6. CKD; continue monitoring renal function closely 7. Type 2 diabetes; strict blood sugar control 8. Hyperlipidemia; continue with statin therapy. Discharge Plan: Home Plan to discharge in: 48 Hours - Advance Directives Does patient have a Living Will: No Does patient have a Durable POA for Healthcare: No - Code Status/Comfort Care Code Status: Full Code Time Spent Managing Pts Care (In Minutes): 48
[2024-11-17 01:44] LABS: Specific Gravity 1.009 (1.005-1.030); Sqamous Epithelial <5 /HPF (None Seen); Urine Bacteria <20 /HPF (<20); Urine Bilirubin NEGATIVE (Negative); Urine Blood Negative (Negative); Urine Clarity Extremely Turbid (Clear); Urine Color Light-Yellow (Yellow); Urine Culture Reflex Order NOT NEEDED; Urine Glucose NEGATIVE (Negative); Urine Ketones NEGATIVE (Negative); Urine Microscopic Reflex YN ORDER UMIC; Urine Mucus Slight /HPF (None Seen); Urine Nitrite 2+ (Negative); Urine Protein NEGATIVE (Negative); Urine RBC None Seen /HPF (None Seen); Urine Urobilinogen Normal (Normal); Urine WBC <5 /HPF (<5); Urine pH 6.5 (5.0-7.0)
[2024-11-17] MEDS: MORPHINE 2 MG/ML SYR IV PRN (02:04)
[2024-11-17 05:38] LABS: Absolute Eosinophils 0.4 K/uL (0-0.5); Absolute Monocytes 0.4 K/uL (0.1-1.3); Absolute Neutrophil 4.4 K/uL (1.8-8.0); Basophils % 0.7 % (0-1.3); Eosinophils % 5.8 % (0-4.4); Hematocrit 32.7 % (36.0-45.0); Lymphocytes % 16.5 % (15.3-44.8); MCH 28.2 pg (27.0-35.0); MCHC 30.7 g/dL (32.0-36.0); MCV 91.9 fL (80-100); MPV 7.7 fL (7.6-11.3); Monocytes % 5.9 % (3.3-12.3); Neutrophils % 71.1 % (41.7-73.7); Nucleated Red Blood Cells % 0.1 % (0-0); Platelets 238 thou/uL (152-406); RBC Red Blood Cell Count 3.55 M/uL (3.86-4.86); Red Cell Distribution Width 19.7 % (12.1-15.2)
[2024-11-17 06:11] LABS: Albumin 2.6 g/dL (3.4-5.0); Albumin/Globulin Ratio 0.7 (1.1-1.8); Anion Gap 9.3 mEq/L (5.0-15.0); Bilirubin Total 0.3 mg/dL (0.2-1.0); Globulin 3.6 g/dL (2.3-3.5); Potassium 4.3 mEq/L (3.5-5.1); Protein, Total 6.2 g/dL (6.4-8.2)
[2024-11-17] MEDS ORDERED: GUAIFENESIN/DM 5 ML UCUP PO PRN (10:21)
[2024-11-17] MEDS: PNEUMOCOCCAL VACCINE 0.5 ML IMVAC ONE (10:35)
--- NOTE | 2024-11-17 11:12 | EKG ---
Test Date: 2024-11-16 Test Time: 03:58:50 Alley Tender: AF MEASUREMENT RESULTS: Intervals: Rate: 82 LA: 134 QRSD: 138 QT: 454 QTc: 530 [place]: P: 73 LA: 134 QRS: 199 T: 68 INTERPRETIVE STATEMENTS: Electronic ventricular pacemaker Compared to ECG 10/27/2024 02:34:31 No significant changes Electronically Signed On 11-17-24 11:09:22 MICROFILM CAMERA OPERATOR by Rigoberto Vasquez
[2024-11-17 11:43] LABS: SARS-CoV-2 Antigen CONTROL BLUE LINE VIS/BG OK; SARS-CoV-2 Antigen Rapid Res Negative (Negative)
--- NOTE | 2024-11-17 11:45 | P.PN ---
Subjective Date of Service: 11/17/24 Chief Complaint: SOB Subjective: No new changes Patient reports that she is not feeling well complaining of productive cough and shortness of breath in spite of diuresis on IV furosemide. Denied any fever or chill or chest pain or sick contact. Review of Systems Other: Consitutional; fever(-), chills (-), rigor(-), night sweat(-), unintentional weight loss(-), malaise (-) HEENT; diplopia (-), rhinorrhea (-), epistaxis (-), otorrhea (-), otalgia (-) Respiratory; shortness of breath (+), wheezing (-), cough (+), sputum (+), pleuritic chest pain (-) Cardiovascular; chest pain (-), peripheral edema (-), paroxysmal nocturnal dyspnea (-), orthopnea (-) Gastrointestinal; nausea (-), vomiting (-), abdominal pain (-), diarrhea (-), constipation (-), melena (-), hematochezia (-) Genitourinary; urinary frequency (-), dysuria (-), urgency (-), flank pain (-), gross hematuria (-), incontinence (-) Skin; rash (-), 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 General: Chronic ill- looking , in no apparent distress,. HEENT: Normocephalic, atraumatic, nonicteric sclera, nonanemic conjunctive. Neck: Supple, without JVD or goiter or thyroid mass. Respiratory: Normal breathing effort, clear to auscultation bilaterally, no crackles no wheezing or rhonchi. Cardiovascular: Regular rate and rhythm, S1, S2 normal, no murmur no gallop. Gastrointestinal: Normal bowel sounds, nondistended, nontender, No ascites, , No masses, no hepatosplenomegaly. Extremities : No clubbing, +1/+1 peripheral edema, full range of motion, no deformity, no muscle atrophy. Integumentary: No rashes, petechia, suspected lesions. Lymphatics: No axilla or cervical lymphadenopathy. Neurology; alert awake oriented x3, no focal neurologic deficit, normal affection . mood and behavior. Assessment And Plan - Plan All this is 74 years old female patient with multiple comorbidities including chronic diastolic heart failure status post AICD/PPM, COPD, atrial fibrillation on DOAC, hypertension, CKD, type 2 diabetes who presented to emergency room for evaluation of a few days of shortness of breath, cough, left-sided chest pain and admitted on medical floor #1 acute on chronic heart failure with preserved ejection fraction Chest x-ray on admission personally reviewed mild pulmonary edema, proBNP elevated at 1632, troponin normal x 1, 24-hour urine output 1.5 L, I will continue IV furosemide 40 mg every 6 hour, check input and output Transthoracic echocardiogram in August 2024 result reviewed #2 acute exacerbation of COPD I will check respiratory pathogen panel for COVID-19, influenza, RSV, will continue DuoNeb, add antitussive and I do not believe patient benefit from systemic steroid. #3 history of atrial fibrillation, hypertension Blood pressure and heart rate are reasonably controlled, I will continue carvedilol and apixaban at current dose #4 ROS on CKD BUN/creatinine 36/1.1, good response to IV diuretics, no serious electrolyte imbalance. DVT prophylaxis apixaban
[2024-11-17] MEDS: IPRATROPIUM BROM 0.5MG/2.5ML NEB PRN (12:27)
[2024-11-17] MEDS: ALBUTEROL 2.5 MG/3 ML NEB SOL NEB PRN (12:27)
[2024-11-17] MEDS: FLU (Fluarix Triv) TS24-25(6MOS UP)/PF 45 MCG/0.5 ML Syringe IM ONE (13:02)
[2024-11-17] MEDS: ONDANSETRON 4 MG/2 ML VIAL IV PRN (13:11)
[2024-11-17] MEDS: BENZONATATE 100 MG CAP PO SCH (13:11)
[2024-11-17] MEDS: FLUOXETINE 20 MG CAP PO SCH (18:25)
[2024-11-18] MEDS: ALBUTEROL 2.5 MG/3 ML NEB SOL ONE (00:22)
[2024-11-18] MEDS: IPRATROPIUM BROM 0.5MG/2.5ML ONE (00:22)
[2024-11-18 07:25] VITALS: BMI 25.8
--- NOTE | 2024-11-18 10:19 | P.PN ---
Subjective Date of Service: 11/18/24 Chief Complaint: SOB Subjective: Improving Patient states that she is feeling better but still having productive cough, shortness of breath on minimal exertion. Her cough medicine is helping with her cough, she reports she lives in assisted living facility. Review of Systems Other: Consitutional; fever(-), chills (-), rigor(-), night sweat(-), unintentional weight loss(-), malaise (-) HEENT; diplopia (-), rhinorrhea (-), epistaxis (-), otorrhea (-), otalgia (-) Respiratory; shortness of breath (+), wheezing (-), cough (-), sputum (+), pleuritic chest pain (-) Cardiovascular; chest pain (-), peripheral edema (-), paroxysmal nocturnal dyspnea (-), orthopnea (-) Gastrointestinal; nausea (-), vomiting (-), abdominal pain (-), diarrhea (-), constipation (-), melena (-), hematochezia (-) Genitourinary; urinary frequency (-), dysuria (-), urgency (-), flank pain (-), gross hematuria (-), incontinence (-) Skin; rash (-), 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 General: Chronic ill- looking , in no apparent distress,. HEENT: Normocephalic, atraumatic, nonicteric sclera, nonanemic conjunctive. Neck: Supple, without JVD or goiter or thyroid mass. Respiratory: Normal breathing effort, clear to auscultation bilaterally, no crackles no wheezing or rhonchi. Cardiovascular: Regular rate and rhythm, S1, S2 normal, no murmur no gallop. Gastrointestinal: Normal bowel sounds, nondistended, nontender, No ascites, , No masses, no hepatosplenomegaly. Extremities : No clubbing, +1/+1 peripheral edema, full range of motion, no deformity, no muscle atrophy. Integumentary: No rashes, petechia, suspected lesions. Lymphatics: No axilla or cervical lymphadenopathy. Neurology; alert awake oriented x3, no focal neurologic deficit, normal affection . mood and beh avior. Assessment And Plan - Plan All this is 74 years old female patient with multiple comorbidities including chronic diastolic heart failure status post AICD/PPM, COPD, atrial fibrillation on DOAC, hypertension, CKD, type 2 diabetes who presented to emergency room for evaluation of a few days of shortness of breath, cough, left-sided chest pain and admitted on medical floor #1 acute on chronic heart failure with preserved ejection fraction Chest x-ray on admission mild pulmonary edema, proBNP elevated at 1632, troponin normal x 1, 24-hour urine output 1.6 L, I will continue IV furosemide 40 mg every 8 hour, check input and output, I will order follow-up BMP, N-terminal proBNP Transthoracic echocardiogram in August 2024 result reviewed #2 acute exacerbation of COPD Gradually improving, Tested negative for COVID-19, influenza, RSV, will continue DuoNeb, antitussive and I do not believe patient benefit from systemic steroid. #3 history of atrial fibrillation, hypertension Blood pressure and heart rate are reasonably controlled, I will continue carvedilol and apixaban at current dose #4 ROS on CKD BUN/creatinine 36/1.1, good response to IV diuretics, no serious electrolyte imbalance. #5 history of diabetes Good glycemic control without any intervention, I will order hemoglobin A1c tomorrow morning. DVT prophylaxis apixaban
[2024-11-19 06:17] LABS: Magnesium 2.2 mg/dL (1.6-2.4); Phosphorus 3.8 mg/dL (2.5-4.9)
[2024-11-19] MEDS ORDERED: ALBUTEROL 2.5 MG/3 ML NEB SOL NEB PRN (09:01)
--- NOTE | 2024-11-19 09:08 | RAD REPORT ---
EXAMINATION: ONE VIEW CHEST XR CLINICAL INDICATION: follow-up on pulmonary edema after diuresis TECHNIQUE: Frontal chest projection is submitted. Examination is limited by patient positioning and t echnique. COMPARISON: 11/16/2024 FINDINGS: The lungs are well inflated and clear. The heart is mildly enlarged. Multilead pacer/defibrillator is present. No displaced fractures identified. IMPRESSION: No acute intrathoracic abnormalities.
--- NOTE | 2024-11-19 11:04 | P.PN ---
Subjective Date of Service: 11/19/24 Chief Complaint: SOB Subjective: Improving Patient states that she is feeling better except lower abdominal discomfort, denied any nausea and vomiting or diarrhea or dysuria. Patient states that she lives in assisted living facility she cannot go back there on the weekend or holiday Review of Systems Other: Consitutional; fever(-), chills (-), rigor(-), night sweat(-), unintentional weight loss(-), malaise (-) HEENT; diplopia (-), rhinorrhea (-), epistaxis (-), otorrhea (-), otalgia (-) Respiratory; shortness of breath (-), wheezing (-), cough (-), sputum (-), pleuritic chest pain (-) Cardiovascular; chest pain (-), peripheral edema (-), paroxysmal nocturnal dyspnea (-), orthopnea (-) Gastrointestinal; nausea (-), vomiting (-), abdominal pain (+), diarrhea (-), constipation (-), melena (-), hematochezia (-) Genitourinary; urinary frequency (-), dysuria (-), urgency (-), flank pain (-), gross hematuria (-), incontinence (-) Skin; rash (-), 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 General: Chronic ill- looking , in no apparent distress,. HEENT: Normocephalic, atraumatic, nonicteric sclera, nonanemic conjunctive. Neck: Supple, without JVD or goiter or thyroid mass. Respiratory: Normal breathing effort, clear to auscultation bilaterally, no crackles no wheezing or rhonchi. Cardiovascular: Regular rate and rhythm, S1, S2 normal, no murmur no gallop. Gastrointestinal: Normal bowel sounds, nondistended, mild tenderness in the suprapubic area, No ascites, , No masses, no hepatosplenomegaly. Extremities : No clubbing, +1/+1 peripheral edema, full range of motion, no deformity, no muscle atrophy. Integumentary: No rashes, petechia, suspected lesions. Lymphatics: No axilla or cervical lymphadenopathy. Neurology; alert awake oriented x3, no focal neurologic deficit, normal affection . mood and behavior. Assessment And Plan - Plan All this is 74 years old female patient with multiple comorbidities including chronic diastolic heart failure status post AICD/PPM, COPD, atrial fibrillation on DOAC, hypertension, CKD, type 2 diabetes who presented to emergency room for evaluation of a few days of shortness of breath, cough, left-sided chest pain and admitted on medical floor #1 acute on chronic heart failure with preserved ejection fraction Chest x-ray on admission mild pulmonary edema, proBNP elevated at 1632, follow- up 1400, troponin normal x 1, 24-hour urine output 0.8 L, A follow-up chest x-ray ordered today and personally reviewed, resolution of her pulmonary edema I will taper IV furosemide 40 mg every 24 hour, Transthoracic echocardiogram in August 2024 result reviewed #2 acute exacerbation of COPD Gradually improving, Tested negative for COVID-19, influenza, RSV, will continue DuoNeb, antitussive and I do not believe patient benefit from systemic steroid. #3 history of atrial fibrillationstatus post permanent pacemaker, hypertension Blood pressure and heart rate are reasonably controlled, I will continue carvedilol and apixaban at current dose Telemetry reviewed atrial and ventricular paced rhythm #4 ROS on CKD BUN/creatinine 36/1.1, good response to IV diuretics, no serious electrolyte imbalance. #5 type 2 diabetes Hemoglobin A1c 7.5, good glycemic control on diabetic diet and no hypoglycemic agent, will give her Farxiga at the time of discharge #6 major depression Started on fluoxetine, outpatient psychiatry DVT prophylaxis apixaban Disposition; plan to discharge home tomorrow
[2024-11-20] MEDS ORDERED: BISMUTH SUBSALICYL 262MG/15ML-240 ML BTL PO PRN (06:32)
--- NOTE | 2024-11-20 07:57 | RAD REPORT ---
EXAMINATION: CT ABDOMEN AND PELVIS WITHOUT CONTRAST CLINICAL INDICATION: Abdominal pain TECHNIQUE: CT abdomen and pelvis was performed, as per department protocol. IV contrast and oral was not administered.Axial, sagittal and coronal reconstructions were obtained. One or more of the following dose reduction techniques were used: Automated exposure control, adjustment of the mA and/o r kV according to the patient size, and/or iterative reconstruction. Unless otherwise specified, incidental findings do not require dedicated imaging follow-up. [id number]. COMPARISON: August 2024. FINDINGS: The lack of intravenous and oral contrast limits evaluation of solid organs, vessels and bowel. Mild tree-in-bud opacities right middle lobe small left pleural effusion. The liver, spleen, pancreas, adrenals and left kidney grossly normal. 1.2 cm mass extends off of the right kidney. Hounsfield units 16. 3 mm calculus right kidney. No hydronephrosis. There is cortical thinning kidneys may be secondary to prior aeration. Hysterectomy. No adnexal mass. Right hip arthroplasty. No evidence of diverticulitis 3 cm mass left rectus muscle mid to lower pelvis. Stranding within the adjacent subcutaneous tissue. Post surgical changes involve the stomach. Diffuse edema within the subcutaneous tissues IMPRESSION: 3 cm mass left rectus muscle within the pelvis could represent a hematoma or myositis. 1.2 cm right renal mass probably a benign complex cyst. However, it is recommended that the patient h ave a follow-up renal ultrasound in 3 months for reevaluation Mild tree-in-bud opacities right lung may indicate an atypical infection
[2024-11-20] MEDS ORDERED: FUROSEMIDE 40 MG/4 ML VIAL IV SCH (09:00)
--- NOTE | 2024-11-20 11:59 | P.PN ---
Subjective Date of Service: 11/20/24 Chief Complaint: SOB Subjective: No new changes She is complaining of pain in the left lower quadrant, tolerating oral diet well without any nausea and vomiting diarrhea. Denied any overt clinical bleeding or hematuria or melena or hematochezia or gum bleeding. She report her shortness of breath has improved, no chest pain or palpitation. Physical Examination - Vital Signs Temperature: 97.8 F Blood Pressure: 128/80 Pulse: 86 Respirations: 16 Pulse Ox (%): 94 - Physical Exam Other Physical/Emotional Findings: - Physical Exam. General: Chronic ill- looking , in no apparent distress,. HEENT: Normocephalic, atraumatic, nonicteric sclera, nonanemic conjunctive. Neck: Supple, without JVD or goiter or thyroid mass. Respiratory: Normal breathing effort, clear to auscultation bilaterally, no crackles no wheezing or rhonchi. Cardiovascular: Regular rate and rhythm, S1, S2 normal, no murmur no gallop. Gastrointestinal: Normal bowel sounds, nondistended, mild tenderness in the suprapubic area, no ecchymosis or palpable mass, no ascites,, no hepatosplenomegaly. Extremities : No clubbing, +1/+1 peripheral edema, full range of motion, no deformity, no muscle atrophy. Integumentary: No rashes, petechia, suspected lesions. Lymphatics: No axilla or cervical lymphadenopathy. Neurology; alert awake oriented x3, no focal neurologic deficit, normal affection . mood and behavior. Assessment And Plan - Plan All this is 74 years old female patient with multiple comorbidities including chronic diastolic heart failure status post AICD/PPM, COPD, atrial fibrillation on DOAC, hypertension, CKD, type 2 diabetes who presented to emergency room for evaluation of a few days of shortness of breath, cough, left-sided chest pain and admitted on medical floor #1 acute on chronic heart failure with preserved ejection fraction Chest x-ray on admission mild pulmonary edema, proBNP elevated at 1632, follow- up 1400, troponin normal x 1, 24-hour urine output 0.8 L, A follow-up chest x-ray on November 19, resolution of her pulmonary edema I will change IV furosemide to torsemide 10 mg once a day Transthoracic echocardiogram in August 2024 result reviewed #2 acute exacerbation of COPD Gradually improving, Tested negative for COVID-19, influenza, RSV, will continue DuoNeb, antitussive and I do not believe patient benefit from systemic steroid. #3 history of atrial fibrillationstatus post permanent pacemaker, hypertension Blood pressure and heart rate are reasonably controlled, I will continue carvedilol Telemetry reviewed atrial and ventricular paced rhythm #4 ROS on CKD BUN/creatinine 36/1.1, no serious electrolyte imbalance. #5 type 2 diabetes Hemoglobin A1c 7.5, good glycemic control on diabetic diet and no hypoglycemic agent, will give her Farxiga at the time of discharge #6 major depression Started on fluoxetine, outpatient psychiatry #[address] of the abdomen and pelvis shows 3 cm mass in rectus muscle and pelvis suggestive of hematoma I will hold apixaban and aspirin, apply ice pack, order repeat CBC, CPK coagulation panel tomorrow morning DVT prophylaxis sequential compression device Disposition; plan to discharge home in a couple of days
[2024-11-21 04:47] LABS: MCH 28.8 pg (27.0-35.0); MCHC 31.6 g/dL (32.0-36.0); MCV 91.1 fL (80-100); MPV 7.4 fL (7.6-11.3); Platelets 293 thou/uL (152-406); RBC Red Blood Cell Count 3.84 M/uL (3.86-4.86); Red Cell Distribution Width 19.3 % (12.1-15.2)
[2024-11-21 05:00] LABS: PT Prothrombin Time 12.8 SECONDS (9.4-12.5); PTT, Activated Partial Thromb 35.2 SECONDS (24.3-36.9); Protime INR 1.15
[2024-11-21] MEDS: TORSEMIDE 20 MG TAB PO SCH (07:55)
--- NOTE | 2024-11-21 10:58 | P.PN ---
Subjective Date of Service: 11/21/24 Chief Complaint: SOB Subjective: No new changes She is complaining of pain in the left lower quadrant, not feeling well, not ready to be discharged. Denied any chest pain or shortness of breath or peripheral edema.. Review of Systems Other: Consitutional; fever(-), chills (-), rigor(-), night sweat(-), unintentional weight loss(-), malaise (-) HEENT; diplopia (-), rhinorrhea (-), epistaxis (-), otorrhea (-), otalgia (-) Respiratory; shortness of breath (-), wheezing (-), cough (-), sputum (-), pleuritic chest pain (-) Cardiovascular; chest pain (-), peripheral edema (-), paroxysmal nocturnal dyspnea (-), orthopnea (-) Gastrointestinal; nausea (-), vomiting (-), abdominal wall pain (+), diarrhea (-), constipation (-), melena (-), hematochezia (-) Genitourinary; urinary frequency (-), dysuria (-), urgency (-), flank pain (-), gross hematuria (-), incontinence (-) Skin; 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 General: Chronic ill- looking , in no apparent distress,. HEENT: Normocephalic, atraumatic, nonicteric sclera, nonanemic conjunctive. Neck: Supple, without JVD or goiter or thyroid mass. Respiratory: Normal breathing effort, clear to auscultation bilaterally, no crackles no wheezing or rhonchi. Cardiovascular: Regular rate and rhythm, S1, S2 normal, no murmur no gallop. Gastrointestinal: Normal bowel sounds, nondistended, mild tenderness in the suprapubic area, no ecchymosis or palpable mass, no ascites,, no hepatosplenomegaly. Extremities : No clubbing, +1/+1 peripheral edema, full range of motion, no deformity, no muscle atrophy. Integumentary: No rashes, petechia, suspected lesions. Lymphatics: No axilla or cervical lymphadenopathy. Neurology; alert awake oriented x3, no focal neurologic deficit, normal affection . mood and behavior. Assessment And Plan - Plan All this is 74 years old female patient with multiple comorbidities including chronic diastolic heart failure status post AICD/PPM, COPD, atrial fibrillation on DOAC, hypertension, CKD, type 2 diabetes who presented to emergency room for evaluation of a few days of shortness of breath, cough, left-sided chest pain and admitted on medical floor #1 acute on chronic heart failure with preserved ejection fraction Improved, Chest x-ray on admission mild pulmonary edema, proBNP elevated at 1632, follow- up 1400, troponin normal x 1, 24-hour urine output 0.8 L, A follow-up chest x-ray on November 19, resolution of her pulmonary edema IV furosemide changed to torsemide 10 mg once a day along with spironolactone Transthoracic echocardiogram in August 2024 result reviewed #2 acute exacerbation of COPD Gradually resolved Tested negative for COVID-19, influenza, RSV, will continue DuoNeb, anti tussive and I do not believe patient benefit from systemic steroid. #3 history of atrial fibrillation status post permanent pacemaker, hypertension Blood pressure and heart rate are reasonably controlled, I will continue carvedilol Telemetry reviewed atrial and ventricular paced rhythm #4 ROS on CKD BUN/creatinine 36/1.1, no serious electrolyte imbalance. #5 type 2 diabetes Hemoglobin A1c 7.5, good glycemic control on diabetic diet and no hypoglycemic agent, will give her Farxiga at the time of discharge #6 major depression Started on fluoxetine, outpatient psychiatry #7 abdominal wall pain secondary to rectus muscle hematoma on apixaban and aspirin CT of the abdomen and pelvis shows 3 cm mass in rectus muscle in pelvis suggestive of hematoma Hemoglobin stable at 11.0, normal INR, normal CPK apixaban and aspirin on hold, apply ice pack, DVT prophylaxis sequential compression device Disposition; plan to discharge home in a couple of days
[2024-11-21] MEDS: LOPERAMIDE HCL 2 MG CAPSULE PO PRN (16:38)
[2024-11-22] MEDS ORDERED: ALENDRONATE 70 MG TAB PO SCH (06:00)
--- NOTE | 2024-11-22 09:27 | P.PN ---
Subjective Date of Service: 11/22/24 Chief Complaint: SOB Subjective: No new changes She is complaining of pain in the left lower quadrant, about the same as yesterday, it does not get worse, tolerating oral diet well without any nausea and vomiting or worsening abdominal pain, urinate well without any dysuria or hematuria. She is getting IV morphine for abdominal hour, advised her on opioid use. Patient says she is unsure whether she can go home today and asking to stay 1 more night. Review of Systems Other: Consitutional; fever(-), chills (-), rigor(-), night sweat(-), unintentional weight loss(-), malaise (-) HEENT; diplopia (-), rhinorrhea (-), epistaxis (-), otorrhea (-), otalgia (-) Respiratory; shortness of breath (-), wheezing (-), cough (-), sputum (-), pleuritic chest pain (-) Cardiovascular; chest pain (-), peripheral edema (-), paroxysmal nocturnal dyspnea (-), orthopnea (-) Gastrointestinal; nausea (-), vomiting (-), abdominal wall pain (+), diarrhea (-), constipation (-), melena (-), hematochezia (-) Genitourinary; urinary frequency (-), dysuria (-), urgency (-), flank pain (-), gross hematuria (-), incontinence (-) Skin; 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 General: Chronic ill- looking , in no apparent distress,. HEENT: Normocephalic, atraumatic, nonicteric sclera, nonanemic conjunctive. Neck: Supple, without JVD or goiter or thyroid mass. Respiratory: Normal breathing effort, clear to auscultation bilaterally, no crackles no wheezing or rhonchi. Cardiovascular: Regular rate and rhythm, S1, S2 normal, no murmur no gallop. Gastrointestinal: Normal bowel sounds, nondistended, mild tenderness in left lower quadrant, no ecchymosis or palpable mass, no ascites,, no hepatosplenomegaly. Extremities : No clubbing, +1/+1 peripheral edema, full range of motion, no deformity, no muscle atrophy. Integumentary: No rashes, petechia, suspected lesions. Lymphatics: No axilla or cervical lymphadenopathy. Neurology; alert awake oriented x3, no focal neurologic deficit, normal affection . mood and behavior. Assessment And Plan - Plan All this is 74 years old female patient with multiple comorbidities including chronic diastolic heart failure status post AICD/PPM, COPD, atrial fibrillation on DOAC, hypertension, CKD, type 2 diabetes who presented to emergency room for evaluation of a few days of shortness of breath, cough, left-sided chest pain and admitted on medical floor #1 acute on chronic heart failure with preserved ejection fraction Improved and stable Chest x-ray on admission mild pulmonary edema, proBNP elevated at 1632, follow- up 1400, troponin normal x 1, A follow-up chest x-ray on November 19, resolution of her pulmonary edema IV furosemide changed to torsemide 10 mg once a day along with spironolactone Transthoracic echocardiogram in August 2024 result reviewed #2 acute exacerbation of COPD Gradually resolved Tested negative for COVID-19, influenza, RSV, will continue DuoNeb, antitussive and I do not believe patient benefit from systemic steroid. #3 history of atrial fibrillation status post permanent pacemaker, hypertension Blood pressure and heart rate are reasonably controlled, I will continue carvedilol Telemetry reviewed atrial and ventricular paced rhythm #4 ROS on CKD BUN/creatinine 36/1.1, no serious electrolyte imbalance. #5 type 2 diabetes Hemoglobin A1c 7.5, good glycemic control on diabetic diet and no hypoglycemic agent, will give her Farxiga at the time of discharge #6 major depression Started on fluoxetine, outpatient psychiatry after discharge #7 abdominal wall pain secondary to rectus muscle hematoma on apixaban and aspirin Complaining of unchanged pain, getting IV morphine CT of the abdomen and pelvis shows 3 cm mass in rectus muscle in pelvis suggestive of hematoma Hemoglobin stable at 11.0, normal INR, normal CPK, I will order follow-up H&H tomorrow Will keep apixaban and aspirin on hold, apply ice pack, DVT prophylaxis sequential compression device Disposition; plan to discharge home tomorrow
[2024-11-23] MEDS: HYDROCODONE/APAP 5/325 MG TAB PO PRN ×2 (04:04→13:55)
--- NOTE | 2024-11-23 12:07 | P.PN ---
Subjective Date of Service: 11/23/24 Chief Complaint: SOB Subjective: Improving She says she is feeling better today but unable to go back to her place, assisted living facility because of the weekend. She is requesting increase to [place] every 6 hour, giving her prescription for Wegovy for the weight loss. Denied any shortness of breath or chest pain or peripheral edema, tolerating oral diet well without any nausea and vomiting diarrhea, abdominal wall pain is about the same, controlled with oral and IV narcotics. Review of Systems Other: Consitutional; fever(-), chills (-), rigor(-), night sweat(-), unintentional weight loss(-), malaise (-) HEENT; diplopia (-), rhinorrhea (-), epistaxis (-), otorrhea (-), otalgia (-) Respiratory; shortness of breath (-), wheezing (-), cough (-), sputum (-), pleuritic chest pain (-) Cardiovascular; chest pain (-), peripheral edema (-), paroxysmal nocturnal dyspnea (-), orthopnea (-) Gastrointestinal; nausea (-), vomiting (-), abdominal wall pain (+), diarrhea (-), constipation (-), melena (-), hematochezia (-) Genitourinary; urinary frequency (-), dysuria (-), urgency (-), flank pain (-), gross hematuria (-), incontinence (-) 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 General: Chronic ill- looking , in no apparent distress,. HEENT: Normocephalic, atraumatic, nonicteric sclera, nonanemic conjunctive. Neck: Supple, without JVD or goiter or thyroid mass. Respiratory: Normal breathing effort, clear to auscultation bilaterally, no crackles no wheezing or rhonchi. Cardiovascular: Regular rate and rhythm, S1, S2 normal, no murmur no gallop. Gastrointestinal: Normal bowel sounds, nondistended, mild tenderness in left lower quadrant, no ecchymosis or palpable mass, no ascites,, no hepatosplenomegaly. Extremities : No clubbing, +1/+1 peripheral edema, full range of motion, no deformity, no muscle atrophy. Integumentary: No rashes, petechia, suspected lesions. Lymphatics: No axilla or cervical lymphadenopathy. Neurology; alert awake oriented x3, no focal neurologic deficit, normal affection . mood and behavior. Assessment And Plan - Plan All this is 74 years old female patient with multiple comorbidities including chronic diastolic heart failure status post AICD/PPM, COPD, atrial fibrillation on DOAC, hypertension, CKD, type 2 diabetes who presented to emergency room for evaluation of a few days of shortness of breath, cough, left-sided chest pain and admitted on medical floor #1 acute on chronic heart failure with preserved ejection fraction Improved and stable Chest x-ray on admission mild pulmonary edema, proBNP elevated at 1632, follow- up 1400, troponin normal x 1, A follow-up chest x-ray on November 19, resolution of her pulmonary edema IV furosemide changed to torsemide 10 mg once a day along with spironolactone, I will continue current regimen Transthoracic echocardiogram in August 2024 result reviewed #2 acute exacerbation of COPD Gradually resolved Tested negative for COVID-19, influenza, RSV, will continue DuoNeb, antitussive and I do not believe patient benefit from systemic steroid. #3 history of atrial fibrillation status post permanent pacemaker, hypertension Blood pressure and heart rate are reasonably controlled, I will continue carvedilol at current dosage. Telemetry reviewed atrial and ventricular paced rhythm #4 ROS on CKD BUN/creatinine 36/1.1, no serious electrolyte imbalance. #5 type 2 diabetes Hemoglobin A1c 7.5, good glycemic control on diabetic diet and no hypoglycemic agent, will give her Farxiga at the time of discharge #6 major depression Started on fluoxetine, outpatient psychiatry after discharge #7 abdominal wall pain secondary to rectus muscle hematoma on apixaban and aspirin Stable abdominal wall pain, getting IV morphine and [place] CT of the abdomen and pelvis shows 3 cm mass in rectus muscle in pelvis suggestive of hematoma Hemoglobin stable at 11.0, normal INR, normal CPK, Will keep apixaban and aspirin on hold, apply ice pack, DVT prophylaxis sequential compression device Disposition; plan to discharge back to her assisted living facility on Sunday, they are closed on the weekend
[2024-11-23] MEDS: ACETAMINOPHEN 325 MG TABLET PO PRN (12:51)
[2024-11-23 18:52] LABS: Specific Gravity 1.017 (1.005-1.030); Sqamous Epithelial <5 /HPF (None Seen); Urine Bacteria None Seen /HPF (<20); Urine Bilirubin NEGATIVE (Negative); Urine Blood Negative (Negative); Urine Clarity Turbid (Clear); Urine Color Yellow (Yellow); Urine Crystals Unidentified Few /HPF (None Seen); Urine Culture Reflex Order REFLEXED; Urine Glucose NEGATIVE (Negative); Urine Ketones NEGATIVE (Negative); Urine Microscopic Reflex YN ORDER UMIC; Urine Mucus Slight /HPF (None Seen); Urine Nitrite NEGATIVE (Negative); Urine Protein TRACE (Negative); Urine RBC <5 /HPF (None Seen); Urine Urobilinogen Normal (Normal); Urine WBC 20-50 /HPF (<5); Urine Yeast (Budding) Trace /HPF (None Seen)
[2024-11-23] MEDS: MORPHINE 2 MG/ML SYR IV PRN (20:39)
[2024-11-23 23:35] VITALS: O2SAT 98
--- NOTE | 2024-11-24 06:50 | P.PN ---
Subjective Date of Service: 11/24/24 Chief Complaint: SOB Physical Examination - Vital Signs Temperature: 98.1 F Blood Pressure: 127/76 Pulse: 70 Respirations: 16 Pulse Ox (%): 99 - Physical Exam Other Physical/Emotional Findings: - Physical Exam. General: Chronic ill- looking , in no apparent distress,. HEENT: Normocephalic, atraumatic, nonicteric sclera, nonanemic conjunctive. Neck: Supple, without JVD or goiter or thyroid mass. Respiratory: Normal breathing effort, clear to auscultation bilaterally, no crackles no wheezing or rhonchi. Cardiovascular: Regular rate and rhythm, S1, S2 normal, no murmur no gallop. Gastrointestinal: Normal bowel sounds, nondistended, mild tenderness in left lower quadrant, no ecchymosis or palpable mass, no ascites,, no hepatosplenomegaly. Extremities : No clubbing, +1/+1 peripheral edema, full range of motion, no deformity, no muscle atrophy. Integumentary: No rashes, petechia, suspected lesions. Lymphatics: No axilla or cervical lymphadenopathy. Neurology; alert awake oriented x3, no focal neurologic deficit, normal affection . mood and behavior.
--- NOTE | 2024-11-24 08:48 | RAD REPORT ---
EXAMINATION: CT Abdomen Pelvis Wo Contrast CLINICAL INDICATION: Female, 74 years old. eval rectal mass/hematoma TECHNIQUE: CT abdomen and pelvis was performed, without IV contrast, as per department protocol. Axia l, sagittal and coronal reconstructions were obtained. One or more of the following dose reduction techniques were used: Automated exposure control, adjustment of the mA and kV according to the patien t size, and iterative reconstruction. Unless otherwise specified, incidental findings do not require dedicated imaging follow-up. COMPARISON: 11/20/2024 FINDINGS: The lack of intravenous contrast limits the sensitivity of this exam for evaluation of solid visceral organs, vascular structures, and retroperitoneum. LOWER CHEST: Small layering left pleural effusion, stable. Pacer/AICD leads, unchanged LIVER: Normal in size and contour. No focal lesion. BILIARY SYSTEM: Gallbladder is not well visualized again, may be surgically removed. No suspicious ab normalities. SPLEEN: Normal size. No focal lesion. PANCREAS: No mass, ductal dilation, or gui-pancreatic fluid. ADRENALS: Normal; no mass. KIDNEYS AND URETERS: Normal size and contour. No hydronephrosis. URINARY BLADDER: Decompressed limiting evaluation GASTROINTESTINAL TRACT: Sequelae of gastric bypass. No evidence of bowel obstruction, significant megan e fluid, free air or abscess. APPENDIX: Normal appendix. LYMPH NODES: No lymphadenopathy. MUSCULOSKELETAL: No acute or suspicious osseous abnormality. Right hip arthroplasty hardware in place , which results in streak artifact limiting evaluation in the pelvis ADDITIONAL FINDINGS: Somewhat ill-defined hyperdense 1.7 cm mass within the left rectus muscle, with surrounding swelling/fat stranding, with overall stable appearance. Interval changes in morphology may relate to timing interval changes of blood products. IMPRESSION: Essentially stable appearance of left rectus muscle hyperdense probable hematoma with surrounding swe lling, except for time interval changes within the expected range. No other acute or concerning abnormalities in the abdomen or pelvis, with evaluation limited by lack of IV contrast. Stable findings as above.
--- NOTE | 2024-11-24 10:38 | P.DS ---
Admission Date: 11/16/24 Discharge Date: 11/24/24 Disposition: DC HOME/HOME HEALTH CARE Discharge Condition: GOOD Reason for Admission: SOB Brief History of Present Illness: 74 yrs old Female with past medical history of hypertension, hyperlipidemia, dementia, A-fib, DM , COPD, CAD, and CHF brought to ER with complaints of cough, chest tightness and shortness of breath. Patient has left- sided nonexertional chest pain which has been going on for the last 1 week and has been progressively getting worse. Pain is intermittent. Worse with movements and exertions. No diaphoresis. Denies any shortness of breath. Has a previous history of hypertension, hyperlipidemia, history of CHF status post AICD placement. Patient was assessed in the ER and is admitted for further management of chest pain to rule out ACS. and CHF exacerbation - Physical Exam General: Alert, Oriented x3, HEENT: Atraumatic, Normocephalic Neck: Supple, JVD not distended Respiratory: Diminished, Crackles/rales Cardiovascular: Normal S1 S2, Edema Capillary refill: <2 Seconds Gastrointestinal: Soft and benign, Musculoskeletal: No clubbing Integumentary: No rashes Neurological: Other (Alert, Awake ) Hospital Course: 74 yrs old Female with past medical history of hypertension, hyperlipidemia, dementia, A-fib, DM , COPD, CAD, and CHF brought to ER with complaints of cough, chest tightness and shortness of breath. Patient has left- sided nonexertional chest pain which has been going on for the last 1 week and has been progressively getting worse. Pain is intermittent. Worse with movements and exertions. No diaphoresis. Denies any shortness of breath. Has a previous history of hypertension, hyperlipidemia, history of CHF status post AICD placement. She was admitted for acute on chronic heart failure., Treated with diuretic basis. Plan to discharge to the [facility] with home health care after discharge, patient has home O2 Assessment Acute on chronic heart failure with preserved ejection low-sodium diet, resume home meds after discharge Abdominal wall rectus muscle hematoma on Eliquis and aspirin CT stable, hemoglobin stable follow-up with surgery after discharge Acute cystitis discharged home on Macrobid Unstable angina COPD exacerbation improved, DuoNeb, cough medicatiion while inpatient A-fib rate controlled History of permanent pacemaker Dementia, supportive care, fall precaution Hypertension, hyperlipidemia, resume home meds CKD stage II, follow-up with PCP Diabetes resume home meds hemoglobin A1c 7.5 Major depression, started on fluoxetine after discharge, follow-up with psychiatry outpatient Repeat CT scan Essentially stable appearance of left rectus muscle hyperdense probable hematoma with surrounding swelling, except for time interval changes within the expected range. Continue home medicines as previously prescribed GOAL: Clear understanding of disease process INSTRUCTIONS: Physician Discharge Instructions: -Follow-up with PCP in 1 to 2 weeks -Follow-up with psychiatry after Follow-up with cardiology -Please call Dr. Sharif at [phone] if any questions regarding hospital stay -Please call nursing station at [phone] if any nursing or medication questions -Return to the emergency room if symptoms worsen Diet: ADA, low sodium Activity: Fall precautions Vital Signs/Physical Exam: Temp Pulse Resp BP Pulse Ox 98.5 F 75 20 126/74 98 11/24/24 08:00 11/24/24 08:00 11/24/24 09:55 11/24/24 08:00 11/24/24 09:55 Other Physical/Emotional Findings: - Physical Exam. General: Chronic ill- looking , in no apparent distress,. HEENT: Normocephalic, atraumatic, nonicteric sclera, nonanemic conjunctive. Neck: Supple, without JVD or goiter or thyroid mass. Respiratory: Normal breathing effort, clear to auscultation bilaterally, no crackles no wheezing or rhonchi. Cardiovascular: Regular rate and rhythm, S1, S2 normal, no murmur no gallop. Gastrointestinal: Normal bowel sounds, nondistended, mild tenderness in left lower quadrant, no ecchymosis or palpable mass, no ascites,, no hepatosplenomegaly. Extremities : No clubbing, +1/+1 peripheral edema, full range of motion, no deformity, no muscle atrophy. Integumentary: No rashes, petechia, suspected lesions. Lymphatics: No axilla or cervical lymphadenopathy. Neurology; alert awake oriented x3, no focal neurologic deficit, normal affection . mood and behavior. Laboratory Data at Discharge: WBC 7.10 thou/uL (4.3-10.9) 11/21/24 04:32 Hgb 11.3 g/dL (12.0-15.0) L 11/23/24 08:45 Hct 35.0 % (36.0-45.0) L 11/21/24 04:32 Plt Count 293 thou/uL (152-406) 11/21/24 04:32 PT 12.8 SECONDS (9.4-12.5) H 11/21/24 04:32 INR 1.15 11/21/24 04:32 APTT 35.2 SECONDS (24.3-36.9) 11/21/24 04:32 Sodium 138 mEq/L (136-145) 11/19/24 05:28 Potassium 4.0 mEq/L (3.5-5.1) 11/19/24 05:28 BUN 34 mg/dL (7-18) H 11/19/24 05:28 Creatinine 0.85 mg/dL (0.55-1.02) 11/19/24 05:28 Glucose 187 mg/dL (74-106) H 11/19/24 05:28 Phosphorus 3.8 mg/dL (2.5-4.9) 11/19/24 05:28 Magnesium 2.2 mg/dL (1.6-2.4) 11/19/24 05:28 Total Bilirubin 0.3 mg/dL (0.2-1.0) 11/17/24 05:20 AST 16 U/L (15-37) 11/17/24 05:20 ALT 17 U/L (13-56) 11/17/24 05:20 Alkaline Phosphatase 82 U/L (45-117) 11/17/24 05:20 Home Medications: Furosemide 40 mg PO DAILY 5 Days #5 tab 09/06/24 Apixaban [Eliquis *] 2.5 mg PO BID 09/25/24 Donepezil [Aricept*] 10 mg PO BEDTIME tab 09/25/24 Insulin Regular, Human [Novolin R] See Protocol SQ ACHS ml 09/25/24 Silver Sulfadiazine Crm [Silvadene*] 1 appl TOP DAILY #1 tube 09/25/24 Spironolactone [Aldactone*] 25 mg PO DAILY #30 tab 09/25/24 Alendronate Sodium 70 mg PO Q7D 10/27/24 Aspirin [Aspirin EC] 81 mg PO DAILY 10/27/24 Atorvastatin Calcium 20 mg PO BEDTIME 10/27/24 Carvedilol [Coreg] 3.125 mg PO BID 10/27/24 Cetirizine HCl [All Day Allergy] 10 mg PO DAILY 10/27/24 Donepezil [Aricept*] 10 mg PO DAILY 10/27/24 Ferosul Tab 325 mg PO DAILY 10/27/24 Fluticasone/Vilanterol [Breo Ellipta 100-25 Mcg Inhalr] 1 each IH DAILY 10/27/24 Hydrocodone 5/APAP 325 [[place] 5/325*] 1 tab PO Q8HR PRN 10/28/24 Ubrogepant [Ubrelvy] 100 mg PO SEECOM PRN 10/28/24 Acetaminophen [Tylenol*] 650 mg PO Q4HP PRN tab 11/24/24 Acetaminophen with Codeine [Tylenol with-Codeine #3 Tablet] 1 each PO Q6H PRN 30 Days #60 tab 11/24/24 Albuterol Neb [Proventil 0.083% Neb Soln] 2.5 mg NEB [id number] PRN amp 11/24/24 Benzonatate [Tessalon Perle*] 100 mg PO TID cap 11/24/24 Codeine/APAP [Tylenol W/Codeine #3 tab] 1 tab PO Q6HP PRN 4 Days #15 tab 11/24/24 Hydrocodone 5/APAP 325 [[place] 5/325*] 1 tab PO Q6H PRN tab 11/24/24 Ipratropium Neb [Atrovent*] 0.5 mg NEB [id number] PRN amp 11/24/24 Nitrofuran Macro [Macrobid] 100 mg PO BID 7 Days #14 cap 11/24/24 Spironolactone [Aldactone*] 25 mg PO DAILY tab 11/24/24 carvediloL [Coreg*] 3.125 mg PO BID tab 11/24/24 New Medications: Nitrofuran Macro [Macrobid] 100 mg PO BID 7 Days #14 cap Codeine/APAP [Tylenol W/Codeine #3 tab] 1 tab PO Q6HP PRN 4 Days #15 tab PRN Reason: Pain Acetaminophen with Codeine [Tylenol with-Codeine #3 Tablet] 1 each PO Q6H PRN 30 Days #60 tab PRN Reason: Pain Scale 5-7 (Moderate) Physician Discharge Instructions: 74 yrs old Female with past medical history of hypertension, hyperlipidemia, dementia, A-fib, DM , COPD, CAD, and CHF brought to ER with complaints of cough, chest tightness and shortness of breath. Patient has left- sided nonexertional chest pain which has been going on for the last 1 week and has been progressively getting worse. Pain is intermittent. Worse with movements and exertions. No diaphoresis. Denies any shortness of breath. Has a previous history of hypertension, hyperlipidemia, history of CHF status post AICD placement. She was admitted for acute on chronic heart failure., Treated with diuretic basis. Plan to discharge to the [facility] with home health care after discharge, patient has home O2 Assessment Acute on chronic heart failure with preserved ejection low-sodium diet, resume home meds after discharge Abdominal wall rectus muscle hematoma on Eliquis and aspirin CT stable, hemoglobin stable (follow up with surgery after discharge) UTI DC on macrobid Unstable angina COPD exacerbation improved, DuoNeb, cough medicatiion while inpatient A-fib rate controlled History of permanent pacemaker Dementia, supportive care, fall precaution Hypertension, hyperlipidemia, resume home meds CKD stage II, follow-up with PCP Diabetes resume home meds hemoglobin A1c 7.5 Major depression, started on fluoxetine after discharge, follow-up with psychiatry outpatient Repeat CT scan Essentially stable appearance of left rectus muscle hyperdense probable hematoma with surrounding swelling, except for time interval changes within the expected range. Continue home medicines as previously prescribed GOAL: Clear understanding of disease process INSTRUCTIONS: Physician Discharge Instructions: -Follow-up with PCP in 1 to 2 weeks -Follow-up with psychiatry after Follow-up with cardiology -Please call Dr. Sharif at [phone] if any questions regarding hospital stay -Please call nursing station at [phone] if any nursing or medication questions -Return to the emergency room if symptoms worsen Diet: ADA, low sodium Activity: Fall precautions Diet: Low sodium Activity: Fall precautions Followup: Yohan Lacy MD [ACTIVE - CAN ADMIT] - Queenie Nice MD [Primary Care Provider] - 1-2 Weeks Time spent managing pt's care (in minutes): 45
[2024-11-24 13:10] VITALS: BP 135/76; TEMP 98.1
== END 2024-11-24 17:01 | disposition home health service (06) | DRG 291 ==
LOC: ER 03:48 → ERHOLD 05:40 → 2ND 06:09
PROVIDERS: ADMIT Family Medicine; ATTEND Hospitalist
DX: I13.0 Hypertensive heart and chronic kidney disease with heart failure and stage 1 through stage 4 chronic kidney disease, or unspecified chronic kidney disease (principal); I50.33 Acute on chronic diastolic (congestive) heart failure; J44.1 Chronic obstructive pulmonary disease with (acute) exacerbation; N17.9 Acute kidney failure, unspecified; F03.93 Unspecified dementia, unspecified severity, with mood disturbance; N30.00 Acute cystitis without hematuria; N18.2 Chronic kidney disease, stage 2 (mild); E11.22 Type 2 diabetes mellitus with diabetic chronic kidney disease; G25.81 Restless legs syndrome; E78.5 Hyperlipidemia, unspecified; I48.91 Unspecified atrial fibrillation; I25.110 Atherosclerotic heart disease of native coronary artery with unstable angina pectoris; N94.89 Other specified conditions associated with female genital organs and menstrual cycle; Z88.5 Allergy status to narcotic agent; Z88.8 Allergy status to other drugs, medicaments and biological substances; Z88.1 Allergy status to other antibiotic agents; Z86.73 Personal history of transient ischemic attack (TIA), and cerebral infarction without residual deficits; Z79.01 Long term (current) use of anticoagulants; Z79.4 Long term (current) use of insulin; Z79.82 Long term (current) use of aspirin; Z79.02 Long term (current) use of antithrombotics/antiplatelets; Z79.899 Other long term (current) drug therapy; Z95.810 Presence of automatic (implantable) cardiac defibrillator
CPT/HCPCS: 36415; 71045; 74176; 80048; 80053; 81001; 82550; 82947; 83036; 83735; 83880; 84100; 84484; 85018; 85025; 85027; 85610; 85730; 87077; 87086; 87088; 87186; 87804; 87807; 87811; 90471; 90732; 93005; 94640; 94760; 99285; J1940; J2270; J2405; J3535; J7613; J7644

== ENCOUNTER 2024-11-27 09:57 | Emergency (ER) | payer OTHER ==
[2024-11-27] MEDS ORDERED: ONDANSETRON 4 MG/2 ML VIAL ONE (10:06)
[2024-11-27] MEDS ORDERED: NA CHLORIDE 0.9% 1,000 ML ONE (10:06)
[2024-11-27] MEDS ORDERED: MORPHINE 2 MG/ML SYR ONE (10:06)
[2024-11-27 10:23] LABS: Absolute Eosinophils 0.4 K/uL (0-0.5); Absolute Monocytes 0.4 K/uL (0.1-1.3); Basophils % 0.8 % (0-1.3); Eosinophils % 6.5 % (0-4.4); Hematocrit 38.5 % (36.0-45.0); Hemoglobin 12.2 g/dL (12.0-15.0); Lymphocytes % 16.5 % (15.3-44.8); MCH 28.7 pg (27.0-35.0); MCHC 31.6 g/dL (32.0-36.0); MCV 90.9 fL (80-100); MPV 7.7 fL (7.6-11.3); Monocytes % 7.3 % (3.3-12.3); Neutrophils % 68.9 % (41.7-73.7); Nucleated Red Blood Cells % 0.2 % (0-0); Platelets 318 thou/uL (152-406); RBC Red Blood Cell Count 4.24 M/uL (3.86-4.86); Red Cell Distribution Width 18.7 % (12.1-15.2)
[2024-11-27 11:20] LABS: PT Prothrombin Time 14.4 SECONDS (9.4-12.5); PTT, Activated Partial Thromb 37.3 SECONDS (24.3-36.9); Protime INR 1.3
[2024-11-27 11:24] LABS: Specific Gravity 1.008 (1.005-1.030); Sqamous Epithelial <5 /HPF (None Seen); Urine Bacteria None Seen /HPF (<20); Urine Bilirubin NEGATIVE (Negative); Urine Blood Negative (Negative); Urine Clarity Extremely Turbid (Clear); Urine Color Colorless (Yellow); Urine Culture Reflex Order NOT NEEDED; Urine Glucose NEGATIVE (Negative); Urine Ketones NEGATIVE (Negative); Urine Micro Reflex YN NO BILL MICROSCOPIC; Urine Mucus Slight /HPF (None Seen); Urine Nitrite NEGATIVE (Negative); Urine Protein NEGATIVE (Negative); Urine RBC <5 /HPF (None Seen); Urine Urobilinogen Normal (Normal)
[2024-11-27 11:27] LABS: Anion Gap 8.4 mEq/L (5.0-15.0); Potassium 5.4 mEq/L (3.5-5.1)
--- NOTE | 2024-11-27 11:29 | RAD REPORT ---
EXAMINATION: XR PELVIS CLINICAL INDICATION: Female, 74 years old. [facility] MAIN ABD PAIN Bed Name: 3 TECHNIQUE: AP Pelvis radiograph was obtained. COMPARISON: No prior exam. FINDINGS: No evidence of fracture or dislocation. Right hip arthroplasty in satisfactory alignment. D iffuse osteopenia limits evaluation of the osseous structures. Normal alignment. No evidence of AVN. Soft tissues are unremarkable. IMPRESSION: No acute osseous abnormalities. Diffuse osteopenia which limits evaluation of the osseous structures.
--- NOTE | 2024-11-27 11:30 | RAD REPORT ---
EXAMINATION: CERVICAL SPINE 3 VIEWS CLINICAL INDICATION: Female, 74 years old. PAIN TECHNIQUE: AP, lateral and odontoid views of the cervical spine were obtained. COMPARISON: No prior exam. FINDINGS: Alignment: The cervical spine has normal alignment. Bones: C7 and T1 levels obscured by shoulder soft tissues. Vertebral body heights are maintained. No aggressive osseous lesions. Mild multilevel degenerative changes. Discs: Disc heights are maintained. Soft Tissue: No soft tissue abnormalities. IMPRESSION: No acute cervical spine abnormality. Degenerative changes as above.
--- NOTE | 2024-11-27 13:10 | ER ---
Nurse's Notes [facility] Name: Caren Cuadra Age: 74 yrs Sex: Female : 1950 Arrival Date: 11/27/2024 Time: 09:57 Bed 3 Private MD: Diagnosis: Fall on same level, unspecified;UTI/ Urinary tract infection, site not specified;Pain in right hip Presentation: 11/27 09:59 Chief complaint: EMS states: MECHANICAL FALL AT [facility]. Coronavirus screen: At this bp time, the client does not indicate any symptoms associated with coronavirus-19. Ebola Screen: No symptoms or risks identified at this time. Initial Sepsis Screen: Does the patient meet any 2 criteria? No. Patient's initial sepsis screen is negative. Does the patient have a suspected source of infection? No. Patient's initial sepsis screen is negative. Risk Assessment: Do you want to hurt yourself or someone else? Patient reports no desire to harm self or others. Onset of symptoms was November 27, 2024. Care prior to arrival: Medication(s) given: FENTANYL 50 MCG IN. 09:59 Method Of Arrival: EMS: [facility] bp 09:59 Acuity: ROSEMARIE 3 bp Triage Assessment: 10:00 General: Appears in no apparent distress. uncomfortable, Behavior is cooperative, bp appropriate for age, anxious. Pain: Complains of pain in right hip. EENT: No deficits noted. Neuro: No deficits noted. Cardiovascular: Rhythm is sinus rhythm. Respiratory: No deficits noted. GI: No signs and/or symptoms were reported involving the gastrointestinal system. : No signs and/or symptoms were reported regarding the genitourinary system. Derm: No deficits noted. Musculoskeletal: No deficits noted. Historical: - Allergies: 10:00 articane hydrochloride; bp 10:00 Codeine; bp 10:00 Darvon; bp 10:00 e-mycin; bp 10:00 idoxuridine; bp 10:00 Iodine; bp 10:00 Macrobid; bp 10:00 TETRACYCLINES; bp - PMHx: 10:00 Anxiety; overactive bladder; diabetes mellitus; Migraine; Atrial fibrillation; COPD; bp CVA; depressive disorder; radiating back pain; RLS; - Immunization history:: Adult Immunizations up to date. - Infectious Disease History:: Denies. - Social history:: Smoking status: Patient denies any tobacco usage or history of. Screenin:03 [facility] ED Fall Risk Assessment (Adult) History of falling in the last 3 months, kc6 including since admission Yes- fall prone (multiple falls) (3 pts) Confusion or Disorientation No (0 pts) Intoxicated or Sedated No (0 pts) Impaired Gait Yes (1 pt) Mobility Assist Device Used Yes (1 pt) Altered Elimination No (0 pt) Score/Fall Risk Level 3 or more points = High Risk Oriented to surroundings, Maintained a safe environment, Educated pt \T\ family on fall prevention, incl call for assistance when getting out of bed. Abuse screen: Denies threats or abuse. Denies injuries from another. Nutritional screening: No deficits noted. Tuberculosis screening: No symptoms or risk factors identified. 10:03 Abuse screen: Denies threats or abuse. Denies injuries from another. bp Assessment: 10:03 General: Appears in no apparent distress. uncomfortable, Behavior is cooperative, bp appropriate for age, anxious. 11:08 Reassessment: Patient appears in no apparent distress at this time. No changes from kc6 previously documented assessment. Patient and/or family updated on plan of care and expected duration. Pain level reassessed. Patient is alert, oriented x 3, equal unlabored respirations, skin warm/dry/pink. 12:20 Reassessment: Patient appears in no apparent distress at this time. No changes from kc6 previously documented assessment. Patient and/or family updated on plan of care and expected duration. Pain level reassessed. Patient is alert, oriented x 3, equal unlabored respirations, skin warm/dry/pink. 12:44 Reassessment: pt ambulated in her room with walker. Dr. Aguilar made aware. kc6 13:17 Reassessment: [facility] CALLED FOR TRANSPORT. bp Vital Signs: 09:59 BP 120 / 75; Pulse 72; Resp 16; Temp 98; Pulse Ox 98% on 2 lpm NC; bp 10:03 Weight 69.4 kg (M); Height 5 ft. 6 in. (R); kc6 11:08 BP 104 / 73; Pulse 76; Resp 16 S; Pulse Ox 100% on R/A; kc6 12:21 BP 107 / 66; Pulse 70; Resp 15 S; Pulse Ox 100% on R/A; kc6 10:03 Body Mass Index 24.69 (69.40 kg, 167.64 cm) kc6 ED Course: 09:59 Patient arrived in ED. em1 09:59 Leonardo Acosta, RN is Primary Nurse. bp 10:00 Yesenia Aguilar MD is Attending Physician. gb1 10:00 Triage completed. bp 10:00 Arm band placed on. bp 10:03 Patient has correct armband on for positive identification. Bed in low position. Call kc6 light in reach. Side rails up X2. Pulse ox on. NIBP on. Door closed. Noise minimized. Lights dimmed. Warm blanket given. Pillow given. 10:03 Patient maintains SpO2 saturation greater than 95% on room air. kc6 10:32 XRAY Pelvis In Process Unspecified. EDMS 10:32 C Spine Ap/Lat In Process Unspecified. EDMS 10:44 Missed attempt(s): 22 gauge in right wrist. Inserted saline lock: 22 gauge in right kc6 forearm, using aseptic technique. Blood collected. Flushed with 10 mL NS. 10:44 Type And Screen Sent. kc6 10:56 Urine collected: Altamirano catheter specimen, clear. Altamirano cath inserted, using sterile [facility] technique, 18 Fr., by wy, balloon inflated, to gravity drainage, clamped. urine specimen collected. returned clear yellow urine. Patient tolerated well. 10:57 Repositioned patient. Cleaned of incontinence. Linen changed. kc6 12:20 Diet: Patient given ice chips. Tolerated well. kc6 12:43 Removal of altamirano catheter. kc6 13:20 No provider procedures requiring assistance completed. IV discontinued, intact, bp bleeding controlled, No redness/swelling at site. Pressure dressing applied. Administered Medications: 10:44 Drug: morphine IVP or IV 2 mg IVP once over 4 mins Route: IVP; Infused Over: 4 mins; kc6 Site: right forearm; 13:18 Follow up: Response: No adverse reaction bp 10:44 Drug: Ondansetron IVP 4 mg IVP once; over 2 minutes Route: IVP; Site: right forearm; kc6 13:18 Follow up: Response: No adverse reaction bp 10:44 Drug: NS 0.9% IV 1000 ml IV at 1000 ml once; to be given as a bolus over 60 minutes kc6 Route: IV; Rate: 1000 ml; Site: right forearm; 13:18 Follow up: IV Status: Completed infusion bp Medication: 10:03 VIS not applicable for this client. bp Output: 12:43 Urine: 1200ml (Altamirano); Total: 1200ml. kc6 Outcome: 13:10 Discharge ordered by gb1 13:21 Discharged to [facility]. Report called to [facility] AT [facility] bp 13:21 Condition: stable 13:21 Discharge instructions given to patient, Instructed on discharge instructions, follow up and referral plans. medication usage, Demonstrated understanding of instructions, follow-up care, medications, Prescriptions given X 1, 13:30 Patient left the ED. bp Signatures: Dispatcher [employer] EDHerman Carlos em1 Leonardo Acosta, RN RN Naomi Eid RN RN kc6 Yesenia Aguilar MD MD gb1
--- NOTE | 2024-11-27 13:10 | EDPHYS ---
Physician Documentation [facility] Name: Caren Cuadra Age: 74 yrs Sex: Female : 1950 Arrival Date: 11/27/2024 Time: 09:57 Bed 3 Private MD: ED Physician Yesenia Aguilar HPI: 11/27 11:11 This 74 yrs old Female presents to ER via EMS with complaints of Hip Pain. gb1 11:11 Ms. Cuadra is a 74-year-old female who lives in a long term facility and gb1 lost her footing in the dining room this morning and fell on her right hip. She does does have a history of a right hip prosthesis. She denies hitting her head or any loss of consciousness. She has a history of anxiety, overactive bladder, diabetes, migraine, A-fib, COPD, CVA and depression.. Historical: - Allergies: 10:00 articane hydrochloride; bp 10:00 Codeine; bp 10:00 Darvon; bp 10:00 e-mycin; bp 10:00 idoxuridine; bp 10:00 Iodine; bp 10:00 Macrobid; bp 10:00 TETRACYCLINES; bp - PMHx: 10:00 Anxiety; overactive bladder; diabetes mellitus; Migraine; Atrial fibrillation; COPD; bp CVA; depressive disorder; radiating back pain; RLS; - Immunization history:: Adult Immunizations up to date. - Infectious Disease History:: Denies. - Social history:: Smoking status: Patient denies any tobacco usage or history of. Exam: 11:11 Constitutional: This is a well developed, well nourished patient who is awake, alert, gb1 and in no acute distress. Head/Face: Normocephalic, atraumatic. Eyes: Pupils equal round and reactive to light, extra-ocular motions intact. Lids and lashes normal. Conjunctiva and sclera are non-icteric and not injected. Cornea within normal limits. Periorbital areas with no swelling, redness, or edema. ENT: Nares patent. No nasal discharge, no septal abnormalities noted. Tympanic membranes are normal and external auditory canals are clear. Oropharynx with no redness, swelling, or masses, exudates, or evidence of obstruction, uvula midline. Mucous membranes moist. Neck: Trachea midline, no thyromegaly or masses palpated, and no cervical lymphadenopathy. Supple, full range of motion without nuchal rigidity, or vertebral point tenderness. No Meningismus. Chest/axilla: Normal chest wall appearance and motion. Nontender with no deformity. No lesions are appreciated. Cardiovascular: Regular rate and rhythm with a normal S1 and S2. No gallops, murmurs, or rubs. Normal PMI, no JVD. No pulse deficits. Respiratory: Lungs have equal breath sounds bilaterally, clear to auscultation and percussion. No rales, rhonchi or wheezes noted. No increased work of breathing, no retractions or nasal flaring. Abdomen/GI: Soft, non-tender, with normal bowel sounds. No distension or tympany. No guarding or rebound. No evidence of tenderness throughout. Skin: Warm, dry with normal turgor. Normal color with no rashes, no lesions, and no evidence of cellulitis. MS/ Extremity: Pulses equal, no cyanosis. Neurovascular intact. Limited range of motion secondary to pain of the right hip joint. Patient is unable to adductor or abductor her hip off the bed. She is unable to flex the hip as well. Patient is also unable to ambulate secondary to pain. Vital Signs: 09:59 BP 120 / 75; Pulse 72; Resp 16; Temp 98; Pulse Ox 98% on 2 lpm NC; bp 10:03 Weight 69.4 kg (M); Height 5 ft. 6 in. (R); kc6 11:08 BP 104 / 73; Pulse 76; Resp 16 S; Pulse Ox 100% on R/A; kc6 12:21 BP 107 / 66; Pulse 70; Resp 15 S; Pulse Ox 100% on R/A; kc6 10:03 Body Mass Index 24.69 (69.40 kg, 167.64 cm) kc6 MDM: 10:00 Medical Screening Exam initiated gb1 11:11 Differential diagnosis: hip fracture, intertrochanteric fracture, femoral neck gb1 fracture, femoral shaft fracture, Migration of the right hip prosthesis. ED course: Patient is awake and alert and did not hit her head and denies any loss of consciousness I doubt skull fracture or subdural hematoma. She is on Eliquis.. 13:08 ED course: 74-year-old female status post ground-level fall at a long term gb1 facility is here with right hip pain she has a normal exam she is able to ambulate with assistance at her baseline with a walker per nursing prior to discharge home. There is no occult fracture or dislocation of the right hip prosthesis. Patient does have UTI which I will prescribe antibiotics for. She is afebrile no flank tenderness I doubt acute pyelonephritis or infected stone at this time. I will transfer her back to her long term facility.. 11/27 10:01 Order name: Basic Metabolic Panel; Complete Time: 11:51 gb1 11/27 10:01 Order name: CBC with Diff; Complete Time: 10:43 gb1 11/27 10:01 Order name: Type And Screen; Complete Time: 11:51 [facility] 11/27 10:01 Order name: PT-INR; Complete Time: 11:51 gb11/27 10:01 Order name: Ptt, Activated; Complete Time: 11:51 1 11/27 10:01 Order name: UAM; Complete Time: 11:51 [facility] 11/27 10:23 Order name: Glucose, Ancillary Testing; Complete Time: 10:43 EDMS 11/27 10:26 Order name: Glucose, Ancillary Testing EDMS 11/27 11:34 Order name: ABO/RH no charge; Complete Time: 11:51 EDMS 11/27 10:01 Order name: XRAY Pelvis; Complete Time: 11:51 gb1 11/27 10:11 Order name: C Spine Ap/Lat; Complete Time: 11:51 EDMS 11/27 10:01 Order name: Labs collected and sent; Complete Time: 11:08 1 11/27 10:24 Order name: Labs - recollect needed: please recollect all labs, TS included; Complete em1 Time: 11:08 Administered Medications: 10:44 Drug: morphine IVP or IV 2 mg IVP once over 4 mins Route: IVP; Infused Over: 4 mins; kc6 Site: right forearm; 13:18 Follow up: Response: No adverse reaction bp 10:44 Drug: Ondansetron IVP 4 mg IVP once; over 2 minutes Route: IVP; Site: right forearm; kc6 13:18 Follow up: Response: No adverse reaction bp 10:44 Drug: NS 0.9% IV 1000 ml IV at 1000 ml once; to be given as a bolus over 60 minutes kc6 Route: IV; Rate: 1000 ml; Site: right forearm; 13:18 Follow up: IV Status: Completed infusion bp Disposition Summary: 11/27/24 13:10 Discharge Ordered Notes: Location: Home gb1 Problem: new gb1 Symptoms: have improved gb1 Condition: Stable gb1 Diagnosis - Fall on same level, unspecified gb1 - UTI/ Urinary tract infection, site not specified gb1 - Pain in right hip gb1 Followup: gb1 - With: Private Physician - When: - Reason: Recheck today's complaints Discharge Instructions: - Discharge Summary Sheet gb1 - Urinary Tract Infection, Adult gb1 - Hip Pain gb1 Forms: - Medication Reconciliation Form gb1 - Antibiotic Education gb1 - Prescription Opioid Use gb1 - Patient Portal Instructions gb1 - Leadership Thank You Letter gb1 Prescriptions: - Cipro 500 mg Oral Tablet - take 1 tablet ORAL route every 12 hours for 7 days; 14 tablet; Refills: 0, gb1 Product Selection Permitted Signatures: Dispatcher [employer] Herman Rowan em1 Leonardo Acosta, Naomi Coronado RN, RN RN kc6 Yesenia Aguilar MD MD gb1 Corrections: (The following items were deleted from the chart) 10:02 10:01 BASIC METABOLIC PANEL+C.LAB.BRZ ordered. EDMS EDMS 10:02 10:01 CBC+H.LAB.BRZ ordered. EDMS EDMS 10:02 10:02 TYPE AND SCREEN+BB.LAB.BRZ ordered. EDMS EDMS 10:02 10:02 PROTIME (+INR)+COAG.LAB.BRZ ordered. EDMS EDMS 10:02 10:02 PTT, ACTIVATED+COAG.LAB.BRZ ordered. EDMS EDMS 10:02 10:02 C Spine Single View+RAD.RAD.BRZ ordered. EDMS EDMS 10:02 10:02 Pelvis+RAD.RAD.BRZ ordered. EDMS EDMS 10:02 10:02 Urinalysis W/Microscopic+U.LAB.BRZ ordered. EDMS EDMS
[2024-11-27 14:05] VITALS: TEMP 98
[2024-11-27 14:07] VITALS: O2SAT 100
[2024-11-27 14:08] VITALS: BP 107/66
== END 2024-11-27 13:30 | disposition home or self-care (01) ==
LOC: ER 09:57
DX: M25.551 Pain in right hip (principal); N39.0 Urinary tract infection, site not specified; W18.30XA Fall on same level, unspecified, initial encounter
CPT/HCPCS: 96361; 85025; 81001; 80048; 36415; 86900; 86850; 85610; 86901; 82947; 85730; 72040; 72170; 51702; 96375; 96374; 99285; J2270; J2405; J7030

== ENCOUNTER 2024-12-03 12:59 | Emergency (ER) | payer OTHER ==
--- NOTE | 2024-12-03 15:26 | ER ---
Nurse's Notes [facility] Name: Caren Cuadra Age: 74 yrs Sex: Female : 1950 Arrival Date: 12/03/2024 Time: 12:59 Bed 8 Private MD: Diagnosis: Mechanical fall, closed head injury, scalp hematoma, right hip contusion, lumbar strain, right ankle sprain Presentation: 12/03 13:02 Chief complaint: EMS states: Mechanical fall from standing, reports that knee gave out, ph did hit head, no LOC, takes Eliquis, also c/o R low back and hip pain. Coronavirus screen: Vaccine status: Patient reports receiving the 2nd dose of the covid vaccine. Ebola Screen: No symptoms or risks identified at this time. Initial Sepsis Screen: Does the patient meet any 2 criteria? No. Patient's initial sepsis screen is negative. Does the patient have a suspected source of infection? No. Patient's initial sepsis screen is negative. Risk Assessment: Do you want to hurt yourself or someone else? Patient reports no desire to harm self or others. Onset of symptoms was December 03, 2024. 13:02 Method Of Arrival: EMS: [facility] ph 13:04 Acuity: ROSEMARIE 3 ph Triage Assessment: 13:05 General: Appears in no apparent distress. Behavior is calm, cooperative. Pain: ph Complains of pain in R low back, R hip, back of head and neck. Neuro: Level of Consciousness is awake, alert, obeys commands, Oriented to person, place, time, situation. Cardiovascular: Capillary refill < 3 seconds in bilateral fingers Patient's skin is warm and dry. Respiratory: Airway is patent Respiratory effort is even, unlabored, Respiratory pattern is regular, symmetrical. Derm: Skin is pink, warm \T\ dry. Injury Description: skin tear to RFA. Historical: - Allergies: 13:03 articane hydrochloride; ph 13:03 Codeine; ph 13:03 Darvon; ph 13:03 e-mycin; ph 13:03 idoxuridine; ph 13:03 Iodine; ph 13:03 Macrobid; ph 13:03 TETRACYCLINES; ph - PMHx: 13:03 Anxiety; Atrial fibrillation; COPD; CVA; depressive disorder; diabetes mellitus; ph Migraine; overactive bladder; radiating back pain; RLS; Screenin:01 [facility] ED Fall Risk Assessment (Adult) History of falling in the last 3 months, ph including since admission Yes- single mechanical fall (1 pt) Confusion or Disorientation No (0 pts) Intoxicated or Sedated No (0 pts) Impaired Gait No (0 pts) Mobility Assist Device Used Yes (1 pt) Altered Elimination No (0 pt) Score/Fall Risk Level 3 or more points = High Risk Oriented to surroundings, Maintained a safe environment, Hourly rounding (assess needs \T\ fall precautionary measures) done, Used ambulatory aids as needed (educated on \T\ assisted with). Abuse screen: Denies threats or abuse. Denies injuries from another. Nutritional screening: No deficits noted. Tuberculosis screening: No symptoms or risk factors identified. Assessment: 14:45 Reassessment: No changes from previously documented assessment. Patient and/or family ll1 updated on plan of care and expected duration. Pain level reassessed. Patient is alert, oriented x 3, equal unlabored respirations, skin warm/dry/pink. 15:02 Reassessment: No changes from previously documented assessment. Patient and/or family ll1 updated on plan of care and expected duration. Pain level reassessed. 15:54 Reassessment: Patient appears in no apparent distress at this time. Patient and/or jb4 family updated on plan of care and expected duration. Pain level reassessed. Patient is alert, oriented x 3, equal unlabored respirations, skin warm/dry/pink. Vital Signs: 13:02 BP 118 / 74; Pulse 92; Resp 18; Temp 97.5; Pulse Ox 99% on R/A; Weight 68.04 kg; Height ph 5 ft. 4 in. ; 14:44 BP 114 / 55; Pulse 91; Resp 17; Pulse Ox 97% ; ll1 15:54 BP 111 / 56; Pulse 86; Resp 16; Pulse Ox 99% on 2 lpm NC; jb4 13:02 Body Mass Index 25.75 (68.04 kg, 162.56 cm) ph ED Course: 13:01 Patient arrived in ED. ph 13:02 Shanna Acevedo MD is Attending Physician. sp3 13:03 Triage completed. ph 13:04 Arm band placed on Patient placed in an exam room, on a stretcher, on pulse oximetry. ph 13:04 Patient has correct armband on for positive identification. Bed in low position. Call ph light in reach. Side rails up X 1. Pulse ox on. NIBP on. Door closed. Noise minimized. Warm blanket given. 13:20 Zain Albarado, RN is Primary Nurse. ll1 13:23 CT Head C Spine In Process Unspecified. EDMS 13:23 CT Lumbar Spine Wo Con In Process Unspecified. EDMS 13:30 Hip Right 2 View XRAY In Process Unspecified. EDMS 13:30 Ankle Right 3 View XRAY In Process Unspecified. EDMS 13:36 EKG done, by ED staff, reviewed by Michael LAWSON. hb 14:45 cleaned of urine diaper. Cleaned, new pull-up applied. Tolerated well. ll1 15:02 Wound care: to abrasion, located on right arm was cleaned with soap and water, Patient ll1 tolerated well. 17:12 No provider procedures requiring assistance completed. IV discontinued, intact, jb4 bleeding controlled, No redness/swelling at site. Pressure dressing applied. Administered Medications: 16:08 Drug: HYDROcodone-acetaminophen PO 5 mg-325 mg 2 tabs PO once Route: PO; jb4 17:00 Follow up: Response: No adverse reaction; Marked relief of symptoms; Pain is decreased jb4 Medication: 16:10 VIS not applicable for this client. jb4 Outcome: 15:26 Discharge ordered by . sp3 17:10 Discharged to group home. jb4 17:10 Condition: stable 17:10 Discharge instructions given to patient, Instructed on discharge instructions, follow up and referral plans. Demonstrated understanding of instructions, follow-up care, 17:12 Patient left the ED. ph Signatures: Dispatcher [employer] EDWA Gemma Acosta, RN RN ph Cindy Melendez RN RN Temo Khan RN RN jb4 Zain Albarado, JERRI RN ll1 Shanna Acevedo MD MD sp3 Corrections: (The following items were deleted from the chart) 13:04 13:02 Acuity: ROSEMARIE 4 ph ph
--- NOTE | 2024-12-03 15:26 | EDPHYS ---
Physician Documentation [facility] Name: Caren Cuadra Age: 74 yrs Sex: Female : 1950 Arrival Date: 12/03/2024 Time: 12:59 Bed 8 Private MD: ED Physician Shanna Acevedo HPI: 12/03 13:15 This 74 yrs old Female presents to ER via EMS with complaints of fall, head injury, sp3 right hip pain. 13:16 74-year-old female with history of diabetes, frequent falls who presents to the ED with sp3 chief complaint mechanical fall while bending down to get something out of the refrigerator. Patient activated EMS for fall with head injury and right hip pain. Patient has had right hip surgery multiple times. EMS arrived to find patient with hematoma to the scalp, mild neck pain and right lower extremity pain in the hip and ankle. Patient was alert and oriented for them with normal vital signs. Patient denies any medical prodrome prior to the event. She currently denies chest pain, back pain, abdominal pain, vomiting, diarrhea, syncope, near syncope, or any other signs or symptoms on ROS at this time.. Historical: - Allergies: 13:03 articane hydrochloride; ph 13:03 Codeine; ph 13:03 Darvon; ph 13:03 e-mycin; ph 13:03 idoxuridine; ph 13:03 Iodine; ph 13:03 Macrobid; ph 13:03 TETRACYCLINES; ph - PMHx: 13:03 Anxiety; Atrial fibrillation; COPD; CVA; depressive disorder; diabetes mellitus; ph Migraine; overactive bladder; radiating back pain; RLS; ROS: 13:17 Constitutional: Negative for fever, chills, and weight loss, Eyes: Negative for injury, sp3 pain, redness, and discharge, ENT: Negative for injury, pain, and discharge, Neck: Negative for injury, pain, and swelling, Cardiovascular: Negative for chest pain, palpitations, and edema, Respiratory: Negative for shortness of breath, cough, wheezing, and pleuritic chest pain, Abdomen/GI: Negative for abdominal pain, nausea, vomiting, diarrhea, and constipation, Back: Negative for injury and pain, Skin: Negative for injury, rash, and discoloration, Psych: Negative for depression, anxiety, suicide ideation, homicidal ideation, and hallucinations, Allergy/Immunology: Negative for hives, rash, and allergies, Endocrine: Negative for neck swelling, polydipsia, polyuria, polyphagia, and marked weight changes, Hematologic/Lymphatic: Negative for swollen nodes, abnormal bleeding, and unusual bruising, 13:17 All other systems are negative, Exam: 13:17 Constitutional: This is a well developed, well nourished patient who is awake, alert, sp3 and in no acute distress. Eyes: Pupils equal round and reactive to light, extra-ocular motions intact. Lids and lashes normal. Conjunctiva and sclera are non-icteric and not injected. Cornea within normal limits. Periorbital areas with no swelling, redness, or edema. ENT: Nares patent. No nasal discharge, no septal abnormalities noted. External auditory canals are clear. Oropharynx with no redness, swelling, or masses, exudates, or evidence of obstruction, uvula midline. Mucous membranes moist. Neck: Trachea midline, no thyromegaly or masses palpated, and no cervical lymphadenopathy. Supple, full range of motion without nuchal rigidity, or vertebral point tenderness. No Meningismus. Chest/axilla: Normal chest wall appearance and motion. Nontender with no deformity. No lesions are appreciated. Cardiovascular: Regular rate and rhythm with a normal S1 and S2. No gallops, murmurs, or rubs. Normal PMI, no JVD. No pulse deficits. Respiratory: Lungs have equal breath sounds bilaterally, clear to auscultation and percussion. No rales, rhonchi or wheezes noted. No increased work of breathing, no retractions or nasal flaring. Abdomen/GI: Soft, non-tender, with normal bowel sounds. No distension or tympany. No guarding or rebound. No evidence of tenderness throughout. Back: No spinal tenderness. No costovertebral tenderness. Full range of motion. Skin: Warm, dry with normal turgor. Normal color with no rashes, no lesions, and no evidence of cellulitis. Neuro: Awake and alert, GCS 15, oriented to person, place, time, and situation. Cranial nerves II-XII grossly intact. Motor strength 5/5 in all extremities. Sensory grossly intact. Cerebellar exam normal. Normal gait. Psych: Awake, alert, with orientation to person, place and time. Behavior, mood, and affect are within normal limits. 13:17 Head/face: Posterior occiput hematoma 2 cm without bleeding.. 13:17 Musculoskeletal/extremity: Mild pain to lateral hip and ankle. No obvious deformity, shortening or external rotation or ankle abnormalities noted.. 14:48 ECG was reviewed by the Attending Physician. EKG demonstrates electronically paced sp3 rhythm at 80 bpm with adequate ventricular capture. Vital Signs: 13:02 BP 118 / 74; Pulse 92; Resp 18; Temp 97.5; Pulse Ox 99% on R/A; Weight 68.04 kg; Height ph 5 ft. 4 in. ; 14:44 BP 114 / 55; Pulse 91; Resp 17; Pulse Ox 97% ; ll1 15:54 BP 111 / 56; Pulse 86; Resp 16; Pulse Ox 99% on 2 lpm NC; jb4 13:02 Body Mass Index 25.75 (68.04 kg, 162.56 cm) ph MDM: 13:02 Medical Screening Exam initiated sp3 13:22 Data reviewed: vital signs, nurses notes, radiologic studies. ED course: 74-year-old sp3 female with PMH above with mechanical ground-level fall injuring head and right lower extremity. Will obtain CT scan of the head, C-spine, lumbar spine, and x-rays of the right hip and right ankle. Patient was also having mild low back pain though she has that chronically. If workup negative we will safely discharge patient home. Patient is also on Eliquis which will increase chance of bleeding.. 15:25 ED course: All imaging without significant abnormalities. We will safely discharge sp3 patient home at this time. 12/03 13:08 Order name: CT Head C Spine sp3 12/03 13:08 Order name: CT Lumbar Spine Wo Con sp3 12/03 13:08 Order name: Hip Right 2 View XRAY sp3 12/03 13:08 Order name: Ankle Right 3 View XRAY sp3 12/03 13:08 Order name: NPO; Complete Time: 13:20 sp3 12/03 13:08 Order name: Wound Care; Complete Time: 15:02 sp3 12/03 13:13 Order name: EKG - Nurse/Tech; Complete Time: 13:36 sp3 Administered Medications: 16:08 Drug: HYDROcodone-acetaminophen PO 5 mg-325 mg 2 tabs PO once Route: PO; jb4 17:00 Follow up: Response: No adverse reaction; Marked relief of symptoms; Pain is decreased jb4 Disposition Summary: 12/03/24 15:26 Discharge Ordered Notes: Location: Home sp3 Condition: Stable sp3 Diagnosis - Mechanical fall, closed head injury, scalp hematoma, right hip contusion, lumbar sp3 strain, right ankle sprain Followup: sp3 - With: Private Physician - When: Upon discharge from the Emergency Department - Reason: Continuance of care Discharge Instructions: - Discharge Summary Sheet sp3 - Fall Prevention in the Home, Adult sp3 Forms: - SBAR form jb4 - Medication Reconciliation Form sp3 - Antibiotic Education sp3 - Prescription Opioid Use sp3 - Patient Portal Instructions sp3 - Leadership Thank You Letter sp3 Signatures: Dispatcher [employer] EDGemma Jain RN RN Temo Murphy RN RN jb4 Shanna Acevedo MD MD sp3 Corrections: (The following items were deleted from the chart) 13:08 13:08 Hip Right 2 View+RAD.RAD.BRZ ordered. [facility] EDMS 13:08 13:08 Ankle Right 3 View+RAD.RAD.BRZ ordered. [facility] EDMS 13:23 13:22 ED course: 74-year-old female with PMH above with mechanical ground-level fall sp3 injuring head and right lower extremity. Will obtain CT scan of the head, C-spine, lumbar spine, and x-rays of the right hip and right ankle. Patient was also having mild low back pain though she has that chronically. If workup negative we will safely discharge patient home. Patient is also on Xarelto which will increase chance of bleeding.. sp3
[2024-12-03] MEDS ORDERED: HYDROCODONE/APAP 5/325 MG TAB ONE (16:05)
--- NOTE | 2024-12-03 17:06 | RAD REPORT ---
EXAM: CT brain without contrast HISTORY: TRAUMA COMPARISON: None TECHNIQUE: Multiple contiguous axial images were obtained and a CT of the brain without contrast. Sag ittal and coronal reformats were performed. FINDINGS: No evidence of hydrocephalus, intracranial hemorrhage, or extra-axial fluid collection. Moderate brain atrophy with moderate periventricular and deep white matter chronic microvascular isc hemic changes present. The calvarium is intact. The visualized paranasal sinuses and mastoid air cells are essentially clear . IMPRESSION: No evidence of acute intracranial abnormality. EXAM: CT of the cervical spine without contrast HISTORY: TRAUMA COMPARISON: None TECHNIQUE: Multiple contiguous axial images were obtained in a CT of the cervical spine without contr ast. Sagittal and coronal reformats were performed. FINDINGS: The vertebral bodies demonstrate normal height and alignment. No evidence of acute fracture or subluxation.. Mild multilevel degenerative changes with disc height loss at C5-6. No significant central canal or foraminal stenosis. No prevertebral soft tissue swelling is seen. The posterior facets are well aligned. Normal alignment of the skull base with the cervical spine is seen. The lung apices are unremarkable. Fat stranding at the left base of neck, with prominent lymph node m easuring 9 mm in short axis IMPRESSION: No evidence of acute osseous abnormality of the cervical spine. Nonspecific fat stranding at the left base of neck, please correlate for sequelae of trauma or cellul itis in this region.
--- NOTE | 2024-12-03 17:06 | RAD REPORT ---
EXAMINATION: CT LUMBAR SPINE WITHOUT CONTRAST CLINICAL INDICATION: Female, 74 years old. trauma TECHNIQUE: Axial CT images were obtained through the lumbar spine in soft tissue and bone windows wit hout intravenous contrast. Coronal and Sagittal reformatted images were created from the data set. One or more of the following dose reduction techniques were used: Automated exposure control, adjustm ent of the mA and/ or kV according to patient size, and/or iterative reconstruction. Unless otherwise specified, incidental findings do not require dedicated imaging follow-up. COMPARISON: No prior exam. FINDINGS: For purposes of this dictation, it is assumed that there are 5 non rib-bearing lumbar type vertebrae, and the most caudal fully segmented lumbar vertebra is labeled L5. ALIGNMENT: The lumbar spine demonstrates normal alignment without scoliosis or spondylolisthesis. BONES: Diffuse osteopenia limits evaluation. No significant soft tissue abnormalities. No aggressive osseous lesions. Possible sequelae of right hemilaminectomy at L4. DISCS: Intervertebral disc space heights are maintained. LEVELS: No significant spinal canal or neural foraminal stenosis. Endplate remodeling with disc heigh t loss noted at L4-5. Endplate remodeling and disc bulges contribute to mild bilateral neural foraminal narrowing at that level. No visualized abnormality within the spinal canal. SOFT TISSUE: No soft tissue abnormalities. 5-6 mm right renal nonobstructing calculus. IMPRESSION: No acute lumbar spine abnormalities. Diffuse osteopenia and mild to moderate spondylotic changes most notably at L4-5, contributing to mil d bilateral neural foraminal narrowing. Incidentally noted nonobstructing right renal 5-6 mm calculus.
--- NOTE | 2024-12-03 17:07 | RAD REPORT ---
EXAMINATION: XR Ankle Right 3 View CLINICAL INDICATION: Female, 74 years old. [facility] MAIN trauma Bed Name: 8 TECHNIQUE: 3 view radiographs of the right ankle were obtained. COMPARISON: No prior exam. FINDINGS: No acute fracture or dislocation. Diffuse osteopenia. Up to moderate degenerative changes o f the midfoot and hindfoot. Vascular calcifications. IMPRESSION: No acute osseous abnormalities. Degenerative changes as above.
--- NOTE | 2024-12-03 17:07 | RAD REPORT ---
EXAMINATION: XR Hip Right 2 View CLINICAL INDICATION: Female, 74 years old. [facility] MAIN trauma Bed Name: 8 TECHNIQUE: 2 view radiograph of the right hip were obtained. COMPARISON: No prior exam. FINDINGS: No evidence of fracture or dislocation. Right hip arthroplasty hardware in place. Diffuse o steopenia which limits evaluation. No suspicious focal bone lesion. Soft tissues are unremarkable. IMPRESSION: Right hip arthroplasty. No acute osseous abnormality.
--- NOTE | 2024-12-04 11:50 | EKG ---
Test Date: 2024-12-03 Test Time: 13:34:38 Medical Researcher: LML MEASUREMENT RESULTS: Intervals: Rate: 88 WV: 144 QRSD: 130 QT: 440 QTc: 532 Premier: P: 80 WV: 144 QRS: 179 T: 49 INTERPRETIVE STATEMENTS: Electronic ventricular pacemaker Compared to ECG 11/16/2024 03:58:50 No significant changes Electronically Signed On 12-04-24 11:50:03 OVEN DRIER TENDER by Rigoberto Vasquez
[2024-12-05 02:21] VITALS: BP 111/56; TEMP 97.5; O2SAT 99
== END 2024-12-03 17:12 | disposition home or self-care (01) ==
LOC: ER 12:59
DX: S70.01XA Contusion of right hip, initial encounter (principal); S39.012A Strain of muscle, fascia and tendon of lower back, initial encounter; S93.401A Sprain of unspecified ligament of right ankle, initial encounter; S00.93XA Contusion of unspecified part of head, initial encounter; J44.9 Chronic obstructive pulmonary disease, unspecified; E11.9 Type 2 diabetes mellitus without complications; F41.9 Anxiety disorder, unspecified; I48.11 Longstanding persistent atrial fibrillation; F32.A Depression, unspecified; N32.81 Overactive bladder; W18.39XA Other fall on same level, initial encounter; Y93.89 Activity, other specified; Y92.010 Kitchen of single-family (private) house as the place of occurrence of the external cause; Z88.5 Allergy status to narcotic agent; Z88.8 Allergy status to other drugs, medicaments and biological substances; Z88.1 Allergy status to other antibiotic agents
CPT/HCPCS: 70450; 72125; 72131; 93005; 99284

== ENCOUNTER 2024-12-25 20:22 | Inpatient (IN) | payer OTHER ==
--- OUTSIDE RECORDS SUMMARY | 2024-12-25 20:24 | XMS REPORT | Continuity of Care Document ---
Author Name Unknown Address [address] [place] [address] [facility] thconnect Address [address] [place] [address] Care Team Providers Care Cnc Lathe Machine Operator Name Role Phone STEVE ARMENTA Attending Clinician Unavailable Payers Payer Name Policy Type Policy Number Effective Date Expirati on Date Source [employer] [id number] 2024 00:00:00 Encounters Start Date/Time End Date/Time Encounter Type Admission Type Attending Clinicians Care Facility Care Department Encounter ID Source 2024-12-25 10:00:00 2024-12-25 10:00:00 Outpatient STEVE ARMENTA [id number] Angeles Wolfe
--- NOTE | 2024-12-25 20:43 | RAD REPORT ---
EXAM: CT Ct Stroke Brain Wo Cont HISTORY: STROKE ALERT COMPARISON: 12/03/2024 TECHNIQUE: Multiple contiguous axial images were obtained for a CT of the brain without contrast. Sag ittal and coronal reformats were performed. One or more of the following dose reduction techniques were used: Automated exposure control, adjus tment of the mA and kV according to patient size, and iterative reconstruction. Unless otherwise specified, incidental findings do not require dedicated imaging follow-up. FINDINGS: No evidence of hydrocephalus, intracranial hemorrhage, or extra-axial fluid collection. Mild brain atrophy with mild periventricular and deep white matter chronic microvascular ischemic ch anges, stable. The calvarium is intact. The visualized paranasal sinuses and mastoid air cells are essentially clear . IMPRESSION: No evidence of acute intracranial abnormality. THIS REPORT CONTAINS FINDINGS THAT MAY BE CRITICAL TO PATIENT CARE. The findings were verbally commun icated via telephone to Richard Gerardo on 12/25/2024 8:41 PM.
[2024-12-25 20:49] LABS: Absolute Basophils 0.1 K/uL (0-0.5); Absolute Eosinophils 0.3 K/uL (0-0.5); Absolute Lymphocytes (CBC) 1.2 K/uL (0.7-4.9); Absolute Monocytes 0.5 K/uL (0.1-1.3); Absolute Neutrophil 4.5 K/uL (1.8-8.0); Basophils % 1.1 % (0-1.3); Eosinophils % 3.9 % (0-4.4); Hematocrit 32.7 % (36.0-45.0); Hemoglobin 10.7 g/dL (12.0-15.0); Lymphocytes % 18.1 % (15.3-44.8); MCH 30.3 pg (27.0-35.0); MCHC 32.9 g/dL (32.0-36.0); MCV 92.2 fL (80-100); MPV 7.9 fL (7.6-11.3); Monocytes % 7.5 % (3.3-12.3); Neutrophils % 69.4 % (41.7-73.7); Nucleated Red Blood Cells % 0.1 % (0-0); Platelets 240 thou/uL (152-406); RBC Red Blood Cell Count 3.54 M/uL (3.86-4.86); Red Cell Distribution Width 18.1 % (12.1-15.2)
--- NOTE | 2024-12-25 20:53 | RAD REPORT ---
EXAMINATION: CTA HEAD CLINICAL INDICATION: Female, 74 years old. cva TECHNIQUE: Axial CT images were obtained through the head after intravenous contrast utilizing angiog raphic protocol with 3D post-processing (maximum intensity projection images, volume rendered images and/or shaded surface rendered images). One or more of the following dose reduction technique s were used: Automated exposure control, adjustment of the mA and/or kV according to patient size, and/or iterative reconstruction. Unless otherwise specified, incidental findings do not require dedic ated imaging follow-up. COMPARISON: No prior exam. FINDINGS: ICA: The petrous, cavernous, and supraclinoid segments of the bilateral internal carotid arteries are normal. EDUARDO: Anterior cerebral arteries are normal bilaterally. The anterior communicating artery is patent. MCA: Middle cerebral arteries are normal bilaterally. UTILITY GELATIN MAKER: Posterior cerebral arteries are normal bilaterally. Vertebrobasilar: The vertebral arteries are patent. The basilar artery is normal in appearance. Persi stent configuration. 3D images confirm these findings. IMPRESSION: Normal head CTA.
[2024-12-25 21:01] LABS: PT Prothrombin Time 12.1 SECONDS (9.4-12.5); PTT, Activated Partial Thromb 34.3 SECONDS (24.3-36.9); Protime INR 1.15
[2024-12-25 21:09] LABS: ALT/SGPT 17 U/L (13-56); AST/SGOT 17 U/L (15-37); Albumin 2.7 g/dL (3.4-5.0); Albumin/Globulin Ratio 0.8 (1.1-1.8); Alkaline Phosphatase 95 U/L (45-117); Anion Gap 11.9 mEq/L (5.0-15.0); BUN Blood Urea Nitrogen 43 mg/dL (7-18); Bicarbonate 24 mEq/L (21-32); Bilirubin Total 0.2 mg/dL (0.2-1.0); Globulin 3.5 g/dL (2.3-3.5); Glomerular Filtration Rate 50 ml/min (=/>90); Glucose Level 215 mg/dL (74-106); Magnesium 2.4 mg/dL (1.6-2.4); Potassium 4.9 mEq/L (3.5-5.1); Protein, Total 6.2 g/dL (6.4-8.2); Sodium Level 138 mEq/L (136-145); Troponin High Sensitivity 8.8 pg/mL (<58.9)
--- NOTE | 2024-12-25 21:12 | RAD REPORT ---
EXAMINATION: CT Neck Angio CLINICAL INDICATION: Female, 74 years old. [facility] MAIN cva Bed Name: 5 TECHNIQUE: Axial CT images were obtained from the aortic arch to the skull base after intravenous con trast utilizing angiographic protocol. Multiplanar reformats, as well as 3D post-processing (maximum intensity projection images, volume rendered images and/or shaded surface rendered images) w ere generated and reviewed. One or more of the following dose reduction techniques were used: Automated exposure control, adjustment of the mA and/or kV according to patient size, and/or iterativ e reconstruction. Unless otherwise specified, incidental findings do not require dedicated imaging follow-up. COMPARISON: No prior exam. FINDINGS: AORTA: The imaged aortic arch is normal. Variant anatomy of the arch with left vertebral artery arisi ng directly from the arch. CCA: No artifact The common carotid arteries are patent and normal in caliber. ICA/ECA: Bilateral internal and external carotid arteries are patent. There is no significant interna l carotid artery stenosis. VERTEBRAL: The cervical vertebral arteries are patent to the skull base. Vertebral arteries are codom inant. SOFT TISSUE: No significant neck soft tissue abnormalities. Central interstitial prominence. Small ri ght hilar lymph node measuring 11mm in short axis. Left lower lobe small nodules up to 6 mm in size. Prominent caliber of the main pulmonary artery. 3D images confirm these findings. IMPRESSION: No significant flow abnormality of the neck vessels is identified. Central interstitial prominence. Small right hilar lymph node measuring 11mm in short axis. Findings may indicate a reactive/inflammatory process. Left lower lobe small nodules up to 6 mm in size, probably benign. Prominent caliber of the main pulmonary artery, suggesting pulmonary hypertension. NASCET criteria used to quantify ICA stenosis, with the following grading scheme: Mild 0-49% stenosis Moderate 50-69% stenosis Severe 70-99% stenosis Reference: [place] Symptomatic Carotid Endarterectomy Trial Collaborators; Sydnee MARTINEZM, Lyndsey DW, Suzette RB, et al. Beneficial effect of carotid endarterectomy in symptomatic patients with high-grade carotid stenosis. N Engl J Med. 1990 15;325(7):445-53.
[2024-12-25 21:14] LABS: Bilirubin Direct < 0.2 mg/dL (0-0.2)
--- NOTE | 2024-12-25 21:14 | RAD REPORT ---
EXAMINATION: ONE VIEW CHEST XR CLINICAL INDICATION: Female, 74 years old.,cva TECHNIQUE: Frontal chest projection is submitted. Examination is limited by patient positioning and t echnique. COMPARISON: 11/19/2024 FINDINGS: The lungs show central interstitial prominence and hazy groundglass opacities. Suboptimal inspiratory effort somewhat limits evaluation. No pneumothorax or sizable effusion. The heart is normal in size. Mediastinal contours are unremarkable. Left chest wall pacer in place. IMPRESSION: Findings suggesting mild central congestion/CHF.
[2024-12-25 21:39] LABS: Specific Gravity 1.024 (1.005-1.030); Sqamous Epithelial <5 /HPF (None Seen); Urine Bacteria None Seen /HPF (<20); Urine Bilirubin NEGATIVE (Negative); Urine Blood Negative (Negative); Urine Clarity Turbid (Clear); Urine Color Light-Yellow (Yellow); Urine Culture Reflex Order REFLEXED; Urine Glucose NEGATIVE (Negative); Urine Ketones NEGATIVE (Negative); Urine Micro Reflex YN NO BILL MICROSCOPIC; Urine Mucus Slight /HPF (None Seen); Urine Nitrite 2+ (Negative); Urine Protein NEGATIVE (Negative); Urine RBC <5 /HPF (None Seen); Urine Urobilinogen Normal (Normal); Urine WBC 20-50 /HPF (<5); Urine WBC Clump Rare /HPF (None Seen); Urine Yeast (Budding) Trace /HPF (None Seen)
[2024-12-25] MEDS ORDERED: ASPIRIN 325 MG TAB ONE (22:00)
[2024-12-25] MEDS ORDERED: ONDANSETRON 4 MG/2 ML VIAL IV PRN (22:19)
--- NOTE | 2024-12-25 22:25 | ER ---
Nurse's Notes [facility] Name: Caren Cuadra Age: 74 yrs Sex: Female : 1950 Arrival Date: 12/25/2024 Time: 20:22 Bed 23 Private MD: Diagnosis: Cerebrovascular accident Presentation: 12/25 20:23 Chief complaint: EMS states: coming from [facility] for a severe migraine al5 starting at 1830 and L sided weakness and numbness starting at 1950. ems states the nurse was leaning to the L side starting at noon. previous cva with no deficits per the nurse at the facility. 20:23 Coronavirus screen: At this time, the client does not indicate any symptoms associated al5 with coronavirus-19. Ebola Screen: No symptoms or risks identified at this time. No acute neurological deficit is noted. Pre-hospital glucose is not applicable to this patient. Initial Sepsis Screen: Does the patient meet any 2 criteria? No. Patient's initial sepsis screen is negative. Does the patient have a suspected source of infection? No. Patient's initial sepsis screen is negative. Risk Assessment: Do you want to hurt yourself or someone else? Patient reports no desire to harm self or others. Onset of symptoms was December 25, 2024 at 12:00. 20:23 Method Of Arrival: EMS: [facility] al5 20:23 Acuity: ROSEMARIE 2 al5 Triage Assessment: 20:24 The onset of the patients symptoms was December 25, 2024 at 12:00. al5 Stroke Activation: Physician: ED Attending; Name: ; Notified At: ; Arrived At: Physician: Mid-Level Provider; Name: ; Notified At: ; Arrived At: Physician: [not used]; Name: ; Notified At: ; Arrived At: Physician: [not used]; Name: ; Notified At: ; Arrived At: Physician: [not used]; Name: ; Notified At: ; Arrived At: 20:23 n/a al5 Historical: - Allergies: 20:23 articane hydrochloride; al5 20:23 Codeine; al5 20:23 Darvon; al5 20:23 e-mycin; al5 20:23 idoxuridine; al5 20:23 Iodine; al5 20:23 Macrobid; al5 20:23 TETRACYCLINES; al5 - Home Meds: 20:23 Aimovig Autoinjector 140 mg/mL subcutaneous Auto-Injector 140 mg every month [Active]; al5 alendronate 70 mg Oral tablet 1 tab every week [Active]; aspirin 81 mg Oral capsule 1 cap daily [Active]; atorvastatin 20 mg Oral tablet 1 tab daily [Active]; carvedilol 3.125 mg Oral tablet 1 tab 2 times per day [Active]; cetirizine 10 mg Oral tablet 1 tab daily [Active]; donepezil 10 mg Oral tablet 1 tab daily [Active]; hydrocodone-acetaminophen 5-325 mg Oral tablet 1 tab every 8 hours [Active]; metformin 500 mg Oral tablet 1 tab 2 times per day [Active]; mirtazapine 30 mg Oral tablet 1 tab daily [Active]; montelukast 10 mg Oral tablet 1 tab daily [Active]; oxybutynin chloride 15 mg Oral tablet 1 tab BID [Active]; pregabalin 25 mg Oral capsule 1 cap 2 times per day [Active]; ropinirole 0.5 mg Oral tablet 1 tab daily [Active]; SPIRIVA 2.5 MCG DAILY INHALE 2 PUFFS DAILY [Active]; Zofran Oral 4 mg as needed [Active]; - PMHx: 20:23 Anxiety; COPD; CVA; depressive disorder; diabetes mellitus; Migraine; overactive al5 bladder; radiating back pain; RLS; Atrial fibrillation; - Immunization history:: Adult Immunizations up to date. - Infectious Disease History:: Denies. - Social history:: Smoking status: Patient denies any tobacco usage or history of. Screenin:23 [facility] ED Fall Risk Assessment (Adult) History of falling in the last 3 months, al5 including since admission No falls in past 3 months (0 pts) Confusion or Disorientation No (0 pts) Intoxicated or Sedated No (0 pts) Impaired Gait Yes (1 pt) Mobility Assist Device Used Yes (1 pt) Altered Elimination Yes (1 pt) Score/Fall Risk Level 3 or more points = High Risk Oriented to surroundings, Maintained a safe environment, Hourly rounding (assess needs \T\ fall precautionary measures) done, Apply high fall risk patient identification: yellow non skid footwear/ fall signage. Abuse screen: Denies threats or abuse. Denies injuries from another. Nutritional screening: No deficits noted. Tuberculosis screening: No symptoms or risk factors identified. Assessment: 20:24 VAN Scoring: Arm Drift: Severe drift Visual Disturbance: No visual disturbance noted. al5 Aphasia: No aphasia noted. Neglect: No neglect noted. 20:24 TNKase (Tenecteplase) Screening: Contraindications: Other: per MD, not a candidate. out al5 of window time. 20:25 General: Appears in no apparent distress. obese, well groomed, Behavior is calm, al5 cooperative. Pain: Complains of pain in right lower quadrant and left lower quadrant. Neuro: Level of Consciousness is awake, alert, obeys commands, Oriented to person, place, time, situation, Speech is normal, Facial symmetry appears normal, Pupils are PERRLA, Pupil Size: 3mm bilaterally Tingling in left arm and left leg Numbness in left arm and left leg Reports headache in entire paresthesias in left arm and left leg weakness in left arm and left leg. Cardiovascular: Capillary refill < 3 seconds Patient's skin is warm and dry. Respiratory: Airway is patent Respiratory effort is even, unlabored, Respiratory pattern is regular, symmetrical. GI: No signs and/or symptoms were reported involving the gastrointestinal system. : Reports urinary frequency. EENT: No signs and/or symptoms were reported regarding the EENT system. Derm: Skin is intact, Skin is pink, warm \T\ dry. normal. Musculoskeletal: Reports weakness in left arm and left leg numbness in left arm and left leg. 20:27 [place] Swallow Protocol Exclusion Criteria: Exclusion Criteria Result: Proceed Brief al5 Cognitive Screen What is your name? Normal, Where are you right now? Normal, What year is it? Normal. Oral Mechanism Examination Facial Symmetry: Normal, Motion: Normal, Lip Closure: Normal, Oral Mechanism Result: Normal. 3 oz Water Swallow Challenge: Pt able to drink all water without stopping, coughing, choking or throat clearing: Yes Result: PASS MD Notified: Richard Gerardo MD. 21:57 Reassessment: c/o CP, provider notified and aware, medication order to be placed. al5 Vital Signs: 20:23 BP 115 / 66; Pulse 71; Resp 16; Temp 98.4; Pulse Ox 99% on 2 lpm NC; Weight 73.48 kg; al5 Height 5 ft. 6 in. ; 20:45 BP 117 / 60; Pulse 70; Resp 14; Pulse Ox 100% on 2 lpm NC; al5 21:00 BP 112 / 69; Pulse 86; Resp 17; Pulse Ox 100% on 2 lpm NC; al5 21:30 al5 20:23 Body Mass Index 26.15 (73.48 kg, 167.64 cm) al5 21:30 see code stroke checklist for vitals and assessments al5 NIH Stroke Scale Scores: 20:24 NIHSS Score: 11 al5 ED Course: 20:23 Patient arrived in ED. jj6 20:24 Richard Gerardo MD is Attending Physician. rt 20:24 Arm band placed on right wrist. Patient placed on a stretcher, on superintendent production, on al5 pulse oximetry. 20:24 Patient has correct armband on for positive identification. Bed in low position. Call al5 light in reach. Side rails up X2. Provided Education on: plan of care. 20:24 No provider procedures requiring assistance completed. al5 20:24 Maintain EMS IV. Dressing intact. Good blood return noted. Site clean \T\ dry. Gauge \T\ al 5 site: 20 G L wrist, 20 G R forearm. Flushed with 10 mL NS. 20:32 CT Stroke Brain w/o Contrast In Process Unspecified. EDMS 20:40 CT Head Angio In Process Unspecified. EDMS 20:40 CT Neck Angio In Process Unspecified. EDMS 20:51 Kaia Red, JERRI is Primary Nurse. al5 20:57 Triage completed. al5 21:06 EKG done, by ED staff, reviewed by Richard Gerardo MD. hw 21:08 Stroke CXR 1 View In Process Unspecified. EDMS 22:24 Gabriel Mckenna MD is Hospitalizing Provider. rt 22:51 Patient admitted, IV remains in place. al5 Administered Medications: 22:02 Drug: Aspirin PO 325 mg PO once Route: PO; al5 22:49 Follow up: Response: No adverse reaction; No adverse reaction; decreased chest pain al5 22:49 Drug: HYDROcodone-acetaminophen PO 5 mg-325 mg 1 tabs PO once Route: PO; al5 0207 00:00 Follow up: Response: No adverse reaction; Pain is decreased al5 02 22:49 Drug: Rocephin IV 2 grams IV at calculated rate once; Given slow IV push per pharmarcy al5 instructions Route: IV; Rate: calculated rate; Site: right forearm; 23:30 Follow up: Response: No adverse reaction; IV Status: Completed infusion; IV Intake: [id number] Medication: 20:24 VIS not applicable for this client. al5 Point of Care Testing: Blood Glucose: 21:05 Blood Glucose: 198 mg/dL; al5 Ranges: Intake: 23:30 IV: 50ml; Total: 50ml. al5 Outcome: 22:24 Decision to Hospitalize by Provider. rt 22:51 Admitted to ER Hold. Please see [facility] for further documentation. al5 22:51 Condition: stable 22:51 Instructed on the need for admit, 12/26 14:03 Patient left the ED. ap3 NIH Stroke Scale - NIH Stroke Score Date: 12/25/2024 Time: 20:24 Total Score = 11 10. Dysarthria (speech clarity - read or repeat words) - 0(Normal) 11. Extinction and Inattention (visual/tactile/auditory/spatial/personal) - 1(Present) 1a. Level of Consciousness (LOC) - 0(Alert) 1b. Level of Consciousness (LOC) (Month \T\ Age) - 0(Both) 1c. LOC Commands (Open \T\ Closes Eyes/Curtain Roller Assembler) - 0(Both) 2. Best Gaze (Lateral Gaze Paresis) - 0(Normal) 3. Visual Field Loss - 0(No visual loss) 4. Facial Palsy - 1(Minor Paralysis) 5a. Left Arm: Motor (10-second hold) - 3(No effort against gravity) 5b. Right Arm: Motor (10-second hold) - 0(No drift) 6a. Left Leg: Motor (5-second hold - always test supine) - 3(No effort against gravity) 6b. Right Leg: Motor (5-second hold - always test supine) - 0(No drift) 7. Limb Ataxia (finger/nose \T\ heel/ramsey - test with eyes open) - 2(Present in two limbs) 8. Sensory Loss (pinprick arms/legs/face) - 1(Mild to moderate loss) 9. Best Language: Aphasia (description/naming/reading) - 0(No aphasia) Initials: al5 Signatures: Dispatcher [employer] Kaia Benjamin RN RN ap3 Ceci Easton6 Richard Gerardo MD MD rt Kaia Red RN RN al5 Elham Rivas Corrections: (The following items were deleted from the chart) 12/25 22:56 20:23 BP 117 / 60; Pulse 79bpm; Resp 16bpm; Pulse Ox 99% 2 lpm Nasal Cannula; al5 Temp 98.4F; 73.48 kg; Height 5 ft. 6 in.; BMI: 26.1; al5 22:59 20:24 TNKase (Tenecteplase) Screening: Contraindications: Other: per , not a al5 candidate al5
--- NOTE | 2024-12-25 22:25 | EDPHYS ---
Physician Documentation [facility] Name: Caren Cuadra Age: 74 yrs Sex: Female : 1950 Arrival Date: 12/25/2024 Time: 20:22 Bed 23 Private MD: ED Physician Richard Gerardo HPI: 12/25 22:02 This 74 yrs old Female presents to ER via EMS with complaints of S/S of Possible Stroke.rt 22:02 Patient presents to the ED with concerns for acute stroke. Patient woke up this morning rt complaining of a severe headache which she states is not typical of her migraines. States that at about noon, she was leaning to the left per her report. States that at about 630, she developed a left-sided numbness, weakness. Reports urinary frequency but denies other acute complaints at this time, symptoms are moderate in severity, no other aggravating relieving factors.. Historical: - Allergies: 20:23 articane hydrochloride; al5 20:23 Codeine; al5 20:23 Darvon; al5 20:23 e-mycin; al5 20:23 idoxuridine; al5 20:23 Iodine; al5 20:23 Macrobid; al5 20:23 TETRACYCLINES; al5 - Home Meds: 20:23 Aimovig Autoinjector 140 mg/mL subcutaneous Auto-Injector 140 mg every month [Active]; al5 alendronate 70 mg Oral tablet 1 tab every week [Active]; aspirin 81 mg Oral capsule 1 cap daily [Active]; atorvastatin 20 mg Oral tablet 1 tab daily [Active]; carvedilol 3.125 mg Oral tablet 1 tab 2 times per day [Active]; cetirizine 10 mg Oral tablet 1 tab daily [Active]; donepezil 10 mg Oral tablet 1 tab daily [Active]; hydrocodone-acetaminophen 5-325 mg Oral tablet 1 tab every 8 hours [Active]; metformin 500 mg Oral tablet 1 tab 2 times per day [Active]; mirtazapine 30 mg Oral tablet 1 tab daily [Active]; montelukast 10 mg Oral tablet 1 tab daily [Active]; oxybutynin chloride 15 mg Oral tablet 1 tab BID [Active]; pregabalin 25 mg Oral capsule 1 cap 2 times per day [Active]; ropinirole 0.5 mg Oral tablet 1 tab daily [Active]; SPIRIVA 2.5 MCG DAILY INHALE 2 PUFFS DAILY [Active]; Zofran Oral 4 mg as needed [Active]; - PMHx: 20:23 Anxiety; COPD; CVA; depressive disorder; diabetes mellitus; Migraine; overactive al5 bladder; radiating back pain; RLS; Atrial fibrillation; - Immunization history:: Adult Immunizations up to date. - Infectious Disease History:: Denies. - Social history:: Smoking status: Patient denies any tobacco usage or history of. ROS: 22:04 Constitutional: Negative for fever, chills, and weight loss, Cardiovascular: Negative rt for chest pain, palpitations, and edema, Respiratory: Negative for shortness of breath, cough, wheezing, and pleuritic chest pain, Abdomen/GI: Negative for abdominal pain, nausea, vomiting, diarrhea, and constipation, MS/Extremity: Negative for injury and deformity, 22:04 : Positive for urinary symptoms, urinary frequency, 22:04 Neuro: Positive for numbness, weakness, Exam: 22:04 Neuro: Slight dysarthria, nonfluent speech, sensory deficits on the left side of the rt face, mild left-sided facial droop, cranial nerves otherwise intact. 2/5 strength in left upper, left lower extremity, strength otherwise intact, sensory deficits in left upper and left lower extremity, sensation otherwise intact, 22:20 Radiologist reports: No acute findings rt 22:20 Constitutional: This is a well developed, well nourished patient who is awake, alert, and in no acute distress. Chest/axilla: Normal chest wall appearance and motion. Nontender with no deformity. No lesions are appreciated. Cardiovascular: Regular rate and rhythm with a normal S1 and S2. No gallops, murmurs, or rubs. Normal PMI, no JVD. No pulse deficits. Respiratory: Lungs have equal breath sounds bilaterally, clear to auscultation and percussion. No rales, rhonchi or wheezes noted. No increased work of breathing, no retractions or nasal flaring. Abdomen/GI: Soft, non-tender, with normal bowel sounds. No distension or tympany. No guarding or rebound. No evidence of tenderness throughout. Skin: Warm, dry with normal turgor. Normal color with no rashes, no lesions, and no evidence of cellulitis. MS/ Extremity: Pulses equal, no cyanosis. Neurovascular intact. Full, normal range of motion. 22:20 ECG was reviewed by the Attending Physician. rt Vital Signs: 20:23 BP 115 / 66; Pulse 71; Resp 16; Temp 98.4; Pulse Ox 99% on 2 lpm NC; Weight 73.48 kg; al5 Height 5 ft. 6 in. ; 20:45 BP 117 / 60; Pulse 70; Resp 14; Pulse Ox 100% on 2 lpm NC; al5 21:00 BP 112 / 69; Pulse 86; Resp 17; Pulse Ox 100% on 2 lpm NC; al5 21:30 al5 20:23 Body Mass Index 26.15 (73.48 kg, 167.64 cm) al5 21:30 see code stroke checklist for vitals and assessments al5 NIH Stroke Scale Scores: 20:24 NIHSS Score: 11 al5 MDM: 20:24 Medical Screening Exam initiated rt 22:20 Differential diagnosis: CVA, TIA, Complex migraine. TNKase (Tenecteplase) Screening: rt Contraindications: Other: Patient was last without neurologic symptoms more than 6 hours prior to arrival contraindicating thrombolytics. Data reviewed: vital signs, nurses notes, lab test result(s), EKG, radiologic studies. Consideration of Admission/Observation Patient was admitted/placed on observation. Management of patient was discussed with the following: Hospitalist: Agrees to admit. I considered the following discharge prescriptions or medication management in the emergency department Medications were administered in the Emergency Department. See MAR. Independent interpretation of the following test(s) in the Emergency Department CT Scan: My interpretation is No intracranial hemorrhage seen on interpretation of CT scan images. Care significantly affected by the following chronic conditions: Chronic Obstructive Pulmonary Disease. Counseling: I had a detailed discussion with the patient and/or guardian regarding the historical points, exam findings, and any diagnostic results supporting the discharge/admit diagnosis, lab results, radiology results, the need for further work-up and treatment in the hospital. Response to treatment: There is no appreciated change of the patient's symptoms at this time. 12/25 20:24 Order name: Basic Metabolic Panel; Complete Time: 21:16 rt 12/25 20:24 Order name: CBC with Diff; Complete Time: 21:16 rt 12/25 20:24 Order name: Hepatic Function; Complete Time: 21:16 rt 02 20:24 Order name: High Sensitivity Troponin; Complete Time: 21:16 rt 12/25 20:24 Order name: Magnesium; Complete Time: 21:16 rt 12/25 20:24 Order name: Protime (+inr); Complete Time: 21:16 rt 12/25 20:24 Order name: Ptt, Activated; Complete Time: 21:16 rt 12/25 20:49 Order name: UAM; Complete Time: 22:03 rt 12/25 20:54 Order name: CREATININE WHOLE BLOOD; Complete Time: 21:16 EDMS 12/25 21:06 Order name: Glucose, Ancillary Testing; Complete Time: 21:16 EDMS 12/25 21:44 Order name: Urine Culture EDMS 12/25 22:25 Order name: CBC with Automated Diff EDMS 12/25 22:25 Order name: CBC with Automated Diff EDMS 12/25 22:25 Order name: Comprehensive Metabolic Panel EDMS 12/25 22:25 Order name: Comprehensive Metabolic Panel EDMS 12/25 22:25 Order name: Lipid Profile EDMS 12/25 22:25 Order name: Lipid Profile EDMS 12/25 22:25 Order name: Magnesium EDMS 12/25 22:25 Order name: Magnesium EDMS 12/25 22:25 Order name: Phosphorus EDMS 12/25 22:25 Order name: Phosphorus EDMS 12/25 20:24 Order name: CT Head Angio; Complete Time: 21:16 rt 12/25 20:24 Order name: CT Neck Angio; Complete Time: 21:16 rt 12/25 20:24 Order name: CT Stroke Brain w/o Contrast; Complete Time: 21:16 rt 12/25 20:24 Order name: Stroke CXR 1 View; Complete Time: 21:16 rt 12/25 22:25 Order name: Echo with Doppler EDMS 12/25 22:25 Order name: CONS Physician Consult EDMS 12/25 22:25 Order name: IRF Screen EDMS 12/25 22:25 Order name: Physical Therapy Consult EDMS 12/25 22:25 Order name: Speech Therapy Consult EDMS 12/25 20:24 Order name: Accucheck; Complete Time: 21:04 rt 12/25 20:24 Order name: Cardiac monitoring; Complete Time: 21:04 rt 12/25 20:24 Order name: EKG - Nurse/Tech; Complete Time: 21:04 rt 02 20:24 Order name: IV Saline Lock; Complete Time: 21:05 rt 02 20:24 Order name: Labs collected and sent; Complete Time: 21:05 rt 02 20:24 Order name: O2 Per Protocol; Complete Time: 21:05 rt 02 20:24 Order name: O2 Sat Monitoring; Complete Time: 21:05 rt 02 20:24 Order name: Stroke Swallow Screen; Complete Time: 21:56 rt EC:20 Rate is 95 beats/min. Rhythm is regular, Paced with No ectopy. Right axis deviation rt noted. AK interval is normal. QRS interval is normal. QT interval is normal. No Q waves. No ST changes noted. Interpreted by me. Administered Medications: 22:02 Drug: Aspirin PO 325 mg PO once Route: PO; al5 22:49 Follow up: Response: No adverse reaction; No adverse reaction; decreased chest pain al5 22:49 Drug: HYDROcodone-acetaminophen PO 5 mg-325 mg 1 tabs PO once Route: PO; al5 12/26 00:00 Follow up: Response: No adverse reaction; Pain is decreased al5 02 22:49 Drug: Rocephin IV 2 grams IV at calculated rate once; Given slow IV push per [employer] al5 instructions Route: IV; Rate: calculated rate; Site: right forearm; 23:30 Follow up: Response: No adverse reaction; IV Status: Completed infusion; IV Intake: [id number] Point of Care Testing: Blood Glucose: 21:05 Blood Glucose: 198 mg/dL; al5 Ranges: Critical Glucose Levels:Adult <50 mg/dl or >400 mg/dl <40 mg/dl or >180 mg/dl Disposition Summary: 12/25/24 22:24 Hospitalization Ordered Notes: Hospitalization Status: Observation rt Provider: Gabriel Mckenna rt Condition: Stable rt Problem: new rt Symptoms: are unchanged rt Bed/Room Type: Standard rt Location: Telemetry/MedSurg (observation)(12/26/24 13:23) eb Room Assignment: 401(12/26/24 13:23) eb Diagnosis - Cerebrovascular accident rt Forms: - Medication Reconciliation Form rt - SBAR form rt - Leadership Thank You Letter rt NIH Stroke Scale - NIH Stroke Score Date: 12/25/2024 Time: 20:24 Total Score = 11 10. Dysarthria (speech clarity - read or repeat words) - 0(Normal) 11. Extinction and Inattention (visual/tactile/auditory/spatial/personal) - 1(Present) 1a. Level of Consciousness (LOC) - 0(Alert) 1b. Level of Consciousness (LOC) (Month \T\ Age) - 0(Both) 1c. LOC Commands (Open \T\ Closes Eyes/Universal Winding Machine Operator) - 0(Both) 2. Best Gaze (Lateral Gaze Paresis) - 0(Normal) 3. Visual Field Loss - 0(No visual loss) 4. Facial Palsy - 1(Minor Paralysis) 5a. Left Arm: Motor (10-second hold) - 3(No effort against gravity) 5b. Right Arm: Motor (10-second hold) - 0(No drift) 6a. Left Leg: Motor (5-second hold - always test supine) - 3(No effort against gravity) 6b. Right Leg: Motor (5-second hold - always test supine) - 0(No drift) 7. Limb Ataxia (finger/nose \T\ heel/ramsey - test with eyes open) - 2(Present in two limbs) 8. Sensory Loss (pinprick arms/legs/face) - 1(Mild to moderate loss) 9. Best Language: Aphasia (description/naming/reading) - 0(No aphasia) Initials: al5 Signatures: Dispatcher [employer] EDMS Loreto Frias Ryan, MD MD rt [facility] Kaia Red RN RN al5 Corrections: (The following items were deleted from the chart) 20:24 20:24 CT-STROKE BRAIN W/O CONTRAST+CT.RAD.BRZ ordered. EDMS EDMS 20:25 20:25 Chest Single View+RAD.RAD.BRZ ordered. EDMS EDMS 20:50 20:50 Urinalysis W/Microscopic+U.LAB.BRZ ordered. EDMS EDMS 21:40 20:24 NPO ordered. rt al5 12/26 04:13 12/25 22:24 Telemetry/MedSurg (observation) rt [facility] 12/26 04:13 12/25 22:24 rt [facility] 12/26 13:23 04:13 BR ER HOLD kmf eb 13:23 04:13 ERHOLD- kmf eb
--- NOTE | 2024-12-25 22:29 | P.HP ---
Certification for Inpatient Patient admitted to: Inpatient With expected LOS: >2 Midnights Practitioner: I am a practitioner with admitting privileges, knowledge of patient current condition, hospital course, and medical plan of care. Services: Services provided to patient in accordance with Admission requirements found in Title 42 Section 412.3 of the Code of Federal Regulations Patient History Date of Service: 12/26/24 Reason for admission: CVA History of Present Illness: 74-year-old female with past medical history of hypertension, hyperlipidemia, diabetes, atrial fibrillation,, COPD, Dementia, overactive bladder, depression, history of CVA. presents to the ED with concerns for acute stroke. Patient woke up this morning complaining of a severe headache which she states is not typical of her migraines. States that at about noon, she was leaning to the left per her report. States that at about 630, she developed a left-sided numbness, weakness. Reports urinary frequency but denies other acute complaints at this time, symptoms are moderate in severity, no other aggravating relieving factors. Patient was assessed and was admitted for possible stroke Allergies adhesive tape Allergy (Verified 12/25/24 23:19) Hives/Rash articaine Allergy (Verified 12/25/24 23:19) Hives erythromycin base [From E-Mycin] Allergy (Verified 12/25/24 23:19) Hives idoxuridine Allergy (Verified 12/25/24 23:19) Hives nitrofurantoin Allergy (Verified 12/25/24 23:19) Hives propoxyphene [From Darvon] Allergy (Verified 12/25/24 23:19) Hives Tetracyclines Allergy (Verified 12/25/24 23:19) Hives dye residential blue, gren, red Allergy (Uncoded 12/25/24 23:19) Hives Home medications list reviewed: Yes Home Medications: Apixaban [Eliquis *] 2.5 mg PO BID 09/25/24 Alendronate Sodium 70 mg PO Q7D 10/27/24 Aspirin [Aspirin EC] 81 mg PO DAILY 10/27/24 Atorvastatin Calcium 20 mg PO BEDTIME 10/27/24 Cetirizine HCl [All Day Allergy] 10 mg PO DAILY 10/27/24 Donepezil [Aricept*] 10 mg PO DAILY 10/27/24 Ferosul Tab 325 mg PO DAILY 10/27/24 Hydrocodone 5/APAP 325 [[place] 5/325*] 1 tab PO Q8HR PRN 10/28/24 Ubrogepant [Ubrelvy] 100 mg PO SEECOM PRN 10/28/24 Albuterol Neb [Proventil 0.083% Neb Soln] 2.5 mg NEB [id number] PRN amp 11/24/24 Ipratropium Neb [Atrovent*] 0.5 mg NEB [id number] PRN amp 11/24/24 Spironolactone [Aldactone*] 25 mg PO DAILY tab 11/24/24 carvediloL [Coreg*] 3.125 mg PO BID tab 11/24/24 Acetaminophen [Tylenol*] 650 mg PO Q4HP PRN 12/26/24 Albuterol Sulfate [Ventolin Hfa] 2 puff NEB PRN PRN 12/26/24 Furosemide 40 mg PO BID 12/26/24 Metformin HCl [Glucophage*] 500 mg PO BID 12/26/24 Mirtazapine [Remeron] 30 mg PO DAILY 12/26/24 Montelukast [Singulair*] 10 mg PO DAILY 12/26/24 Nitroglycerin 0.4 mg PO SEECOM 12/26/24 Ondansetron [Zofran (Odt)*] 4 mg PO PRN PRN 12/26/24 Oxybutynin Chloride [Oxybutynin Chloride ER] 15 mg PO DAILY 12/26/24 Pregabalin [Lyrica*] 75 mg PO BID 12/26/24 Ropinirole HCl 0.5 mg PO DAILY 12/26/24 - Past Medical/Surgical History Diabetic: Yes Past Medical History: Reviewed- Non-Contributory -: DM -: CVA -: Depression -: COPD -: Atrial Fibrillation -: RLS -: Migraines -: Overactive Bladder -: dementia Past Surgical History: Reviewed- Non-Contributory -: Pacemaker - Family History Family History: Reviewed- Non-Contributory - Social History Smoking Status: Never smoker Alcohol use: Yes CD- Drugs: Yes Caffeine use: Yes Review of Systems 10-point ROS is otherwise unremarkable Physical Examination - Vital Signs Temperature: 98.4 F Blood Pressure: 114/68 Pulse: 70 Respirations: 16 Pulse Ox (%): 98 - Physical Exam General: Alert, Mild distress HEENT: Atraumatic, Normocephalic Neck: Supple, No Thyromegaly Respiratory: Clear to auscultation bilaterally, Normal air movement Cardiovascular: Regular rate/rhythm, Normal S1 S2 Capillary refill: <2 Seconds Gastrointestinal: Soft and benign, W/out hepatosplenomegaly Musculoskeletal: No clubbing Integumentary: No rashes Neurological: Other (Alert awake) Lymphatics: No axilla or inguinal lymphadenopathy - Studies Laboratory Data (last 24 hrs) 12/25/24 12/25/24 12/25/24 20:37 20:37 20:37 WBC 6.50 Hgb 10.7 L Hct 32.7 L Plt Count 240 PT 12.1 INR 1.15 APTT 34.3 Sodium 138 Potassium 4.9 BUN 43 H Creatinine 1.15 H Glucose 215 H Magnesium 2.4 Total Bilirubin 0.2 AST 17 ALT 17 Alkaline Phosphatase 95 Assessment and Plan - Plan CVA/TIA No focal weakness Numbness of left-sided body Started on aspirin and statin CT CTA findings noted MRI brain ordered Monitor neuro vital signs Monitor under telemetry PT OT ST evaluation Neurology consulted UTI Started on Rocephin Will obtain urine culture Change antibiotic as per sensitivity History of A-fib Monitor closely on telemetry Continue anticoagulation Hypertension Antihypertensives titrated Continue home medications and titrate as needed Hyperlipidemia Continue statin Diabetes Insulin sliding scale Accu-Chek before every meal and at bedtime GI/DVT prophylaxis Advanced directive full code Discharge Plan: Long Term Plan to discharge in: 48 Hours - Advance Directives Does patient have a Living Will: No Does patient have a Durable POA for Healthcare: No - Code Status/Comfort Care Code Status: Full Code Time Spent Managing Pts Care (In Minutes): 48
[2024-12-25] MEDS: CEFTRIAXONE 1,000 MG in NA CHLORIDE 0.9% 50 ML IVPB SCH (22:32)
[2024-12-25] MEDS ORDERED: CEFTRIAXONE 2000 MG/VIAL ONE (22:41)
[2024-12-25] MEDS ORDERED: NA CHLORIDE 0.9% 50 ML ONE (22:42)
[2024-12-25] MEDS ORDERED: HYDROCODONE/APAP 5/325 MG TAB ONE (22:46)
[2024-12-26] MEDS ORDERED: NA CHLORIDE 0.9% 1,000 ML ONE (00:34)
[2024-12-26] MEDS: NA CHLORIDE 0.9% 1,000 ML IV SCH (00:46)
[2024-12-26 02:14] VITALS: BMI 26.1
[2024-12-26] MEDS ORDERED: HYDROCODONE/APAP 5/325 MG TAB PO PRN (03:53)
[2024-12-26] MEDS ORDERED: ALBUTEROL 2.5 MG/3 ML NEB SOL NEB PRN (04:07)
[2024-12-26] MEDS ORDERED: MORPHINE 2 MG/ML SYR ONE ×2 (04:25→10:11)
[2024-12-26] MEDS: MORPHINE 2 MG/ML SYR IV PRN (04:27)
[2024-12-26 04:34] LABS: MPV 8.2 fL (7.6-11.3)
[2024-12-26 04:44] LABS: Albumin 2.5 g/dL (3.4-5.0); Albumin/Globulin Ratio 0.8 (1.1-1.8); Anion Gap 9.5 mEq/L (5.0-15.0); Bilirubin Total 0.2 mg/dL (0.2-1.0); Globulin 3.2 g/dL (2.3-3.5); Magnesium 2.3 mg/dL (1.6-2.4); Phosphorus 4.4 mg/dL (2.5-4.9); Potassium 4.5 mEq/L (3.5-5.1); Protein, Total 5.7 g/dL (6.4-8.2)
[2024-12-26 04:45] LABS: Absolute Basophils 0.1 K/uL (0-0.5); Absolute Eosinophils 0.2 K/uL (0-0.5); Absolute Lymphocytes (CBC) 1.1 K/uL (0.7-4.9); Absolute Monocytes 0.4 K/uL (0.1-1.3); Absolute Neutrophil 2.5 K/uL (1.8-8.0); Basophils % 1.2 % (0-1.3); Eosinophils % 5.4 % (0-4.4); Hemoglobin 9.9 g/dL (12.0-15.0); Lymphocytes % 25.9 % (15.3-44.8); MCH 30.5 pg (27.0-35.0); MCHC 33.2 g/dL (32.0-36.0); MCV 92.1 fL (80-100); Monocytes % 9.6 % (3.3-12.3); Neutrophils % 57.9 % (41.7-73.7); Nucleated Red Blood Cells % 0.1 % (0-0); Platelets 237 thou/uL (152-406); RBC Red Blood Cell Count 3.25 M/uL (3.86-4.86); Red Cell Distribution Width 18.6 % (12.1-15.2)
[2024-12-26] MEDS: carvediloL 3.125 MG TAB PO SCH (09:00)
[2024-12-26] MEDS: DONEPEZIL HCL 5 MG TAB PO SCH (09:00)
[2024-12-26] MEDS: ENOXAPARIN 40 MG/0.4 ML SQ SCH (09:00)
[2024-12-26] MEDS ORDERED: ASPIRIN EC 81 MG TAB PO SCH (09:00)
[2024-12-26] MEDS: ROPINIROLE HCL 0.25 MG TAB PO SCH (09:00)
[2024-12-26] MEDS: PREGABALIN 75 MG CAP PO SCH (09:00)
[2024-12-26] MEDS: OXYBUTYNIN ER 5 MG TAB PO SCH (09:00)
[2024-12-26] MEDS: ASPIRIN EC 81 MG TAB PO SCH (09:00)
[2024-12-26] MEDS ORDERED: CEFTRIAXONE 1000 MG/VIAL ONE (10:01)
[2024-12-26] MEDS ORDERED: NA CHLORIDE 0.9% 100 ML ONE (10:02)
[2024-12-26] MEDS ORDERED: ENOXAPARIN 40 MG/0.4 ML SQ ONE (10:02)
[2024-12-26] MEDS ORDERED: PREGABALIN 75 MG CAP PO ONE (11:12)
[2024-12-26] MEDS ORDERED: ASPIRIN EC 81 MG TAB PO ONE (11:12)
--- NOTE | 2024-12-26 13:39 | EKG ---
Test Date: 2024-12-25 Test Time: 20:50:10 Health Services Coordinator: MARIA EUGENIA MEASUREMENT RESULTS: Intervals: Rate: 95 HI: 136 QRSD: 132 QT: 448 QTc: 562 [place]: P: 52 HI: 136 QRS: 161 T: 17 INTERPRETIVE STATEMENTS: Atrial-sensed ventricular-paced rhythm Abnormal ECG Compared to ECG 12/03/2024 13:34:38 No significant changes Electronically Signed On 12-26-24 13:38:08 GRATING MACHINE OPERATOR by Jitendra Segovia
--- NOTE | 2024-12-26 14:09 | ECHO ---
HEIGHT: 5 ft 6 in WEIGHT: 161 lb 15.931 oz DATE OF STUDY: 12/26/[address]: Feliberto Mckenna DO 2-DIMENSIONAL: YES M.MODE: YES DOPPLER: YES COLOR FLOW: YES TDS: PORTABLE: DEFINITY: BUBBLE STUDY: DIAGNOSIS: [*] CARDIAC HISTORY: CATHERIZATION: SURGERY: PROSTHETIC VALVE: PACEMAKER: MEASUREMENTS (cm) DIASTOLIC (NORMALS) SYSTOLIC (NORMALS) IVSd [*] (0.6-1.2) LA Diam [*] (1.9-4.0) LVEF [*]% LVIDd [*] (3.5-5.7) LVIDs [*] (2.0-3.5) %FS [*]% LVPWd [*] (0.6-1.2) Ao Diam [*] (2.0-3.7) 2 DIMENSIONAL ASSESSMENT: RIGHT ATRIUM: ENLARGED LEFT ATRIUM: ENLARGED RIGHT VENTRICLE: PACEMAKER WIRE LEFT VENTRICLE: LEFT VENTRICULAR HYPERTROPHY TRICUSPID VALVE: MODERATE TRICUSPID REGURGITATION MITRAL VALVE: MILD MITRAL REGURGITATION PULMONIC VALVE: NORMAL AORTIC VALVE: NORMAL PERICARDIAL EFFUSION: NONE AORTIC ROOT: NORMAL LEFT VENTRICULAR WALL MOTION: NORMAL DOPPLER/COLOR FLOW: SEE BELOW COMMENTS: 1. NORMAL LEFT VENTRICULAR EJECTION FRACTION 50% 2. MILD CONCENTRIC LEFT VENTRICULAR HYPERTROPHY 3. BI-ATRIAL ENLARGEMENT 4. MODERATE TO SEVERE TRICUSPID REGURGITATION 5. SEVERE PULMONARY HYPERTENSION WITH RIGHT VENTRICULAR SYSTOLIC PRESSURE GREATER THAN 60 mmHg 6. MILD MITRAL REGURGITATION TECHNOLOGIST: OBED HAYDEN
--- NOTE | 2024-12-26 16:54 | P.PN ---
Subjective Date of Service: 12/26/24 Chief Complaint: CVA Patient feels her left lower extremity weakness is better. She is complaining of bilateral knee pain which impairs her mobility. She has no problem with speech or swallowing. Physical Examination - Vital Signs Temperature: 97.7 F Blood Pressure: 129/78 Pulse: 82 Respirations: 16 Pulse Ox (%): 98 - Studies Laboratory Data (last 24 hrs) 12/25/24 12/25/24 12/25/24 20:37 20:37 20:37 WBC 6.50 Hgb 10.7 L Hct 32.7 L Plt Count 240 PT 12.1 INR 1.15 APTT 34.3 Sodium 138 Potassium 4.9 BUN 43 H Creatinine 1.15 H Glucose 215 H Magnesium 2.4 Total Bilirubin 0.2 AST 17 ALT 17 Alkaline Phosphatase 95 Assessment And Plan - Plan Physical examination General: Alert and oriented x3, NAD, HEENT: Conjunctiva not pale, anicteric sclera Neck: Supple, no elevated JVD Heart: Heart sounds 1 and 2 normal, regular rhythm, normal rate, no pedal edema Lungs: Clear to auscultation bilaterally, adequate breath sounds bilaterally, no rhonchi or crackles. Abdomen: Soft, nondistended, nontender, normal bowel sounds. Extremities: No tenderness, bilateral lower extremity venous stasis dermatitis Skin: Normal skin turgor, no rash, no nodules or ulcers. Neuro: Mild left upper extremity weakness, motor in bilateral lower extremities appear to be the same, normal speech. Psychiatry: Normal mood, no agitation. Diagnosis Left-sided weakness and numbness-strokelike symptoms Complex migraine not ruled out. History of CVA Acute cystitis without hematuria Chronic atrial fibrillation Essential hypertension Hyperlipidemia Diabetes mellitus type 2 Left-sided numbness-strokelike symptoms Complex migraine not ruled out. History of CVA No focal weakness Numbness of left-sided body. Noted patient has a history of migraine. Continue aspirin and statin CT CTA findings noted Patient cannot do MRI of the brain due to presence of a pacemaker Neurochecks Patient ambulated about 20 feet with AD during PT. Continue PT and OT Resume home migraine medication. Neurology consulted Social service consult to assist with discharge planning. Acute cystitis without hematuria Urine cultures growing gram-negative rods Continue IV Rocephin Follow urine culture Chronic A-fib Continue anticoagulation Continue Coreg Hypertension Patient is on low-dose Coreg She is currently normotensive. Hyperlipidemia Continue statin Diabetes Insulin sliding scale Accu-Chek before every meal and at bedtime Hold home metformin for now GI/DVT prophylaxis: On Eliquis Advanced directive: full code
[2024-12-26] MEDS ORDERED: UBROGEPANT 100 MG PO PRN (17:01)
[2024-12-26] MEDS: ATORVASTATIN 20 MG TAB PO SCH (20:00)
[2024-12-26] MEDS: APIXABAN 2.5 MG TABLET PO SCH (20:00)
[2024-12-26] MEDS ORDERED: ATORVASTATIN 20 MG TAB PO SCH (21:00)
[2024-12-27 07:13] LABS: Absolute Basophils 0.1 K/uL (0-0.5); Absolute Eosinophils 0.2 K/uL (0-0.5); Absolute Lymphocytes (CBC) 1.1 K/uL (0.7-4.9); Absolute Monocytes 0.4 K/uL (0.1-1.3); Absolute Neutrophil 2.6 K/uL (1.8-8.0); Basophils % 1.3 % (0-1.3); Eosinophils % 5.1 % (0-4.4); Hematocrit 33.4 % (36.0-45.0); Hemoglobin 10.6 g/dL (12.0-15.0); MCH 29.7 pg (27.0-35.0); MCHC 31.6 g/dL (32.0-36.0); MCV 94.1 fL (80-100); MPV 7.8 fL (7.6-11.3); Monocytes % 9.2 % (3.3-12.3); Neutrophils % 59.4 % (41.7-73.7); Nucleated Red Blood Cells % 0.1 % (0-0); Platelets 261 thou/uL (152-406); RBC Red Blood Cell Count 3.55 M/uL (3.86-4.86); Red Cell Distribution Width 18.4 % (12.1-15.2)
[2024-12-27 07:27] LABS: Anion Gap 7.3 mEq/L (5.0-15.0); Potassium 5.3 mEq/L (3.5-5.1)
[2024-12-27] MEDS: CETIRIZINE HCL 5 MG TABLET PO SCH (08:33)
[2024-12-27] MEDS: FERROUS SULFATE 325 MG TAB PO SCH (08:33)
[2024-12-27] MEDS: MONTELUKAST 10 MG TAB PO SCH (08:33)
[2024-12-27] MEDS: MIRTAZAPINE 15 MG TAB PO SCH (08:33)
[2024-12-27] MEDS: SPIRONOLACTONE 25 MG TABLET PO SCH (08:34)
--- NOTE | 2024-12-27 15:00 | P.PN ---
Subjective Date of Service: 12/27/24 Chief Complaint: CVA Patient has no new complaint. She is resting comfortably. She has no problem with speech or swallowing. Physical Examination - Vital Signs Temperature: 97.9 F Blood Pressure: 121/76 Pulse: 88 Respirations: 16 Pulse Ox (%): 97 Assessment And Plan - Plan Physical examination General: Alert and oriented x3, NAD, Neck: Supple, no elevated JVD Heart: Heart sounds 1 and 2 normal, irregular rhythm, normal rate, no pedal edema Lungs: Clear to auscultation bilaterally, adequate breath sounds bilaterally, no rhonchi or crackles. Abdomen: Soft, nondistended, nontender, normal bowel sounds. Extremities: No tenderness, bilateral lower extremity venous stasis dermatitis Skin: Normal skin turgor, no rash, no nodules or ulcers. Neuro: Mild left upper extremity weakness, motor in bilateral lower extremities appear to be the same, normal speech. Psychiatry: Normal mood, no agitation. Diagnosis Left-sided weakness and numbness-strokelike symptoms Complex migraine not ruled out. History of CVA Acute cystitis without hematuria Chronic atrial fibrillation Essential hypertension Hyperlipidemia Diabetes mellitus type 2 Left-sided numbness-strokelike symptoms Complex migraine not ruled out. History of CVA No focal weakness No neurologic symptoms. Noted patient has a history of migraine. Continue aspirin and statin CT CTA findings noted Patient cannot do MRI of the brain due to presence of a pacemaker Neurochecks Patient ambulated about 20 feet with AD during PT. According to sodalis patient is able to walk from her room to the dining room with a walker. It appears patient mobility is impaired compared to her baseline Continue PT and OT Resume home migraine medication. Neurology consulted Social service consult to assist with discharge planning. Patient may benefit from skilled rehab placement. Acute cystitis without hematuria Urine cultures growing gram-negative rods and known beta-hemolytic strep. Continue IV Rocephin Follow urine culture Chronic A-fib Continue anticoagulation Continue Coreg Hypertension Patient is on low-dose Coreg She is currently normotensive. Hyperlipidemia Continue statin Diabetes Insulin sliding scale Accu-Chek before every meal and at bedtime Hold home metformin for now GI/DVT prophylaxis: On Eliquis Advanced directive: full code
[2024-12-27] MEDS: HYDROCODONE/APAP 5/325 MG TAB PO PRN (15:20)
[2024-12-27] MEDS: MORPHINE 4 MG/ML SYR IV PRN (15:25)
[2024-12-28 08:25] LABS: Magnesium 2.5 mg/dL (1.6-2.4); Phosphorus 3.7 mg/dL (2.5-4.9)
[2024-12-28 11:23] VITALS: O2SAT 97
[2024-12-28 12:48] VITALS: BP 119/75; TEMP 97.8
--- NOTE | 2024-12-28 14:24 | P.DS ---
Admission Date: 12/25/24 Discharge Date: 12/28/24 Disposition: DC HOME/HOME HEALTH CARE Discharge Condition: FAIR Reason for Admission: CVA Hospital Course: Discharge diagnosis Left-sided weakness and numbness-strokelike symptoms Complex migraine not ruled out. History of CVA Acute cystitis without hematuria Chronic atrial fibrillation Essential hypertension Hyperlipidemia Diabetes mellitus type 2 Plan: Left-sided numbness-strokelike symptoms Complex migraine not ruled out. History of CVA Patient has no focal weakness and no neurologic signs on presentation Noted patient has a history of migraine. Patient with transient numbness and weakness could also be related to complex migraine given that her symptoms were preceded by headache. CT head showed no acute finding Patient cannot do MRI of the brain due to presence of a pacemaker Patient has been taking aspirin and Lipitor which were continued during the hospital stay. Her LDL check was within normal limits. Patient ambulated about 20 feet with AD during PT. According to [employer] patient is able to walk from her room to the dining room with a walker. Patient evaluated by PT. She was able to walk with a walker today around her room and in the hallway. Patient refused SNF or rehab offered stating these are not options for her and would like to go back to [facility]. Patient may continue his migraine medications on discharge. Neurology consulted Acute cystitis without hematuria Urine culture grew E. coli Patient treated with IV Rocephin Patient discharged with oral Cipro to complete 5 days of treatment. Chronic A-fib Continued Eliquis and Coreg Hypertension Patient is on low-dose Coreg She was normotensive during the hospital stay. Diabetes Managed with insulin sliding scale as inpatient. Home dose metformin resumed on discharge. Vital Signs/Physical Exam: Temp Pulse Resp BP Pulse Ox 97.8 F 76 18 119/75 98 12/28/24 12:00 12/28/24 12:00 12/28/24 12:00 12/28/24 12:12/28/24 12:00 General: Alert, In no apparent distress, Oriented x3 HEENT: Mucous membr. moist/pink, Sclerae nonicteric Neck: Supple, JVD not distended Respiratory: Clear to auscultation bilaterally, Normal air movement Cardiovascular: Normal S1 S2, Irregular heart rate/rhythm Gastrointestinal: Soft and benign, Non-distended Musculoskeletal: No swelling Integumentary: No rashes Neurological: Normal speech, Normal strength at 5/5 x4 extr, Cranial nerves 3-12 intact Laboratory Data at Discharge: WBC 4.40 thou/uL (4.3-10.9) 12/27/24 07:00 Hgb 10.6 g/dL (12.0-15.0) L 12/27/24 07:00 Hct 33.4 % (36.0-45.0) L 12/27/24 07:00 Plt Count 261 thou/uL (152-406) 12/27/24 07:00 PT 12.1 SECONDS (9.4-12.5) 12/25/24 20:37 INR 1.15 12/25/24 20:37 APTT 34.3 SECONDS (24.3-36.9) 12/25/24 20:37 Sodium 141 mEq/L (136-145) 12/28/24 07:41 Potassium 5.0 mEq/L (3.5-5.1) 12/28/24 07:41 BUN 29 mg/dL (7-18) H 12/28/24 07:41 Creatinine 0.75 mg/dL (0.55-1.02) 12/28/24 07:41 Glucose 147 mg/dL (74-106) H 12/28/24 07:41 Phosphorus 3.7 mg/dL (2.5-4.9) 12/28/24 07:41 Magnesium 2.5 mg/dL (1.6-2.4) H 12/28/24 07:41 Total Bilirubin 0.2 mg/dL (0.2-1.0) 12/26/24 04:07 AST 12 U/L (15-37) L 12/26/24 04:07 ALT 15 U/L (13-56) 12/26/24 04:07 Alkaline Phosphatase 83 U/L (45-117) 12/26/24 04:07 Triglycerides 63 mg/dL (<150) 12/26/24 04:07 Cholesterol 83 mg/dL (<200) 12/26/24 04:07 HDL Cholesterol 46 mg/dL (40-60) 12/26/24 04:07 Cholesterol/HDL Ratio 1.80 12/26/24 04:07 Home Medications: Apixaban [Eliquis *] 2.5 mg PO BID 09/25/24 Alendronate Sodium 70 mg PO Q7D 10/27/24 Aspirin [Aspirin EC] 81 mg PO DAILY 10/27/24 Atorvastatin Calcium 20 mg PO BEDTIME 10/27/24 Cetirizine HCl [All Day Allergy] 10 mg PO DAILY 10/27/24 Donepezil [Aricept*] 10 mg PO DAILY 10/27/24 Ferosul Tab 325 mg PO DAILY 10/27/24 Hydrocodone 5/APAP 325 [[place] 5/325*] 1 tab PO Q8HR PRN 10/28/24 Ubrogepant [Ubrelvy] 100 mg PO SEECOM PRN 10/28/24 Albuterol Neb [Proventil 0.083% Neb Soln] 2.5 mg NEB [id number] PRN amp 11/24/24 Ipratropium Neb [Atrovent*] 0.5 mg NEB [id number] PRN amp 11/24/24 Spironolactone [Aldactone*] 25 mg PO DAILY tab 11/24/24 carvediloL [Coreg*] 3.125 mg PO BID tab 11/24/24 Acetaminophen [Tylenol*] 650 mg PO Q4HP PRN 12/26/24 Albuterol Sulfate [Ventolin Hfa] 2 puff NEB PRN PRN 12/26/24 Metformin HCl [Glucophage*] 500 mg PO BID 12/26/24 Mirtazapine [Remeron] 30 mg PO DAILY 12/26/24 Montelukast [Singulair*] 10 mg PO DAILY 12/26/24 Nitroglycerin 0.4 mg PO SEECOM 12/26/24 Ondansetron [Zofran (Odt)*] 4 mg PO PRN PRN 12/26/24 Oxybutynin Chloride [Oxybutynin Chloride ER] 15 mg PO DAILY 12/26/24 Pregabalin [Lyrica*] 75 mg PO BID 12/26/24 Ropinirole HCl 0.5 mg PO DAILY 12/26/24 Furosemide [Lasix] 20 mg PO DAILY #30 tab 12/28/24 New Medications: Furosemide [Lasix] 20 mg PO DAILY #30 tab Physician Discharge Instructions: Left-sided numbness-strokelike symptoms Complex migraine not ruled out. History of CVA Patient has no focal weakness and no neurologic signs on presentation Noted patient has a history of migraine. Patient with transient numbness and weakness could also be related to complex migraine given that her symptoms were preceded by headache. CT head showed no acute finding Patient cannot do MRI of the brain due to presence of a pacemaker Patient has been taking aspirin and Lipitor which were continued during the hospital stay. Her LDL check was within normal limits. Patient ambulated about 20 feet with AD during PT. According to [employer] patient is able to walk from her room to the dining room with a walker. Patient evaluated by PT. She was able to walk with a walker today around her room and in the hallway. Patient refused SNF or rehab offered stating these are not options for her and would like to go back to [facility]. Patient may continue his migraine medications on discharge. Neurology consulted Acute cystitis without hematuria Urine culture grew E. coli Patient treated with IV Rocephin Patient discharged with oral Cipro to complete 5 days of treatment. Chronic A-fib Continued Eliquis and Coreg Hypertension Patient is on low-dose Coreg She was normotensive during the hospital stay. Diabetes Managed with insulin sliding scale as inpatient. Home dose metformin resumed on discharge. Diet: ADA Activity: Fall precautions Followup: Queenie Nice MD [Primary Care Provider] - 1-2 Weeks Time spent managing pt's care (in minutes): 36
== END 2024-12-28 15:38 | disposition home health service (06) | DRG 103 ==
LOC: ER 20:22 → ERHOLD 22:19 → 4TH 12-26 13:43
PROVIDERS: ADMIT Family Medicine; ATTEND Internal Medicine
DX: G43.809 Other migraine, not intractable, without status migrainosus (principal); I48.20 Chronic atrial fibrillation, unspecified; N30.00 Acute cystitis without hematuria; I10 Essential (primary) hypertension; E78.5 Hyperlipidemia, unspecified; I48.91 Unspecified atrial fibrillation; E11.9 Type 2 diabetes mellitus without complications; M25.562 Pain in left knee; M25.561 Pain in right knee; J44.9 Chronic obstructive pulmonary disease, unspecified; F03.90 Unspecified dementia, unspecified severity, without behavioral disturbance, psychotic disturbance, mood disturbance, and anxiety; B96.20 Unspecified Escherichia coli [E. coli] as the cause of diseases classified elsewhere; R20.0 Anesthesia of skin; R29.711 NIHSS score 11; Z88.5 Allergy status to narcotic agent; Z95.0 Presence of cardiac pacemaker; Z88.1 Allergy status to other antibiotic agents; Z88.8 Allergy status to other drugs, medicaments and biological substances; Z79.82 Long term (current) use of aspirin; Z79.84 Long term (current) use of oral hypoglycemic drugs; Z79.02 Long term (current) use of antithrombotics/antiplatelets; Z86.73 Personal history of transient ischemic attack (TIA), and cerebral infarction without residual deficits; Z79.899 Other long term (current) drug therapy
CPT/HCPCS: 36415; 70450; 70496; 70498; 71045; 80048; 80053; 80061; 80076; 81001; 82565; 82947; 83735; 84100; 84132; 84484; 85025; 85610; 85730; 87077; 87086; 87088; 87186; 92610; 93005; 93306; 94760; 96365; 97116; 97161; 97530; 99285; J0696; J1650; J2270; J7030; Q9967

== ENCOUNTER 2025-01-04 02:59 | Inpatient (IN) | payer OTHER ==
--- OUTSIDE RECORDS SUMMARY | 2025-01-04 03:02 | XMS REPORT | Continuity of Care Document ---
Author Name Unknown Address [address] [place] [address] [facility] Address 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
[2025-01-04] MEDS ORDERED: ENOXAPARIN 80 MG/0.8 ML SQ ONE (03:48)
[2025-01-04] MEDS ORDERED: ONDANSETRON 4 MG/2 ML VIAL ONE ×3 (03:48→13:50)
[2025-01-04] MEDS ORDERED: FUROSEMIDE 20 MG/ 2ML VIAL ONE (03:49)
[2025-01-04] MEDS ORDERED: MORPHINE 4 MG/ML SYR ONE (03:49)
--- NOTE | 2025-01-04 03:49 | RAD REPORT ---
EXAM DESCRIPTION: Chest Single View CLINICAL HISTORY: CHEST PAIN COMPARISON: None TECHNIQUE: Single AP view of the chest. FINDINGS: Left-sided cardiac conduction device noted. Lung volumes adequate. Cardiac silhouette is enlarged. No pneumothorax. No large pleural effusion. No focal consolidation. No acute bony finding. IMPRESSION: 1. No acute cardiopulmonary findings. 2. Enlarged cardiac silhouette. Electronically signed by: Miguel Rodriguez MD 01/04/2025 03:43 AM [facility] [id number] Due to temporary technical issues with the [employer] reporting system, reports are being nura d by the in-house radiologist without review as a courtesy to ensure prompt reporting the interpreting radiologist is fully responsible for the content of the report. Transcribed Date/Time: 01/04/2025 3:49 AM
[2025-01-04 03:51] LABS: PT Prothrombin Time 13.3 SECONDS (9.4-12.5); Protime INR 1.27
[2025-01-04 03:54] LABS: Absolute Eosinophils 0.2 K/uL (0-0.5); Absolute Monocytes 0.4 K/uL (0.1-1.3); Absolute Neutrophil 2.4 K/uL (1.8-8.0); Basophils % 0.8 % (0-1.3); Hematocrit 31.5 % (36.0-45.0); Hemoglobin 10.1 g/dL (12.0-15.0); Lymphocytes % 25.3 % (15.3-44.8); MCH 30.4 pg (27.0-35.0); MPV 7.7 fL (7.6-11.3); Monocytes % 9.5 % (3.3-12.3); Neutrophils % 58.4 % (41.7-73.7); Nucleated Red Blood Cells % 0.2 % (0-0); Platelets 242 thou/uL (152-406); RBC Red Blood Cell Count 3.31 M/uL (3.86-4.86)
--- NOTE | 2025-01-04 04:16 | EDPHYS ---
Physician Documentation [facility] Name: Caren Cuadra Age: 74 yrs Sex: Female : 1950 Arrival Date: 01/04/2025 Time: 02:59 Bed 8 Private MD: ED Physician Michael Preciado HPI: 01/04 03:28 This 74 yrs old Female presents to ER via EMS with complaints of Chest Pain. josue Historical: - Allergies: 03:11 articane hydrochloride; al5 03:11 Codeine; al5 03:11 Darvon; al5 03:11 e-mycin; al5 03:11 idoxuridine; al5 03:11 Iodine; al5 03:11 Macrobid; al5 03:11 TETRACYCLINES; al5 - Home Meds: 03:11 Aimovig Autoinjector 140 mg/mL subcutaneous Auto-Injector 140 mg every month [Active]; al5 alendronate 70 mg Oral tablet 1 tab every week [Active]; aspirin 81 mg Oral capsule 1 cap daily [Active]; atorvastatin 20 mg Oral tablet 1 tab daily [Active]; carvedilol 3.125 mg Oral tablet 1 tab 2 times per day [Active]; cetirizine 10 mg Oral tablet 1 tab daily [Active]; donepezil 10 mg Oral tablet 1 tab daily [Active]; hydrocodone-acetaminophen 5-325 mg Oral tablet 1 tab every 8 hours [Active]; metformin 500 mg Oral tablet 1 tab 2 times per day [Active]; mirtazapine 30 mg Oral tablet 1 tab daily [Active]; montelukast 10 mg Oral tablet 1 tab daily [Active]; oxybutynin chloride 15 mg Oral tablet 1 tab BID [Active]; pregabalin 25 mg Oral capsule 1 cap 2 times per day [Active]; ropinirole 0.5 mg Oral tablet 1 tab daily [Active]; SPIRIVA 2.5 MCG DAILY INHALE 2 PUFFS DAILY [Active]; Zofran Oral 4 mg as needed [Active]; - PMHx: 03:11 Anxiety; Atrial fibrillation; COPD; CVA; depressive disorder; diabetes mellitus; al5 Migraine; overactive bladder; radiating back pain; RLS; - Immunization history:: Adult Immunizations up to date. - Infectious Disease History:: Denies. - Social history:: Smoking status: Patient denies any tobacco usage or history of. ROS: 03:29 Constitutional: Negative for fever, chills, and weight loss, Eyes: Negative for injury, josue pain, redness, and discharge, ENT: Negative for injury, pain, and discharge, Neck: Negative for injury, pain, and swelling, Abdomen/GI: Negative for abdominal pain, nausea, vomiting, diarrhea, and constipation, Back: Negative for injury and pain, : Negative for injury, bleeding, discharge, and swelling, MS/Extremity: Negative for injury and deformity, Skin: Negative for injury, rash, and discoloration, Neuro: Negative for headache, weakness, numbness, tingling, and seizure, 03:29 Cardiovascular: Positive for chest pain, of the chest, 03:29 Respiratory: Positive for shortness of breath, at rest. 03:29 MS/extremity: Positive for tenderness, of the right leg and left leg, Exam: 03:29 Constitutional: This is a well developed, well nourished patient who is awake, alert, josue and in no acute distress. Head/Face: Normocephalic, atraumatic. Eyes: Pupils equal round and reactive to light, extra-ocular motions intact. Lids and lashes normal. Conjunctiva and sclera are non-icteric and not injected. Cornea within normal limits. Periorbital areas with no swelling, redness, or edema. ENT: Nares patent. No nasal discharge, no septal abnormalities noted. Tympanic membranes are normal and external auditory canals are clear. Oropharynx with no redness, swelling, or masses, exudates, or evidence of obstruction, uvula midline. Mucous membranes moist. Neck: Trachea midline, no thyromegaly or masses palpated, and no cervical lymphadenopathy. Supple, full range of motion without nuchal rigidity, or vertebral point tenderness. No Meningismus. Chest/axilla: Normal chest wall appearance and motion. Nontender with no deformity. No lesions are appreciated. Cardiovascular: Regular rate and rhythm with a normal S1 and S2. No gallops, murmurs, or rubs. Normal PMI, no JVD. No pulse deficits. Respiratory: Lungs have equal breath sounds bilaterally, clear to auscultation and percussion. No rales, rhonchi or wheezes noted. No increased work of breathing, no retractions or nasal flaring. Abdomen/GI: Soft, non-tender, with normal bowel sounds. No distension or tympany. No guarding or rebound. No evidence of tenderness throughout. Back: No spinal tenderness. No costovertebral tenderness. Full range of motion. Skin: Warm, dry with normal turgor. Normal color with no rashes, no lesions, and no evidence of cellulitis. Neuro: Awake and alert, GCS 15, oriented to person, place, time, and situation. Cranial nerves II-XII grossly intact. Motor strength 5/5 in all extremities. Sensory grossly intact. Cerebellar exam normal. Normal gait. Psych: Awake, alert, with orientation to person, place and time. Behavior, mood, and affect are within normal limits. 03:29 ECG was reviewed by the Attending Physician. 03:29 Musculoskeletal/extremity: ROM: full active range of motion, full passive range of motion, Circulation is intact in all extremities. Sensation intact. Compartment Syndrome exam of affected extremity: is normal. Weight bearing: able to fully bear weight, without difficulty, DVT Exam: no swelling, no tenderness, negative Homans' sign noted on exam, no appreciated bluish discoloration, no erythema, no increased warmth, pain, wraps removed , tight. Vital Signs: 03:00 BP 125 / 74; Pulse 71; Resp 16; Pulse Ox 100% on 2 lpm NC; al5 03:09 BP 128 / 74; Pulse 60; Resp 16; Temp 97.8; Pulse Ox 98% on R/A; Weight 74 kg; al5 03:30 BP 129 / 82; Pulse 80; Resp 19; Pulse Ox 100% on 2 lpm NC; al5 04:00 BP 117 / 75; Pulse 70; Resp 16; Pulse Ox 100% on 2 lpm NC; al5 04:30 BP 129 / 77; Pulse 73; Resp 16; Pulse Ox 100% on 2 lpm NC; al5 05:00 BP 94 / 60; Pulse 78; Resp 18; Pulse Ox 99% on 2 lpm NC; al5 MDM: 03:03 Medical Screening Exam initiated josue 03:29 Differential diagnosis: abnormal EKG, acute myocardial infarction, acute pericarditis, josue anxiety, coronary artery disease chest wall pain, Cholelithiasis costochondritis, esophagitis, hiatal hernia, pancreatitis, peptic ulcer disease, pericarditis, pleurisy, pneumonia, pulmonary embolus, stable angina, thoracic aortic disection, unstable angina. HEART Score: History: Slightly Suspicious (0), ECG: Non specific repolarization disturbance / LBTB / PM (1), Age: > or = 65 years (2), Risk Factors: > or = 3 Risk factors for atherosclerotic disease (2), [Hypercholesterolemia] [Hypertension] [DM] [+ Family HX] Troponin: < or = 1 x Normal Limit (0). The patient was given aspirin in the Emergency Department. CRISTINA Risk Score: 1 - patient's age is greater or equal to 65 years, 1 - Three or more CAD risk factors, 1- Known CAD, 1 - ASA use in past 7 days, 1 - Recent [<24hrs] Severe Angina, TOTAL SCORE = 5. Data reviewed: vital signs, nurses notes, EMS record, lab test result(s), EKG, radiologic studies, plain films. Consideration of Admission/Observation Patient was admitted/placed on observation. Escalation of care including admission/observation considered. Independent interpretation of the following test(s) in the Emergency Department EKG: See my EKG interpretation above. Care significantly affected by the following chronic conditions: Diabetes, Hypertension, Chronic Obstructive Pulmonary Disease, Obesity, Cancer. 01/04 03:08 Order name: Basic Metabolic Panel; Complete Time: 04:28 01/04 03:08 Order name: CBC with Diff; Complete Time: 04:07 01/04 03:08 Order name: LFT's; Complete Time: 04:28 01/04 03:08 Order name: Magnesium; Complete Time: 04:28 01/04 03:08 Order name: NT PRO-BNP; Complete Time: 04:28 01/04 03:08 Order name: PT-INR; Complete Time: 03:53 01/04 03:08 Order name: Troponin HS; Complete Time: 04:28 01/04 03:08 Order name: Lipase; Complete Time: 04:28 01/04 03:08 Order name: Urinalysis w/ reflexes; Complete Time: 06:57 josue 01/04 03:27 Order name: Blood Culture Adult (2) josue 01/04 04:55 Order name: Magnesium EDMS 01/04 04:55 Order name: Phosphorus EDMS 01/04 04:55 Order name: Basic Metabolic Panel [facility] 01/04 04:55 Order name: Basic Metabolic Panel [facility] 01/04 04:55 Order name: CBC with Automated Diff [facility] 01/04 04:55 Order name: CBC with Automated Diff [facility] 01/04 04:55 Order name: NT PRO-BNP [facility] 01/04 04:55 Order name: NT PRO-BNP [facility] 01/04 04:55 Order name: Troponin High Sensitivity [facility] 01/04 04:55 Order name: Troponin High Sensitivity [facility] 01/04 04:55 Order name: Troponin High Sensitivity [facility] 01/04 04:55 Order name: Troponin High Sensitivity [facility] 01/04 05:08 Order name: Urine Culture [facility] 01/04 08:11 Order name: Glucose, Ancillary Testing [facility] 01/04 11:24 Order name: Glucose, Ancillary Testing [facility] 01/04 16:55 Order name: Glucose, Ancillary Testing [facility] 01/04 03:08 Order name: XRAY Chest (1 view); Complete Time: 03:53 [facility] 01/04 04:55 Order name: Physical Therapy Consult [facility] 01/04 05:07 Order name: Occupational Therapy Consult [facility] 01/04 03:08 Order name: Cardiac monitoring; Complete Time: 03:17 [facility] 01/04 03:08 Order name: EKG - Nurse/Tech; Complete Time: 03:17 [facility] 01/04 03:08 Order name: IV Saline Lock; Complete Time: 03:17 [facility] 01/04 03:08 Order name: Labs collected and sent; Complete Time: 03:17 [facility] 01/04 03:08 Order name: O2 Per Protocol; Complete Time: 03:17 [facility] 01/04 03:08 Order name: O2 Sat Monitoring; Complete Time: 03:17 [facility] EC:29 Rate is 84 beats/min. Rhythm is regular. QRS [place] is Normal. NC interval is normal. QRS josue interval is normal. QT interval is normal. No Q waves. T waves are Normal. No ST changes noted. Clinical impression: Abnormal EKG without significant change and No evidence of ischemia. Interpreted by me. Reviewed by me. Administered Medications: 03:46 Not Given (given ptaa): aspirinchewable tablet 81 mg PO once al5 03:46 Drug: Eibsqdyg-Updkyaoivq-Vdtggobau Topical Ointment 1 application Topical once Route: al5 Topical; Site: affected area; 04:57 Follow up: Response: No adverse reaction al5 04:17 Drug: morphine IVP or IV 2 mg IVP once over 4 mins Route: IVP; Infused Over: 4 mins; al5 Site: left upper arm; 04:57 Follow up: Response: No adverse reaction; Pain is decreased al5 04:17 Drug: Ondansetron IVP 4 mg IVP once; over 2 minutes Route: IVP; Site: left upper arm; al5 04:57 Follow up: Response: No adverse reaction al5 04:18 Drug: morphine IVP or IV 2 mg IVP once over 4 mins Route: IVP; Infused Over: 4 mins; al5 Site: left upper arm; 04:57 Follow up: Response: No adverse reaction; Pain is decreased al5 04:23 Drug: Furosemide IVP 20 mg IVP once; give over 2 minutes Route: IVP; Site: left upper al5 arm; 04:56 Follow up: Response: No adverse reaction al5 04:23 Drug: Enoxaparin Sub-Q 1 mg/kg Sub-Q once Route: Sub-Q; Site: left lower abdomen; al5 04:57 Follow up: Response: No adverse reaction al5 Disposition Summary: 01/04/25 04:15 Hospitalization Ordered Notes: Hospitalization Status: Observation josue Provider: Prince josue Guerin Condition: Fair josue Problem: new josue Symptoms: have improved josue Bed/Room Type: Standard josue Location: Telemetry/MedSurg (Inpatient)(01/04/25 16:54) hb Room Assignment: 406(01/04/25 16:54) hb Diagnosis - Chest pain, unspecified josue - Venous insufficiency (chronic) (peripheral) josue - Presence of cardiac pacemaker josue - Dyspnea josue - Chronic combined systolic (congestive) and diastolic (congestive) heart failure josue - Cardiomegaly josue Forms: - Medication Reconciliation Form josue - SBAR form josue - Leadership Thank You Letter josue Signatures: Dispatcher [employer] Michael Smallwood MD MD cha Baxter, Heather, RN RN Christine Coleman Amanda, RN RN al5 Corrections: (The following items were deleted from the chart) 03:09 03:09 BASIC METABOLIC PANEL+C.LAB.BRZ ordered. EDMS EDMS 03:09 03:09 CBC+H.LAB.BRZ ordered. EDMS EDMS 03:09 03:09 HEPATIC FUNCTION+C.LAB.BRZ ordered. EDMS EDMS 03:09 03:09 MAGNESIUM+C.LAB.BRZ ordered. EDMS EDMS 03:09 03:09 PROBNP+C.LAB.BRZ ordered. EDMS EDMS 03:09 03:09 PROTIME (+INR)+COAG.LAB.BRZ ordered. EDMS EDMS 03:09 03:09 Troponin High Sensitivity+C.LAB.BRZ ordered. EDMS EDMS 03:09 03:09 LIPASE+C.LAB.BRZ ordered. EDMS EDMS 03:09 03:09 Urinalysis+U.LAB.BRZ ordered. EDMS EDMS 03:09 03:09 Chest Single View+RAD.RAD.BRZ ordered. EDMS EDMS 03:28 03:28 BLOOD CULTURE*+BA.LAB.BRZ ordered. EDMS EDMS 04:40 04:15 Telemetry/MedSurg (observation) [facility] vk 04:40 04:15 [facility] vk 16:54 04:40 BR ER HOLD vk hb 16:54 04:40 ERHOLD- vk hb
--- NOTE | 2025-01-04 04:16 | ER ---
Nurse's Notes [facility] Name: Caren Cuadra Age: 74 yrs Sex: Female : 1950 Arrival Date: 01/04/2025 Time: 02:59 Bed 8 Private MD: Diagnosis: Chest pain, unspecified;Venous insufficiency (chronic) (peripheral);Presence of cardiac pacemaker;Dyspnea;Chronic combined systolic (congestive) and diastolic (congestive) heart failure;Cardiomegaly Presentation: 01/04 03:09 Chief complaint: Patient states: c/o CP since yesterday. facility states this episode al5 started 30 minutes ago. Coronavirus screen: At this time, the client does not indicate any symptoms associated with coronavirus-19. Ebola Screen: No symptoms or risks identified at this time. Initial Sepsis Screen: Does the patient meet any 2 criteria? No. Patient's initial sepsis screen is negative. Does the patient have a suspected source of infection? No. Patient's initial sepsis screen is negative. Risk Assessment: Do you want to hurt yourself or someone else? Patient reports no desire to harm self or others. Onset of symptoms was January 04, 2025. 03:09 Method Of Arrival: EMS: [facility] al5 03:09 Acuity: ROSEMARIE 2 al5 03:17 Care prior to arrival: Medication(s) given: ASA, 81 mg, x 4, 0.4 nitroglycerin. al5 Triage Assessment: 03:14 General: Appears in no apparent distress. uncomfortable, obese, well groomed, Behavior al5 is calm, cooperative. Pain: Complains of pain in chest. EENT: No signs and/or symptoms were reported regarding the EENT system. Neuro: Level of Consciousness is awake, alert, obeys commands, Oriented to person, place, time, situation. Cardiovascular: Capillary refill < 3 seconds Patient's skin is warm and dry. Rhythm is sinus rhythm. Respiratory: Airway is patent Respiratory effort is even, unlabored, Respiratory pattern is regular, symmetrical. GI: No signs and/or symptoms were reported involving the gastrointestinal system. : No signs and/or symptoms were reported regarding the genitourinary system. Derm: Skin is intact, Skin is pink, warm \T\ dry. normal. Musculoskeletal: No signs and/or symptoms reported regarding the musculoskeletal system. Historical: - Allergies: 03:11 articane hydrochloride; al5 03:11 Codeine; al5 03:11 Darvon; al5 03:11 e-mycin; al5 03:11 idoxuridine; al5 03:11 Iodine; al5 03:11 Macrobid; al5 03:11 TETRACYCLINES; al5 - Home Meds: 03:11 Aimovig Autoinjector 140 mg/mL subcutaneous Auto-Injector 140 mg every month [Active]; al5 alendronate 70 mg Oral tablet 1 tab every week [Active]; aspirin 81 mg Oral capsule 1 cap daily [Active]; atorvastatin 20 mg Oral tablet 1 tab daily [Active]; carvedilol 3.125 mg Oral tablet 1 tab 2 times per day [Active]; cetirizine 10 mg Oral tablet 1 tab daily [Active]; donepezil 10 mg Oral tablet 1 tab daily [Active]; hydrocodone-acetaminophen 5-325 mg Oral tablet 1 tab every 8 hours [Active]; metformin 500 mg Oral tablet 1 tab 2 times per day [Active]; mirtazapine 30 mg Oral tablet 1 tab daily [Active]; montelukast 10 mg Oral tablet 1 tab daily [Active]; oxybutynin chloride 15 mg Oral tablet 1 tab BID [Active]; pregabalin 25 mg Oral capsule 1 cap 2 times per day [Active]; ropinirole 0.5 mg Oral tablet 1 tab daily [Active]; SPIRIVA 2.5 MCG DAILY INHALE 2 PUFFS DAILY [Active]; Zofran Oral 4 mg as needed [Active]; - PMHx: 03:11 Anxiety; Atrial fibrillation; COPD; CVA; depressive disorder; diabetes mellitus; al5 Migraine; overactive bladder; radiating back pain; RLS; - Immunization history:: Adult Immunizations up to date. - Infectious Disease History:: Denies. - Social history:: Smoking status: Patient denies any tobacco usage or history of. Screenin:16 [facility] ED Fall Risk Assessment (Adult) History of falling in the last 3 months, al5 including since admission No falls in past 3 months (0 pts) Confusion or Disorientation No (0 pts) Intoxicated or Sedated No (0 pts) Impaired Gait Yes (1 pt) Mobility Assist Device Used Yes (1 pt) Altered Elimination Yes (1 pt) Score/Fall Risk Level 3 or more points = High Risk Oriented to surroundings, Maintained a safe environment, Hourly rounding (assess needs \T\ fall precautionary measures) done. Abuse screen: Denies threats or abuse. Denies injuries from another. Nutritional screening: No deficits noted. Tuberculosis screening: No symptoms or risk factors identified. Assessment: 03:15 Reassessment: see triage assessment. Pain: Pain does not radiate. Pain began states it al5 has been going on since yesterday. Vital Signs: 03:00 BP 125 / 74; Pulse 71; Resp 16; Pulse Ox 100% on 2 lpm NC; al5 03:09 BP 128 / 74; Pulse 60; Resp 16; Temp 97.8; Pulse Ox 98% on R/A; Weight 74 kg; al5 03:30 BP 129 / 82; Pulse 80; Resp 19; Pulse Ox 100% on 2 lpm NC; al5 04:00 BP 117 / 75; Pulse 70; Resp 16; Pulse Ox 100% on 2 lpm NC; al5 04:30 BP 129 / 77; Pulse 73; Resp 16; Pulse Ox 100% on 2 lpm NC; al5 05:00 BP 94 / 60; Pulse 78; Resp 18; Pulse Ox 99% on 2 lpm NC; al5 ED Course: 03:02 Patient arrived in ED. vk 03:03 Michael Preciado MD is Attending Physician. josue 03:09 Kaia Red, JERRI is Primary Nurse. al5 03:11 Triage completed. al5 03:15 Arm band placed on right wrist. Patient placed in the treatment room, on a stretcher, al5 in view of staff members, on network field engineer, on pulse oximetry. 03:16 Patient has correct armband on for positive identification. Bed in low position. Call al5 light in reach. Side rails up X2. Provided Education on: plan of care. Client placed on continuous cardiac and pulse oximetry monitoring. NIBP monitoring applied. pick up operator on. 03:16 No provider procedures requiring assistance completed. Patient maintains SpO2 al5 saturation greater than 95% on room air. 03:27 XRAY Chest (1 view) In Process Unspecified. EDMS 04:03 First set of blood cultures drawn by me. sa1 04:14 Prince Guerin MD is Hospitalizing Provider. josue 04:56 Patient admitted, IV remains in place. al5 12:03 Diet: DELIVERED LUNCH TRAY TO PT. sp 16:56 Diet: DELIVERED DINNER TRY TO PT.. sp Administered Medications: 03:46 Not Given (given ptaa): aspirinchewable tablet 81 mg PO once al5 03:46 Drug: Mpmtrhky-Soemkknrvf-Umezuovyy Topical Ointment 1 application Topical once Route: al5 Topical; Site: affected area; 04:57 Follow up: Response: No adverse reaction al5 04:17 Drug: morphine IVP or IV 2 mg IVP once over 4 mins Route: IVP; Infused Over: 4 mins; al5 Site: left upper arm; 04:57 Follow up: Response: No adverse reaction; Pain is decreased al5 04:17 Drug: Ondansetron IVP 4 mg IVP once; over 2 minutes Route: IVP; Site: left upper arm; al5 04:57 Follow up: Response: No adverse reaction al5 04:18 Drug: morphine IVP or IV 2 mg IVP once over 4 mins Route: IVP; Infused Over: 4 mins; al5 Site: left upper arm; 04:57 Follow up: Response: No adverse reaction; Pain is decreased al5 04:23 Drug: Furosemide IVP 20 mg IVP once; give over 2 minutes Route: IVP; Site: left upper al5 arm; 04:56 Follow up: Response: No adverse reaction al5 04:23 Drug: Enoxaparin Sub-Q 1 mg/kg Sub-Q once Route: Sub-Q; Site: left lower abdomen; al5 04:57 Follow up: Response: No adverse reaction al5 Medication: 03:16 VIS not applicable for this client. al5 Outcome: 04:15 Decision to Hospitalize by Provider. josue 04:56 Admitted to ER Hold. Please see [facility] for further documentation. al5 04:56 Condition: stable 04:56 Instructed on the need for admit, 18:29 Patient left the ED. hb Signatures: Dispatcher [employer] EDMS Michael Preciado MD MD cha Pinkerton, Shawna sp Baxter, Heather, RN RN hb Kruse, Vivian vk Langhorst, Amanda, RN RN al5 Sultan jacqui Skinner1 Corrections: (The following items were deleted from the chart) 04:18 04:17 morphine IVP or IV 2 mg IVP in left forearm over 4 mins al5 al5
[2025-01-04 04:25] LABS: ALT/SGPT 21 U/L (13-56); AST/SGOT 16 U/L (15-37); Albumin 2.8 g/dL (3.4-5.0); Albumin/Globulin Ratio 0.8 (1.1-1.8); Alkaline Phosphatase 90 U/L (45-117); Anion Gap 6.9 mEq/L (5.0-15.0); BUN Blood Urea Nitrogen 30 mg/dL (7-18); Bicarbonate 27 mEq/L (21-32); Bilirubin Total 0.3 mg/dL (0.2-1.0); Globulin 3.5 g/dL (2.3-3.5); Glomerular Filtration Rate 60 ml/min (=/>90); Glucose Level 153 mg/dL (74-106); Lipase 26 U/L (13-75); Magnesium 2.5 mg/dL (1.6-2.4); NT PRO-BNP 1307 pg/mL (<450); Potassium 4.9 mEq/L (3.5-5.1); Protein, Total 6.3 g/dL (6.4-8.2); Sodium Level 138 mEq/L (136-145); Troponin High Sensitivity 11.5 pg/mL (<58.9)
[2025-01-04 04:27] LABS: Bilirubin Direct < 0.2 mg/dL (0-0.2); Bilirubin Indirect, Calculated 0.1 mg/dL (0.2-0.8)
[2025-01-04] MEDS ORDERED: ACETAMINOPHEN 500 MG TAB PO PRN (04:50)
--- NOTE | 2025-01-04 05:01 | P.HP ---
Certification for Inpatient Patient admitted to: Inpatient With expected LOS: >2 Midnights Practitioner: I am a practitioner with admitting privileges, knowledge of patient current condition, hospital course, and medical plan of care. Services: Services provided to patient in accordance with Admission requirements found in Title 42 Section 412.3 of the Code of Federal Regulations Patient History Date of Service: 01/04/25 Reason for admission: decompensated chf, LLE cellulitis History of Present Illness: Patient is a 74 year old female with diastolic CHF, chronic r espiratory failure and pulmonary hypertension. She uses 2L at home. She presents with chest pain and shortness of breath. Associated symptoms include bilateral lower extremity edema, and tenderness. Patient also has redness, swelling and pain on her left leg. She was placed on 3L of O2 in the ER. CXR shows cardiomegaly but no acute process. Her BNP is > 1300. During my evaluation, patient appeared dyspneic. TTE from 6 months ago reveals she has grade 2 diastolic dysfunction, moderate tricuspid regurg and moderate pulmonary hypertension Allergies adhesive tape Allergy (Verified 12/25/24 23:19) Hives/Rash articaine Allergy (Verified 12/25/24 23:19) Hives erythromycin base [From E-Mycin] Allergy (Verified 12/25/24 23:19) Hives idoxuridine Allergy (Verified 12/25/24 23:19) Hives nitrofurantoin Allergy (Verified 12/25/24 23:19) Hives propoxyphene [From Darvon] Allergy (Verified 12/25/24 23:19) Hives Tetracyclines Allergy (Verified 12/25/24 23:19) Hives dye halfway blue, gren, red Allergy (Uncoded 12/25/24 23:19) Hives Home Medications: Apixaban [Eliquis *] 2.5 mg PO BID 09/25/24 Alendronate Sodium 70 mg PO Q7D 10/27/24 Aspirin [Aspirin EC] 81 mg PO DAILY 10/27/24 Atorvastatin Calcium 20 mg PO BEDTIME 10/27/24 Cetirizine HCl [All Day Allergy] 10 mg PO DAILY 10/27/24 Donepezil [Aricept*] 10 mg PO DAILY 10/27/24 Ferosul Tab 325 mg PO DAILY 10/27/24 Hydrocodone 5/APAP 325 [[place] 5/325*] 1 tab PO Q8HR PRN 10/28/24 Ubrogepant [Ubrelvy] 100 mg PO SEECOM PRN 10/28/24 Albuterol Neb [Proventil 0.083% Neb Soln] 2.5 mg NEB [id number] PRN amp 11/24/24 Ipratropium Neb [Atrovent*] 0.5 mg NEB [id number] PRN amp 11/24/24 Spironolactone [Aldactone*] 25 mg PO DAILY tab 11/24/24 carvediloL [Coreg*] 3.125 mg PO BID tab 11/24/24 Acetaminophen [Tylenol*] 650 mg PO Q4HP PRN 12/26/24 Albuterol Sulfate [Ventolin Hfa] 2 puff NEB PRN PRN 12/26/24 Metformin HCl [Glucophage*] 500 mg PO BID 12/26/24 Mirtazapine [Remeron] 30 mg PO DAILY 12/26/24 Montelukast [Singulair*] 10 mg PO DAILY 12/26/24 Nitroglycerin 0.4 mg PO SEECOM 12/26/24 Ondansetron [Zofran (Odt)*] 4 mg PO PRN PRN 12/26/24 Oxybutynin Chloride [Oxybutynin Chloride ER] 15 mg PO DAILY 12/26/24 Pregabalin [Lyrica*] 75 mg PO BID 12/26/24 Ropinirole HCl 0.5 mg PO DAILY 12/26/24 Furosemide [Lasix] 20 mg PO DAILY #30 tab 12/28/24 - Past Medical/Surgical History Diabetic: Yes -: DM -: CVA -: Depression -: COPD -: Atrial Fibrillation -: RLS -: Migraines -: Overactive Bladder -: dementia -: Pacemaker - Social History Alcohol use: Yes CD- Drugs: Yes Caffeine use: Yes Physical Examination - Physical Exam General: Moderate distress HEENT: Atraumatic, Normocephalic Cardiovascular: Normal pulses, Regular rate/rhythm, Normal S1 S2, Edema (bilateral lower extremity edema), Systolic murmur Neurological: Normal speech - Studies Laboratory Data (last 24 hrs) 01/04/25 01/04/25 01/04/25 03:15 03:15 03:15 WBC 4.10 L Hgb 10.1 L Hct 31.5 L Plt Count 242 PT 13.3 H INR 1.27 Sodium 138 Potassium 4.9 BUN 30 H Creatinine 0.98 Glucose 153 H Magnesium 2.5 H Total Bilirubin 0.3 AST 16 ALT 21 Alkaline Phosphatase 90 Lipase 26 Assessment and Plan - Problems (Diagnosis) (1) Acute on chronic diastolic heart failure Current Visit: No Status: Acute (2) Atrial fibrillation Current Visit: No Status: Acute (3) COPD (chronic obstructive pulmonary disease) Current Visit: No Status: Acute Qualifiers: (4) Chest pain Current Visit: No Status: Acute (5) DM2 (diabetes mellitus, type 2) Current Visit: No Status: Acute Qualifiers: (6) UTI (urinary tract infection) Current Visit: No Status: Acute (7) Dementia Current Visit: No Status: Chronic Qualifiers: - Plan Assessment Patient is a 74 year old female with diastolic CHF, Atrial fibrillation, COPD and chronic respiratory failure. She is here with chest pain and dyspnea. She has cardiomegaly on CXR. She has bilateral lower extremity edema and LLE redness and swelling Acute on chronic respiratory failure Acute on chronic diastolic dysfunction COPD LLE cellulitis UTI Atrial fibrillation Dementia PLAN: Admit inpatient with telemetry Pacemaker interrogation Start patient on scheduled IV lasix Monitor I/O No need to repeat TTE. She had a recent one in August of 2024 Start empiric abx for LLE cellulitis and UTI Follow up blood and urine cultures Cardiology consult PT/OT before discharge Reconcile rest of home medications upon reconciliation - Advance Directives Does patient have a Living Will: Yes Does patient have a Durable POA for Healthcare: No
[2025-01-04 05:11] LABS: Specific Gravity 1.012 (1.005-1.030); Sqamous Epithelial <5 /HPF (None Seen); Urine Bacteria <20 /HPF (<20); Urine Bilirubin NEGATIVE (Negative); Urine Blood Negative (Negative); Urine Clarity Clear (Clear); Urine Color Light-Yellow (Yellow); Urine Culture Reflex Order NOT NEEDED; Urine Glucose NEGATIVE (Negative); Urine Ketones NEGATIVE (Negative); Urine Microscopic Reflex YN ORDER UMIC; Urine Nitrite NEGATIVE (Negative); Urine Protein NEGATIVE (Negative); Urine RBC None Seen /HPF (None Seen); Urine Urobilinogen Normal (Normal); Urine WBC <5 /HPF (<5); Urine pH 6.5 (5.0-7.0)
[2025-01-04 05:37] VITALS: BMI 33.3
[2025-01-04] MEDS ORDERED: VANCOMYCIN 1.25 GM in NA CHLORIDE 0.9% 250 ML IVPB ONE (06:00)
[2025-01-04] MEDS ORDERED: FUROSEMIDE 40 MG/4 ML VIAL ONE (06:22)
[2025-01-04] MEDS ORDERED: CEFTRIAXONE 1000 MG/VIAL ONE (06:22)
[2025-01-04] MEDS ORDERED: NA CHLORIDE 0.9% 50 ML ONE (06:23)
[2025-01-04] MEDS: ONDANSETRON 4 MG/2 ML VIAL IV PRN (06:38)
[2025-01-04] MEDS: FUROSEMIDE 40 MG/4 ML VIAL IV SCH (06:38)
[2025-01-04] MEDS: CEFTRIAXONE 1,000 MG in NA CHLORIDE 0.9% 50 ML IVPB SCH (06:39)
[2025-01-04] MEDS: VANCOMYCIN 1.75 GM in NA CHLORIDE 0.9% 500 ML IVPB SCH (08:00)
[2025-01-04] MEDS: ENOXAPARIN 40 MG/0.4 ML SQ SCH (08:25)
[2025-01-04] MEDS ORDERED: ACETAMINOPHEN 500 MG TAB ONE (08:30)
[2025-01-04 08:34] LABS: Phosphorus 4.4 mg/dL (2.5-4.9)
[2025-01-04 08:36] LABS: Magnesium 2.3 mg/dL (1.6-2.4)
[2025-01-04] MEDS ORDERED: UBROGEPANT 100 MG PO PRN (11:13)
[2025-01-04] MEDS ORDERED: ALBUTEROL 2.5 MG/3 ML NEB SOL NEB PRN (11:13)
--- NOTE | 2025-01-04 11:20 | P.PN ---
Subjective Date of Service: 01/04/25 Chief Complaint: decompensated chf, LLE cellulitis Physical Examination - Vital Signs Temperature: 97.9 F Blood Pressure: 107/71 Pulse: 73 Respirations: 19 Pulse Ox (%): 100 - Studies Laboratory Data (last 24 hrs) 01/04/25 01/04/25 01/04/25 03:15 03:15 03:15 WBC 4.10 L Hgb 10.1 L Hct 31.5 L Plt Count 242 PT 13.3 H INR 1.27 Sodium 138 Potassium 4.9 BUN 30 H Creatinine 0.98 Glucose 153 H Magnesium 2.5 H Total Bilirubin 0.3 AST 16 ALT 21 Alkaline Phosphatase 90 Lipase 26 Assessment And Plan - Plan All this is 74 years old female patient with multiple comorbidities including chronic diastolic heart failure status post AICD/PPM, COPD, atrial fibrillation on DOAC, hypertension, CKD, type 2 diabetes who presented to emergency room for evaluation of a few days of shortness of breath, cough, left-sided chest pain and admitted on medical floor #1 acute on chronic heart failure with preserved ejection fraction Improved and stable Chest x-ray on admission mild pulmonary edema, proBNP elevated at 1632, follow- up 1400, troponin normal x 1, A follow-up chest x-ray on November 19, resolution of her pulmonary edema IV furosemide changed to torsemide 10 mg once a day along with spironolactone, I will continue current regimen Transthoracic echocardiogram in August 2024 result reviewed #2 acute exacerbation of COPD Gradually resolved Tested negative for COVID-19, influenza, RSV, will continue DuoNeb, antitussive and I do not believe patient benefit from systemic steroid. #3 history of atrial fibrillation status post permanent pacemaker, hypertension Blood pressure and heart rate are reasonably controlled, I will continue carvedilol at current dosage. Telemetry reviewed atrial and ventricular paced rhythm #4 ROS on CKD BUN/creatinine 36/1.1, no serious electrolyte imbalance. #5 type 2 diabetes Hemoglobin A1c 7.5, good glycemic control on diabetic diet and no hypoglycemic agent, will give her Farxiga at the time of discharge #6 major depression Started on fluoxetine, outpatient psychiatry after discharge
--- NOTE | 2025-01-04 11:21 | P.PN ---
Date of Service: 01/04/25 This is 74 years old female patient with multiple comorbidities including chronic diastolic heart failure status post AICD/PPM, COPD on 2 L nasal cannula, atrial fibrillation on apixaban, hypertension, CKD, type 2 diabetes chronic pain syndrome on opioid, frequent hospitalization who presented to emergency room for evaluation of a few days of shortness of breath, swelling of both lower extremity, painful redness of the left leg and being admitted #1 acute on chronic heart failure with preserved ejection fraction #2 history of atrial fibrillation status post permanent pacemaker on apixaban #3 type 2 diabetes #4 nonpurulent cellulitis of the left lower extremity A chest x-ray shows cardiomegaly but minimal pulmonary edema, BNP elevated 1300, mild pitting edema of the both lower extremity, diffuse redness of the left lower extremity from left ankle to left knee, I will downgrade antibiotics to ceftriaxone 1 g daily, continue IV furosemide, resume carvedilol, spironolactone, apixaban, [place] as needed, latest hemoglobin A1c 7.5, resume metformin and low-dose corrective insulin.
[2025-01-04] MEDS ORDERED: GLUCAGON 1 MG/VIAL IM PRN (11:28)
[2025-01-04] MEDS ORDERED: D10W 125 ML IV PRN (11:28)
[2025-01-04] MEDS: INSULIN REGULAR (HUMAN) 100 UNIT/ML SQ SCH (11:30)
[2025-01-04] MEDS ORDERED: HYDROCODONE/APAP 5/325 MG TAB ONE ×2 (12:17→13:39)
[2025-01-04] MEDS: HYDROCODONE/APAP 5/325 MG TAB PO PRN ×2 (13:30→23:47)
[2025-01-04] MEDS ORDERED: MORPHINE 2 MG/ML SYR ONE (13:50)
[2025-01-04] MEDS: MORPHINE 2 MG/ML SYR IV PRN (13:59)
[2025-01-04] MEDS: carvediloL 3.125 MG TAB PO SCH (19:10)
[2025-01-04] MEDS: METFORMIN HCL 500 MG TAB PO SCH (19:10)
[2025-01-04] MEDS: APIXABAN 2.5 MG TABLET PO SCH (19:10)
[2025-01-04] MEDS: PREGABALIN 75 MG CAP PO SCH (19:10)
[2025-01-04] MEDS: ATORVASTATIN 20 MG TAB PO SCH (19:13)
[2025-01-04] MEDS ORDERED: MELATONIN 5 MG TABLET PO PRN (20:46)
[2025-01-04] MEDS: MORPHINE 2 MG/ML SYR IV ONE (21:30)
[2025-01-05] MEDS: HYDROMORPHONE HCL 1 MG/ML INJ IV ONE (00:30)
[2025-01-05] MEDS ORDERED: HYDROCODONE/APAP 5/325 MG TAB PO SCH (01:00)
[2025-01-05 06:38] LABS: Absolute Eosinophils 0.2 K/uL (0-0.5); Absolute Lymphocytes (CBC) 0.6 K/uL (0.7-4.9); Absolute Monocytes 0.8 K/uL (0.1-1.3); Absolute Neutrophil 9.6 K/uL (1.8-8.0); Basophils % 0.4 % (0-1.3); Eosinophils % 1.4 % (0-4.4); Hematocrit 33.4 % (36.0-45.0); Hemoglobin 10.5 g/dL (12.0-15.0); Lymphocytes % 5.5 % (15.3-44.8); MCH 30.1 pg (27.0-35.0); MCHC 31.5 g/dL (32.0-36.0); MCV 95.5 fL (80-100); MPV 7.8 fL (7.6-11.3); Monocytes % 6.7 % (3.3-12.3); Platelets 239 thou/uL (152-406); Red Cell Distribution Width 18.3 % (12.1-15.2)
[2025-01-05 06:56] LABS: Anion Gap 9.5 mEq/L (5.0-15.0); Potassium 5.5 mEq/L (3.5-5.1); Troponin High Sensitivity 8.5 pg/mL (<58.9)
[2025-01-05] MEDS: IPRATROPIUM BROM 0.5MG/2.5ML NEB PRN (08:10)
[2025-01-05] MEDS: ALBUTEROL 2.5 MG/3 ML NEB SOL NEB PRN (08:10)
[2025-01-05] MEDS: ROPINIROLE HCL 1 MG TAB PO SCH (08:39)
[2025-01-05] MEDS: ASPIRIN EC 81 MG TAB PO SCH (08:39)
[2025-01-05] MEDS: SPIRONOLACTONE 25 MG TABLET PO SCH (08:39)
[2025-01-05] MEDS: OXYBUTYNIN ER 5 MG TAB PO SCH (08:39)
[2025-01-05] MEDS: DONEPEZIL HCL 5 MG TAB PO SCH (08:39)
[2025-01-05] MEDS: MIRTAZAPINE 30 MG PO SCH (08:41)
[2025-01-05 09:14] LABS: Blood Morphology Comment NOT SEEN (NOT SEEN); Platelet Estimate ADEQ; White Blood Cell Scan OK (OK)
--- NOTE | 2025-01-05 11:55 | P.CNS ---
Date of Consult: 01/05/25 Chief Complaint: decompensated chf, LLE cellulitis History of Present Illness: Patient with PMH of diastolic heart failure, pulmonary hypertension, atrial fibrillation, presented with worsening SOB and lower extremities swelling and also complain of redness in left lower extremity, denies chest pain, no palpitations, no syncope. Allergies adhesive tape Allergy (Verified 12/25/24 23:19) Hives/Rash articaine Allergy (Verified 12/25/24 23:19) Hives erythromycin base [From E-Mycin] Allergy (Verified 12/25/24 23:19) Hives idoxuridine Allergy (Verified 12/25/24 23:19) Hives nitrofurantoin Allergy (Verified 12/25/24 23:19) Hives propoxyphene [From Darvon] Allergy (Verified 12/25/24 23:19) Hives Tetracyclines Allergy (Verified 12/25/24 23:19) Hives dye prison blue, gren, red Allergy (Uncoded 12/25/24 23:19) Hives Home medications list reviewed: Yes Home Medications: Apixaban [Eliquis *] 2.5 mg PO BID 09/25/24 Alendronate Sodium 70 mg PO Q7D 10/27/24 Aspirin [Aspirin EC] 81 mg PO DAILY 10/27/24 Atorvastatin Calcium 20 mg PO BEDTIME 10/27/24 Cetirizine HCl [All Day Allergy] 10 mg PO DAILY 10/27/24 Donepezil [Aricept*] 10 mg PO DAILY 10/27/24 Ferosul Tab 325 mg PO DAILY 10/27/24 Hydrocodone 5/APAP 325 [[place] 5/325*] 1 tab PO Q8HR PRN 10/28/24 Ubrogepant [Ubrelvy] 100 mg PO SEECOM PRN 10/28/24 Albuterol Neb [Proventil 0.083% Neb Soln] 2.5 mg NEB [id number] PRN amp 11/24/24 Ipratropium Neb [Atrovent*] 0.5 mg NEB [id number] PRN amp 11/24/24 Spironolactone [Aldactone*] 25 mg PO DAILY tab 11/24/24 carvediloL [Coreg*] 3.125 mg PO BID tab 11/24/24 Acetaminophen [Tylenol*] 650 mg PO Q4HP PRN 12/26/24 Albuterol Sulfate [Ventolin Hfa] 2 puff NEB PRN PRN 12/26/24 Metformin HCl [Glucophage*] 500 mg PO BID 12/26/24 Mirtazapine [Remeron] 30 mg PO DAILY 12/26/24 Montelukast [Singulair*] 10 mg PO DAILY 12/26/24 Nitroglycerin 0.4 mg PO SEECOM 12/26/24 Ondansetron [Zofran (Odt)*] 4 mg PO PRN PRN 12/26/24 Oxybutynin Chloride [Oxybutynin Chloride ER] 15 mg PO DAILY 12/26/24 Pregabalin [Lyrica*] 75 mg PO BID 12/26/24 Ropinirole HCl 0.5 mg PO DAILY 12/26/24 Furosemide [Lasix] 20 mg PO DAILY #30 tab 12/28/24 - Past Medical/Surgical History Diabetic: Yes -: DM -: CVA -: Depression -: COPD -: Atrial Fibrillation -: RLS -: Migraines -: Overactive Bladder -: dementia -: Pacemaker - Social History Alcohol use: Yes CD- Drugs: Yes Caffeine use: Yes Place of Residence: [facility]ust[facility]ial Review of Systems 10-point ROS is otherwise unremarkable Physical Examination Temp Pulse Resp BP Pulse Ox 98.2 F 76 17 114/64 96 01/05/25 08:00 01/05/25 08:41 01/05/25 09:58 01/05/25 08:41 01/05/25 09:58 General: Alert, In no apparent distress HEENT: Atraumatic, PERRLA, Mucous membr. moist/pink, EOMI, Sclerae nonicteric Neck: Supple, 2+ carotid pulse no bruit, No LAD, Without JVD or thyroid abnormality Respiratory: Clear to auscultation bilaterally, Normal air movement Cardiovascular: Regular rate/rhythm, Normal S1 S2 Gastrointestinal: Normal bowel sounds, No tenderness Musculoskeletal: No tenderness Integumentary: No rashes Neurological: Normal gait, Normal speech, Normal tone, Normal affect Lymphatics: No axilla or inguinal lymphadenopathy - Problems (1) Acute on chronic diastolic heart failure Current Visit: No Status: Acute Plan: lower lasix to 20 mg IV BID Continue Coreg 3.125 mg po BID Hold aldactone due to high K level monitor input and output and electrolytes. (2) Atrial fibrillation Current Visit: No Status: Acute Plan: currently paced continue coreg 3.125 mg po BID Continue Eliquis 2.5 mg po BID
[2025-01-05] MEDS: ALBUMIN HUMAN 25% 200 ML IV ONE (12:15)
[2025-01-05] MEDS: METFORMIN HCL 500 MG TAB PO SCH (15:56)
[2025-01-05] MEDS: predniSONE 20 MG TAB PO SCH (17:40)
[2025-01-06 07:20] LABS: Absolute Lymphocytes (CBC) 0.8 K/uL (0.7-4.9); Absolute Monocytes 0.3 K/uL (0.1-1.3); Absolute Neutrophil 4.9 K/uL (1.8-8.0); Basophils % 0.3 % (0-1.3); Eosinophils % 0.6 % (0-4.4); Hematocrit 31.6 % (36.0-45.0); Hemoglobin 9.9 g/dL (12.0-15.0); Lymphocytes % 13.2 % (15.3-44.8); MCH 30.3 pg (27.0-35.0); MCHC 31.4 g/dL (32.0-36.0); MCV 96.7 fL (80-100); MPV 8.3 fL (7.6-11.3); Neutrophils % 80.9 % (41.7-73.7); Nucleated Red Blood Cells % 0.1 % (0-0); Platelets 205 thou/uL (152-406); RBC Red Blood Cell Count 3.27 M/uL (3.86-4.86); Red Cell Distribution Width 17.8 % (12.1-15.2)
[2025-01-06 07:28] LABS: Anion Gap 10.2 mEq/L (5.0-15.0); Magnesium 2.4 mg/dL (1.6-2.4); Potassium 5.2 mEq/L (3.5-5.1)
--- NOTE | 2025-01-06 15:53 | RAD REPORT ---
EXAMINATION: COMPLETE ABDOMINAL ULTRASOUND CLINICAL INDICATION: Female, 74 years, abdominal distention; ascites TECHNIQUE: Grayscale ultrasonography of the abdomen was performed. [id number]. COMPARISON: CT on 05/08/2025 FINDINGS: LIVER: Increased echogenicity with reduced sonographic penetration and without focal mass. GALLBLADDER: Surgically absent. BILE DUCTS: Intrahepatic and extrahepatic bile ducts appear normal. Measured near the alia hepatis , the common bile duct is 4 mm RIGHT KIDNEY: Right renal length measurement: 8.9 cm. Normal in echogenicity and size. No calculus, s olid mass or hydronephrosis. LEFT KIDNEY: Left renal length measurement: 8.3 cm. Normal in echogenicity and size. No calculus, so lid mass or hydronephrosis. SPLEEN: Normal in echogenicity, with length of 10.4 cm PANCREAS: Not well visualized. AORTA AND INFERIOR VENA CAVA: Visualized segments of the aorta and inferior vena cava are normal. ASCITES: None. ADDITIONAL FINDINGS: None. IMPRESSION: Hepatic steatosis. Cholecystomy. No biliary duct dilatation.
[2025-01-07] MEDS: ALBUTEROL 2.5 MG/3 ML NEB SOL NEB PRN (17:18)
[2025-01-08 06:33] LABS: Absolute Eosinophils 0.1 K/uL (0-0.5); Absolute Lymphocytes (CBC) 0.8 K/uL (0.7-4.9); Absolute Monocytes 0.4 K/uL (0.1-1.3); Absolute Neutrophil 4.1 K/uL (1.8-8.0); Basophils % 0.6 % (0-1.3); Hematocrit 31.5 % (36.0-45.0); Hemoglobin 10.1 g/dL (12.0-15.0); MCH 30.6 pg (27.0-35.0); MCV 95.6 fL (80-100); MPV 8.1 fL (7.6-11.3); Monocytes % 7.3 % (3.3-12.3); Neutrophils % 76.1 % (41.7-73.7); Platelets 224 thou/uL (152-406); Red Cell Distribution Width 18.1 % (12.1-15.2)
[2025-01-08 06:52] LABS: Albumin 2.9 g/dL (3.4-5.0); Albumin/Globulin Ratio 0.9 (1.1-1.8); Anion Gap 8.3 mEq/L (5.0-15.0); Bilirubin Total 0.2 mg/dL (0.2-1.0); Globulin 3.3 g/dL (2.3-3.5); Magnesium 2.7 mg/dL (1.6-2.4); Potassium 5.3 mEq/L (3.5-5.1); Protein, Total 6.2 g/dL (6.4-8.2); Troponin High Sensitivity 10.5 pg/mL (<58.9)
--- NOTE | 2025-01-08 11:43 | P.PN ---
Subjective Date of Service: 01/08/25 Chief Complaint: decompensated chf, LLE cellulitis Subjective: No new changes, No C/O voiced, Tolerating diet, Ambulating, Improving Review of Systems 10-point ROS is otherwise unremarkable Physical Examination - Vital Signs Temperature: 97.7 F Blood Pressure: 140/76 Pulse: 78 Respirations: 18 Pulse Ox (%): 99 - Physical Exam General: Alert, In no apparent distress HEENT: Atraumatic, PERRLA, EOMI Neck: Supple, JVD not distended Respiratory: Clear to auscultation bilaterally, Normal air movement Cardiovascular: Regular rate/rhythm, Normal S1 S2 Gastrointestinal: Normal bowel sounds, No tenderness Musculoskeletal: No tenderness Integumentary: No rashes Neurological: Normal speech, Normal tone, Normal affect Lymphatics: No axilla or inguinal lymphadenopathy - Studies Medications List Reviewed: Yes Assessment And Plan - Current Problems (Diagnosis) (1) Acute on chronic diastolic heart failure Current Visit: No Status: Acute Plan: lasix has been on hold due to ROS, kidney function improving, would recommend start lasix 20 mg po daily on discharge Continue Coreg 3.125 mg po BID Hold aldactone due to high K level monitor input and output and electrolytes. (2) Atrial fibrillation Current Visit: No Status: Acute Plan: currently paced continue coreg 3.125 mg po BID Continue Eliquis 2.5 mg po BID Cardiology will sign off, please call with any questions.
[2025-01-08] MEDS: ALBUTEROL 2.5 MG/3 ML NEB SOL ONE (19:50)
[2025-01-08] MEDS: IPRATROPIUM BROM 0.5MG/2.5ML ONE (19:50)
[2025-01-09] MEDS: NA CHLORIDE 0.9% 250 ML IV ONE (10:00)
[2025-01-09] MEDS: SODIUM ZIRCONIUM CYCLOSILICATE 10 GM/PKT PO ONE (10:00)
[2025-01-09] MEDS: FUROSEMIDE 20 MG/ 2ML VIAL IV ONE (10:00)
[2025-01-09] MEDS: SODIUM BICARB 50 MEQ/50ML VIAL IV ONE ×2 (10:00→12:21)
[2025-01-09 10:33] VITALS: O2SAT 97
[2025-01-09 11:36] LABS: Anion Gap 8.4 mEq/L (5.0-15.0); Potassium 5.4 mEq/L (3.5-5.1)
[2025-01-09] MEDS: D10W 250 ML IV SCH (12:21)
[2025-01-09] MEDS: INSULIN REGULAR (HUMAN) 100 UNIT/ML SQ ONE (12:21)
[2025-01-09] MEDS: NA CHLORIDE 0.9% 1,000 ML IV SCH (14:09)
[2025-01-09] MEDS ORDERED: GLUCAGON 1 MG/VIAL IM PRN (14:13)
[2025-01-09] MEDS ORDERED: D10W 125 ML IV PRN (14:13)
[2025-01-09] MEDS: INSULIN REGULAR (HUMAN) 100 UNIT/ML SQ SCH (14:27)
[2025-01-09 15:04] LABS: Anion Gap 10.4 mEq/L (5.0-15.0); Potassium 5.4 mEq/L (3.5-5.1)
[2025-01-09] MEDS ORDERED: SODIUM ZIRCONIUM CYCLOSILICATE 10 GM/PKT PO ONE (15:37)
[2025-01-09 16:08] VITALS: BP 130/70; TEMP 97
[2025-01-09] MEDS: HYDROCODONE/APAP 10/325 TAB PO ONE (17:03)
[2025-01-09] MEDS: INFLUENZA VACCINE (for 6+ mo) 0.5 ML DOSE IMVAC ONE (17:03)
[2025-01-09] MEDS: MIRTAZAPINE 15 MG TAB PO SCH (17:04)
[2025-01-09] MEDS: GLIMEPIRIDE 2 MG TABLET PO SCH (17:04)
[2025-01-09] MEDS: PNEUMOCOCCAL VACCINE 0.5 ML IMVAC ONE (17:08)
--- NOTE | 2025-01-12 12:20 | EKG ---
Test Date: 2025-01-07 Test Time: 17:39:19 Agricultural Produce Washer: SWAT MEASUREMENT RESULTS: Intervals: Rate: 78 WI: 132 QRSD: 132 QT: 426 QTc: 485 [place]: P: 46 WI: 132 QRS: 166 T: 36 INTERPRETIVE STATEMENTS: Normal sinus rhythm with sinus arrhythmia Right bundle branch block Anterolateral infarct, age undetermined Abnormal ECG Compared to ECG 01/04/2025 03:07:21 Right bundle-branch block now present Myocardial infarct finding now present Ventricular-paced complex(es) or rhythm no longer present Electronically Signed On 01-12-25 12:14:58 SAMPLING EXPERT by Rigoberto Vasquez
--- NOTE | 2025-01-12 12:39 | EKG ---
Test Date: 2025-01-04 Test Time: 03:07:21 Fabrication And Assembly Supervisor: MEASUREMENT RESULTS: Intervals: Rate: 84 GA: 136 QRSD: 130 QT: 438 QTc: 517 [place]: P: 75 GA: 136 QRS: 183 T: 48 INTERPRETIVE STATEMENTS: Electronic ventricular pacemaker Compared to ECG 12/25/2024 20:50:10 Atrial-sensed ventricular-paced complex(es) or rhythm no longer present Electronically Signed On 01-12-25 12:21:32 DOPE AND FABRIC WORKER by Rigoberto Vasquez
== END 2025-01-09 18:00 | DRG 602 ==
LOC: ER 02:59 → ERHOLD 04:50 → 4TH 17:18
PROVIDERS: ADMIT Internal Medicine; ATTEND Hospitalist
DX: L03.116 Cellulitis of left lower limb (principal); I50.33 Acute on chronic diastolic (congestive) heart failure; J96.20 Acute and chronic respiratory failure, unspecified whether with hypoxia or hypercapnia; N17.9 Acute kidney failure, unspecified; N39.0 Urinary tract infection, site not specified; I27.20 Pulmonary hypertension, unspecified; J44.9 Chronic obstructive pulmonary disease, unspecified; F03.90 Unspecified dementia, unspecified severity, without behavioral disturbance, psychotic disturbance, mood disturbance, and anxiety; E11.22 Type 2 diabetes mellitus with diabetic chronic kidney disease; N18.9 Chronic kidney disease, unspecified; I48.91 Unspecified atrial fibrillation; Z95.810 Presence of automatic (implantable) cardiac defibrillator; Z99.81 Dependence on supplemental oxygen
CPT/HCPCS: 36415; 71045; 76700; 80048; 80053; 80076; 81001; 82947; 83690; 83735; 83880; 84100; 84484; 85025; 85610; 87040; 90471; 90732; 93005; 94640; 96372; 96374; 96375; 97161; 97165; 97530; 99285; J0696; J1171; J1940; J2270; J2405; J7030; J7040; J7050; J7512; J7613; J7644; P9047

== ENCOUNTER 2025-01-22 12:59 | Inpatient (IN) | payer OTHER ==
--- OUTSIDE RECORDS SUMMARY | 2025-01-22 13:01 | XMS REPORT | Continuity of Care Document ---
Author Name Unknown Address [address] [facility] [address] [place] [address] [facility] Address [address] [facility] [place] [address] Care Team Providers Care Infection Prevention Specialist Name Role Phone STEVE ARMENTA Attending Clinician Unavailable Payers Payer Name Policy Type Policy Number Effective Date Expirati on Date Source [facility] [id number] 2024 00:00:00 Encounters Start Date/Time End Date/Time Encounter Type Admission Type Attending Clinicians Care Facility Care Department Encounter ID Source 2024-12-25 10:00:00 2024-12-25 10:00:00 Outpatient STEVE ARMENTA [id number] [place] Wolfe
[2025-01-22] MEDS ORDERED: FUROSEMIDE 40 MG/4 ML VIAL ONE (13:19)
[2025-01-22 14:08] LABS: Absolute Basophils 0.1 K/uL (0-0.5); Absolute Eosinophils 0.4 K/uL (0-0.5); Absolute Lymphocytes (CBC) 0.9 K/uL (0.7-4.9); Absolute Monocytes 0.4 K/uL (0.1-1.3); Absolute Neutrophil 5.3 K/uL (1.8-8.0); Basophils % 0.7 % (0-1.3); Eosinophils % 5.2 % (0-4.4); Hemoglobin 10.3 g/dL (12.0-15.0); Lymphocytes % 12.9 % (15.3-44.8); MCH 30.5 pg (27.0-35.0); MCHC 31.3 g/dL (32.0-36.0); MCV 97.5 fL (80-100); MPV 7.9 fL (7.6-11.3); Monocytes % 5.3 % (3.3-12.3); Neutrophils % 75.9 % (41.7-73.7); Nucleated Red Blood Cells % 0.1 % (0-0); Platelets 191 thou/uL (152-406); RBC Red Blood Cell Count 3.38 M/uL (3.86-4.86); Red Cell Distribution Width 19.5 % (12.1-15.2)
[2025-01-22 15:14] LABS: Potassium 4.3 mEq/L (3.5-5.1)
[2025-01-22 15:15] LABS: Albumin 2.9 g/dL (3.4-5.0); Albumin/Globulin Ratio 0.9 (1.1-1.8); Anion Gap 6.3 mEq/L (5.0-15.0); Bilirubin Direct 0.2 mg/dL (0-0.2); Bilirubin Indirect, Calculated 0.2 mg/dL (0.2-0.8); Bilirubin Total 0.4 mg/dL (0.2-1.0); Globulin 3.2 g/dL (2.3-3.5); Protein, Total 6.1 g/dL (6.4-8.2); Troponin High Sensitivity 10.6 pg/mL (<58.9)
--- NOTE | 2025-01-22 15:45 | RAD REPORT ---
EXAMINATION: ONE VIEW CHEST XR CLINICAL INDICATION: Female, 74 years old.,DYSPNEA TECHNIQUE: Frontal chest projection is submitted. Examination is limited by patient positioning and t echnique. COMPARISON: 01/04/2025 FINDINGS: The lungs are well inflated and clear. No pneumothorax or sizable effusion. Stable cardiomegaly. Med iastinal contours are unremarkable. Left chest wall pacer in place. IMPRESSION: No acute intrathoracic abnormalities.
[2025-01-22] MEDS ORDERED: HYDROCODONE/APAP 5/325 MG TAB ONE (15:53)
[2025-01-22 16:11] LABS: Specific Gravity 1.007 (1.005-1.030); Sqamous Epithelial <5 /HPF (None Seen); Urine Bacteria None Seen /HPF (<20); Urine Bilirubin NEGATIVE (Negative); Urine Blood Negative (Negative); Urine Clarity Turbid (Clear); Urine Color Colorless (Yellow); Urine Crystals Unidentified Few /HPF (None Seen); Urine Culture Reflex Order NOT NEEDED; Urine Glucose NEGATIVE (Negative); Urine Ketones NEGATIVE (Negative); Urine Micro Reflex YN NO BILL MICROSCOPIC; Urine Nitrite 1+ (Negative); Urine Protein NEGATIVE (Negative); Urine RBC <5 /HPF (None Seen); Urine Urobilinogen Normal (Normal); Urine WBC <5 /HPF (<5)
[2025-01-22] MEDS ORDERED: FENTANYL CITR 100 MCG/2 ML ONE (17:02)
--- NOTE | 2025-01-22 19:20 | EDPHYS ---
Physician Documentation [facility] Name: Caren Cuadra Age: 74 yrs Sex: Female : 1950 Arrival Date: 01/22/2025 Time: 12:59 Bed 14 Private MD: ED Physician Richard Gerardo HPI: 01/22 13:01 This 74 yrs old Female presents to ER via Unassigned with complaints of edema, dyspnea. rt 13:01 Patient presents to the ED from group home with worsening edema to the bilateral rt lower extremities with weeping has progressively worsened up to the abdomen. This been present for the past several weeks. States that since last time she was admitted, she has had about a 40 pound weight gain just pure water weight. States that her oral Lasix at home is not working as it did previously. Denies other acute complaints at this time, developed dyspnea since yesterday. Symptoms are moderate in severity, no other aggravating alleviating factors.. Historical: - Allergies: 13:06 articane hydrochloride; cm10 13:06 Codeine; cm10 13:06 Darvon; cm10 13:06 e-mycin; cm10 13:06 idoxuridine; cm10 13:06 Iodine; cm10 13:06 Macrobid; cm10 13:06 TETRACYCLINES; cm10 - PMHx: 13:06 Anxiety; Atrial fibrillation; COPD; CVA; depressive disorder; diabetes mellitus; cm10 Migraine; overactive bladder; radiating back pain; RLS; - Immunization history:: Adult Immunizations up to date. - Infectious Disease History:: Denies. - Family history:: not pertinent. - Social history:: Smoking status: Patient denies any tobacco usage or history of. ROS: 13:01 Constitutional: Negative for fever, chills, and weight loss, : Negative for injury, rt bleeding, discharge, and swelling, MS/Extremity: Negative for injury and deformity, Neuro: Negative for headache, weakness, numbness, tingling, and seizure, 13:01 Cardiovascular: Positive for edema, Negative for chest pain, 13:01 Respiratory: Positive for cough, shortness of breath, Exam: 13:01 Constitutional: This is a well developed, well nourished patient who is awake, alert, rt and in no acute distress. Chest/axilla: Normal chest wall appearance and motion. Nontender with no deformity. No lesions are appreciated. Cardiovascular: Regular rate and rhythm with a normal S1 and S2. No gallops, murmurs, or rubs. Normal PMI, no JVD. No pulse deficits. Neuro: Awake and alert, GCS 15, oriented to person, place, time, and situation. Cranial nerves II-XII grossly intact. Motor strength 5/5 in all extremities. Sensory grossly intact. Cerebellar exam normal. Normal gait. 13:01 Respiratory: Bibasilar crackles, no respiratory distress, 13:01 Abdomen/GI: Abdominal tenderness, edema to the abdominal wall, 13:01 Musculoskeletal/extremity: 4+ pitting bilateral lower extremity edema with chronic skin changes, mild weeping.. 14:45 ECG was reviewed by the Attending Physician. rt Vital Signs: 13:07 BP 129 / 93; Pulse 92; Resp 19; Temp 98.6(O); Pulse Ox 100% on 2 lpm NC; Weight 89.36 cm10 kg; Height 5 ft. 5 in. ; Pain 7/10; 13:15 BP 124 / 74; Pulse 90; Resp 19; Pulse Ox 100% ; cm10 14:00 BP 137 / 89; Pulse 82; Resp 15; Pulse Ox 100% ; cm10 14:30 BP 117 / 74; Pulse 91; Resp 19; Pulse Ox 95% ; cm10 14:45 BP 115 / 85; Pulse 86; Resp 17; Pulse Ox 100% ; cm10 19:45 BP 97 / 59; Pulse 90; Resp 18; Pulse Ox 100% on 2 lpm NC; cm10 21:15 BP 101 / 70; Pulse 87; Resp 15; Pulse Ox 98% on 2 lpm NC; cm10 21:55 BP 101 / 48; Pulse 88; Resp 15; Temp 97.9(O); Pulse Ox 99% on 2 lpm NC; cm10 13:07 Body Mass Index 32.78 (89.36 kg, 165.1 cm) cm10 13:07 Pain Scale: Adult cm10 MDM: 13:00 Medical Screening Exam initiated rt 20:46 Differential Diagnosis CHF, edema, renal failure. Data reviewed: vital signs, nurses rt notes, lab test result(s), EKG, radiologic studies. Consideration of Admission/Observation Patient was admitted/placed on observation. Management of patient was discussed with the following: Hospitalist: Agrees to admit. I considered the following discharge prescriptions or medication management in the emergency department Medications were administered in the Emergency Department. See MAR. Independent interpretation of the following test(s) in the Emergency Department X-Ray: My interpretation is No infiltrate seen on interpretation of x-ray images. Test considered but Not performed: Ultrasound Low suspicion for DVT, ultrasound is not indicated. Care significantly affected by the following chronic conditions: Congestive Heart Failure. Counseling: I had a detailed discussion with the patient and/or guardian regarding the historical points, exam findings, and any diagnostic results supporting the discharge/admit diagnosis, lab results, radiology results, the need for further work-up and treatment in the hospital. Response to treatment: the patient's symptoms have mildly improved after treatment. 01/22 13:00 Order name: Basic Metabolic Panel; Complete Time: 15:15 rt 01/22 13:00 Order name: CBC with Diff; Complete Time: 14:13 rt 01/22 13:00 Order name: LFT's; Complete Time: 15:15 rt 01/22 13:00 Order name: NT PRO-BNP; Complete Time: 15:15 rt 01/22 13:00 Order name: Troponin HS; Complete Time: 15:15 rt 01/22 15:40 Order name: UAM; Complete Time: 16:12 rt 01/22 20:50 Order name: Basic Metabolic Panel EDME 01/22 20:50 Order name: CBC with Automated Diff EDMS 01/22 20:50 Order name: Magnesium EDME 01/22 20:50 Order name: Lipid Profile EDME 01/22 20:50 Order name: Lipid Profile EDME 01/22 20:50 Order name: Troponin High Sensitivity EDME 01/22 13:00 Order name: XRAY Chest (1 view); Complete Time: 15:48 rt 01/22 20:50 Order name: Echo with Doppler EDMS 01/22 20:49 Order name: CONS Physician Consult EDME 01/22 13:00 Order name: Cardiac monitoring; Complete Time: 14:02 rt 01/22 13:00 Order name: EKG - Nurse/Tech; Complete Time: 14:02 rt 01/22 13:00 Order name: IV Saline Lock; Complete Time: 14:02 rt 01/22 13:00 Order name: Labs collected and sent; Complete Time: 14:02 rt 01/22 13:00 Order name: O2 Per Protocol; Complete Time: 13:13 rt 01/22 13:00 Order name: O2 Sat Monitoring; Complete Time: 13:13 rt 01/22 14:13 Order name: Labs - recollect needed: green; Complete Time: 14:48 bc6 EC:45 Rate is 86 beats/min. Rhythm is regular, Normal Sinus Rhythm with No ectopy. QRS Mas[place] rt is Normal. RI interval is normal. QRS interval is normal. QT interval is normal. No Q waves. T waves are Normal. No ST changes noted. Interpreted by me. Administered Medications: 14:02 Drug: Furosemide IVP 40 mg IVP once; give over 2 minutes Route: IVP; Site: right cm10 forearm; 14:58 Follow up: Response: No adverse reaction cm10 15:59 Drug: HYDROcodone-acetaminophen PO 5 mg-325 mg 1 tabs PO once Route: PO; cm10 17:02 Follow up: Response: No adverse reaction cm10 17:25 Drug: fentaNYL (PF) IVP 50 mcg IVP once Route: IVP; Site: right forearm; cm10 17:55 Follow up: Response: No adverse reaction cm10 Disposition Summary: 01/22/25 19:19 Hospitalization Ordered Notes: Hospitalization Status: Observation rt Provider: Agustín Manning rt Location: Telemetry/MedSurg (observation) rt Condition: Stable rt Problem: an acute exacerbation rt Symptoms: have improved rt Bed/Room Type: Standard rt Room Assignment: 414(01/22/25 21:03) vk Diagnosis - CHF exacerbation rt Forms: - Medication Reconciliation Form rt - SBAR form rt - Leadership Thank You Letter rt Signatures: Dispatcher [employer] EDMS Richard Gerardo MD MD rt Ninoska Ware bc6 Beth Lacy, RN RN cm10 Christine Acosta Corrections: (The following items were deleted from the chart) 13:01 13:01 BASIC METABOLIC PANEL+C.LAB.BRZ ordered. EDMS EDMS 13:01 13:01 CBC+H.LAB.BRZ ordered. EDMS EDMS 13:01 13:01 HEPATIC FUNCTION+C.LAB.BRZ ordered. EDMS EDMS 13:01 13:01 PROBNP+C.LAB.BRZ ordered. EDMS EDMS 13:01 13:01 Troponin High Sensitivity+C.LAB.BRZ ordered. EDMS EDMS 13:01 13:01 Chest Single View+RAD.RAD.BRZ ordered. EDMS EDMS 21:03 19:19 rt vk
--- NOTE | 2025-01-22 19:20 | ER ---
Nurse's Notes [facility] Name: Caren Cuadra Age: 74 yrs Sex: Female : 1950 Arrival Date: 01/22/2025 Time: 12:59 Bed 14 Private MD: Diagnosis: CHF exacerbation Presentation: 01/22 13:07 Chief complaint: EMS states: Called to [facility] due to patient having cm10 shortness of breath. Pt reports pain to her abdomen and legs. pt also reports increased weight gain. Coronavirus screen: Client denies travel out of the [place] in the last 14 days. Ebola Screen: Patient denies travel to an Ebola-affected area in the 21 days before illness onset. Initial Sepsis Screen: Does the patient meet any 2 criteria? HR > 90 bpm. Does the patient have a suspected source of infection? No. Patient's initial sepsis screen is negative. Risk Assessment: Do you want to hurt yourself or someone else? Patient reports no desire to harm self or others. Onset of symptoms was January 22, 2025. 13:07 Method Of Arrival: EMS: [facility] cm10 13:07 Acuity: ROSEMARIE 3 cm10 Triage Assessment: 13:15 General: Appears in no apparent distress. uncomfortable, Behavior is calm, cooperative. cm10 Pain: Complains of pain in abdomen, right leg and left leg. Neuro: No deficits noted. Level of Consciousness is awake, alert, obeys commands, Oriented to person, place, time, situation, Appropriate for age. Cardiovascular: Edema is 2+ to left midcalf, left ankle, right midcalf and right ankle. Respiratory: No deficits noted. Reports shortness of breath Airway is patent Respiratory effort is even, unlabored, Respiratory pattern is regular, symmetrical, Breath sounds are clear in right upper lobe and left upper lobe Breath sounds are diminished in left lower lobe and right lower lobe Onset: The symptoms/episode began/occurred gradually, the patient has mild shortness of breath. GI: Abdomen is round distended. Derm: Redness, swelling and drainage noted from bilateral lower legs. Historical: - Allergies: 13:06 articane hydrochloride; cm10 13:06 Codeine; cm10 13:06 Darvon; cm10 13:06 e-mycin; cm10 13:06 idoxuridine; cm10 13:06 Iodine; cm10 13:06 Macrobid; cm10 13:06 TETRACYCLINES; cm10 - PMHx: 13:06 Anxiety; Atrial fibrillation; COPD; CVA; depressive disorder; diabetes mellitus; cm10 Migraine; overactive bladder; radiating back pain; RLS; - Immunization history:: Adult Immunizations up to date. - Infectious Disease History:: Denies. - Family history:: not pertinent. - Social history:: Smoking status: Patient denies any tobacco usage or history of. Screenin:04 [facility] ED Fall Risk Assessment (Adult) History of falling in the last 3 months, cm10 including since admission No falls in past 3 months (0 pts) Confusion or Disorientation No (0 pts) Intoxicated or Sedated No (0 pts) Impaired Gait Yes (1 pt) Mobility Assist Device Used Yes (1 pt) Altered Elimination No (0 pt) Score/Fall Risk Level 0 - 2 = Low Risk Oriented to surroundings, Maintained a safe environment, Hourly rounding (assess needs \T\ fall precautionary measures) done. Abuse screen: Denies threats or abuse. Denies injuries from another. Nutritional screening: No deficits noted. Tuberculosis screening: No symptoms or risk factors identified. Assessment: 16:11 Reassessment: Patient appears in no apparent distress at this time. Patient and/or cm10 family updated on plan of care and expected duration. Pain level reassessed. Patient is alert, oriented x 3, equal unlabored respirations, skin warm/dry/pink. 16:26 General: PT provided with food at this time.. cm10 18:00 General: Pt provided with dinner.. cm10 19:46 Reassessment: Patient appears in no apparent distress at this time. Patient and/or cm10 family updated on plan of care and expected duration. Pain level reassessed. Patient is alert, oriented x 3, equal unlabored respirations, skin warm/dry/pink. Vital Signs: 13:07 BP 129 / 93; Pulse 92; Resp 19; Temp 98.6(O); Pulse Ox 100% on 2 lpm NC; Weight 89.36 cm10 kg; Height 5 ft. 5 in. ; Pain 7/10; 13:15 BP 124 / 74; Pulse 90; Resp 19; Pulse Ox 100% ; cm10 14:00 BP 137 / 89; Pulse 82; Resp 15; Pulse Ox 100% ; cm10 14:30 BP 117 / 74; Pulse 91; Resp 19; Pulse Ox 95% ; cm10 14:45 BP 115 / 85; Pulse 86; Resp 17; Pulse Ox 100% ; cm10 19:45 BP 97 / 59; Pulse 90; Resp 18; Pulse Ox 100% on 2 lpm NC; cm10 21:15 BP 101 / 70; Pulse 87; Resp 15; Pulse Ox 98% on 2 lpm NC; cm10 21:55 BP 101 / 48; Pulse 88; Resp 15; Temp 97.9(O); Pulse Ox 99% on 2 lpm NC; cm10 13:07 Body Mass Index 32.78 (89.36 kg, 165.1 cm) cm10 13:07 Pain Scale: Adult cm10 ED Course: 13:00 Patient arrived in ED. iw 13:00 Richard Gerardo MD is Attending Physician. rt 13:05 Beth Lacy, RN is Primary Nurse. cm10 13:10 Triage completed. cm10 13:10 Arm band placed on right wrist. Patient placed in an exam room, on a stretcher, on cm10 oxygen, on pulse oximetry. 14:02 Initial lab(s) drawn, by me, sent to lab. EKG done, by ED staff, reviewed by Richard Gerardo MD. Inserted saline lock: 22 gauge in right forearm, using aseptic technique. Blood collected. Flushed with 10 mL NS. Missed attempt(s): 20 gauge in left forearm. Bleeding controlled, band aid applied, catheter tip intact. 15:04 Patient has correct armband on for positive identification. Bed in low position. Call cm10 light in reach. Side rails up X2. Client placed on continuous cardiac and pulse oximetry monitoring. NIBP monitoring applied. 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 15:13 XRAY Chest (1 view) In Process Unspecified. EDMS 19:19 Agustín Manning MD is Hospitalizing Provider. rt 22:49 No provider procedures requiring assistance completed. Patient admitted, IV remains in jj7 place. Administered Medications: 14:02 Drug: Furosemide IVP 40 mg IVP once; give over 2 minutes Route: IVP; Site: right cm10 forearm; 14:58 Follow up: Response: No adverse reaction cm10 15:59 Drug: HYDROcodone-acetaminophen PO 5 mg-325 mg 1 tabs PO once Route: PO; cm10 17:02 Follow up: Response: No adverse reaction cm10 17:25 Drug: fentaNYL (PF) IVP 50 mcg IVP once Route: IVP; Site: right forearm; cm10 17:55 Follow up: Response: No adverse reaction cm10 Medication: 15:04 VIS not applicable for this client. cm10 Outcome: 19:19 Decision to Hospitalize by Provider. rt 22:49 Admitted to Med/surg accompanied by tech, via stretcher, room 414, Report called to jessi SBAR FAXED BY BETH GUTHRIE 22:49 Condition: stable 22:50 Patient left the ED. jessi Signatures: Dispatcher [employer] EDSteph Guzmán RN RN iw Johnson, Juwairiyah, RN RN jRichard Jimenez MD MD rt Martinez, Clarissa, RN RN 10
[2025-01-22] MEDS ORDERED: UBROGEPANT 100 MG PO PRN (20:48)
--- NOTE | 2025-01-22 20:56 | P.HP ---
Patient History Date of Service: 01/23/25 History of Present Illness: 74-year-old female with a history of heart failure with preserved ejection fraction, A-fib, history of CVA, COPD, type 2 diabetes, hyperlipidemia, hypertension who is presenting with anasarca secondary to acute heart failure exacerbation. She is from an assisted living facility where she uses 2 L nasal cannula at home. Associated symptoms include leg pain and burning sensation. She denies fevers and chills. She states she often sleeps in her recliner due to not being able to lie back flat. In addition she has been having episodes of low blood sugar. She denies any drug use. She had a bowel movement earlier today. Allergies adhesive tape Allergy (Verified 12/25/24 23:19) Hives/Rash articaine Allergy (Verified 12/25/24 23:19) Hives erythromycin base [From E-Mycin] Allergy (Verified 12/25/24 23:19) Hives idoxuridine Allergy (Verified 12/25/24 23:19) Hives nitrofurantoin Allergy (Verified 12/25/24 23:19) Hives propoxyphene [From Darvon] Allergy (Verified 12/25/24 23:19) Hives Tetracyclines Allergy (Verified 12/25/24 23:19) Hives dye [facility] blue, gren, red Allergy (Uncoded 12/25/24 23:19) Hives Home Medications: Apixaban [Eliquis *] 2.5 mg PO BID 09/25/24 Alendronate Sodium 70 mg PO Q7D 10/27/24 Aspirin [Aspirin EC] 81 mg PO DAILY 10/27/24 Atorvastatin Calcium 20 mg PO BEDTIME 10/27/24 Cetirizine HCl [All Day Allergy] 10 mg PO DAILY 10/27/24 Donepezil [Aricept*] 10 mg PO DAILY 10/27/24 Ferosul Tab 325 mg PO DAILY 10/27/24 Hydrocodone 5/APAP 325 [Napoleon 5/325*] 1 tab PO Q8HR PRN 10/28/24 Ubrogepant [Ubrelvy] 100 mg PO SEECOM PRN 10/28/24 carvediloL [Coreg*] 3.125 mg PO BID tab 11/24/24 Acetaminophen [Tylenol*] 650 mg PO Q4HP PRN 12/26/24 Albuterol Sulfate [Ventolin Hfa] 2 puff NEB PRN PRN 12/26/24 Mirtazapine [Remeron] 30 mg PO DAILY 12/26/24 Montelukast [Singulair*] 10 mg PO DAILY 12/26/24 Nitroglycerin 0.4 mg PO SEECOM 12/26/24 Ondansetron [Zofran (Odt)*] 4 mg PO PRN PRN 12/26/24 Oxybutynin Chloride [Oxybutynin Chloride ER] 15 mg PO DAILY 12/26/24 Pregabalin [Lyrica*] 75 mg PO BID 12/26/24 Ropinirole HCl 0.5 mg PO DAILY 12/26/24 Furosemide [Lasix*] 20 mg PO DAILY #30 tab 12/28/24 Glimepiride 1 mg PO BIDAC #60 tab 01/09/25 Insulin 70/30 NPH/Reg Human [Novolin 70/30*] 20 unit SQ BIDAC #2 vial 01/09/25 Fluticasone/Vilanterol [Breo Ellipta 100-25 Mcg INH] 1 each IH DAILY 01/23/25 Semaglutide [Ozempic] 0.5 mg SQ EVERY 7TH DAY 01/23/25 Tiotropium Lima [Spiriva] 2 spray IH DAILY 01/23/25 - Past Medical/Surgical History Diabetic: Yes -: DM -: CVA -: Depression -: COPD -: Atrial Fibrillation -: RLS -: Migraines -: Overactive Bladder -: dementia -: Pacemaker - Social History Alcohol use: Yes CD- Drugs: Yes Caffeine use: Yes Review of Systems General: Unremarkable Eyes: Unremarkable ENT: Unremarkable Respiratory: Shortness of Breath Cardiovascular: Edema Gastrointestinal: Unremarkable Genitourinary: Unremarkable Musculoskeletal: Leg Pain Integumentary: Other (Left leg wounds) Neurological: Unremarkable Physical Examination - Physical Exam General: Alert, In no apparent distress HEENT: Atraumatic, Normocephalic Neck: Supple Respiratory: Clear to auscultation bilaterally, Normal air movement Cardiovascular: Edema Capillary refill: <2 Seconds Gastrointestinal: Normal bowel sounds Musculoskeletal: Swelling Integumentary: Venous stasis ulcer Neurological: Normal speech Lymphatics: No axilla or inguinal lymphadenopathy - Studies Laboratory Data (last 24 hrs) 01/22/25 01/22/25 14:48 13:57 WBC 7.00 Hgb 10.3 L Hct 33.0 L Plt Count 191 Sodium 139 Potassium 4.3 BUN 27 H Creatinine 0.92 Glucose 100 Total Bilirubin 0.4 AST 22 ALT 33 Alkaline Phosphatase 76 Assessment and Plan - Plan Acute exacerbation of CHF Acute on chronic respiratory failure Severe pulmonary hypertension Severe tricuspid regurgitation Insulin-dependent diabetes with hyperglycemia COPD Dementia Atrial fibrillation Frailty Anemia Restless leg syndrome Presence of cardiac pacemaker Start diuresis with Lasix 80 twice daily, obtain echocardiogram, monitor creatinine Due to severe pulmonary hypertension she may be volume dependent, initiate CPAP Guideline directed medical therapy, Coreg, Will likely benefit from SGLT2 inhibitor Continue oxygen via nasal cannula, 2-3L NC Strict I's and O's, daily weights she is 40 pounds above her normal Cardiology consult Moderate sliding scale insulin Continue Eliquis Continue aspirin Albuterol/ipratropium restarted from home med Continue donepezil, continue Remeron Continue Napoleon as needed, Lyrica Continue ropinirole Continue alendronate DVT prophylaxis with Eliquis - Advance Directives Does patient have a Living Will: Yes Does patient have a Durable POA for Healthcare: No
[2025-01-22] MEDS ORDERED: carvediloL 3.125 MG TAB PO ONE (22:00)
[2025-01-22] MEDS: PREGABALIN 75 MG CAP PO SCH (23:27)
[2025-01-22] MEDS: carvediloL 6.25 MG TAB PO ONE (23:27)
[2025-01-22] MEDS: ZOLPIDEM TARTRATE 5 MG TABLET PO PRN (23:27)
[2025-01-22] MEDS: APIXABAN 2.5 MG TABLET PO ONE (23:27)
[2025-01-22] MEDS: ATORVASTATIN 20 MG TAB PO SCH (23:28)
[2025-01-22] MEDS: HYDROCODONE/APAP 5/325 MG TAB PO PRN (23:43)
[2025-01-23 02:11] VITALS: BMI 30.4
[2025-01-23] MEDS ORDERED: GLUCAGON 1 MG/VIAL IM PRN (03:11)
[2025-01-23] MEDS ORDERED: D10W 125 ML IV PRN (03:11)
[2025-01-23] MEDS: MORPHINE 2 MG/ML SYR IV ONE (03:21)
[2025-01-23] MEDS: MORPHINE 4 MG/ML SYR IV ONE (03:39)
[2025-01-23 06:22] LABS: Absolute Basophils 0.1 K/uL (0-0.5); Absolute Eosinophils 0.3 K/uL (0-0.5); Absolute Lymphocytes (CBC) 0.7 K/uL (0.7-4.9); Absolute Monocytes 0.4 K/uL (0.1-1.3); Absolute Neutrophil 4.2 K/uL (1.8-8.0); Basophils % 0.9 % (0-1.3); Eosinophils % 4.5 % (0-4.4); Hematocrit 32.8 % (36.0-45.0); Hemoglobin 10.3 g/dL (12.0-15.0); MCH 30.9 pg (27.0-35.0); MCHC 31.4 g/dL (32.0-36.0); MCV 98.3 fL (80-100); Monocytes % 6.3 % (3.3-12.3); Neutrophils % 75.3 % (41.7-73.7); Nucleated Red Blood Cells % 0.1 % (0-0); Platelets 198 thou/uL (152-406); RBC Red Blood Cell Count 3.33 M/uL (3.86-4.86); Red Cell Distribution Width 19.2 % (12.1-15.2)
[2025-01-23 06:27] LABS: Anion Gap 10.5 mEq/L (5.0-15.0); Potassium 4.5 mEq/L (3.5-5.1)
[2025-01-23] MEDS: carvediloL 3.125 MG TAB PO SCH (07:52)
[2025-01-23] MEDS: MONTELUKAST 10 MG TAB PO SCH (07:52)
[2025-01-23] MEDS: DONEPEZIL HCL 5 MG TAB PO SCH (07:52)
[2025-01-23] MEDS: ASPIRIN EC 81 MG TAB PO SCH (07:53)
[2025-01-23] MEDS: MIRTAZAPINE 15 MG TAB PO SCH (07:53)
[2025-01-23] MEDS: FUROSEMIDE 40 MG/4 ML VIAL IV SCH (07:53)
[2025-01-23] MEDS: APIXABAN 2.5 MG TABLET PO SCH (07:53)
[2025-01-23] MEDS: INSULIN REGULAR (HUMAN) 100 UNIT/ML SQ SCH (07:54)
[2025-01-23] MEDS ORDERED: TIOTROPIUM 5 SPRAYS/INHALER IH SCH (09:00)
[2025-01-23] MEDS ORDERED: PREGABALIN 75 MG CAP PO SCH (09:00)
[2025-01-23] MEDS ORDERED: HOME MED 1 EA UNK (Ropinirole Hcl [Ropinirole Hcl] 0.5 MG Tablet) PO SCH (09:00)
[2025-01-23] MEDS: TIOTROPIUM 5 SPRAYS/INHALER IH SCH (09:13)
[2025-01-23] MEDS: MORPHINE 4 MG/ML SYR IV PRN (11:47)
--- NOTE | 2025-01-23 17:04 | P.PN ---
Subjective Date of Service: 01/23/25 Patient is complaining of pain in both her legs. Her legs are edematous and oozing. She is maintained on 2 L oxygen via nasal cannula. Physical Examination - Vital Signs Temperature: 98.3 F Blood Pressure: 130/69 Pulse: 74 Respirations: 16 Pulse Ox (%): 98 Assessment And Plan - Plan Physical examination General: Alert and oriented x3, NAD, HEENT: Conjunctiva not pale, anicteric sclera Neck: Supple, no elevated JVD Heart: Heart sounds 1 and 2 normal, irregular rhythm, normal rate, bilateral lower extremity edema Lungs: Clear to auscultation bilaterally, adequate breath sounds bilaterally, no rhonchi or crackles. Abdomen: Soft, nondistended, nontender, normal bowel sounds. Extremities: No tenderness, no deformity Skin: Normal skin turgor, bilateral lower extremity venous stasis dermatitis. Neuro: No focal motor deficit. Normal speech. Psychiatry: Normal mood, no agitation. Diagnosis Acute on chronic diastolic heart failure Acute on chronic respiratory failure Severe pulmonary hypertension Severe tricuspid regurgitation Insulin-dependent diabetes with hypoglycemia COPD Dementia Atrial fibrillation Frailty Anemia Restless leg syndrome Presence of cardiac pacemaker Plan: Acute on chronic diastolic heart failure Acute on chronic respiratory failure Severe pulmonary hypertension Severe tricuspid regurgitation Anasarca Continue IV Lasix Echocardiogram is pending Monitor serum creatinine with diuresis Continue Coreg, empagliflozin. Monitor intake and output Lymphedema wrap for lower extremity edema. COPD Bronchodilator nebs and inhalers. Chronic atrial fibrillation Presence of pacemaker Currently rate controlled. Continue Coreg and Eliquis DM type II Patient had an episode of hypoglycemia this afternoon Blood sugar management with insulin sliding scale. Fingerstick glucose monitoring. Restless leg syndrome Dementia Continue home medications DVT prophylaxis with Eliquis
[2025-01-23] MEDS: ROPINIROLE HCL 0.25 MG TAB PO SCH (19:49)
[2025-01-24] MEDS: ALENDRONATE 70 MG TAB PO SCH (05:25)
[2025-01-24 06:43] LABS: Absolute Eosinophils 0.3 K/uL (0-0.5); Absolute Lymphocytes (CBC) 0.9 K/uL (0.7-4.9); Absolute Monocytes 0.4 K/uL (0.1-1.3); Absolute Neutrophil 4.3 K/uL (1.8-8.0); Basophils % 0.6 % (0-1.3); Eosinophils % 4.7 % (0-4.4); Hematocrit 32.4 % (36.0-45.0); Hemoglobin 10.2 g/dL (12.0-15.0); Lymphocytes % 15.5 % (15.3-44.8); MCHC 31.4 g/dL (32.0-36.0); MCV 98.6 fL (80-100); MPV 8.1 fL (7.6-11.3); Monocytes % 6.5 % (3.3-12.3); Neutrophils % 72.7 % (41.7-73.7); Platelets 192 thou/uL (152-406); RBC Red Blood Cell Count 3.29 M/uL (3.86-4.86); Red Cell Distribution Width 19.1 % (12.1-15.2)
[2025-01-24] MEDS: ONDANSETRON 4 MG/2 ML VIAL IV PRN (13:46)
--- NOTE | 2025-01-24 17:25 | P.PN ---
Subjective Date of Service: 01/24/25 Chief Complaint: Generalized body swelling Patient is complaining of pain in both her legs. No significant improvement in generalized body swelling. No issues overnight. Physical Examination - Vital Signs Temperature: 98.2 F Blood Pressure: 122/73 Pulse: 90 Respirations: 18 Pulse Ox (%): 100 Assessment And Plan - Plan Physical examination General: Alert and oriented x3, NAD, Neck: No elevated JVD Heart: Heart sounds 1 and 2 normal, irregular rhythm, normal rate, bilateral lower extremity edema Lungs: Clear to auscultation bilaterally, adequate breath sounds bilaterally, no rhonchi or crackles. Abdomen: Soft, nondistended, nontender, normal bowel sounds. Extremities: No tenderness, no deformity Skin: Normal skin turgor, bilateral lower extremity venous stasis dermatitis. Neuro: No focal motor deficit. Normal speech. Psychiatry: Normal mood, no agitation. Diagnosis Acute on chronic diastolic heart failure Acute on chronic respiratory failure Severe pulmonary hypertension Severe tricuspid regurgitation Insulin-dependent diabetes with hypoglycemia COPD Dementia Atrial fibrillation Frailty Anemia Restless leg syndrome Presence of cardiac pacemaker Plan: Acute on chronic diastolic heart failure Acute on chronic respiratory failure Severe pulmonary hypertension Severe tricuspid regurgitation Anasarca Continue IV Lasix Echocardiogram is pending Monitor serum creatinine with diuresis Continue Coreg, empagliflozin. Monitor intake and output Lymphedema wrap for lower extremity edema. COPD Bronchodilator nebs and inhalers. Chronic atrial fibrillation Presence of pacemaker Currently rate controlled. Continue Coreg and Eliquis DM type II Patient had an episode of hypoglycemia this afternoon Blood sugar management with insulin sliding scale. Fingerstick glucose monitoring. Restless leg syndrome Dementia Continue home medications 01/24 Patient has significant urine output with her current IV Lasix dose. Continue current dose of IV Lasix Follow echocardiogram Continue Coreg and empagliflozin Analgesics as needed. A-fib is rate controlled. Monitor renal function with diuresis DVT prophylaxis with Eliquis Advanced directive: Full code.
[2025-01-24] MEDS: IPRATROPIUM BROM 0.5MG/2.5ML NEB PRN (21:10)
[2025-01-24] MEDS: ALBUTEROL 2.5 MG/3 ML NEB SOL NEB PRN (21:10)
--- NOTE | 2025-01-25 17:37 | P.PN ---
Subjective Date of Service: 01/25/25 Chief Complaint: Generalized body swelling Patient anasarca is improving with diuresis. She has good urine output. She denies any complaint today She is tolerating diet. Physical Examination - Vital Signs Temperature: 99.2 F Blood Pressure: 114/61 Pulse: 80 Respirations: 18 Pulse Ox (%): 96 Assessment And Plan - Plan Physical examination General: Alert and oriented x3, NAD, Neck: No elevated JVD Heart: Heart sounds 1 and 2 normal, irregular rhythm, normal rate, bilateral lower extremity edema Lungs: Clear to auscultation bilaterally, adequate breath sounds bilaterally, no rhonchi or crackles. Abdomen: Soft, nondistended, nontender, normal bowel sounds. Extremities: No tenderness, no deformity Skin: Normal skin turgor, bilateral lower extremity venous stasis dermatitis. Neuro: No focal motor deficit. Normal speech. Psychiatry: Normal mood, no agitation. Diagnosis Acute on chronic diastolic heart failure Acute on chronic respiratory failure Severe pulmonary hypertension Severe tricuspid regurgitation Insulin-dependent diabetes with hypoglycemia COPD Dementia Atrial fibrillation Frailty Anemia Restless leg syndrome Presence of cardiac pacemaker Plan: Acute on chronic diastolic heart failure Acute on chronic respiratory failure Severe pulmonary hypertension Severe tricuspid regurgitation Anasarca Continue IV Lasix Echocardiogram is pending Monitor serum creatinine with diuresis Continue Coreg, empagliflozin. Monitor intake and output Lymphedema wrap for lower extremity edema. COPD Bronchodilator nebs and inhalers. Chronic atrial fibrillation Presence of pacemaker Currently rate controlled. Continue Coreg and Eliquis DM type II Patient had an episode of hypoglycemia this afternoon Blood sugar management with insulin sliding scale. Fingerstick glucose monitoring. Restless leg syndrome Dementia Continue home medications 01/24 Patient has significant urine output with her current IV Lasix dose. Continue current dose of IV Lasix Follow echocardiogram Continue Coreg and empagliflozin Analgesics as needed. A-fib is rate controlled. Monitor renal function with diuresis. 01/25 IV Lasix 80 mg twice daily Monitor renal function closely Echocardiogram result is pending Atrial fibrillation is rate controlled. Wean oxygen as tolerated. Continue Coreg and Eliquis for A-fib Increase activity as tolerated PT consult. DVT prophylaxis with Eliquis Advanced directive: Full code.
[2025-01-26 07:15] LABS: Absolute Basophils 0.1 K/uL (0-0.5); Absolute Eosinophils 0.2 K/uL (0-0.5); Absolute Monocytes 0.3 K/uL (0.1-1.3); Absolute Neutrophil 4.9 K/uL (1.8-8.0); Basophils % 1.8 % (0-1.3); Eosinophils % 3.5 % (0-4.4); Hematocrit 32.7 % (36.0-45.0); Hemoglobin 10.2 g/dL (12.0-15.0); Lymphocytes % 15.2 % (15.3-44.8); MCH 30.7 pg (27.0-35.0); MCHC 31.3 g/dL (32.0-36.0); MCV 98.2 fL (80-100); Monocytes % 5.1 % (3.3-12.3); Neutrophils % 74.4 % (41.7-73.7); Platelets 205 thou/uL (152-406); RBC Red Blood Cell Count 3.33 M/uL (3.86-4.86); Red Cell Distribution Width 18.5 % (12.1-15.2)
[2025-01-26 07:26] LABS: Magnesium 2.2 mg/dL (1.6-2.4); Phosphorus 4.3 mg/dL (2.5-4.9)
[2025-01-26 07:47] LABS: Anion Gap 8.2 mEq/L (5.0-15.0); Magnesium 2.3 mg/dL (1.6-2.4); Phosphorus 4.2 mg/dL (2.5-4.9); Potassium 4.2 mEq/L (3.5-5.1)
--- NOTE | 2025-01-26 13:59 | P.CNS ---
Date of Consult: 01/26/25 Chief Complaint: Generalized body swelling History of Present Illness: Patient with PMH of HTN, DD, AF presented with worsening SOB, LEMUS and BLE, denies chest pain, no palpitations, no other cardiac symptoms. Allergies adhesive tape Allergy (Verified 12/25/24 23:19) Hives/Rash articaine Allergy (Verified 12/25/24 23:19) Hives erythromycin base [From E-Mycin] Allergy (Verified 12/25/24 23:19) Hives idoxuridine Allergy (Verified 12/25/24 23:19) Hives nitrofurantoin Allergy (Verified 12/25/24 23:19) Hives propoxyphene [From Darvon] Allergy (Verified 12/25/24 23:19) Hives Tetracyclines Allergy (Verified 12/25/24 23:19) Hives dye skilled nursing blue, gren, red Allergy (Uncoded 12/25/24 23:19) Hives Home Medications: Apixaban [Eliquis *] 2.5 mg PO BID 09/25/24 Alendronate Sodium 70 mg PO Q7D 10/27/24 Aspirin [Aspirin EC] 81 mg PO DAILY 10/27/24 Atorvastatin Calcium 20 mg PO BEDTIME 10/27/24 Cetirizine HCl [All Day Allergy] 10 mg PO DAILY 10/27/24 Donepezil [Aricept*] 10 mg PO DAILY 10/27/24 Ferosul Tab 325 mg PO DAILY 10/27/24 Hydrocodone 5/APAP 325 [[place] 5/325*] 1 tab PO Q8HR PRN 10/28/24 Ubrogepant [Ubrelvy] 100 mg PO SEECOM PRN 10/28/24 carvediloL [Coreg*] 3.125 mg PO BID tab 11/24/24 Acetaminophen [Tylenol*] 650 mg PO Q4HP PRN 12/26/24 Albuterol Sulfate [Ventolin Hfa] 2 puff NEB PRN PRN 12/26/24 Mirtazapine [Remeron] 30 mg PO DAILY 12/26/24 Montelukast [Singulair*] 10 mg PO DAILY 12/26/24 Nitroglycerin 0.4 mg PO SEECOM 12/26/24 Ondansetron [Zofran (Odt)*] 4 mg PO PRN PRN 12/26/24 Oxybutynin Chloride [Oxybutynin Chloride ER] 15 mg PO DAILY 12/26/24 Pregabalin [Lyrica*] 75 mg PO BID 12/26/24 Ropinirole HCl 0.5 mg PO DAILY 12/26/24 Furosemide [Lasix*] 20 mg PO DAILY #30 tab 12/28/24 Glimepiride 1 mg PO BIDAC #60 tab 01/09/25 Insulin 70/30 NPH/Reg Human [Novolin 70/30*] 20 unit SQ BIDAC #2 vial 01/09/25 Fluticasone/Vilanterol [Breo Ellipta 100-25 Mcg INH] 1 each IH DAILY 01/23/25 Semaglutide [Ozempic] 0.5 mg SQ EVERY 7TH DAY 01/23/25 Tiotropium [place] [Spiriva] 2 spray IH DAILY 01/23/25 - Past Medical/Surgical History Diabetic: Yes -: DM -: CVA -: Depression -: COPD -: Atrial Fibrillation -: RLS -: Migraines -: Overactive Bladder -: dementia -: Pacemaker - Social History Alcohol use: Yes CD- Drugs: Yes Caffeine use: Yes Place [facility]idence: [facility] Review of Systems 10-point ROS is otherwise unremarkable Physical Examination Temp Pulse Resp BP Pulse Ox 100.2 F 94 H 19 132/64 95 01/26/25 08:00 01/26/25 08:00 01/26/25 08:00 01/26/25 08:00 01/26/25 08:00 General: Alert, In no apparent distress HEENT: Atraumatic, PERRLA, Mucous membr. moist/pink, EOMI, Sclerae nonicteric Neck: Supple, 2+ carotid pulse no bruit, No LAD, Without JVD or thyroid abnormality Respiratory: Clear to auscultation bilaterally, Normal air movement Cardiovascular: Regular rate/rhythm, Normal S1 S2 Gastrointestinal: Normal bowel sounds, No tenderness Musculoskeletal: No tenderness Integumentary: No rashes Neurological: Normal gait, Normal speech, Normal tone, Normal affect Lymphatics: No axilla or inguinal lymphadenopathy - Problems (1) Acute on chronic diastolic heart failure Current Visit: No Status: Acute Plan: continue lasix 80 mg IV BID Continue Coreg 3.125 mg po bid add aldactone 25 mg daily monitor input and output and electrolytes. (2) Atrial fibrillation Current Visit: No Status: Acute Plan: currently paced. continue coreg and eliquis.
--- NOTE | 2025-01-26 17:06 | P.PN ---
Subjective Date of Service: 01/26/25 Chief Complaint: Generalized body swelling Patient denies any complaint today She is tolerating diet. She is maintained on 2 L oxygen by nasal cannula. Physical Examination - Vital Signs Temperature: 98.1 F Blood Pressure: 138/80 Pulse: 109 Respirations: 19 Pulse Ox (%): 94 Assessment And Plan - Plan Physical examination General: Alert and oriented x3, NAD, Neck: No elevated JVD Heart: Heart sounds 1 and 2 normal, irregular rhythm, normal rate, bilateral lower extremity edema significantly improved. Lungs: Clear to auscultation bilaterally, adequate breath sounds bilaterally, no rhonchi or crackles. Abdomen: Soft, nondistended, nontender, normal bowel sounds. Extremities: No tenderness, no deformity Skin: Normal skin turgor, bilateral lower extremity venous stasis dermatitis with leg wraps, oozing has improved. Neuro: No focal motor deficit. Normal speech. Psychiatry: Normal mood, no agitation. Diagnosis Acute on chronic diastolic heart failure Acute on chronic respiratory failure Severe pulmonary hypertension Severe tricuspid regurgitation Insulin-dependent diabetes with hypoglycemia COPD Dementia Atrial fibrillation Frailty Anemia Restless leg syndrome Presence of cardiac pacemaker Plan: Acute on chronic diastolic heart failure Acute on chronic respiratory failure Severe pulmonary hypertension Severe tricuspid regurgitation Anasarca Continue IV Lasix Echocardiogram is pending Monitor serum creatinine with diuresis Continue Coreg, empagliflozin. Monitor intake and output Lymphedema wrap for lower extremity edema. COPD Bronchodilator nebs and inhalers. Chronic atrial fibrillation Presence of pacemaker Currently rate controlled. Continue Coreg and Eliquis DM type II Patient had an episode of hypoglycemia this afternoon Blood sugar management with insulin sliding scale. Fingerstick glucose monitoring. Restless leg syndrome Dementia Continue home medications 01/24 Patient has significant urine output with her current IV Lasix dose. Continue current dose of IV Lasix Follow echocardiogram Continue Coreg and empagliflozin Analgesics as needed. A-fib is rate controlled. Monitor renal function with diuresis. 01/25 IV Lasix 80 mg twice daily Monitor renal function closely Echocardiogram result is pending Atrial fibrillation is rate controlled. Wean oxygen as tolerated. Continue Coreg and Eliquis for A-fib Increase activity as tolerated PT consult. 01/26 Patient is diuresing well with the current Lasix dose Anasarca significantly improved. Atrial fibrillation is rate controlled Cardiology Dr. Vasquez's input appreciated. Continue current dose IV Lasix Monitor intake and output. Aldactone added per cardiology recommendation. Continue Coreg and Eliquis for A-fib Patient was out of bed to chair with therapy today. Continue therapy DVT prophylaxis with Eliquis Advanced directive: Full code.
[2025-01-26] MEDS: NITROGLYCERIN 0.4 MG/TAB SL PRN (21:00)
[2025-01-27 07:44] LABS: Anion Gap 7.9 mEq/L (5.0-15.0); Potassium 4.9 mEq/L (3.5-5.1)
--- NOTE | 2025-01-27 07:54 | P.PN ---
Date of Service: 01/27/25 Subjective: More somnolent this morning. Oriented x2. wakes up to voice commands, but easily falls back to sleep 100.2 temp yesterday morning, afebrile today. +nausea overnight received ambien for first time last night ROS: 10 point ROS as noted above, otherwise negative Physical Exam: GEN: somnolent, AOx2. Briefly wakes up to voice commands, but easily falls back to sleep CV: Regular rate and rhythm, anasarca Pulm: Nonlabored respirations on 2L NC, clear ABD: soft, nontender, nondistended Integumentary: Bilateral venous stasis dermatitis. Legs wrapped. erythema of LLE Neuro: Normal speech, normal affect Problem List: Acute on chronic hypoxic respiratory failure secondary to acute on chronic CHF exacerbation Severe pulmonary hypertension Severe tricuspid regurgitation Anasarca Azotemia IDDM2 with hypoglycemia Chronic COPD Chronic atrial fibrillation, s/p pacemaker Chronic Anemia Hyperlipidemia Hypertension Restless leg syndrome Dementia Hx of CVA Acute on chronic hypoxic respiratory failure secondary to acute on chronic CHF exacerbation Severe pulmonary hypertension Severe tricuspid regurgitation Anasarca on admission, presents with worsening shortness of breath, lower extremity pain/swelling. Recent echo 1 month ago (12/26): 67% EF, moderate-severe TR, severe pulm HTN, mild MR bi-atrial enlargement. CXR (01/22): no acute findings. Continue Coreg, empagliflozin. Monitor renal function with diuresis. Monitor I/Os Lymphedema wrap for lower extremity edema / venous stasis dermatitis. 01/27 - check ABG, f/u labs azotemia vs hypercarbia vs ambien - leading to somnolence this morning will lower lasix dosing for now and monitor, dc ambien nephrology consulted Azotemia continue to monitor BUN/Cr Nephrology consulted IV lasix decreased to 20 mg BID from 80 (01/27) continues with anasarca IDDM2 with hypoglycemia Patient had an episode of hypoglycemia 01/23 accu-cheks, SSI confirm home insulin regimen Chronic COPD continue home nebs and inhalers. Chronic atrial fibrillation, s/p pacemaker Continue Coreg, Eliquis Chronic Anemia Daily labs. Stable. Hyperlipidemia Hypertension Restless leg syndrome Dementia Hx of CVA Continue home meds as appropriate VTE: home eliquis Code: Full Dispo: likely SNF, ~2-3 days Time Spent Managing Pts Care (In Minutes): 55
[2025-01-27 08:09] LABS: Absolute Basophils 0.1 K/uL (0-0.5); Absolute Eosinophils 0.1 K/uL (0-0.5); Absolute Lymphocytes (CBC) 0.8 K/uL (0.7-4.9); Absolute Monocytes 0.6 K/uL (0.1-1.3); Absolute Neutrophil 4.4 K/uL (1.8-8.0); Basophils % 0.9 % (0-1.3); Eosinophils % 1.1 % (0-4.4); Hematocrit 33.9 % (36.0-45.0); Hemoglobin 10.6 g/dL (12.0-15.0); Lymphocytes % 13.4 % (15.3-44.8); MCH 30.8 pg (27.0-35.0); MCHC 31.3 g/dL (32.0-36.0); MCV 98.4 fL (80-100); MPV 7.5 fL (7.6-11.3); Monocytes % 10.1 % (3.3-12.3); Neutrophils % 74.5 % (41.7-73.7); Nucleated Red Blood Cells % 0.1 % (0-0); Platelets 232 thou/uL (152-406); RBC Red Blood Cell Count 3.45 M/uL (3.86-4.86); Red Cell Distribution Width 18.9 % (12.1-15.2)
[2025-01-27 10:04] LABS: Arterial Blood Carboxyhemoglob 1.2 % (0-1.5); Blood Gas Oxyhemoglobin 94.3 % (94-97); Blood O2 Saturation 97.3 % (92-98.5)
[2025-01-27 10:05] LABS: Blood Gas THB 10.5 g/dl (12-18)
[2025-01-27] MEDS: SPIRONOLACTONE 25 MG TABLET PO SCH (10:16)
--- NOTE | 2025-01-27 10:28 | P.PN ---
Subjective Date of Service: 01/27/25 Chief Complaint: Generalized body swelling Subjective: No new changes (Patient is sleeping, wakes up to command and denies chest pain but report leg pain) Review of Systems 10-point ROS is otherwise unremarkable Physical Examination - Vital Signs Temperature: 98.6 F Blood Pressure: 122/80 Pulse: 116 Respirations: 16 Pulse Ox (%): 95 - Physical Exam General: In no apparent distress HEENT: Atraumatic, PERRLA, EOMI Neck: Supple, JVD not distended Respiratory: Clear to auscultation bilaterally, Normal air movement Cardiovascular: Regular rate/rhythm, Normal S1 S2 Gastrointestinal: Normal bowel sounds, No tenderness Musculoskeletal: No tenderness Integumentary: No rashes Neurological: Normal speech, Normal tone, Normal affect Lymphatics: No axilla or inguinal lymphadenopathy - Studies Medications List Reviewed: Yes Assessment And Plan - Current Problems (Diagnosis) (1) Acute on chronic diastolic heart failure Current Visit: No Status: Acute Plan: continue lasix 80 mg IV BID Continue Coreg 3.125 mg po bid continue aldactone 25 mg daily monitor input and output and electrolytes. (2) Atrial fibrillation Current Visit: No Status: Acute Plan: currently paced. continue coreg and eliquis.
--- NOTE | 2025-01-27 11:22 | EKG ---
Test Date: 2025-01-22 Test Time: 13:41:38 Sound Effects Manager: [place] MEASUREMENT RESULTS: Intervals: Rate: 86 MD: 136 QRSD: 124 QT: 432 QTc: 516 [place]: P: 83 MD: 136 QRS: 169 T: 29 INTERPRETIVE STATEMENTS: Normal sinus rhythm Normal ECG Compared to ECG 01/07/2025 17:39:19 Sinus arrhythmia no longer present Right bundle-branch block no longer present Myocardial infarct finding no longer present Electronically Signed On 01-27-25 11:06:21 CDT by Rigoberto Vasquez
--- NOTE | 2025-01-27 11:42 | P.CNS ---
Date of Consult: 01/27/25 Reason for Consult: Azotemia, vol overload, diuretic management Requesting Physician: Clyde Salazar Chief Complaint: Generalized body swelling History of Present Illness: Pls note history obtained largely through chart review as pt is lethargic and a poor historian. Pt has a chronic history of diastolic CHF, pulm HNT, unspecified A-fib, reported history of CVA, COPD, hypertension who came in with worsened peripheral edema 2nd to to acute heart failure exacerbation and other. She is on home O2. Pt has had some orthopnea. Pt's LE are wrapped. Pt has been on aggressive diuresis since admission. Azotemia has worsened in this context and Cr level at ULN. Allergies adhesive tape Allergy (Verified 12/25/24 23:19) Hives/Rash articaine Allergy (Verified 12/25/24 23:19) Hives erythromycin base [From E-Mycin] Allergy (Verified 12/25/24 23:19) Hives idoxuridine Allergy (Verified 12/25/24 23:19) Hives nitrofurantoin Allergy (Verified 12/25/24 23:19) Hives propoxyphene [From Darvon] Allergy (Verified 12/25/24 23:19) Hives Tetracyclines Allergy (Verified 12/25/24 23:19) Hives dye [facility] blue, gren, red Allergy (Uncoded 12/25/24 23:19) Hives Home Medications: Apixaban [Eliquis *] 2.5 mg PO BID 09/25/24 Alendronate Sodium 70 mg PO Q7D 10/27/24 Aspirin [Aspirin EC] 81 mg PO DAILY 10/27/24 Atorvastatin Calcium 20 mg PO BEDTIME 10/27/24 Cetirizine HCl [All Day Allergy] 10 mg PO DAILY 10/27/24 Donepezil [Aricept*] 10 mg PO DAILY 10/27/24 Ferosul Tab 325 mg PO DAILY 10/27/24 Hydrocodone 5/APAP 325 [[place] 5/325*] 1 tab PO Q8HR PRN 10/28/24 Ubrogepant [Ubrelvy] 100 mg PO SEECOM PRN 10/28/24 carvediloL [Coreg*] 3.125 mg PO BID tab 11/24/24 Acetaminophen [Tylenol*] 650 mg PO Q4HP PRN 12/26/24 Albuterol Sulfate [Ventolin Hfa] 2 puff NEB PRN PRN 12/26/24 Mirtazapine [Remeron] 30 mg PO DAILY 12/26/24 Montelukast [Singulair*] 10 mg PO DAILY 12/26/24 Nitroglycerin 0.4 mg PO SEECOM 12/26/24 Ondansetron [Zofran (Odt)*] 4 mg PO PRN PRN 12/26/24 Oxybutynin Chloride [Oxybutynin Chloride ER] 15 mg PO DAILY 12/26/24 Pregabalin [Lyrica*] 75 mg PO BID 12/26/24 Ropinirole HCl 0.5 mg PO DAILY 12/26/24 Furosemide [Lasix*] 20 mg PO DAILY #30 tab 12/28/24 Glimepiride 1 mg PO BIDAC #60 tab 01/09/25 Insulin 70/30 NPH/Reg Human [Novolin 70/30*] 20 unit SQ BIDAC #2 vial 01/09/25 Fluticasone/Vilanterol [Breo Ellipta 100-25 Mcg INH] 1 each IH DAILY 01/23/25 Semaglutide [Ozempic] 0.5 mg SQ EVERY 7TH DAY 01/23/25 Tiotropium [place] [Spiriva] 2 spray IH DAILY 01/23/25 - Past Medical/Surgical History Diabetic: Yes -: DM -: CVA -: Depression -: COPD -: Atrial Fibrillation -: RLS -: Migraines -: Overactive Bladder -: dementia -: Pacemaker - Social History Alcohol use: Yes CD- Drugs: Yes Caffeine use: Yes Place of Residence: [facility] Review of Systems is unable to be obtained (Pt lethargic) Physical Examination Temp Pulse Resp BP Pulse Ox 98.6 F 116 H 16 122/80 95 01/27/25 10:28 01/27/25 10:28 01/27/25 10:28 01/27/25 10:28 01/27/25 10:28 General: In no apparent distress HEENT: Atraumatic, Normocephalic, Other (LFNC) Respiratory: Normal air movement, Other (Non tachypnec, scattered rales) Cardiovascular: Other (Non tachy, cardiac murmur present) Gastrointestinal: Soft and benign, No tenderness, Other (obese, purewick present) Musculoskeletal: Other (swelling of left forearm and b/l LE) Integumentary: Other (LE wrapped, erythema, excoriations) Neurological: Other (Lethargic but awakens briefly before sleeping, responds briefly) Conclusions/Impression: 1. Hx of Stage 1 ROS episode last mo. Cr level at ULN, mod azotemia with diuretic escalation on admission. No other obv signs of volume contraction on labs, stable mild alkalosis. Trend for now 2. UA on admission not too remarkable 3. Acute on chronic diastolic CHF, pulm HTN 2nd to left sided heart disease, bi- atrial enlargement reported on prior TTE. Cardiomegaly, LVH also reported. Cont diuresis but lower lasix dose. Cont MRA as ordered. Ok to use SGLT2i agents. 4. Peripheral edema, multifactorial -agents such as Lyrica may be contributory, albumin mod reduced Placido Hernández MD, [facility]
[2025-01-27] MEDS: CEFAZOLIN 1 GM in NA CHLORIDE 0.9% 50 ML IVPB SCH (17:08)
[2025-01-27] MEDS: FUROSEMIDE 20 MG/ 2ML VIAL IV SCH (17:09)
[2025-01-28 05:49] LABS: Hemoglobin 10.3 g/dL (12.0-15.0); MCH 30.7 pg (27.0-35.0); MCHC 31.2 g/dL (32.0-36.0); MCV 98.6 fL (80-100); MPV 7.7 fL (7.6-11.3); Platelets 219 thou/uL (152-406); RBC Red Blood Cell Count 3.34 M/uL (3.86-4.86); Red Cell Distribution Width 17.7 % (12.1-15.2)
[2025-01-28 06:10] LABS: Albumin 2.3 g/dL (3.4-5.0); Albumin/Globulin Ratio 0.7 (1.1-1.8); Bilirubin Total 0.3 mg/dL (0.2-1.0); Globulin 3.1 g/dL (2.3-3.5); Magnesium 2.4 mg/dL (1.6-2.4); Protein, Total 5.4 g/dL (6.4-8.2)
--- NOTE | 2025-01-28 10:22 | P.PN ---
Date of Service: 01/28/25 Subjective: More awake/alert this morning feeling back to her normal self lower extremity edema improved compared to admission, but still moderate afebrile last 48 hours ROS: 10 point ROS as noted above, otherwise negative Physical Exam: GEN: More awake/alert. Oriented, NAD CV: Regular rate and rhythm, anasarca Pulm: Nonlabored respirations on 3L NC, clear ABD: soft, nontender, nondistended Integumentary: Bilateral venous stasis dermatitis. Legs wrapped. erythema of LLE Neuro: Normal speech, normal affect Problem List: Acute on chronic hypoxic respiratory failure secondary to acute on chronic CHF exacerbation Severe pulmonary hypertension Severe tricuspid regurgitation Anasarca Azotemia IDDM2 with hypoglycemia Chronic COPD Chronic atrial fibrillation, s/p pacemaker Chronic Anemia Hyperlipidemia Hypertension Restless leg syndrome Dementia Hx of CVA Acute on chronic hypoxic respiratory failure secondary to acute on chronic CHF exacerbation Severe pulmonary hypertension Severe tricuspid regurgitation Anasarca on admission, presents with worsening shortness of breath, lower extremity pain/swelling. Recent echo 1 month ago (12/26): 67% EF, moderate-severe TR, severe pulm HTN, mild MR bi-atrial enlargement. CXR (01/22): no acute findings. Continue Coreg, empagliflozin. Monitor renal function with diuresis. Monitor I/Os Lymphedema wrap for lower extremity edema / venous stasis dermatitis. 01/27 - azotemia vs hypercarbia vs ambien - leading to somnolence this morning IV lasix decreased to 20 mg BID, ambien dc'd 01/27 01/28 - More awake/alert this morning. Feeling back close to her normal self continues with edema/anasarca Azotemia continue to monitor BUN/Cr Nephrology consulted IV lasix decreased to 20 mg BID from 80 (01/27) continues with anasarca IDDM2 with hypoglycemia Patient had an episode of hypoglycemia 01/23 accu-cheks, SSI confirm home insulin regimen Chronic COPD continue home nebs and inhalers. Chronic atrial fibrillation, s/p pacemaker Continue Coreg, Eliquis Chronic Anemia Daily labs. Stable. Hyperlipidemia Hypertension Restless leg syndrome Dementia Hx of CVA Continue home meds as appropriate VTE: home eliquis Code: Full Dispo: likely SNF, ~2-3 days Time Spent Managing Pts Care (In Minutes): 55
--- NOTE | 2025-01-28 11:59 | P.PN ---
Nephrology note (S) Pt less lethargic this AM, denies acute dyspnea, sore in the legs, left forearm remains swollen, discussed diuretic regimen and labs (O) Vitals reviewed in the EMR General: In no apparent distress HEENT: Atraumatic, Normocephalic, Other (LFNC) Respiratory: Normal air movement, Other (Non tachypnec, scattered rales) Cardiovascular: Other (Non tachy, cardiac murmur present) Gastrointestinal: Soft and benign, No tenderness, Other (obese, purewick present) Musculoskeletal: Other (swelling of left forearm and b/l LE) Integumentary: Other (LE wrapped, erythema, excoriations, mildly tender on exam) Neurological: Other (Less lethargic more conversive, no tremors noted, spont movement of UE) Conclusions/Impression: 1. Hx of Stage 1 ROS episode last mo. Cr level at ULN, mod azotemia with diuretic escalation on admission. No other obv signs of volume contraction on labs, stable mild alkalosis. Trend for now 2. UA on admission not too remarkable 3. Acute on chronic diastolic CHF, pulm HTN 2nd to left sided heart disease, bi- atrial enlargement reported on prior TTE. Cardiomegaly, LVH also reported. Cont diuresis but lowered lasix dose. Cont MRA as ordered. Ok to use SGLT2i agents. 4. Peripheral edema, multifactorial -agents such as Lyrica may be contributory, albumin mod reduced 5. Metab alkalosis, compensatory. Hypercarbia, resp acidosis, possibly 2nd to COPD/obesity hypoventilation, could be contributory to lethargy at times. Will place on low dose Diamox for now. Placido Hernández MD, [facility]
[2025-01-28] MEDS: acetaZOLAMIDE 250 MG TAB PO SCH (12:17)
--- NOTE | 2025-01-28 12:18 | P.CNS ---
Date of Consult: 01/28/25 Reason for Consult: Pulmonary hypertension Chief Complaint: Generalized body swelling History of Present Illness: Patient is 74 years of age admitted from the [facility] complaining of chest discomfort generalized anasarca abdominal distention lower extremity edema she has a history of severe pulmonary hypertension and diastolic heart failure Allergies adhesive tape Allergy (Verified 12/25/24 23:19) Hives/Rash articaine Allergy (Verified 12/25/24 23:19) Hives erythromycin base [From E-Mycin] Allergy (Verified 12/25/24 23:19) Hives idoxuridine Allergy (Verified 12/25/24 23:19) Hives nitrofurantoin Allergy (Verified 12/25/24 23:19) Hives propoxyphene [From Darvon] Allergy (Verified 12/25/24 23:19) Hives Tetracyclines Allergy (Verified 12/25/24 23:19) Hives dye [facility] blue, gren, red Allergy (Uncoded 12/25/24 23:19) Hives Home Medications: Apixaban [Eliquis *] 2.5 mg PO BID 09/25/24 Alendronate Sodium 70 mg PO Q7D 10/27/24 Aspirin [Aspirin EC] 81 mg PO DAILY 10/27/24 Atorvastatin Calcium 20 mg PO BEDTIME 10/27/24 Cetirizine HCl [All Day Allergy] 10 mg PO DAILY 10/27/24 Donepezil [Aricept*] 10 mg PO DAILY 10/27/24 Ferosul Tab 325 mg PO DAILY 10/27/24 Hydrocodone 5/APAP 325 [[place] 5/325*] 1 tab PO Q8HR PRN 10/28/24 Ubrogepant [Ubrelvy] 100 mg PO SEECOM PRN 10/28/24 carvediloL [Coreg*] 3.125 mg PO BID tab 11/24/24 Acetaminophen [Tylenol*] 650 mg PO Q4HP PRN 12/26/24 Albuterol Sulfate [Ventolin Hfa] 2 puff NEB PRN PRN 12/26/24 Mirtazapine [Remeron] 30 mg PO DAILY 12/26/24 Montelukast [Singulair*] 10 mg PO DAILY 12/26/24 Nitroglycerin 0.4 mg PO SEECOM 12/26/24 Ondansetron [Zofran (Odt)*] 4 mg PO PRN PRN 12/26/24 Oxybutynin Chloride [Oxybutynin Chloride ER] 15 mg PO DAILY 12/26/24 Pregabalin [Lyrica*] 75 mg PO BID 12/26/24 Ropinirole HCl 0.5 mg PO DAILY 12/26/24 Furosemide [Lasix*] 20 mg PO DAILY #30 tab 12/28/24 Glimepiride 1 mg PO BIDAC #60 tab 01/09/25 Insulin 70/30 NPH/Reg Human [Novolin 70/30*] 20 unit SQ BIDAC #2 vial 01/09/25 Fluticasone/Vilanterol [Breo Ellipta 100-25 Mcg INH] 1 each IH DAILY 01/23/25 Semaglutide [Ozempic] 0.5 mg SQ EVERY 7TH DAY 01/23/25 Tiotropium Rowdy [Spiriva] 2 spray IH DAILY 01/23/25 - Past Medical/Surgical History Diabetic: Yes -: DM -: CVA -: Depression -: COPD -: Atrial Fibrillation -: RLS -: Migraines -: Overactive Bladder -: dementia -: Severe pulmonary hypertension -: Pacemaker - Social History Alcohol use: Yes CD- Drugs: Yes Caffeine use: Yes Place of Residence: Assisted Review of Systems General: Weakness Respiratory: Shortness of Breath Cardiovascular: Edema Physical Examination Temp Pulse Resp BP Pulse Ox 98.1 F 93 H 16 111/68 98 01/28/25 12:00 01/28/25 12:00 01/28/25 12:00 01/28/25 12:00 01/28/25 12:00 General: Alert, Oriented x3 Neck: Supple Respiratory: Clear to auscultation bilaterally Cardiovascular: Regular rate/rhythm, Normal S1 S2, Edema (3+ edema) Gastrointestinal: Normal bowel sounds, Soft and benign Musculoskeletal: No clubbing Integumentary: No rashes - Problems (1) Pulmonary hypertension Current Visit: Yes Status: Acute Plan: Patient is 74 years of age admitted with generalized anasarca severe pulmonary hypertension patient is a mild normocytic anemia hypoxic hypercapnic respiratory failure normal left ventricular ejection fraction patient is anticoagulated continue with diuretics to be evaluated for sleep apnea as an outpatient will start patient on low-dose sildenafil there is a mention of COPD patient has never smoked has been placed on bronchodilators will also need outpatient pulmonary function test
[2025-01-28] MEDS: SILDENAFIL CITRATE 20 MG TABLET PO SCH (14:14)
[2025-01-29 06:25] LABS: Hematocrit 34.2 % (36.0-45.0); Hemoglobin 10.6 g/dL (12.0-15.0); MCH 30.7 pg (27.0-35.0); MCHC 30.9 g/dL (32.0-36.0); MCV 99.2 fL (80-100); MPV 7.8 fL (7.6-11.3); Platelets 213 thou/uL (152-406); RBC Red Blood Cell Count 3.45 M/uL (3.86-4.86); Red Cell Distribution Width 18.3 % (12.1-15.2)
[2025-01-29 06:48] LABS: Albumin 2.7 g/dL (3.4-5.0); Magnesium 2.4 mg/dL (1.6-2.4); Phosphorus 3.8 mg/dL (2.5-4.9)
--- NOTE | 2025-01-29 10:54 | P.PN ---
Nephrology note (S) Pt less lethargic yesterday and today, denies acute dyspnea, sore in the legs, has been OOB, denies orthostatic symptoms, discussed diuretic regimen and labs (O) Vitals reviewed in the EMR General: In no apparent distress HEENT: Atraumatic, Normocephalic, Other (LFNC) Respiratory: Normal air movement, Other (Non tachypnec, fewer scattered rales) Cardiovascular: Other (Non tachy, cardiac murmur present) Gastrointestinal: Soft and benign, No tenderness, Other (obese, purewick present) Musculoskeletal: Other (swelling of left forearm and b/l LE) Integumentary: Other (LE wrapped, swelling improved, erythema, excoriations, less tender on exam) Neurological: Other (Less lethargic more conversive, no tremors noted, spont movement of UE) Conclusions/Impression: 1. Hx of Stage 1 ROS episode last mo. Cr level at ULN, mod azotemia with diuretic escalation on admission earlier in the week. No other obv signs of volume contraction on labs, stable alkalosis. Trend for now 2. UA on admission not too remarkable 3. Acute on chronic diastolic CHF, pulm HTN 2nd to left sided heart disease, bi- atrial enlargement reported on prior TTE. Cardiomegaly, LVH also reported. Cont diuresis but lowered lasix dose. Cont MRA as ordered. Ok to use SGLT2i agents. Monitor BP for any relative hypotension 4. Peripheral edema, multifactorial -agents such as Lyrica may be contributory, albumin mod reduced. 5. Metab alkalosis, compensatory. Hypercarbia, resp acidosis, possibly 2nd to obesity hypoventilation/other, could be contributory to lethargy at times. Did place on low dose Diamox for now. Pulm consult noted, plan for OP STEFANY eval/PFTs Placido Hernández MD, PAOLA
--- NOTE | 2025-01-29 11:22 | P.PN ---
Subjective Date of Service: 01/29/25 Chief Complaint: Generalized body swelling Subjective: No new changes, No C/O voiced, Tolerating diet, Ambulating, Improving Review of Systems 10-point ROS is otherwise unremarkable Physical Examination - Vital Signs Temperature: 98.1 F Blood Pressure: 109/58 Pulse: 82 Respirations: 18 Pulse Ox (%): 98 - Physical Exam General: Alert, In no apparent distress HEENT: Atraumatic, PERRLA, EOMI Neck: Supple, JVD not distended Respiratory: Clear to auscultation bilaterally, Normal air movement Cardiovascular: Regular rate/rhythm, Normal S1 S2 Gastrointestinal: Normal bowel sounds, No tenderness Musculoskeletal: No tenderness Integumentary: No rashes Neurological: Normal speech, Normal tone, Normal affect Lymphatics: No axilla or inguinal lymphadenopathy - Studies Medications List Reviewed: Yes Assessment And Plan - Current Problems (Diagnosis) (1) Acute on chronic diastolic heart failure Current Visit: No Status: Acute Plan: switch lasix to 40 mg daily on discharge continue Diamox Continue Coreg 3.125 mg po bid continue aldactone 25 mg daily monitor input and output and electrolytes. (2) Atrial fibrillation Current Visit: No Status: Acute Plan: currently paced. continue coreg and eliquis. Cardiology will sign off, please call with any questions
--- NOTE | 2025-01-29 12:01 | P.PN ---
Date of Service: 01/29/25 Subjective: breathing improving daily, close to her baseline no acute events overnight ROS: 10 point ROS as noted above, otherwise negative Physical Exam: GEN: More awake/alert. Oriented, NAD CV: Regular rate and rhythm, anasarca Pulm: Nonlabored respirations on 2L NC, clear ABD: soft, nontender, nondistended Integumentary: Bilateral venous stasis dermatitis. Legs wrapped. erythema of LLE Neuro: Normal speech, normal affect Problem List: Acute on chronic hypoxic respiratory failure secondary to acute on chronic CHF exacerbation Severe pulmonary hypertension Severe tricuspid regurgitation (TTE 12/2024) Anasarca Azotemia IDDM2 with hypoglycemia Chronic COPD Chronic atrial fibrillation, s/p pacemaker Chronic Anemia Hyperlipidemia Hypertension Restless leg syndrome Dementia Hx of CVA Acute on chronic hypoxic respiratory failure secondary to acute on chronic CHF exacerbation Severe pulmonary hypertension Severe tricuspid regurgitation (TTE 12/2024) Anasarca on admission, presents with worsening shortness of breath, lower extremity pain/swelling. Recent echo 1 month ago (12/26): 67% EF, moderate-severe TR, severe pulm HTN, mild MR bi-atrial enlargement. CXR (01/22): no acute findings. Continue Coreg, empagliflozin. Monitor renal function with diuresis. Monitor I/Os Lymphedema wrap for lower extremity edema / venous stasis dermatitis. 01/27 - azotemia vs hypercarbia vs ambien - leading to somnolence this morning IV lasix decreased to 20 mg BID, ambien dc'd 01/27 01/28 - More awake/alert this morning. Feeling back close to her normal self continues with edema/anasarca diamox added per pulm 01/29 - Improving Daily. Breathing close to baseline on home O2 settings. Cardio recommending 40 mg oral lasix daily on discharge feels weak, needing assistance Azotemia continue to monitor BUN/Cr Nephrology consulted IV lasix decreased to 20 mg BID from 80 (01/27) continues with anasarca IDDM2 with hypoglycemia Patient had an episode of hypoglycemia 01/23 accu-cheks, SSI confirm home insulin regimen Chronic COPD continue home nebs and inhalers. Chronic atrial fibrillation, s/p pacemaker Continue Coreg, Eliquis Chronic Anemia Daily labs. Stable. Hyperlipidemia Hypertension Restless leg syndrome Dementia Hx of CVA Continue home meds as appropriate VTE: home eliquis Code: Full Dispo: likely SNF vs back to assisted living - [facility] , ~ 2 days Time Spent Managing Pts Care (In Minutes): 55
[2025-01-29] MEDS: HYDROCODONE/APAP 5/325 MG TAB PO PRN (14:17)
[2025-01-30 06:25] LABS: Hematocrit 31.9 % (36.0-45.0); Hemoglobin 10.1 g/dL (12.0-15.0); MCH 30.9 pg (27.0-35.0); MCHC 31.6 g/dL (32.0-36.0); MCV 97.8 fL (80-100); Platelets 211 thou/uL (152-406); RBC Red Blood Cell Count 3.26 M/uL (3.86-4.86); Red Cell Distribution Width 17.9 % (12.1-15.2)
[2025-01-30 06:29] LABS: AST/SGOT 14 U/L (15-37); Albumin 2.5 g/dL (3.4-5.0); Albumin/Globulin Ratio 0.9 (1.1-1.8); Alkaline Phosphatase 64 U/L (45-117); Anion Gap 7.9 mEq/L (5.0-15.0); BUN Blood Urea Nitrogen 39 mg/dL (7-18); Bicarbonate 33 mEq/L (21-32); Bilirubin Total 0.3 mg/dL (0.2-1.0); Globulin 2.9 g/dL (2.3-3.5); Glomerular Filtration Rate 66 ml/min (=/>90); Glucose Level 96 mg/dL (74-106); Magnesium 2.4 mg/dL (1.6-2.4); NT PRO-BNP 1572 pg/mL (<450); Potassium 3.9 mEq/L (3.5-5.1); Protein, Total 5.4 g/dL (6.4-8.2); Sodium Level 138 mEq/L (136-145)
[2025-01-30 06:32] LABS: ALT/SGPT < 14 U/L (13-56)
--- NOTE | 2025-01-30 07:50 | RAD REPORT ---
EXAMINATION: ONE VIEW CHEST XR CLINICAL INDICATION: volume overload, eval pulm edema/effusion TECHNIQUE: Frontal chest projection is submitted. Examination is limited by patient positioning and t echnique. COMPARISON: 01/22/2025 FINDINGS: The lungs are well inflated and clear. Heart is mildly enlarged in size. Multilead pacer/defibrillato r device present. No displaced fractures identified. IMPRESSION: No acute intrathoracic abnormalities.
[2025-01-30] MEDS: POTASSIUM 25 MEQ EFFERV TAB PO ONE (08:16)
[2025-01-30] MEDS: GLIMEPIRIDE 2 MG TABLET PO SCH (08:19)
--- NOTE | 2025-01-30 11:16 | P.PN ---
Nephrology note (S) Pt has been OOB briefly, had BM earlier, dyspnea stable, remains on LFNC, cont to cite pain in her legs, hips and back, chronic pain syndrome on [place], havin to use PRN Morphine here she reports. (O) Vitals reviewed in the EMR General: In no apparent distress HEENT: Atraumatic, Normocephalic, Other (LFNC) Respiratory: Normal air movement, Other (Non tachypnec, fewer scattered rales) Cardiovascular: Other (Non tachy, cardiac murmur present) Gastrointestinal: Soft and benign, No tenderness, Other (obese) Musculoskeletal: Other (swelling of left forearm and b/l LE, latter improved) Integumentary: Other (LE wrapped, swelling improved, erythema, excoriations, less tender on exam) Neurological: Other (Less lethargic more conversive, no tremors noted, spont movement of UE) Conclusions/Impression: 1. Hx of Stage 1 ROS episode last mo. Cr level at ULN, mod azotemia with diuretic escalation on admission earlier in the week. BUN levels lower from peak. No other obv signs of volume contraction on labs, stable alkalosis. Trend for now 2. UA on admission not too remarkable 3. Acute on chronic diastolic CHF, pulm HTN 2nd to left sided heart disease, bi- atrial enlargement reported on prior TTE. Cardiomegaly, LVH also reported. Cont diuresis but lowered lasix dose. Cont MRA as ordered. Ok to use SGLT2i agents. Monitor BP for any relative hypotension Appears pulm has placed on pulm vasodilators, monitor BP closely 4. Peripheral edema, multifactorial -agents such as Lyrica may be contributory, albumin mod reduced. 5. Metab alkalosis, compensatory. Hypercarbia, resp acidosis, possibly 2nd to obesity hypoventilation/other, could be contributory to lethargy at times. Did place on low dose Diamox for now. Pulm consult noted, plan for OP STEFANY eval/PFTs Placido Hernández MD, PAOLA
--- NOTE | 2025-01-30 11:30 | P.PN ---
Date of Service: 01/30/25 Subjective: no acute events overnight still week, will see how she does with PT continues with lower extremity pain - burning sensation breathing okay ~baseline afebrile ROS: 10 point ROS as noted above, otherwise negative Physical Exam: GEN: alert/ Oriented, NAD CV: Regular rate and rhythm, b/l lower extremity 2+ edema, LUE edema Pulm: Nonlabored respirations on 3L NC, clear ABD: soft, nontender, nondistended Integumentary: Bilateral venous stasis dermatitis. erythema of LLE with tenderness (improved) no purulent drainage Neuro: Normal speech, normal affect Problem List: Acute on chronic hypoxic respiratory failure secondary to acute on chronic CHF exacerbation Severe pulmonary hypertension Severe tricuspid regurgitation (TTE 12/2024) Anasarca Azotemia IDDM2 with hypoglycemia Chronic COPD Chronic atrial fibrillation, s/p pacemaker Chronic Anemia Hyperlipidemia Hypertension Restless leg syndrome Dementia Hx of CVA Acute on chronic hypoxic respiratory failure secondary to acute on chronic CHF exacerbation Severe pulmonary hypertension Severe tricuspid regurgitation (TTE 12/2024) Anasarca on admission, presents with worsening shortness of breath, lower extremity pain/swelling. Recent echo 1 month ago (12/26): 67% EF, moderate-severe TR, severe pulm HTN, mild MR bi-atrial enlargement. CXR (01/22): no acute findings. Continue Coreg, empagliflozin. Monitor renal function with diuresis. Monitor I/Os Lymphedema wrap for lower extremity edema / venous stasis dermatitis. 01/27 - azotemia vs hypercarbia vs ambien - leading to somnolence this morning IV lasix decreased to 20 mg BID, ambien dc'd 01/27 01/28 - More awake/alert this morning. Feeling back close to her normal self continues with edema/anasarca diamox added per pulm 01/29 - Improving Daily. Breathing close to baseline on home O2 settings. Cardio recommending 40 mg oral lasix daily on discharge feels weak, needing assistance 01/30 - No acute events overnight. Breathing ~baseline. continue PT; still weak/rundown. swelling slowly improving leg erythem improving Azotemia continue to monitor BUN/Cr Nephrology consulted IV lasix decreased to 20 mg BID from 80 (01/27) IDDM2 with hypoglycemia Patient had an episode of hypoglycemia 01/23 accu-cheks, SSI confirm home insulin regimen Chronic COPD continue home nebs and inhalers. Chronic atrial fibrillation, s/p pacemaker Continue Coreg, Eliquis Chronic Anemia Daily labs. Stable. Hyperlipidemia Hypertension Restless leg syndrome Dementia Hx of CVA Continue home meds as appropriate VTE: home eliquis Code: Full Dispo: back to assisted living - [facility], ~ 1-2 days Time Spent Managing Pts Care (In Minutes): 55
[2025-01-30] MEDS: MORPHINE 2 MG/ML SYR IV PRN (13:43)
[2025-01-30] MEDS ORDERED: FUROSEMIDE 40 MG TABLET PO SCH ×2 (17:00)
[2025-01-30] MEDS: FUROSEMIDE 40 MG TABLET PO SCH (17:06)
[2025-01-30] MEDS: VITAMIN E 400 IU CAP PO SCH (20:48)
[2025-01-31 06:48] LABS: Anion Gap 8.7 mEq/L (5.0-15.0); Magnesium 2.8 mg/dL (1.6-2.4); Potassium 4.7 mEq/L (3.5-5.1)
--- NOTE | 2025-01-31 08:42 | P.PN ---
Date of Service: 01/31/25 Subjective: improving with transfers with PT, +took 2-3 sidesteps lower extremities still weak, fatigues easily swelling, erythema improving UOP improving ROS: 10 point ROS as noted above, otherwise negative Physical Exam: GEN: alert/ Oriented, NAD CV: Regular rate and rhythm, b/l lower extremity 1-2+ edema, LUE edema Pulm: Nonlabored respirations on 3L NC, clear ABD: soft, nontender, nondistended erythema of LLE with tenderness (improved) no purulent drainage Neuro: Normal speech, normal affect Problem List: Acute on chronic hypoxic respiratory failure secondary to acute on chronic CHF exacerbation Severe pulmonary hypertension Severe tricuspid regurgitation (TTE 12/2024) Anasarca Azotemia IDDM2 with hypoglycemia Chronic COPD Chronic atrial fibrillation, s/p pacemaker Chronic Anemia Hyperlipidemia Hypertension Restless leg syndrome Dementia Hx of CVA Acute on chronic hypoxic respiratory failure secondary to acute on chronic CHF exacerbation Severe pulmonary hypertension Severe tricuspid regurgitation (TTE 12/2024) Anasarca on admission, presents with worsening shortness of breath, lower extremity pain/swelling. Recent echo 1 month ago (12/26): 67% EF, moderate-severe TR, severe pulm HTN, mild MR bi-atrial enlargement. CXR (01/22): no acute findings. Continue Coreg, empagliflozin. Monitor renal function with diuresis. Monitor I/Os Lymphedema wrap for lower extremity edema / venous stasis dermatitis. 01/27 - azotemia vs hypercarbia vs ambien - leading to somnolence this morning IV lasix decreased to 20 mg BID, ambien dc'd 01/27 01/28 - More awake/alert this morning. Feeling back close to her normal self continues with edema/anasarca diamox added per pulm 01/29 - Improving Daily. Breathing close to baseline on home O2 settings. Cardio recommending 40 mg oral lasix daily on discharge feels weak, needing assistance 01/30 - swelling and leg erythema slowly improving continue PT; still weak/rundown. lasix PO 40 bid 01/31 - Still weak but improving with PT. Stable. slow diuresis if weights are correct - she was 40lbs heavier on admission this time compared to just a month ago, only down 2 kg continue lasix, has some increased UOP Azotemia continue to monitor BUN/Cr Nephrology consulted IV lasix decreased to 20 mg BID from 80 (01/27) IDDM2 with hypoglycemia Patient had an episode of hypoglycemia 01/23, and reportedly prior to admission accu-cheks, SSI hold home insulin restarted glimiperide 01/30, monitor glc Chronic COPD continue home nebs and inhalers. Chronic atrial fibrillation, s/p pacemaker Continue Coreg, Eliquis Chronic Anemia Daily labs. Stable. Hyperlipidemia Hypertension Restless leg syndrome Dementia Hx of CVA Continue home meds as appropriate VTE: home eliquis Code: Full Dispo: Back to assisted living - [facility], ~2 days Still with significant edema Time Spent Managing Pts Care (In Minutes): 45
[2025-02-01 09:36] LABS: Albumin 2.7 g/dL (3.4-5.0); Magnesium 2.6 mg/dL (1.6-2.4); Phosphorus 4.2 mg/dL (2.5-4.9)
--- NOTE | 2025-02-01 11:32 | P.PN ---
Date of Service: 02/01/25 Subjective: sleeping comfortably no acute events overnight ROS: 10 point ROS as noted above, otherwise negative Physical Exam: GEN: alert/ Oriented, NAD CV: Regular rate and rhythm, b/l lower extremity 1-2+ edema, LUE edema Pulm: Nonlabored respirations on 3L NC, clear ABD: soft, nontender, nondistended mild erythema of LLE with tenderness (improved) no purulent drainage Neuro: Normal speech, normal affect Problem List: Acute on chronic hypoxic respiratory failure secondary to acute on chronic CHF exacerbation Severe pulmonary hypertension Severe tricuspid regurgitation (TTE 12/2024) Anasarca Azotemia IDDM2 with hypoglycemia Chronic COPD Chronic atrial fibrillation, s/p pacemaker Chronic Anemia Hyperlipidemia Hypertension Restless leg syndrome Dementia Hx of CVA Acute on chronic hypoxic respiratory failure secondary to acute on chronic CHF exacerbation Severe pulmonary hypertension Severe tricuspid regurgitation (TTE 12/2024) Anasarca on admission, presents with worsening shortness of breath, lower extremity pain/swelling. Recent echo 1 month ago (12/26): 67% EF, moderate-severe TR, severe pulm HTN, mild MR bi-atrial enlargement. CXR (01/22): no acute findings. Continue Coreg, empagliflozin. Monitor renal function with diuresis. Monitor I/Os Lymphedema wrap for lower extremity edema / venous stasis dermatitis. 01/27 - azotemia vs hypercarbia vs ambien - leading to somnolence this morning IV lasix decreased to 20 mg BID, ambien dc'd 01/27 01/28 - More awake/alert this morning. Feeling back close to her normal self continues with edema/anasarca diamox added per pulm 01/29 - Improving Daily. Breathing close to baseline on home O2 settings. Cardio recommending 40 mg oral lasix daily on discharge feels weak, needing assistance 01/30 - swelling and leg erythema slowly improving continue PT; still weak/rundown. lasix PO 40 bid 01/31 - Still weak but improving with PT. Stable. slow diuresis if weights are correct - she was 40lbs heavier on admission this time compared to just a month ago, only down 2 kg continue lasix, has some increased UOP 02/01 - Still weak, doesn't feel worse. erythema improving. edema below knee improved, edema in thighs ~same, LUE edema improved Azotemia continue to monitor BUN/Cr Nephrology consulted 01/27 - IV lasix decreased to 20 mg BID from 80 01/30 - IV Lasix switched to oral 40 mg BID 02/01 - continue PO lasix IDDM2 with hypoglycemia Patient had an episode of hypoglycemia 01/23, and reportedly prior to admission accu-cheks, SSI hold home insulin 01/30 - restart glimiperide, monitor glc Chronic COPD continue home nebs and inhalers. Chronic atrial fibrillation, s/p pacemaker Continue Coreg, Eliquis Chronic Anemia Daily labs. Stable. Hyperlipidemia Hypertension Restless leg syndrome Dementia Hx of CVA Continue home meds as appropriate VTE: home eliquis Code: Full Dispo: Back to assisted living - [facility], ~1-2 days Still with significant edema Time Spent Managing Pts Care (In Minutes): 45
[2025-02-01] MEDS: MORPHINE 2 MG/ML SYR IV PRN (17:35)
[2025-02-01] MEDS: IPRATROPIUM BROM 0.5MG/2.5ML ONE (21:40)
[2025-02-01] MEDS: ALBUTEROL 2.5 MG/3 ML NEB SOL ONE (21:40)
[2025-02-02 06:27] LABS: Hematocrit 33.9 % (36.0-45.0); Hemoglobin 10.7 g/dL (12.0-15.0); MCH 30.9 pg (27.0-35.0); MCHC 31.5 g/dL (32.0-36.0); Platelets 271 thou/uL (152-406); RBC Red Blood Cell Count 3.46 M/uL (3.86-4.86); Red Cell Distribution Width 17.8 % (12.1-15.2)
[2025-02-02 06:39] LABS: Anion Gap 7.3 mEq/L (5.0-15.0)
[2025-02-02 06:40] LABS: Magnesium 2.8 mg/dL (1.6-2.4); Potassium 4.3 mEq/L (3.5-5.1)
[2025-02-02] MEDS: INSULIN REGULAR (HUMAN) 100 UNIT/ML SQ SCH (11:30)
[2025-02-02] MEDS: CEPHALEXIN 500 MG CAP PO SCH (12:58)
--- NOTE | 2025-02-02 16:10 | P.PN ---
Date of Service: 02/02/25 Subjective: no acute events overnight feels depressed with situation hasn't gotten out of bed in a few days swelling improving ROS: 10 point ROS as noted above, otherwise negative Physical Exam: GEN: alert/ Oriented, NAD CV: Regular rate and rhythm, b/l lower extremity 1-2+ edema, LUE edema Pulm: Nonlabored respirations on 3L NC, clear ABD: soft, nontender, nondistended minimal erythema of LLE with tenderness (improved) no purulent drainage Neuro: Normal speech, normal affect Problem List: Acute on chronic hypoxic respiratory failure secondary to acute on chronic CHF exacerbation Severe pulmonary hypertension Severe tricuspid regurgitation (TTE 12/2024) Anasarca Azotemia IDDM2 with hypoglycemia Chronic COPD Chronic atrial fibrillation, s/p pacemaker Chronic Anemia Hyperlipidemia Hypertension Restless leg syndrome Dementia Hx of CVA Acute on chronic hypoxic respiratory failure secondary to acute on chronic CHF exacerbation Severe pulmonary hypertension Severe tricuspid regurgitation (TTE 12/2024) Anasarca on admission, presents with worsening shortness of breath, lower extremity pain/swelling. Recent echo 1 month ago (12/26): 67% EF, moderate-severe TR, severe pulm HTN, mild MR bi-atrial enlargement. CXR (01/22): no acute findings. Continue Coreg, empagliflozin. Monitor renal function with diuresis. Monitor I/Os Lymphedema wrap for lower extremity edema / venous stasis dermatitis. 01/27 - azotemia vs hypercarbia vs ambien - leading to somnolence this morning IV lasix decreased to 20 mg BID, ambien dc'd 01/27 01/28 - More awake/alert this morning. Feeling back close to her normal self continues with edema/anasarca diamox added per pulm 01/29 - Improving Daily. Breathing close to baseline on home O2 settings. Cardio recommending 40 mg oral lasix daily on discharge feels weak, needing assistance 01/30 - swelling and leg erythema slowly improving continue PT; still weak/rundown. lasix PO 40 bid 01/31 - Still weak but improving with PT. Stable. slow diuresis if weights are correct - she was 40lbs heavier on admission this time compared to just a month ago, only down 2 kg continue lasix, has some increased UOP 02/01 - Still weak, doesn't feel worse. erythema improving. edema below knee improved, edema in thighs ~same, LUE edema improved 02/02 - weak, hasn't gotten out of bed in awhile, transfers at [facility] dc IV morphine, continue norco PT to work with pt today, ensure able to function as needed for assisted living. discussed with pt if unable to return to [facility], will need to look into SNF options Azotemia continue to monitor BUN/Cr Nephrology consulted 01/27 - IV lasix decreased to 20 mg BID from 80 01/30 - IV Lasix switched to oral 40 mg BID 02/01 - continue PO lasix IDDM2 with hypoglycemia Patient had an episode of hypoglycemia 01/23, and reportedly prior to admission accu-cheks, SSI hold home insulin 01/30 - restart glimiperide, monitor glc Chronic COPD continue home nebs and inhalers. Chronic atrial fibrillation, s/p pacemaker Continue Coreg, Eliquis Chronic Anemia Daily labs. Stable. Hyperlipidemia Hypertension Restless leg syndrome Dementia Hx of CVA Continue home meds as appropriate VTE: home eliquis Code: Full Dispo: Back to assisted living - [facility], ~1 day pending physical limitations/eval Time Spent Managing Pts Care (In Minutes): 45
--- NOTE | 2025-02-02 22:26 | P.PN ---
Date of Service: 02/02/25 Vital Signs Temp Pulse Resp BP Pulse Ox 98 F 69 17 113/60 95 02/02/25 20:00 02/02/25 20:00 02/02/25 20:00 02/02/25 20:00 02/02/25 20:00 Medications Hydrocodone Bitart/Acetaminophen (Hydrocodone/Apap 5/325 Mg Tab) 1 tab PO Q8H PRN PRN Reason: Pain scale 5-7 (Moderate) Last Admin: 02/02/25 16:57 Dose: 1 tab Acetazolamide (Acetazolamide 250 Mg Tab) 250 mg PO DAILY [facility] Last Admin: 02/02/25 08:29 Dose: 250 mg Alendronate Sodium (Alendronate 70 Mg Tab) 70 mg PO Q7D@0600 [facility] Last Admin: 01/31/25 05:00 Dose: 70 mg Apixaban (Apixaban 2.5 Mg Tablet) 2.5 mg PO BID [facility] Last Admin: 02/02/25 21:21 Dose: 2.5 mg Aspirin (Aspirin Ec 81 Mg Tab) 81 mg PO DAILY [facility] Last Admin: 02/02/25 08:28 Dose: 81 mg Atorvastatin Calcium (Atorvastatin 20 Mg Tab) 20 mg PO BEDTIME [facility] Last Admin: 02/02/25 21:21 Dose: 20 mg Carvedilol (Carvedilol 3.125 Mg Tab) 3.125 mg PO BIDWM [facility] Last Admin: 02/02/25 16:58 Dose: 3.125 mg Cephalexin HCl (Cephalexin 500 Mg Cap) 500 mg PO QID [facility] Last Admin: 02/02/25 21:21 Dose: 500 mg Donepezil HCl (Donepezil Hcl 5 Mg Tab) 10 mg PO DAILY [facility] Last Admin: 02/02/25 08:29 Dose: 10 mg Furosemide (Furosemide 40 Mg Tablet) 40 mg PO BIDL [facility] Last Admin: 02/02/25 16:58 Dose: 40 mg Glimepiride (Glimepiride 2 Mg Tablet) 1 mg PO BIDAC [facility] Last Admin: 02/02/25 16:57 Dose: 1 mg Glucagon (Glucagon 1 Mg/Vial) 1 mg IM 1X PRN PRN Reason: HYPOGLYCEMIA Home Med (Ubrogepant [Ubrelvy]) 100 mg PO SEECOM PRN PRN Reason: migraine Dextrose (Dextrose 10% Water Iv Soln.) 125 mls @ 0 mls/hr IV PRN PRN; Protocol PRN Reason: HYPOGLYCEMIA Insulin Human Regular (Insulin Regular (Human) 100 Unit/Ml) 0 unit SQ ACHS [facility]; Protocol Last Admin: 02/02/25 21:21 Dose: 2 unit Mirtazapine (Mirtazapine 15 Mg Tab) 30 mg PO DAILY [facility] Last Admin: 02/02/25 08:29 Dose: 30 mg Montelukast Sodium (Montelukast 10 Mg Tab) 10 mg PO DAILY [facility] Last Admin: 02/02/25 08:28 Dose: 10 mg Ondansetron HCl (Ondansetron 4 Mg/2 Ml Vial) 4 mg IV Q6HP PRN PRN Reason: NAUSEA / VOMITING Last Admin: 01/27/25 21:06 Dose: 4 mg Pregabalin (Pregabalin 75 Mg Cap) 75 mg PO BID [facility] Last Admin: 02/02/25 21:21 Dose: 75 mg Ropinirole HCl (Ropinirole Hcl 0.25 Mg Tab) 0.5 mg PO BEDTIME [facility] Last Admin: 02/02/25 21:21 Dose: 0.5 mg Sildenafil Citrate (Sildenafil Citrate 20 Mg Tablet) 20 mg PO BID [facility] Last Admin: 02/02/25 21:21 Dose: 20 mg Spironolactone (Spironolactone 25 Mg Tablet) 25 mg PO DAILY [facility] Last Admin: 02/02/25 08:29 Dose: 25 mg Tiotropium [place] (Tiotropium 5 Sprays/Inhaler) 1 sprays IH DAILY [facility] Last Admin: 02/02/25 08:30 Dose: 1 puff Vitamin E (Vitamin E 400 Iu Cap) 400 iu PO DAILY [facility] Last Admin: 02/02/25 08:28 Dose: 400 iu Assessment/ Plan: Nephrology No dyspnea No chest pain +BM No acute events overnight Vitals, medications, blood work and imaging reviewed in the chart NAD. Obese. MMM. NCAT. Normal Respiratory Effort. S1S2. ND Abd. No C/C. LE Edema 1-2+. No rash. LLE ulcer. AAO. Normal speech. Oxygen NC PureWick Stage I ROS CKD II -No NSAIDs Hyponatremia -Encourage nutrition HTN with CKD/ CHF -Continue Coreg Diastolic CHF, A/C Pulmonary HTN in the setting of TR Anasarca -Continue furosemide and spironolactone DM II -RISS Anemia in chronic illness -Monitor H&H Hospitalist note reviewed
[2025-02-02] MEDS: IPRATROPIUM BROM 0.5MG/2.5ML NEB PRN (23:00)
[2025-02-02] MEDS: ALBUTEROL 2.5 MG/3 ML NEB SOL NEB PRN (23:00)
--- NOTE | 2025-02-03 06:36 | RAD REPORT ---
XR CHEST 1 VIEW CLINICAL INDICATION: Shortness of breath COMPARISON: No prior images available for comparison at time of interpretation. FINDINGS: SUPPORT DEVICES: Left-sided pacemaker in place. LUNGS/PLEURAL SPACES: Lungs are hypoinflated. Prominent perihilar interstitial lung markings could re present vascular congestion, interstitial edema or pneumonitis. No pleural effusion. No pneumothorax. HEART/MEDIASTINUM: Unremarkable. BONES/UPPER ABDOMEN/SOFT TISSUES: No acute findings. IMPRESSION: Prominent perihilar interstitial lung markings could represent vascular congestion, interstitial mary a or pneumonitis. Electronically signed by: Kristal Thacker MD 02/03/2025 12:21 AM CDT Due to temporary technical issues with the PACS/ImmunotEGG reporting system, reports are being nura d by the in-house radiologist without review as a courtesy to ensure prompt reporting the interpreting radiologist is fully responsible for the content of the report. Transcribed Date/Time: 02/03/2025 6:35 AM
[2025-02-03] MEDS: DRISDOL (VITAMIN D=ERGOCALCIFEROL) 50000 UNIT CAP PO SCH (08:30)
--- NOTE | 2025-02-03 16:12 | P.PN ---
Subjective Date of Service: 02/03/25 Chief Complaint: Generalized body swelling Patient denies any complaint today She is tolerating diet. She is maintained on 2 L oxygen by nasal cannula. Physical Examination - Vital Signs Temperature: 98.5 F Blood Pressure: 109/63 Pulse: 79 Respirations: 18 Pulse Ox (%): 96 - Studies Medications List Reviewed: Yes Assessment And Plan - Plan Physical examination General: Alert and oriented x3, NAD, Neck: No elevated JVD Heart: Heart sounds 1 and 2 normal, irregular rhythm, normal rate, bilateral lower extremity edema significantly improved. Lungs: Clear to auscultation bilaterally, adequate breath sounds bilaterally, no rhonchi or crackles. Abdomen: Soft, nondistended, nontender, normal bowel sounds. Extremities: No tenderness, no deformity Skin: Normal skin turgor, bilateral lower extremity venous stasis dermatitis with leg wraps, oozing has improved. Neuro: No focal motor deficit. Normal speech. Psychiatry: Normal mood, no agitation. Problem List: Acute on chronic hypoxic respiratory failure secondary to acute on chronic CHF exacerbation Severe pulmonary hypertension Severe tricuspid regurgitation (TTE 12/2024) Anasarca Azotemia IDDM2 with hypoglycemia Chronic COPD Chronic atrial fibrillation, s/p pacemaker Chronic Anemia Hyperlipidemia Hypertension Restless leg syndrome Dementia Hx of CVA Acute on chronic hypoxic respiratory failure secondary to acute on chronic CHF exacerbation Severe pulmonary hypertension Severe tricuspid regurgitation (TTE 12/2024) Anasarca on admission, presents with worsening shortness of breath, lower extremity pain/swelling. Recent echo 1 month ago (12/26): 67% EF, moderate-severe TR, severe pulm HTN, mild MR bi-atrial enlargement. CXR (01/22): no acute findings. Continue Coreg, empagliflozin. Monitor renal function with diuresis. Monitor I/Os Lymphedema wrap for lower extremity edema / venous stasis dermatitis. 01/27 - azotemia vs hypercarbia vs ambien - leading to somnolence this morning IV lasix decreased to 20 mg BID, ambien dc'd 01/27 01/28 - More awake/alert this morning. Feeling back close to her normal self continues with edema/anasarca diamox added per pulm 01/29 - Improving Daily. Breathing close to baseline on home O2 settings. Cardio recommending 40 mg oral lasix daily on discharge feels weak, needing assistance 01/30 - swelling and leg erythema slowly improving continue PT; still weak/rundown. lasix PO 40 bid 01/31 - Still weak but improving with PT. Stable. slow diuresis if weights are correct - she was 40lbs heavier on admission this time compared to just a month ago, only down 2 kg continue lasix, has some increased UOP 02/01 - Still weak, doesn't feel worse. erythema improving. edema below knee improved, edema in thighs ~same, LUE edema improved 02/02 - weak, hasn't gotten out of bed in awhile, transfers at [facility] dc IV morphine, continue norco PT to work with pt today, ensure able to function as needed for assisted living. discussed with pt if unable to return to [facility], will need to look into SNF options 02/03 Patient stood up and took sidesteps with therapy today. Patient has diuresed well Overall anasarca has significantly improved. Patient is stable on Diamox and oral Lasix. Clinically stable for discharge. Staff from [facility] planning to evaluate patient for possible return to assisted living. Azotemia continue to monitor BUN/Cr Nephrology consulted 01/27 - IV lasix decreased to 20 mg BID from 80 01/30 - IV Lasix switched to oral 40 mg BID 02/01 - continue PO lasix IDDM2 with hypoglycemia Patient had an episode of hypoglycemia 01/23, and reportedly prior to admission accu-cheks, SSI hold home insulin 01/30 - restart glimiperide, monitor glc 02/03-stable blood sugar. Continue glimepiride and insulin sliding scale. Monitor for hypoglycemia. Chronic COPD continue home nebs and inhalers. Chronic atrial fibrillation, s/p pacemaker Continue Coreg, Eliquis Chronic Anemia Daily labs. Stable. Hyperlipidemia Hypertension Restless leg syndrome Dementia Hx of CVA Continue home meds as appropriate VTE: home eliquis Code: Full Dispo: Back to assisted living - [facility].
[2025-02-03 17:32] LABS: Blood Gas Oxyhemoglobin 87.5 % (94-97); Blood Gas THB 10.2 g/dl (12-18); Blood O2 Saturation 88.1 % (92-98.5)
--- NOTE | 2025-02-03 21:22 | P.PN ---
Date of Service: 02/03/25 Vital Signs Temp Pulse Resp BP Pulse Ox 98.5 F 79 18 109/63 96 02/03/25 16:15 02/03/25 16:55 02/03/25 16:15 02/03/25 16:55 02/03/25 16:15 Medications Hydrocodone Bitart/Acetaminophen (Hydrocodone/Apap 5/325 Mg Tab) 1 tab PO Q8H PRN PRN Reason: Pain scale 5-7 (Moderate) Last Admin: 02/03/25 12:13 Dose: 1 tab Acetazolamide (Acetazolamide 250 Mg Tab) 250 mg PO DAILY [facility] Last Admin: 02/03/25 08:29 Dose: 250 mg Albuterol Sulfate (Albuterol 2.5 Mg/3 Ml Neb [place]) 2.5 mg NEB [id number] PRN PRN Reason: SHORTNESS OF BREATH Last Admin: 02/03/25 12:05 Dose: 2.5 mg Alendronate Sodium (Alendronate 70 Mg Tab) 70 mg PO Q7D@0600 [facility] Last Admin: 01/31/25 05:00 Dose: 70 mg Apixaban (Apixaban 2.5 Mg Tablet) 2.5 mg PO BID [facility] Last Admin: 02/03/25 20:43 Dose: 2.5 mg Aspirin (Aspirin Ec 81 Mg Tab) 81 mg PO DAILY [facility] Last Admin: 02/03/25 08:29 Dose: 81 mg Atorvastatin Calcium (Atorvastatin 20 Mg Tab) 20 mg PO BEDTIME [facility] Last Admin: 02/03/25 20:43 Dose: 20 mg Carvedilol (Carvedilol 3.125 Mg Tab) 3.125 mg PO BIDWM [facility] Last Admin: 02/03/25 16:54 Dose: 3.125 mg Cephalexin HCl (Cephalexin 500 Mg Cap) 500 mg PO QID [facility] Last Admin: 02/03/25 20:43 Dose: 500 mg Donepezil HCl (Donepezil Hcl 5 Mg Tab) 10 mg PO DAILY [facility] Last Admin: 02/03/25 08:30 Dose: 10 mg Ergocalciferol (Drisdol (Vitamin D=Ergocalciferol) 01271 Unit Cap) 50,000 unit PO DAILY [facility] Stop: 02/04/25 09:01 Last Admin: 02/03/25 08:30 Dose: 50,000 unit Furosemide (Furosemide 40 Mg Tablet) 40 mg PO BIDL [facility] Last Admin: 02/03/25 16:55 Dose: 40 mg Glimepiride (Glimepiride 2 Mg Tablet) 1 mg PO BIDAC [facility] Last Admin: 02/03/25 16:55 Dose: 1 mg Glucagon (Glucagon 1 Mg/Vial) 1 mg IM 1X PRN PRN Reason: HYPOGLYCEMIA Home Med (Ubrogepant [Ubrelvy]) 100 mg PO SEECOM PRN PRN Reason: migraine Dextrose (Dextrose 10% Water Iv Soln.) 125 mls @ 0 mls/hr IV PRN PRN; Protocol PRN Reason: HYPOGLYCEMIA Insulin Human Regular (Insulin Regular (Human) 100 Unit/Ml) 0 unit SQ ACHS [facility]; Protocol Last Admin: 02/03/25 20:43 Dose: 2 unit Ipratropium [place] (Ipratropium Brom 0.5mg/2.5ml) 0.5 mg NEB [id number] PRN PRN Reason: SHORTNESS OF BREATH Last Admin: 02/03/25 12:05 Dose: 0.5 mg Mirtazapine (Mirtazapine 15 Mg Tab) 30 mg PO DAILY [facility] Last Admin: 02/03/25 08:30 Dose: 30 mg Montelukast Sodium (Montelukast 10 Mg Tab) 10 mg PO DAILY [facility] Last Admin: 02/03/25 08:31 Dose: 10 mg Ondansetron HCl (Ondansetron 4 Mg/2 Ml Vial) 4 mg IV Q6HP PRN PRN Reason: NAUSEA / VOMITING Last Admin: 01/27/25 21:06 Dose: 4 mg Pregabalin (Pregabalin 75 Mg Cap) 75 mg PO BID [facility] Last Admin: 02/03/25 20:43 Dose: 75 mg Ropinirole HCl (Ropinirole Hcl 0.25 Mg Tab) 0.5 mg PO BEDTIME [facility] Last Admin: 02/03/25 20:43 Dose: 0.5 mg Sildenafil Citrate (Sildenafil Citrate 20 Mg Tablet) 20 mg PO BID [facility] Last Admin: 02/03/25 20:43 Dose: 20 mg Spironolactone (Spironolactone 25 Mg Tablet) 25 mg PO DAILY [facility] Last Admin: 02/03/25 08:31 Dose: 25 mg Tiotropium [place] (Tiotropium 5 Sprays/Inhaler) 1 sprays IH DAILY [facility] Last Admin: 02/03/25 08:38 Dose: 1 puff Vitamin E (Vitamin E 400 Iu Cap) 400 iu PO DAILY [facility] Last Admin: 02/03/25 08:36 Dose: 400 iu Assessment/ Plan: Nephrology No dyspnea No chest pain No acute events overnight Vitals, medications, blood work and imaging reviewed in the chart NAD. Obese. MMM. NCAT. Normal Respiratory Effort. S1S2. ND Abd. No C/C. LE Edema 1-2+. No rash. LLE ulcer. AAO. Normal speech. Oxygen NC PureWick Stage I ROS CKD II -No NSAIDs Hyponatremia -Encourage nutrition HTN with CKD/ CHF -Continue Coreg Diastolic CHF, A/C Pulmonary HTN in the setting of TR Anasarca -Continue furosemide and spironolactone DM II -RISS Anemia in chronic illness -Monitor H&H Hospitalist note reviewed
[2025-02-04 08:35] VITALS: O2SAT 99
[2025-02-04 09:25] LABS: Anion Gap 8.9 mEq/L (5.0-15.0); Potassium 3.9 mEq/L (3.5-5.1)
[2025-02-04 10:56] LABS: Absolute Eosinophils 0.1 K/uL (0-0.5); Absolute Lymphocytes (CBC) 0.8 K/uL (0.7-4.9); Absolute Monocytes 0.5 K/uL (0.1-1.3); Absolute Neutrophil 7.7 K/uL (1.8-8.0); Basophils % 0.2 % (0-1.3); Eosinophils % 1.4 % (0-4.4); Hemoglobin 10.4 g/dL (12.0-15.0); Lymphocytes % 8.6 % (15.3-44.8); MCH 30.2 pg (27.0-35.0); MCHC 31.7 g/dL (32.0-36.0); MCV 95.3 fL (80-100); Monocytes % 5.8 % (3.3-12.3); Nucleated Red Blood Cells % 0.1 % (0-0); Platelets 267 thou/uL (152-406); RBC Red Blood Cell Count 3.46 M/uL (3.86-4.86); Red Cell Distribution Width 17.3 % (12.1-15.2)
[2025-02-04] MEDS ORDERED: D50W 25 GM/50 ML SYRINGE IV PRN (12:46)
[2025-02-04 16:14] VITALS: BP 119/69; TEMP 97.9
[2025-02-04] MEDS: INSULIN 70/30 100 UNITS/ML SQ SCH (16:20)
--- NOTE | 2025-02-04 17:34 | P.DS ---
Admission Date: 01/22/25 Discharge Date: 02/04/25 Disposition: DC HOME/HOME HEALTH CARE Discharge Condition: FAIR Reason for Admission: Generalized body swelling Hospital Course: Problem List: Acute on chronic hypoxic respiratory failure secondary to acute on chronic CHF exacerbation Severe pulmonary hypertension Severe tricuspid regurgitation (TTE 12/2024) Anasarca Azotemia IDDM2 with hypoglycemia Chronic COPD Chronic atrial fibrillation, s/p pacemaker Chronic Anemia Hyperlipidemia Hypertension Restless leg syndrome Dementia Hx of CVA Patient presented with worsening shortness of breath, lower extremity pain/swelling secondary to acute on chronic CHF exacerbation. Chest xray on admission negative for acute findings. No echo this hospitalization given recent echo ~1 month ago with had noted 67% EF, moderate- severe Tricuspid regurgitation, severe pulm Hypertension, mild MR bi-atrial enlargement. Patient was started on IV lasix in addition to oral aldactone and had improvement of her symptoms. Her swelling and breathing slowly improved with diuresis. IV lasix was deescalated to oral on 01/30 and patient continued to improve daily. Cardiology was consulted. Dr. Vasquez recommended starting patient on aldactone 25 mg daily in addition to increasing patient's lasix to 40 mg oral daily from 20 daily on discharge. Patient was evaluated by nephrology Dr. Hernández who treated her metabolic alk alosis with Diamox. Patient clinically improved. She worked with PT throughout hospitalization and demonstrated improvement over her hospital course. She was able to take some steps with physical therapy. Patient was feeling better, breathing more comfortably on her home oxygen settings, anasarca improved, and was deemed stable for discharge back to [facility] assisted living. Vital Signs/Physical Exam: Temp Pulse Resp BP Pulse Ox 97.9 F 79 18 119/69 100 02/04/25 16:00 02/04/25 16:00 02/04/25 16:00 02/04/25 16:00 02/04/25 16:00 General: Alert, In no apparent distress, Oriented x2 Neck: JVD not distended Respiratory: Clear to auscultation bilaterally, Normal air movement Cardiovascular: No edema, Regular rate/rhythm, Normal S1 S2 Gastrointestinal: Soft and benign, Non-distended Musculoskeletal: No swelling Integumentary: Other (Bilateral venous stasis dermatitis) Neurological: Normal speech, Normal strength at 5/5 x4 extr Laboratory Data at Discharge: WBC 9.20 thou/uL (4.3-10.9) 02/04/25 08:45 Hgb 10.4 g/dL (12.0-15.0) L 02/04/25 08:45 Hct 33.0 % (36.0-45.0) L 02/04/25 08:45 Plt Count 267 thou/uL (152-406) 02/04/25 08:45 Sodium 136 mEq/L (136-145) 02/04/25 08:45 Potassium 3.9 mEq/L (3.5-5.1) 02/04/25 08:45 BUN 34 mg/dL (7-18) H 02/04/25 08:45 Creatinine 0.81 mg/dL (0.55-1.02) 02/04/25 08:45 Glucose 200 mg/dL (74-106) H 02/04/25 08:45 Uric Acid 10.0 mg/dL (2.6-6.0) H 01/27/25 07:18 Phosphorus 4.2 mg/dL (2.5-4.9) 02/01/25 09:05 Magnesium 2.8 mg/dL (1.6-2.4) H 02/02/25 05:41 Total Bilirubin 0.3 mg/dL (0.2-1.0) 01/30/25 05:27 AST 14 U/L (15-37) L 01/30/25 05:27 ALT < 14 U/L (13-56) 01/30/25 05:27 Alkaline Phosphatase 64 U/L (45-117) 01/30/25 05:27 Triglycerides 70 mg/dL (<150) 01/23/25 05:59 Cholesterol 93 mg/dL (<200) 01/23/25 05:59 HDL Cholesterol 56 mg/dL (40-60) 01/23/25 05:59 Cholesterol/HDL Ratio 1.66 01/23/25 05:59 Home Medications: Apixaban [Eliquis *] 2.5 mg PO BID 09/25/24 Alendronate Sodium 70 mg PO Q7D 10/27/24 Aspirin [Aspirin EC] 81 mg PO DAILY 10/27/24 Atorvastatin Calcium 20 mg PO BEDTIME 10/27/24 Cetirizine HCl [All Day Allergy] 10 mg PO DAILY 10/27/24 Donepezil [Aricept*] 10 mg PO DAILY 10/27/24 Ferosul Tab 325 mg PO DAILY 10/27/24 Ubrogepant [Ubrelvy] 100 mg PO SEECOM PRN 10/28/24 carvediloL [Coreg*] 3.125 mg PO BID tab 11/24/24 Acetaminophen [Tylenol*] 650 mg PO Q4HP PRN 12/26/24 Albuterol Sulfate [Ventolin Hfa] 2 puff NEB PRN PRN 12/26/24 Mirtazapine [Remeron] 30 mg PO DAILY 12/26/24 Montelukast [Singulair*] 10 mg PO DAILY 12/26/24 Nitroglycerin 0.4 mg PO SEECOM 12/26/24 Ondansetron [Zofran (Odt)*] 4 mg PO PRN PRN 12/26/24 Oxybutynin Chloride [Oxybutynin Chloride ER] 15 mg PO DAILY 12/26/24 Pregabalin [Lyrica*] 75 mg PO BID 12/26/24 Ropinirole HCl 0.5 mg PO DAILY 12/26/24 Glimepiride 1 mg PO BIDAC #60 tab 01/09/25 Fluticasone/Vilanterol [Breo Ellipta 100-25 Mcg Inhalr] 1 each IH DAILY 01/23/25 Semaglutide [Ozempic] 0.5 mg SQ EVERY 7TH DAY 01/23/25 Tiotropium [place] [Spiriva] 2 spray IH DAILY 01/23/25 Albuterol Neb [Proventil 0.083% Neb Soln] 2.5 mg NEB [id number] PRN #120 amp 02/04/25 Cephalexin [Keflex*] 500 mg PO QID #20 cap 02/04/25 Furosemide [Lasix*] 40 mg PO DAILY #30 tab 02/04/25 Hydrocodone 5/APAP 325 [[place] 5/325*] 1 tab PO Q8HR PRN #15 tab 02/04/25 Sildenafil Citrate [Revatio*] 20 mg PO BID #60 tab 02/04/25 Spironolactone [Aldactone*] 25 mg PO DAILY #30 tab 02/04/25 Vitamin E [Vitamin E*] 400 iu PO DAILY #30 cap 02/04/25 acetaZOLAMIDE [Acetazolamide] 250 mg PO DAILY #30 tab 02/04/25 New Medications: Albuterol Neb [Proventil 0.083% Neb Soln] 2.5 mg NEB [id number] PRN #120 amp PRN Reason: Shortness Of Breath Hydrocodone 5/APAP 325 [[place] 5/325*] 1 tab PO Q8HR PRN #15 tab PRN Reason: pain acetaZOLAMIDE [Acetazolamide] 250 mg PO DAILY #30 tab Spironolactone [Aldactone*] 25 mg PO DAILY #30 tab Cephalexin [Keflex*] 500 mg PO QID #20 cap Furosemide [Lasix*] 40 mg PO DAILY #30 tab Sildenafil Citrate [Revatio*] 20 mg PO BID #60 tab Vitamin E [Vitamin E*] 400 iu PO DAILY #30 cap Physician Discharge Instructions: Physician discharge instructions: Patient presented with worsening shortness of breath, lower extremity pain/swelling secondary to acute on chronic CHF exacerbation. Chest xray on admission negative for acute findings. No echo this hospitalization given recent echo ~1 month ago with had noted 67% EF, moderate- severe Tricuspid regurgitation, severe pulm Hypertension, mild MR bi-atrial enlargement. Patient was started on IV lasix in addition to oral aldactone and had improvement of her symptoms. Her swelling and breathing slowly improved with diuresis. IV lasix was deescalated to oral on 01/30 and patient continued to improve daily. Cardiology was consulted. Dr. Vasquez recommended starting patient on aldactone 25 mg daily in addition to increasing patient's lasix to 40 mg oral daily from 20 daily on discharge. Patient clinically improved however was still feeling weak/rundown, requiring increased assistance. She worked with PT throughout hospitalization and demonstrated slow improvement over her hospital course. Patient was feeling better, breathing more comfortably on her home oxygen settings, anasarca improved, and was deemed stable for discharge back to [facility] assisted living. Medications: Follow up: PCP 3-5 days Cardiology 2-4 weeks Please call to schedule / confirm appointments Diet: ADA Activity: Fall precautions Followup: Queenie Nice MD [Primary Care Provider] - 1-2 Weeks Time spent managing pt's care (in minutes): 42
--- NOTE | 2025-02-04 21:31 | P.PN ---
Date of Service: 02/04/25 Vital Signs Temp Pulse Resp BP Pulse Ox 97.9 F 79 18 119/69 100 02/04/25 16:00 02/04/25 16:00 02/04/25 16:00 02/04/25 16:00 02/04/25 16:00 Assessment/ Plan: Nephrology No dyspnea No chest pain Headache this morning No acute events overnight Vitals, medications, blood work and imaging reviewed in the chart NAD. Obese. MMM. NCAT. Normal Respiratory Effort. S1S2. ND Abd. No C/C. LE Edema 1-2+. No rash. LLE ulcer. AAO. Normal speech. Oxygen NC PureWick Stage I ROS CKD II -No NSAIDs Hyponatremia -Encourage nutrition HTN with CKD/ CHF -Continue Coreg Diastolic CHF, A/C Pulmonary HTN in the setting of TR Anasarca -Continue furosemide and spironolactone DM II -RISS Anemia in chronic illness -Monitor H&H Hospitalist note reviewed Case reviewed with hospitalist team
== END 2025-02-04 18:29 | DRG 291 ==
LOC: ER 12:59 → ERHOLD 20:41 → 4TH 22:13
PROVIDERS: ADMIT Family Medicine; ATTEND Internal Medicine
PROC: 4A033R1 Measurement of Arterial Saturation, Peripheral, Percutaneous Approach (ICD-10-PCS; principal; 2025-01-23)
PROC: 5A09557 Assistance with Respiratory Ventilation, Greater than 96 Consecutive Hours, Continuous Positive Airway Pressure (ICD-10-PCS; 2025-01-23)
DX: I11.0 Hypertensive heart disease with heart failure (principal); I50.33 Acute on chronic diastolic (congestive) heart failure; J96.21 Acute and chronic respiratory failure with hypoxia; I48.20 Chronic atrial fibrillation, unspecified; E87.3 Alkalosis; E66.2 Morbid (severe) obesity with alveolar hypoventilation; N17.9 Acute kidney failure, unspecified; E87.1 Hypo-osmolality and hyponatremia; G25.81 Restless legs syndrome; I27.20 Pulmonary hypertension, unspecified; I07.1 Rheumatic tricuspid insufficiency; E78.5 Hyperlipidemia, unspecified; I87.2 Venous insufficiency (chronic) (peripheral); E11.649 Type 2 diabetes mellitus with hypoglycemia without coma; J44.9 Chronic obstructive pulmonary disease, unspecified; D63.8 Anemia in other chronic diseases classified elsewhere; F03.90 Unspecified dementia, unspecified severity, without behavioral disturbance, psychotic disturbance, mood disturbance, and anxiety; Z79.4 Long term (current) use of insulin; Z95.0 Presence of cardiac pacemaker; Z88.5 Allergy status to narcotic agent; Z88.1 Allergy status to other antibiotic agents; Z88.8 Allergy status to other drugs, medicaments and biological substances; Z79.01 Long term (current) use of anticoagulants; Z79.82 Long term (current) use of aspirin; Z68.32 Body mass index [BMI] 32.0-32.9, adult; Z79.02 Long term (current) use of antithrombotics/antiplatelets; Z79.84 Long term (current) use of oral hypoglycemic drugs; Z86.73 Personal history of transient ischemic attack (TIA), and cerebral infarction without residual deficits; Z79.899 Other long term (current) drug therapy
CPT/HCPCS: 36415; 36600; 71045; 80048; 80053; 80061; 80069; 80076; 81001; 82805; 82947; 83735; 83880; 84100; 84484; 84550; 85025; 85027; 93005; 94660; 96374; 96375; 97116; 97161; 97530; 99285; J0690; J1815; J1940; J2270; J2405; J3010; J7613; J7644

== ENCOUNTER 2025-02-07 23:26 | Inpatient (IN) | payer OTHER ==
--- OUTSIDE RECORDS SUMMARY | 2025-02-07 23:29 | XMS REPORT | Continuity of Care Document ---
Author Name Unknown Address [address] [facility] [address] [place] [address] [facility] Address [address] [facility] [place] [address] Care Team Providers Care Shelf Stocker Name Role Phone STEVE ARMENTA Attending Clinician Unavailable Payers Payer Name Policy Type Policy Number Effective Date Expirati on Date Source [facility] [id number] 2024 00:00:00 Encounters Start Date/Time End Date/Time Encounter Type Admission Type Attending Clinicians Care Facility Care Department Encounter ID Source 2024-12-25 10:00:00 2024-12-25 10:00:00 Outpatient STEVE ARMENTA [id number] [facility]
--- NOTE | 2025-02-08 00:51 | RAD REPORT ---
EXAM: XR Chest, 1 View CLINICAL HISTORY: The patient is 74 years old and is Female; CHEST PAIN TECHNIQUE: Frontal view of the chest. COMPARISON: Chest radiograph February 02, 2025 FINDINGS: LIMITATIONS: The patient is rotated limiting evaluation. LUNGS: Unremarkable. No consolidation. PLEURAL SPACE: Unremarkable. No pneumothorax. HEART: Cardiac silhouette is enlarged. MEDIASTINUM: Unremarkable. Normal mediastinal contour. BONES/JOINTS: The bones are osteopenic. Degenerative change of the spine and shoulders is noted. No acute fracture. TUBES, LINES AND DEVICES: Left-sided pacemaker is present. UPPER ABDOMEN: Unremarkable as visualized. IMPRESSION: Cardiomegaly without failure. Electronically signed by: Nicole Morrison MD 02/08/2025 12:46 AM CDT RP Transcribed Date/Time: 02/08/2025 12:50 AM
[2025-02-08 01:03] LABS: PT Prothrombin Time 14.4 SECONDS (10-13.0); Protime INR 1.28
[2025-02-08 01:11] LABS: Absolute Basophils 0.1 K/uL (0-0.5); Absolute Eosinophils 0.3 K/uL (0-0.5); Absolute Lymphocytes (CBC) 0.8 K/uL (0.7-4.9); Absolute Monocytes 0.6 K/uL (0.1-1.3); Absolute Neutrophil 4.6 K/uL (1.8-8.0); Basophils % 1.5 % (0-1.3); Eosinophils % 4.1 % (0-4.4); Hematocrit 33.5 % (36.0-45.0); Hemoglobin 10.2 g/dL (12.0-15.0); MCH 29.9 pg (27.0-35.0); MCHC 30.5 g/dL (32.0-36.0); MCV 98.1 fL (80-100); MPV 7.9 fL (7.6-11.3); Monocytes % 9.2 % (3.3-12.3); Neutrophils % 72.2 % (41.7-73.7); Nucleated Red Blood Cells % 0.1 % (0-0); Platelets 291 thou/uL (152-406); RBC Red Blood Cell Count 3.42 M/uL (3.86-4.86); Red Cell Distribution Width 17.3 % (12.1-15.2)
[2025-02-08 01:20] LABS: AST/SGOT 19 U/L (15-37); Albumin 2.7 g/dL (3.4-5.0); Albumin/Globulin Ratio 0.8 (1.1-1.8); Alkaline Phosphatase 68 U/L (45-117); Anion Gap 6.5 mEq/L (5.0-15.0); BUN Blood Urea Nitrogen 38 mg/dL (7-18); Bicarbonate 30 mEq/L (21-32); Bilirubin Total 0.2 mg/dL (0.2-1.0); Globulin 3.6 g/dL (2.3-3.5); Glomerular Filtration Rate 55 ml/min (=/>90); Glucose Level 106 mg/dL (74-106); NT PRO-BNP 1815 pg/mL (<450); Potassium 4.5 mEq/L (3.5-5.1); Protein, Total 6.3 g/dL (6.4-8.2); Sodium Level 136 mEq/L (136-145); Troponin High Sensitivity 12.4 pg/mL (<58.9)
[2025-02-08 01:38] LABS: ALT/SGPT < 14 U/L (13-56); Bilirubin Direct < 0.2 mg/dL (0-0.2)
[2025-02-08] MEDS ORDERED: ONDANSETRON 4 MG/2 ML VIAL ONE (01:38)
[2025-02-08] MEDS ORDERED: ALBUMIN HUMAN 25% 100 ML IV ONE (01:39)
[2025-02-08] MEDS ORDERED: FUROSEMIDE 40 MG/4 ML VIAL ONE ×2 (01:39→08:41)
[2025-02-08] MEDS ORDERED: MORPHINE 4 MG/ML SYR ONE (01:39)
[2025-02-08 03:14] LABS: Specific Gravity 1.018 (1.005-1.030); Sqamous Epithelial <5 /HPF (None Seen); Urine Bacteria <20 /HPF (<20); Urine Bilirubin NEGATIVE (Negative); Urine Blood Negative (Negative); Urine Clarity Turbid (Clear); Urine Color Light-Yellow (Yellow); Urine Culture Reflex Order NOT NEEDED; Urine Glucose NEGATIVE (Negative); Urine Ketones 1+ (Negative); Urine Microscopic Reflex YN ORDER UMIC; Urine Mucus 4+ /HPF (None Seen); Urine Nitrite 2+ (Negative); Urine Protein NEGATIVE (Negative); Urine RBC <5 /HPF (None Seen); Urine Urobilinogen 2+ (Normal); Urine WBC <5 /HPF (<5)
--- NOTE | 2025-02-08 04:36 | ER ---
Nurse's Notes [facility] Name: Caren Cuadra Age: 74 yrs Sex: Female : 1950 Arrival Date: 02/07/2025 Time: 23:26 Bed 18 Private MD: Diagnosis: Acute on chronic combined systolic (congestive) and diastolic (congestive) heart failure;Generalized edema Presentation: 02/07 23:37 Chief complaint: Patient states: C/O CP MID-STERNAL AND SOB [employer]. PER EMS PT O2 SATS br2 WERE 88% RA. Coronavirus screen: Client denies travel out of the [place] in the last 14 days. Ebola Screen: Patient denies exposure to infectious person. Initial Sepsis Screen: Does the patient meet any 2 criteria? No. Patient's initial sepsis screen is negative. Does the patient have a suspected source of infection? No. Patient's initial sepsis screen is negative. Risk Assessment: Do you want to hurt yourself or someone else? Patient reports no desire to harm self or others. Onset of symptoms is unknown. 23:37 Method Of Arrival: EMS: [facility] br2 23:37 Acuity: ROSEMARIE 3 br2 Triage Assessment: 23:39 General: Appears uncomfortable, Behavior is cooperative, anxious. Pain: Complains of br2 pain in mid-sternal area Pain does not radiate. Pain currently is 7 out of 10 on a pain scale. EENT: No signs and/or symptoms were reported regarding the EENT system. Neuro: [place] Agitation-Sedation Scale (RASS): 0 - Alert and Calm Level of Consciousness is awake, alert, obeys commands, Oriented to person, place, time. Cardiovascular: Reports chest pain, shortness of breath. Respiratory: Reports shortness of breath at rest on exertion. GI: Abdomen is round distended. : Reports DECREASED URINE OUTPUT. Derm: No signs and/or symptoms reported regarding the dermatologic system. Musculoskeletal: Reports weakness in head, chest, abdomen, pelvis, right arm, right hand, left arm, left hand, right leg, right foot, left leg and left foot. Historical: - Allergies: 23:39 Codeine; br2 23:39 Darvon; br2 23:39 e-mycin; br2 23:39 TETRACYCLINES; br2 23:39 articane hydrochloride; br2 23:39 Iodine; br2 23:39 Macrobid; br2 23:39 idoxuridine; br2 23:39 Adhesives; br2 - PMHx: 23:39 depressive disorder; diabetes mellitus; radiating back pain; Anxiety; COPD; Atrial br2 fibrillation; CVA; RLS; overactive bladder; Migraine; Dementia; Hypercholesterolemia; Congestive heart failure; - Immunization history:: Adult Immunizations up to date, Flu vaccine is up to date. - Infectious Disease History:: Denies. - Social history:: Smoking status: Patient denies any tobacco usage or history of. Patient uses alcohol, but reports only rare drinking. - Family history:: not pertinent. Screenin:45 [facility] ED Fall Risk Assessment (Adult) History of falling in the last 3 months, vc1 including since admission No falls in past 3 months (0 pts) Confusion or Disorientation No (0 pts) Intoxicated or Sedated No (0 pts) Impaired Gait Yes (1 pt) Mobility Assist Device Used Yes (1 pt) Altered Elimination Yes (1 pt) Score/Fall Risk Level 3 or more points = High Risk Oriented to surroundings, Maintained a safe environment, Educated pt \T\ family on fall prevention, incl call for assistance when getting out of bed, Provided non-skid footwear. Abuse screen: Denies threats or abuse. Nutritional screening: No deficits noted. Tuberculosis screening: No symptoms or risk factors identified. Assessment: 23:45 General: Appears in no apparent distress. uncomfortable, Behavior is cooperative. Pain: vc1 Complains of pain in chest and abdomen Pain does not radiate. Pain currently is 10 out of 10 on a pain scale. Pain began suddenly. Neuro: Level of Consciousness is awake, alert, obeys commands, Oriented to person, place, time, situation, Appropriate for age. Cardiovascular: Heart tones S1 S2 present Capillary refill < 3 seconds Patient's skin is warm and dry. Rhythm is Respiratory: Airway is patent Respiratory effort is even, unlabored, Respiratory pattern is regular, symmetrical, Breath sounds are clear bilaterally. GI: Abdomen is distended. : No deficits noted. No signs and/or symptoms were reported regarding the genitourinary system. 23:45 EENT: No deficits noted. No signs and/or symptoms were reported regarding the EENT vc1 system. Derm: Skin is intact, is healthy with good turgor, Skin is dry, Skin is normal, Skin temperature is cool. Musculoskeletal: Circulation, motion, and sensation intact. 02/08 01:45 Reassessment: medications delayed do to no IV access. vc1 02:18 Reassessment: Patient appears in no apparent distress at this time. Patient and/or vc1 family updated on plan of care and expected duration. Pain level reassessed. Patient states symptoms have improved. 04:14 Reassessment: Patient appears in no apparent distress at this time. No changes from vc1 previously documented assessment. Patient and/or family updated on plan of care and expected duration. Pain level reassessed. Patient is alert, oriented x 3, equal unlabored respirations, skin warm/dry/pink. 05:45 Reassessment: Patient appears in no apparent distress at this time. No changes from vc1 previously documented assessment. Patient and/or family updated on plan of care and expected duration. Pain level reassessed. Patient is alert, oriented x 3, equal unlabored respirations, skin warm/dry/pink. Vital Signs: 02/07 23:37 BP 118 / 69; Pulse 87; Resp 18; Temp 97.2(TE); Pulse Ox 97% on 3 lpm NC; Weight 86.64 br2 kg; Height 5 ft. 6 in. ; Pain 7/10; 02/08 00:45 BP 117 / 78; Pulse 89; Resp 20; Pulse Ox 100% on 2 lpm NC; vc1 01:45 BP 127 / 91; Pulse 92; Resp 27; Pulse Ox 100% on 2 lpm NC; vc1 02:45 BP 125 / 81; Pulse 93; Resp 17; Pulse Ox 100% on 2 lpm NC; vc1 03:45 BP 96 / 79; Pulse 92; Resp 17; Pulse Ox 100% ; vc1 02/07 23:37 Body Mass Index 30.83 (86.64 kg, 167.64 cm) br2 02/07 23:37 Pain Scale: Adult br2 [place] Coma Score: 04:26 Eye Response: spontaneous(4). Motor Response: obeys commands(6). Verbal Response: sp4 oriented(5). Total: 15. ED Course: 02/07 23:27 Patient arrived in ED. [email or web address] 23:36 Ferdinand Lobo MD is Attending Physician. sp4 23:39 Triage completed. br2 23:39 Arm band placed on. br2 23:45 Patient has correct armband on for positive identification. Bed in low position. Call vc1 light in reach. sourcer on. Pulse ox on. NIBP on. 23:55 Chloe Kate RN is Primary Nurse. vc1 23:57 XRAY Chest (1 view) In Process Unspecified. EDMS 02/08 01:03 CT Chest Abdomen Pelvis W/O Contrast In Process Unspecified. EDMS 02:18 Provided Education on: purewick. vc1 04:35 Gabriel Mckenna MD is Hospitalizing Provider. sp4 06:00 No provider procedures requiring assistance completed. Patient admitted, IV remains in vc1 place. Oxygen administration via nasal cannula \T\ 2L/min. Administered Medications: 02:00 Drug: morphine IVP or IV 4 mg IVP once over 4 mins Route: IVP; Infused Over: 4 mins; vc1 Site: right forearm; 04:14 Follow up: Response: No adverse reaction; Marked relief of symptoms; Pain is decreased vc1 02:00 Drug: Ondansetron IVP 4 mg IVP once; over 2 minutes Route: IVP; Site: right forearm; vc1 04:14 Follow up: Response: No adverse reaction; Marked relief of symptoms vc1 02:01 Drug: Furosemide IVP 40 mg IVP once; give over 2 minutes Route: IVP; Site: right vc1 antecubital; 04:14 Follow up: Response: No adverse reaction; Marked relief of symptoms vc1 02:01 Drug: Albumin IVPB 25 grams 100 ml IVPB once; (Note: Albumin 25% concentration) Volume: vc1 100 ml; Route: IVPB; Site: right antecubital; 03:00 Follow up: IV Status: Completed infusion; IV Intake: 100ml vc1 04:57 Drug: morphine IVP or IV 2 mg IVP once over 4 mins Route: IVP; Infused Over: 4 mins; vc1 Site: right forearm; 06:02 Follow up: Response: No adverse reaction; Marked relief of symptoms; Pain is decreased vc1 04:57 Drug: Droperidol IVP 1.25 mg IVP once Route: IVP; Site: right forearm; vc1 06:02 Follow up: Response: No adverse reaction; Marked relief of symptoms; Pain is decreased vc1 Medication: 02:18 VIS not applicable for this client. vc1 Intake: 03:00 IV: 100ml; Total: 100ml. vc1 Outcome: 04:35 Decision to Hospitalize by Provider. sp4 06:01 Admitted to ER Hold. Please see [facility] for further documentation. vc1 06:01 Condition: stable 06:01 Instructed on the need for admit, 13:39 Patient left the ED. Signatures: Dispatcher [employer] EDMS Cindy Melendez RN RN Ceci Easton [email or web address] Chloe Kate RN RN vc1 Ferdinand Lobo MD MD sp4 Sanjana Camacho RN RN br2
--- NOTE | 2025-02-08 04:36 | EDPHYS ---
Physician Documentation [facility] Name: Caren Cuadra Age: 74 yrs Sex: Female : 1950 Arrival Date: 02/07/2025 Time: 23:26 Bed 18 Private MD: ED Physician Ferdinand Lobo HPI: 02/07 23:36 This 74 yrs old Female presents to ER via Unassigned with complaints of Chest sp4 Pain. 02/08 04:26 74-year-old female presents with complaint of diffuse lower extremity swelling sp4 associated with shortness of breath and chest pain. Patient resides in [facility]. History of recent admission here for CHF exacerbation 01/22/2025 with a discharge date of 02/04/2025. Patient was managed for chronic and acute respiratory failure, chronic CHF with acute CHF exacerbation, pulmonary hypertension, tricuspid regurgitation, anasarca, azotemia, diabetes type 2 with hyperglycemia, chronic COPD, atrial fibrillation with history of pacemaker, chronic anemia, hyperlipidemia, hypertension, restless leg syndrome, dementia, history of CVA. Patient's medications include apixaban 2.5 mg twice daily, alendronate weekly, aspirin 81 mg daily, atorvastatin 20 mg bedtime, cetirizine, donepezil, FeroSul, Ubrelvy, Remeron, Singulair, nitroglycerin, ondansetron, oxybutynin, Lyrica, ropinirole, gabapentin, glimepiride, fluticasone, Ozempic, tiotropium, albuterol, cephalexin, furosemide, hydrocodone as needed, sildenafil, spironolactone, vitamin D, acetazolamide.. Historical: - Allergies: 02/07 23:39 Codeine; br2 23:39 Darvon; br2 23:39 e-mycin; br2 23:39 TETRACYCLINES; br2 23:39 articane hydrochloride; br2 23:39 Iodine; br2 23:39 Macrobid; br2 23:39 idoxuridine; br2 23:39 Adhesives; br2 - PMHx: 23:39 depressive disorder; diabetes mellitus; radiating back pain; Anxiety; COPD; Atrial br2 fibrillation; CVA; RLS; overactive bladder; Migraine; Dementia; Hypercholesterolemia; Congestive heart failure; - Immunization history:: Adult Immunizations up to date, Flu vaccine is up to date. - Infectious Disease History:: Denies. - Social history:: Smoking status: Patient denies any tobacco usage or history of. Patient uses alcohol, but reports only rare drinking. - Family history:: not pertinent. ROS: 02/08 04:26 Constitutional: Negative for fever, chills, and weight loss, positive shortness of sp4 breath, positive swelling lower extremities, positive chest pain. All other systems are negative, Exam: 04:26 Constitutional: Physically debilitated female, diffuse lower extremity and lower sp4 abdominal swelling, also other areas moderate to severe physical deconditioning, nonambulatory. Head/Face: Normocephalic, atraumatic. Eyes: Pupils equal round and reactive to light, extra-ocular motions intact. Lids and lashes normal. Conjunctiva and sclera are not injected. Cornea within normal limits. Periorbital areas with no swelling, redness, or edema. ENT: Nares patent. No nasal discharge, no septal abnormalities noted. Tympanic membranes are normal and external auditory canals are clear. Oropharynx with no redness, swelling, or masses, exudates, or evidence of obstruction, uvula midline. Mucous membranes moist. Neck: Trachea midline, no thyromegaly or masses palpated, and no cervical lymphadenopathy. Supple, full range of motion without nuchal rigidity, or vertebral point tenderness. Chest/axilla: Normal chest wall appearance and motion. Nontender with no deformity. No lesions are appreciated. Cardiovascular: Regular rate and rhythm with a normal S1 and S2. No gallops, murmurs, or rubs. Normal PMI, no JVD. No pulse deficits. Respiratory: Lungs have equal breath sounds bilaterally, clear to auscultation and percussion. No rales, rhonchi or wheezes noted. No increased work of breathing, no retractions or nasal flaring. Abdomen/GI: Soft, with normal bowel sounds. No distension or tympany. No guarding or rebound. No evidence of tenderness throughout. Back: No spinal tenderness. No costovertebral tenderness. Skin: Warm, dry with normal turgor. Normal color with no rashes, no lesions, and no evidence of cellulitis. MS/ Extremity: Pulses equal, no cyanosis. Bilateral lower extremity atrophy from immobility bilateral lower extremity edema, bilateral lower extremity chronic appearing cellulitis, nonambulatory Neuro: Awake and alert, GCS 15, oriented to person, place, time, and situation. Cranial nerves II-XII grossly intact. Motor strength 5/5 in all extremities. Sensory grossly intact. Psych: Awake, alert, with orientation to person, place and time. Behavior, mood, and affect are within normal limits 04:26 ECG was reviewed by the Attending Physician. EKG 0008 07/11/2025. Electronic ventricular pacemaker rate 92 Vital Signs: 02/07 23:37 BP 118 / 69; Pulse 87; Resp 18; Temp 97.2(TE); Pulse Ox 97% on 3 lpm NC; Weight 86.64 br2 kg; Height 5 ft. 6 in. ; Pain 05/28; 02/08 00:45 BP 117 / 78; Pulse 89; Resp 20; Pulse Ox 100% on 2 lpm NC; vc1 01:45 BP 127 / 91; Pulse 92; Resp 27; Pulse Ox 100% on 2 lpm NC; vc1 02:45 BP 125 / 81; Pulse 93; Resp 17; Pulse Ox 100% on 2 lpm NC; vc1 03:45 BP 96 / 79; Pulse 92; Resp 17; Pulse Ox 100% ; vc1 02/07 23:37 Body Mass Index 30.83 (86.64 kg, 167.64 cm) br2 02/07 23:37 Pain Scale: Adult br2 [place] Coma Score: 04:26 Eye Response: spontaneous(4). Motor Response: obeys commands(6). Verbal Response: sp4 oriented(5). Total: 15. MDM: 00:08 Differential diagnosis: acute pericarditis, anxiety, coronary artery disease congestive sp4 heart failure esophagitis, gastritis. HEART Score: History: Moderately Suspicious (1), ECG: Non specific repolarization disturbance / LBTB / PM (1), Age: > or = 65 years (2), Risk Factors: > or = 3 Risk factors for atherosclerotic disease (2), Troponin: < or = 1 x Normal Limit (0), Total Score = 6. The patient was not given aspirin in the Emergency Department. Patient reports taking aspirin within the past 24 hours. Data reviewed: vital signs, nurses notes, EMS record, [facility] records, old medical records, lab test result(s), EKG, radiologic studies, CT scan, plain films. ED course: CLINICAL HISTORY: The patient is 74 years old and is Female; CHEST PAIN TECHNIQUE: Frontal view of the chest. COMPARISON: Chest radiograph February 02, 2025 FINDINGS: LIMITATIONS: The patient is rotated limiting evaluation. LUNGS: Unremarkable. No consolidation. PLEURAL SPACE: Unremarkable. No pneumothorax. HEART: Cardiac silhouette is enlarged. MEDIASTINUM: Unremarkable. Normal mediastinal contour. BONES/JOINTS: The bones are osteopenic. Degenerative change of the spine and shoulders is noted. No acute fracture. TUBES, LINES AND DEVICES: Left-sided pacemaker is present. UPPER ABDOMEN: Unremarkable as visualized. IMPRESSION: Cardiomegaly without failure. ED course: Stable for admission for CHF exacerbation.. 01:34 Medical Screening Exam initiated sp4 04:15 ED course: CT today - IMPRESSION: 1. Small bilateral pleural effusions with adjacent sp4 atelectasis. Additional mild patchy ground glass opacities in the lower lobes could be due to atelectasis or infection. 2. Marked diffuse subcutaneous edema. 3. Non obstructing right renal calculus. 4. Moderate stool in the colon. No bowel obstruction. 5. Small right breast nodule measuring up to 1.0 cm. Correlate with mammography. Electronically signed by: Sonam Perea MD 02/08/2025 03:31 AM. 02/07 23:36 Order name: Basic Metabolic Panel; Complete Time: 04:15 sp4 02/07 23:36 Order name: CBC with Diff; Complete Time: 04:15 sp4 02/07 23:36 Order name: LFT's; Complete Time: 04:15 sp4 02/07 23:36 Order name: Magnesium; Complete Time: 04:15 sp4 02/07 23:36 Order name: NT PRO-BNP; Complete Time: 04:15 sp4 02/07 23:36 Order name: PT-INR; Complete Time: 04:15 sp4 02/07 23:36 Order name: Troponin HS; Complete Time: 04:15 sp4 02/07 23:43 Order name: Urinalysis w/ reflexes; Complete Time: 04:15 sp4 02/08 05:40 Order name: Urinalysis w/ reflexes EDMS 02/08 05:40 Order name: CBC with Automated Diff EDMS 02/08 05:40 Order name: CBC with Automated Diff EDMS 03/23 05:40 Order name: Comprehensive Metabolic Panel [facility] 02/08 05:40 Order name: Comprehensive Metabolic Panel [facility] 02/07 23:36 Order name: XRAY Chest (1 view); Complete Time: 04:15 sp4 02/07 23:42 Order name: CT Chest Abdomen Pelvis W/O Contrast sp4 02/07 23:36 Order name: Cardiac monitoring; Complete Time: 00:17 sp4 02/07 23:36 Order name: EKG - Nurse/Tech; Complete Time: 00:17 sp4 02/07 23:36 Order name: IV Saline Lock; Complete Time: 01:35 sp4 02/07 23:36 Order name: Labs collected and sent; Complete Time: 01:35 sp4 02/07 23:36 Order name: O2 Per Protocol; Complete Time: 00:17 sp4 02/07 23:36 Order name: O2 Sat Monitoring; Complete Time: 00:17 sp4 02/07 23:43 Order name: Misc. Order: Pure wic for urine; Complete Time: 04:14 sp4 EC:08 Rate is 92 beats/min. Rhythm is regular, Paced. Clinical impression: No evidence of sp4 ischemia. Interpreted by me. Reviewed by me. Administered Medications: 02:00 Drug: morphine IVP or IV 4 mg IVP once over 4 mins Route: IVP; Infused Over: 4 mins; vc1 Site: right forearm; 04:14 Follow up: Response: No adverse reaction; Marked relief of symptoms; Pain is decreased vc1 02:00 Drug: Ondansetron IVP 4 mg IVP once; over 2 minutes Route: IVP; Site: right forearm; vc1 04:14 Follow up: Response: No adverse reaction; Marked relief of symptoms vc1 02:01 Drug: Furosemide IVP 40 mg IVP once; give over 2 minutes Route: IVP; Site: right vc1 antecubital; 04:14 Follow up: Response: No adverse reaction; Marked relief of symptoms vc1 02:01 Drug: Albumin IVPB 25 grams 100 ml IVPB once; (Note: Albumin 25% concentration) Volume: vc1 100 ml; Route: IVPB; Site: right antecubital; 03:00 Follow up: IV Status: Completed infusion; IV Intake: 100ml vc1 04:57 Drug: morphine IVP or IV 2 mg IVP once over 4 mins Route: IVP; Infused Over: 4 mins; vc1 Site: right forearm; 06:02 Follow up: Response: No adverse reaction; Marked relief of symptoms; Pain is decreased vc1 04:57 Drug: Droperidol IVP 1.25 mg IVP once Route: IVP; Site: right forearm; vc1 06:02 Follow up: Response: No adverse reaction; Marked relief of symptoms; Pain is decreased vc1 Disposition Summary: 02/08/25 04:35 Hospitalization Ordered Notes: Hospitalization Status: Inpatient Admission sp4 Provider: Gabriel Mckenna sp4 Condition: Fair sp4 Problem: new sp4 Symptoms: have improved sp4 Bed/Room Type: Standard sp4 Location: Telemetry/MedSurg (Inpatient)(02/08/25 12:23) Room Assignment: [facility](02/08/25 12:23) Diagnosis - Acute on chronic combined systolic (congestive) and diastolic (congestive) heart sp4 failure - Generalized edema sp4 Forms: - Medication Reconciliation Form sp4 - SBAR form sp4 - Leadership Thank You Letter sp4 Signatures: Dispatcher [employer] EDMS Melinda Kumar Shelby, RN RN ss Cindy Melendez RN RN Chloe Kate RN RN vc1 Ferdinand Lobo MD MD sp4 Sanjana Camacho RN RN br2 Corrections: (The following items were deleted from the chart) 02/07 23:37 23:37 Chest Single View+RAD.RAD.BRZ ordered. EDMS EDMS 23:42 23:42 Chest Abdomen Pelvis Wo Con+CT.RAD.BRZ ordered. EDRI EDMS 02/08 06:00 04:35 Telemetry/MedSurg (Inpatient) sp4 vc1 06:00 04:35 sp4 vc1 08:28 06:00 [facility] ER HOLD vc1 sp 08:28 06:00 ERHOLD- vc1 sp 09:08 08:28 Telemetry/MedSurg (Inpatient) sp hb 09:08 08:28 429 sp hb 09:10 09:08 hb sp 12:23 09:08 BR ER HOLD hb ss 12:23 09:10 ERHOLD- sp ss
--- NOTE | 2025-02-08 04:40 | P.HP ---
Certification for Inpatient Patient admitted to: Inpatient With expected LOS: >2 Midnights Practitioner: I am a practitioner with admitting privileges, knowledge of patient current condition, hospital course, and medical plan of care. Services: Services provided to patient in accordance with Admission requirements found in Title 42 Section 412.3 of the Code of Federal Regulations Patient History Date of Service: 02/08/25 Reason for admission: SOB History of Present Illness: 74-year-old female with a history of heart failure with preserved ejection fraction, A-fib, history of CVA, COPD, type 2 diabetes, hyperlipidemia, hypertension who is presenting with anasarca and shortness of breath secondary to acute heart failure exacerbation. She is from an assisted living facility where she uses 2 L nasal cannula at home. Associated symptoms include leg pain and burning sensation. She denies fevers and chills. Patient started having shortness of breath which has been progressively getting worse and was brought to ER. Patient had a recent admission to this hospital and just recently been discharged back to assisted living. Patient was assessed in the ER and is admitted for further management of CHF exacerbation Allergies adhesive tape Allergy (Verified 12/25/24 23:19) Hives/Rash articaine Allergy (Verified 12/25/24 23:19) Hives erythromycin base [From E-Mycin] Allergy (Verified 12/25/24 23:19) Hives idoxuridine Allergy (Verified 12/25/24 23:19) Hives nitrofurantoin Allergy (Verified 12/25/24 23:19) Hives propoxyphene [From Darvon] Allergy (Verified 12/25/24 23:19) Hives Tetracyclines Allergy (Verified 12/25/24 23:19) Hives dye half-way blue, gren, red Allergy (Uncoded 12/25/24 23:19) Hives Home medications list reviewed: Yes Home Medications: Apixaban [Eliquis *] 2.5 mg PO BID 09/25/24 Alendronate Sodium 70 mg PO Q7D 10/27/24 Aspirin [Aspirin EC] 81 mg PO DAILY 10/27/24 Atorvastatin Calcium 20 mg PO BEDTIME 10/27/24 Cetirizine HCl [All Day Allergy] 10 mg PO DAILY 10/27/24 Donepezil [Aricept*] 10 mg PO DAILY 10/27/24 Ferosul Tab 325 mg PO DAILY 10/27/24 Ubrogepant [Ubrelvy] 100 mg PO SEECOM PRN 10/28/24 carvediloL [Coreg*] 3.125 mg PO BID tab 11/24/24 Acetaminophen [Tylenol*] 650 mg PO Q4HP PRN 12/26/24 Albuterol Sulfate [Ventolin Hfa] 2 puff NEB PRN PRN 12/26/24 Mirtazapine [Remeron] 30 mg PO DAILY 12/26/24 Montelukast [Singulair*] 10 mg PO DAILY 12/26/24 Nitroglycerin 0.4 mg PO SEECOM 12/26/24 Ondansetron [Zofran (Odt)*] 4 mg PO PRN PRN 12/26/24 Oxybutynin Chloride [Oxybutynin Chloride ER] 15 mg PO DAILY 12/26/24 Pregabalin [Lyrica*] 75 mg PO BID 12/26/24 Ropinirole HCl 0.5 mg PO DAILY 12/26/24 Glimepiride 1 mg PO BIDAC #60 tab 01/09/25 Fluticasone/Vilanterol [Breo Ellipta 100-25 Mcg Inhalr] 1 each IH DAILY 01/23/25 Semaglutide [Ozempic] 0.5 mg SQ EVERY 7TH DAY 01/23/25 Tiotropium [place] [Spiriva] 2 spray IH DAILY 01/23/25 Albuterol Neb [Proventil 0.083% Neb Soln] 2.5 mg NEB [id number] PRN #120 amp 02/04/25 Cephalexin [Keflex*] 500 mg PO QID #20 cap 02/04/25 Furosemide [Lasix*] 40 mg PO DAILY #30 tab 02/04/25 Hydrocodone 5/APAP 325 [[place] 5/325*] 1 tab PO Q8HR PRN #15 tab 02/04/25 Sildenafil Citrate [Revatio*] 20 mg PO BID #60 tab 02/04/25 Spironolactone [Aldactone*] 25 mg PO DAILY #30 tab 02/04/25 Vitamin E [Vitamin E*] 400 iu PO DAILY #30 cap 02/04/25 acetaZOLAMIDE [Acetazolamide] 250 mg PO DAILY #30 tab 02/04/25 - Past Medical/Surgical History Diabetic: Yes Past Medical History: Reviewed- Non-Contributory -: DM -: CVA -: Depression -: COPD -: Atrial Fibrillation -: RLS -: Migraines -: Overactive Bladder -: dementia -: Severe pulmonary hypertension Past Surgical History: Reviewed- Non-Contributory -: Pacemaker - Social History Smoking Status: Never smoker Alcohol use: Yes CD- Drugs: Yes Caffeine use: Yes Review of Systems 10-point ROS is otherwise unremarkable Physical Examination - Vital Signs Temperature: 97.2 F Blood Pressure: 124/78 Pulse: 76 Respirations: 18 Pulse Ox (%): 94 - Physical Exam General: Alert, Oriented x3, Mild distress HEENT: Atraumatic, Normocephalic Neck: Supple, No LAD Respiratory: Clear to auscultation bilaterally, Crackles/rales Cardiovascular: Regular rate/rhythm, Normal S1 S2 Capillary refill: <2 Seconds Gastrointestinal: Non-distended, W/out hepatosplenomegaly Musculoskeletal: No clubbing Integumentary: No significant lesion, No tenderness/swelling Neurological: Other (Alert awake nonfocal) Lymphatics: No axilla or inguinal lymphadenopathy - Studies Laboratory Data (last 24 hrs) 02/08/25 02/08/25 02/08/25 00:38 00:38 00:38 WBC 6.30 Hgb 10.2 L Hct 33.5 L Plt Count 291 PT 14.4 H INR 1.28 Sodium 136 Potassium 4.5 BUN 38 H Creatinine 1.06 H Glucose 106 Magnesium 3.0 H Total Bilirubin 0.2 AST 19 ALT < 14 Alkaline Phosphatase 68 Assessment and Plan - Plan Acute exacerbation of CHF Acute on chronic respiratory failure Severe pulmonary hypertension Severe tricuspid regurgitation Insulin-dependent diabetes with hyperglycemia COPD Dementia Atrial fibrillation Frailty Anemia Restless leg syndrome Presence of cardiac pacemaker Acute on chronic CHF possibly systolic/diastolic Monitor closely on telemetry Started on aggressive diuresis X-ray findings noted Oxygen supplementation Will try to wean down oxygen requirement Continue home medications Titrate as needed Cardiology consult Hypertension Antihypertensives titrated Continue home medications and titrate as needed Hyperlipidemia Continue statin Monitor renal parameters Electrolytes monitor and replace accordingly Diabetes Insulin sliding scale Accu-Chek before every meal and at bedtime Continue home medications and titrate as needed GI/DVT prophylaxis Advanced directive full code Discharge Plan: Home Plan to discharge in: 48 Hours - Advance Directives Does patient have a Living Will: Yes Does patient have a Durable POA for Healthcare: No - Code Status/Comfort Care Code Status: Full Code Time Spent Managing Pts Care (In Minutes): 54
[2025-02-08] MEDS ORDERED: MORPHINE 2 MG/ML SYR ONE (04:49)
[2025-02-08] MEDS ORDERED: droPERidol 5 MG/2 ML VIAL ONE (04:49)
[2025-02-08] MEDS ORDERED: ACETAMINOPHEN 325 MG TABLET PO PRN (05:36)
--- NOTE | 2025-02-08 07:01 | RAD REPORT ---
EXAM: Chest Abd Pelvis Wo Con CLINICAL HISTORY: ABDOMINAL DISTENTION COMPARISON: Single view chest 02/07/[address] abdomen pelvis 11/24/2024 TECHNIQUE: CT of the chest, abdomen and pelvis performed without IV contrast. Suboptimal evaluation o f the vasculature and solid organs due to lack of IV contrast. This exam was performed according to our departmental dose-optimization program, which includes automated exposure control, adjustment of the mA and/or kV according to patient size and/or use of iterative reconstruction technique. FINDINGS: There is some prominent artifact from left-sided pacemaker and pacing leads which obscures detail of adjacent structures. Prominent artifact from right hip prosthesis also obscures portions of the pelvis. Chest: Thyroid: No abnormalities of the visualized thyroid gland. Great Vessels: Arch origin of the left vertebral artery. Thoracic Aorta: No aneurysm. Pulmonary arteries: The main pulmonary artery is dilated. Heart: No significant pericardial effusion. Coronary artery calcifications. Lymph Nodes: Scattered small mediastinal lymph nodes without bulky lymphadenopathy. Esophagus: No abnormalities of the esophagus identified Other: Small retroperitoneal right breast nodule measuring 1.0 x 0.6 cm. Lungs: Mild motion artifact. Atelectasis adjacent to bilateral pleural effusions. Additional mild pat bhavna groundglass opacities in the lower lobes could be due to atelectasis or infection. Nodular opacity in the lateral right upper lobe measuring 0.8 cm favored to represent focal scarring. Pleura: Small bilateral pleural effusions, slightly larger on the left no pneumothorax. Trachea/Airways: Central airways are patent. Abdomen: Liver: The liver has normal size and density. No intrahepatic mass or biliary dilatation. Gallbladder: Absent. Spleen, Pancreas, and Adrenal Glands: The spleen, pancreas, and adrenal glands are unremarkable. Kidneys: Nonobstructing right renal calculus. No distal obstructing calculus. No hydronephrosis. Vasculature: The aorta and IVC have normal caliber and position. Extensive scattered calcified athe rosclerotic plaque. Stomach: Postsurgical changes related to prior gastric bypass. Other: No free intraperitoneal air. No significant lymphadenopathy. Marked diffuse subcutaneous. Pelvis: Bladder: Partially obscured due to artifact from right hip prosthesis. Visualized portions are grover sly unremarkable. Bowel: No bowel obstruction.Moderate stool in the colon. Appendix: Normal appendix. Pelvis: Probable trace free pelvic fluid. Portions of the pelvis are obscured due to artifact from ri ght hip prosthesis. Uterus is not visualized. Bones: No destructive bone lesions identified. Right hip prosthesis is partially visualized IMPRESSION: 1. Small bilateral pleural effusions with adjacent atelectasis. Additional mild patchy groundglass opacities in the lower lobes could be due to atelectasis or infection. 2. Marked diffuse subcutaneous edema. 3. Nonobstructing right renal calculus. 4. Moderate stool in the colon. No bowel obstruction. 5. Small right breast nodule measuring up to 1.0 cm. Correlate with mammography. Electronically signed by: Sonam Perea MD 02/08/2025 03:31 AM CDT Due to temporary technical issues with the PACS/[employer]/LBR reporting system, reports are being nura d by the in-house radiologist without review as a courtesy to ensure prompt reporting the interpreting radiologist is fully responsible for the content of the report. Transcribed Date/Time: 02/08/2025 7:01 AM
[2025-02-08] MEDS: OXYBUTYNIN ER 5 MG TAB PO SCH (08:32)
[2025-02-08] MEDS: DONEPEZIL HCL 5 MG TAB PO SCH (08:32)
[2025-02-08] MEDS: SPIRONOLACTONE 25 MG TABLET PO SCH (08:32)
[2025-02-08] MEDS: carvediloL 3.125 MG TAB PO SCH (08:32)
[2025-02-08] MEDS: DULERA 100/5 (MOMETASONE/FORMOTEROL) INHALER IH SCH (08:33)
[2025-02-08] MEDS: APIXABAN 2.5 MG TABLET PO SCH (08:33)
[2025-02-08] MEDS: ROPINIROLE HCL 0.25 MG TAB PO SCH (08:34)
[2025-02-08] MEDS: TIOTROPIUM 5 SPRAYS/INHALER IH SCH (08:34)
[2025-02-08] MEDS: MIRTAZAPINE 15 MG TAB PO SCH (08:34)
[2025-02-08] MEDS ORDERED: ASPIRIN EC 81 MG TAB PO ONE (08:40)
[2025-02-08] MEDS: ASPIRIN EC 81 MG TAB PO SCH (09:00)
[2025-02-08] MEDS: FUROSEMIDE 40 MG/4 ML VIAL IV SCH (09:00)
[2025-02-08] MEDS: HYDROCODONE/APAP 5/325 MG TAB PO PRN (14:03)
[2025-02-08] MEDS: ONDANSETRON 4 MG/2 ML VIAL IV PRN (14:03)
--- NOTE | 2025-02-08 17:06 | P.PN ---
Date of Service: 02/08/25 Patient seen and examined. Patient presented with anasarca. She has a history of pulmonary hypertension. She is maintained on her baseline oxygen by nasal cannula. IV Lasix. Monitor renal function. PT consult Social service consult for discharge planning.
[2025-02-08] MEDS: ATORVASTATIN 20 MG TAB PO SCH (20:36)
[2025-02-08] MEDS: MONTELUKAST 10 MG TAB PO SCH (20:36)
[2025-02-08] MEDS: ALBUTEROL 2.5 MG/3 ML NEB SOL NEB PRN (20:47)
[2025-02-09 06:27] LABS: Absolute Basophils 0.1 K/uL (0-0.5); Absolute Eosinophils 0.2 K/uL (0-0.5); Absolute Lymphocytes (CBC) 0.6 K/uL (0.7-4.9); Absolute Monocytes 0.7 K/uL (0.1-1.3); Absolute Neutrophil 6.5 K/uL (1.8-8.0); Basophils % 0.6 % (0-1.3); Eosinophils % 2.8 % (0-4.4); Hematocrit 33.9 % (36.0-45.0); Hemoglobin 10.7 g/dL (12.0-15.0); Lymphocytes % 7.6 % (15.3-44.8); MCH 30.8 pg (27.0-35.0); MCHC 31.6 g/dL (32.0-36.0); MCV 97.4 fL (80-100); MPV 8.2 fL (7.6-11.3); Monocytes % 8.8 % (3.3-12.3); Neutrophils % 80.2 % (41.7-73.7); Nucleated Red Blood Cells % 0.1 % (0-0); Platelets 273 thou/uL (152-406); RBC Red Blood Cell Count 3.48 M/uL (3.86-4.86); Red Cell Distribution Width 17.2 % (12.1-15.2)
[2025-02-09 06:44] LABS: AST/SGOT 13 U/L (15-37); Albumin 2.8 g/dL (3.4-5.0); Albumin/Globulin Ratio 0.9 (1.1-1.8); Alkaline Phosphatase 66 U/L (45-117); Anion Gap 7.6 mEq/L (5.0-15.0); BUN Blood Urea Nitrogen 41 mg/dL (7-18); Bicarbonate 30 mEq/L (21-32); Bilirubin Total 0.3 mg/dL (0.2-1.0); Globulin 3.1 g/dL (2.3-3.5); Glomerular Filtration Rate 59 ml/min (=/>90); Glucose Level 195 mg/dL (74-106); Potassium 4.6 mEq/L (3.5-5.1); Protein, Total 5.9 g/dL (6.4-8.2); Sodium Level 135 mEq/L (136-145)
[2025-02-09 06:46] LABS: ALT/SGPT < 14 U/L (13-56)
--- NOTE | 2025-02-09 12:03 | EKG ---
Test Date: 2025-02-08 Test Time: 00:08:25 Monorail Hooker: RYAN MEASUREMENT RESULTS: Intervals: Rate: 92 VT: 168 QRSD: 132 QT: 446 QTc: 551 Mcgee: P: 48 VT: 168 QRS: 158 T: -6 INTERPRETIVE STATEMENTS: Electronic ventricular pacemaker Compared to ECG 01/22/2025 13:41:38 Sinus rhythm no longer present Electronically Signed On 02-09-25 11:59:56 CDT by Rigoberto Vasquez
--- NOTE | 2025-02-09 18:56 | P.PN ---
Subjective Date of Service: 02/09/25 Chief Complaint: SOB Patient has no new complaint. She is maintained on 2 L oxygen by nasal cannula which is her baseline and saturating at 98%. Physical Examination - Vital Signs Temperature: 98.0 F Blood Pressure: 121/61 Pulse: 84 Respirations: 16 Pulse Ox (%): 96 Assessment And Plan - Plan Physical examination General: Alert and oriented x3, NAD. Obese. HEENT: Oxygen by nasal cannula. Neck: Supple, no elevated JVD Heart: Heart sounds 1 and 2 normal, regular rhythm, normal rate, no pedal edema Lungs: Clear to auscultation bilaterally, adequate breath sounds bilaterally, no rhonchi or crackles. Abdomen: Soft, distended, nontender, normal bowel sounds. Extremities: No tenderness, no deformity Skin: Bilateral lower extremity venous stasis dermatitis, bilateral legs in shirley wrap. Neuro: No focal motor deficit. Normal speech. Psychiatry: Normal mood, no agitation. Diagnosis Acute exacerbation of CHF Acute on chronic respiratory failure Severe pulmonary hypertension Severe tricuspid regurgitation Insulin-dependent diabetes with hyperglycemia COPD Dementia Atrial fibrillation Frailty Anemia Restless leg syndrome Presence of cardiac pacemaker Plan: Acute on chronic CHF diastolic heart failure Severe pulmonary hypertension Severe transcript regurgitation Continue IV Lasix Monitor intake and output. Patient is stable on baseline oxygen Continue other home medications Cardiology consulted. Monitor renal function. Hypertension Continue home antihypertensives. Hyperlipidemia Continue statin Diabetes mellitus type II Insulin sliding scale for glucose management Impaired mobility Continue PT. Social service consult for discharge planning. Patient probably needs skilled rehab placement DVT prophylaxis: On Eliquis Advanced directive full code
[2025-02-10 06:40] LABS: Absolute Basophils 0.1 K/uL (0-0.5); Absolute Eosinophils 0.2 K/uL (0-0.5); Absolute Lymphocytes (CBC) 0.8 K/uL (0.7-4.9); Absolute Monocytes 0.5 K/uL (0.1-1.3); Basophils % 1.4 % (0-1.3); Eosinophils % 3.4 % (0-4.4); Hematocrit 32.1 % (36.0-45.0); Hemoglobin 10.1 g/dL (12.0-15.0); Lymphocytes % 14.6 % (15.3-44.8); MCH 30.5 pg (27.0-35.0); MCHC 31.3 g/dL (32.0-36.0); MCV 97.3 fL (80-100); MPV 7.8 fL (7.6-11.3); Neutrophils % 71.6 % (41.7-73.7); Nucleated Red Blood Cells % 0.1 % (0-0); Platelets 255 thou/uL (152-406)
[2025-02-10 06:51] LABS: Anion Gap 6.3 mEq/L (5.0-15.0); Potassium 4.3 mEq/L (3.5-5.1)
--- NOTE | 2025-02-10 11:54 | P.PN ---
Date of Service: 02/10/25 Subjective: stable, no new/worsening symptoms reports ongoing leg pains weak pt requesting morphine, states norco doesn't help / do anything for her Physical Exam: GEN: Alert, oriented, NAD CV: Regular rate and rhythm, 1-2+ edema Pulm: Nonlabored respirations on 2L NC, clear bilaterally Integumentary: Bilateral lower extremity venous stasis dermatitis Neuro: Normal speech, normal affect Problem List: Acute on chronic hypoxic respiratory failure secondary to acute on chronic CHF exacerbation Severe pulmonary hypertension Severe tricuspid regurgitation IDDM2 Chronic COPD Chronic atrial fibrillation, s/p pacemaker Chronic Anemia Hyperlipidemia Hypertension Restless leg syndrome Dementia Hx of CVA Acute on chronic hypoxic respiratory failure secondary to acute on chronic CHF exacerbation Severe pulmonary hypertension Severe tricuspid regurgitation on admission, presents with anasarca, SOB. Recently discharged a few days ago for CHF exacerbation. Continue IV Lasix 40 mg BID Stable on home oxygen settings. Continue home medications as appropriate Monitor renal function while being diuresed. IDDM2 accu-cheks, SSI confirm home insulin regimen Chronic COPD continue home nebs and inhalers. Chronic atrial fibrillation, s/p pacemaker Continue Coreg, Eliquis Chronic Anemia Daily labs. Stable. Hyperlipidemia Hypertension Restless leg syndrome Dementia Hx of CVA Continue home meds as appropriate Impaired mobility Continue PT. Social service consult for discharge planning. Patient probably needs skilled rehab placement VTE: home eliquis Code: Full Dispo: Likely SNF pending improvement, SNF placement Time Spent Managing Pts Care (In Minutes): 55
[2025-02-10] MEDS: ALBUTEROL 2.5 MG/3 ML NEB SOL NEB PRN (21:34)
[2025-02-10] MEDS: HYDROCODONE/APAP 7.5/325 MG TAB PO PRN (23:55)
[2025-02-11 07:01] LABS: Anion Gap 6.7 mEq/L (5.0-15.0); Magnesium 2.4 mg/dL (1.6-2.4); Potassium 3.7 mEq/L (3.5-5.1)
--- NOTE | 2025-02-11 13:14 | P.PN ---
Date of Service: 02/11/25 Subjective: breathing more comfortably on room air no acute events overnight pending SNF approval Physical Exam: GEN: Alert, oriented, NAD CV: Regular rate and rhythm, 1-2+ edema Pulm: Nonlabored respirations on room air, clear bilaterally Integumentary: Bilateral lower extremity venous stasis dermatitis Neuro: Normal speech, normal affect Problem List: Acute on chronic hypoxic respiratory failure secondary to acute on chronic CHF exacerbation Severe pulmonary hypertension Severe tricuspid regurgitation IDDM2 Chronic COPD Chronic atrial fibrillation, s/p pacemaker Chronic Anemia Hyperlipidemia Hypertension Restless leg syndrome Dementia Hx of CVA Acute on chronic hypoxic respiratory failure secondary to acute on chronic CHF exacerbation Severe pulmonary hypertension Severe tricuspid regurgitation on admission, presents with anasarca, SOB. Recently discharged a few days ago for CHF exacerbation. Stable on home oxygen settings. Continue home medications as appropriate Monitor renal function while being diuresed. 02/10 - [place] increased to 7/325 q8h 02/11 - Continue IV Lasix 40 mg BID Improving. Renal function Stable. Pending SNF approval edema continues to improve IDDM2 accu-cheks, SSI confirm home insulin regimen Chronic COPD continue home nebs and inhalers. Chronic atrial fibrillation, s/p pacemaker Continue Coreg, Eliquis Chronic Anemia Daily labs. Stable. Hyperlipidemia Hypertension Restless leg syndrome Dementia Hx of CVA Continue home meds as appropriate Impaired mobility Continue PT. Social service consult for discharge planning. Pending SNF placement. VTE: home eliquis Code: Full Dispo: SNF - pending approval pending improvement, SNF placement Time Spent Managing Pts Care (In Minutes): 55
--- NOTE | 2025-02-12 11:57 | P.PN ---
Date of Service: 02/12/25 Subjective: reports she's tired of all of this - tired of feeling short of breath, in the hospital, weakness, low energy, etc voiced to nursing staff this morning - she doesn't want to eat or take meds, she only wants to on my discussion with her - no active plans to hurt herself/SI. When asked if she feels she's dealing more depressed / short term feelings, or if this has been building up -she reports a bit of both, but more depressed with her current life / health in the last 2 months. When asked if she would like to try anti-depressant and try to continue getting her health better vs something like hospice, she expressed not completely ready for hospice, said she will give it a few more days Physical Exam: GEN: Alert, oriented, depressed CV: Regular rate and rhythm, 1+ lower extremity edema Pulm: Nonlabored respirations on room air, diminished at bases Integumentary: Bilateral lower extremity venous stasis dermatitis Problem List: Acute on chronic hypoxic respiratory failure secondary to acute on chronic CHF exacerbation Severe pulmonary hypertension Severe tricuspid regurgitation IDDM2 Chronic COPD Chronic atrial fibrillation, s/p pacemaker Chronic Anemia Hyperlipidemia Hypertension Restless leg syndrome Dementia Hx of CVA Acute on chronic hypoxic respiratory failure secondary to acute on chronic CHF exacerbation Severe pulmonary hypertension Severe tricuspid regurgitation on admission, presents with anasarca, SOB. Recently discharged a few days ago for CHF exacerbation. Stable on home oxygen settings. Continue home medications as appropriate Monitor renal function while being diuresed. 02/10 - [place] increased to 7/325 q8h 02/11 - Continue IV Lasix 40 mg BID Improving. Renal function Stable. Pending SNF approval edema continues to improve 02/12 - No events overnight. Edema improving daily. uop improved labs stable add zoloft, scheduled nebs - pt frustrated not getting nebs when asking for PRN IDDM2 accu-cheks, SSI confirm home insulin regimen Chronic COPD continue home nebs and inhalers. Chronic atrial fibrillation, s/p pacemaker Continue Coreg, Eliquis Chronic Anemia Daily labs. Stable. Hyperlipidemia Hypertension Restless leg syndrome Dementia Hx of CVA Continue home meds as appropriate Impaired mobility Continue PT. Social service consult for discharge planning. Pending SNF placement. VTE: home eliquis Code: Full Dispo: SNF - pending approval Time Spent Managing Pts Care (In Minutes): 55
[2025-02-12] MEDS: ALBUTEROL 2.5 MG/3 ML NEB SOL NEB SCH (13:14)
[2025-02-13 08:19] LABS: Anion Gap 7.7 mEq/L (5.0-15.0); Potassium 3.7 mEq/L (3.5-5.1)
[2025-02-13] MEDS: SERTRALINE HCL 50 MG TAB PO SCH (08:19)
[2025-02-13] MEDS: POTASSIUM CL SA 10 MEQ TAB PO ONE (08:33)
--- NOTE | 2025-02-13 11:19 | P.PN ---
Date of Service: 02/13/25 Subjective: no acute events overnight appetite improving breathing okay on room air vitals stable Swelling is improving Physical Exam: GEN: Alert, oriented, depressed CV: Regular rate and rhythm, 1+ edema in bilateral thighs Pulm: Nonlabored respirations on room air, diminished at bases Integumentary: Bilateral lower extremity venous stasis dermatitis Problem List: Acute on chronic hypoxic respiratory failure secondary to acute on chronic CHF exacerbation Severe pulmonary hypertension Severe tricuspid regurgitation IDDM2 Chronic COPD Chronic atrial fibrillation, s/p pacemaker Chronic Anemia Hyperlipidemia Hypertension Restless leg syndrome Dementia Hx of CVA Acute on chronic hypoxic respiratory failure secondary to acute on chronic CHF exacerbation Severe pulmonary hypertension Severe tricuspid regurgitation on admission, presents with anasarca, SOB. Recently discharged a few days ago for CHF exacerbation. Stable on home oxygen settings. Continue home medications as appropriate Monitor renal function while being diuresed. 02/10 - [place] increased to 7/325 q8h 02/11 - Continue IV Lasix 40 mg BID Improving. Renal function Stable. Pending SNF approval edema continues to improve 02/12 - No events overnight. Edema improving daily. Labs stable. UOP improved add scheduled nebs - pt frustrated not getting nebs when asking for PRN 02/13 - Zoloft, Albuterol inhaler added Breathing okay. No new issues. Labs stable. Appetite improving. Edema continues to improve, urine output has been good IDDM2 accu-cheks, SSI confirm home insulin regimen Chronic COPD continue home nebs and inhalers. Chronic atrial fibrillation, s/p pacemaker Continue Coreg, Eliquis Chronic Anemia Daily labs. Stable. Hyperlipidemia Hypertension Restless leg syndrome Dementia Hx of CVA Continue home meds as appropriate Impaired mobility Continue PT. Social service consult for discharge planning. Pending SNF placement. VTE: home eliquis Code: Full Dispo: SNF - pending approval Time Spent Managing Pts Care (In Minutes): 45
[2025-02-13] MEDS: MELATONIN 3 MG TABLET PO PRN (22:04)
[2025-02-14] MEDS: CETIRIZINE HCL 5 MG TABLET PO PRN (00:39)
--- NOTE | 2025-02-14 09:45 | P.PN ---
Date of Service: 02/14/25 Subjective: minimal appetite today legs started itching overnight feeling nauseous this morning Physical Exam: GEN: Alert, oriented, depressed CV: Regular rate and rhythm, 1+ edema in bilateral thighs Pulm: Nonlabored respirations on room air, diminished at bases Integumentary: Bilateral lower extremity venous stasis dermatitis Problem List: Acute on chronic hypoxic respiratory failure secondary to acute on chronic CHF exacerbation Severe pulmonary hypertension Severe tricuspid regurgitation Pruritus IDDM2 Chronic COPD Chronic atrial fibrillation, s/p pacemaker Chronic Anemia Hyperlipidemia Hypertension Restless leg syndrome Dementia Hx of CVA Acute on chronic hypoxic respiratory failure secondary to acute on chronic CHF exacerbation Severe pulmonary hypertension Severe tricuspid regurgitation on admission, presents with anasarca, SOB. Recently discharged a few days ago for CHF exacerbation. Stable on home oxygen settings. Continue home medications as appropriate Monitor renal function while being diuresed. 02/10 - [place] increased to 7/325 q8h 02/11 - Continue IV Lasix 40 mg BID Improving. Renal function Stable. Pending SNF approval edema continues to improve 02/12 - No events overnight. Edema improving daily. Labs stable. UOP improved add scheduled nebs - pt frustrated not getting nebs when asking for PRN 02/13 - Zoloft, Albuterol inhaler added Breathing okay. No new issues. Labs stable. Edema continues to improve, UOP has been good 02/14 - Feeling nauseous this morning. +Minimal appetite. add pepcid 20 mg BID Pruritus 02/14 - Reports her legs started itching overnight Zyrtec added IDDM2 accu-cheks, SSI confirm home insulin regimen Chronic COPD continue home nebs and inhalers. Chronic atrial fibrillation, s/p pacemaker Continue Coreg, Eliquis Chronic Anemia Daily labs. Stable. Hyperlipidemia Hypertension Restless leg syndrome Dementia Hx of CVA Continue home meds as appropriate Impaired mobility Continue PT. Social service consult for discharge planning. Pending SNF placement. VTE: home eliquis Code: Full Dispo: SNF - pending approval Time Spent Managing Pts Care (In Minutes): 45
[2025-02-14 10:52] LABS: Hematocrit 36.3 % (36.0-45.0); Hemoglobin 11.3 g/dL (12.0-15.0); MCH 29.8 pg (27.0-35.0); MCHC 31.3 g/dL (32.0-36.0); MCV 95.1 fL (80-100); MPV 7.9 fL (7.6-11.3); Platelets 238 thou/uL (152-406); RBC Red Blood Cell Count 3.81 M/uL (3.86-4.86); Red Cell Distribution Width 16.8 % (12.1-15.2)
[2025-02-14] MEDS: FAMOTIDINE 20 MG TAB PO SCH (11:03)
[2025-02-14 11:06] LABS: Albumin 2.9 g/dL (3.4-5.0); Albumin/Globulin Ratio 0.9 (1.1-1.8); Alkaline Phosphatase 69 U/L (45-117); Anion Gap 9.9 mEq/L (5.0-15.0); BUN Blood Urea Nitrogen 13 mg/dL (7-18); Bicarbonate 31 mEq/L (21-32); Bilirubin Total 0.4 mg/dL (0.2-1.0); Globulin 3.3 g/dL (2.3-3.5); Glomerular Filtration Rate 83 ml/min (=/>90); Glucose Level 236 mg/dL (74-106); Magnesium 1.8 mg/dL (1.6-2.4); Potassium 3.9 mEq/L (3.5-5.1); Protein, Total 6.2 g/dL (6.4-8.2); Sodium Level 139 mEq/L (136-145)
[2025-02-14 11:07] LABS: ALT/SGPT < 14 U/L (13-56); AST/SGOT < 10 U/L (15-37)
[2025-02-14] MEDS: ALBUTEROL 2.5 MG/3 ML NEB SOL ONE (20:11)
[2025-02-15] MEDS: ALBUTEROL 2.5 MG/3 ML NEB SOL ONE ×2 (04:44→23:11)
[2025-02-15] MEDS: FUROSEMIDE 40 MG TABLET PO SCH (08:36)
--- NOTE | 2025-02-15 12:00 | P.PN ---
Date of Service: 02/15/25 Subjective: In better spirits today Reports he was able to take some sidesteps worked with physical therapy ye sterday Overall feeling better Starting to eat more as well Physical Exam: GEN: Alert, oriented, NAD CV: Regular rate and rhythm, 1+ edema in bilateral thighs Pulm: Nonlabored respirations on room air, diminished at bases Integumentary: Bilateral lower extremity venous stasis dermatitis Problem List: Acute on chronic hypoxic respiratory failure secondary to acute on chronic CHF exacerbation Severe pulmonary hypertension Severe tricuspid regurgitation Pruritus IDDM2 Chronic COPD Chronic atrial fibrillation, s/p pacemaker Chronic Anemia Hyperlipidemia Hypertension Restless leg syndrome Dementia Hx of CVA Acute on chronic hypoxic respiratory failure secondary to acute on chronic CHF exacerbation Severe pulmonary hypertension Severe tricuspid regurgitation on admission, presents with anasarca, SOB. Recently discharged a few days ago for CHF exacerbation. Stable on home oxygen settings. Continue home medications as appropriate Monitor renal function while being diuresed. 02/10 - [place] increased to 7/325 q8h 02/11 - Continue IV Lasix 40 mg BID Improving. Renal function Stable. Pending SNF approval edema continues to improve 02/12 - No events overnight. Edema improving daily. Labs stable. UOP improved add scheduled nebs - pt frustrated not getting nebs when asking for PRN 02/13 - Zoloft, Albuterol inhaler added Breathing okay. No new issues. Labs stable. Edema continues to improve, UOP has been good 02/14 - Feeling nauseous this morning. +Minimal appetite. add pepcid 20 mg BID 02/15 - switch IV lasix 40 mg BID to PO lasix 40 mg daily and monitor for effectiveness/urine output Pruritus 02/14 - Reports her legs started itching overnight Zyrtec added IDDM2 accu-cheks, SSI confirm home insulin regimen Chronic COPD continue home nebs and inhalers. Chronic atrial fibrillation, s/p pacemaker Continue Coreg, Eliquis Chronic Anemia Daily labs. Stable. Hyperlipidemia Hypertension Restless leg syndrome Dementia Hx of CVA Continue home meds as appropriate Impaired mobility Continue PT. Social service consult for discharge planning. Pending SNF placement. VTE: home eliquis Code: Full Dispo: SNF - pending approval Time Spent Managing Pts Care (In Minutes): 45
[2025-02-16 06:29] LABS: Hematocrit 35.9 % (36.0-45.0); Hemoglobin 11.4 g/dL (12.0-15.0); MCH 29.9 pg (27.0-35.0); MCHC 31.7 g/dL (32.0-36.0); MCV 94.3 fL (80-100); MPV 7.8 fL (7.6-11.3); Platelets 238 thou/uL (152-406); RBC Red Blood Cell Count 3.81 M/uL (3.86-4.86); Red Cell Distribution Width 16.5 % (12.1-15.2)
[2025-02-16 06:40] LABS: Anion Gap 6.7 mEq/L (5.0-15.0); Magnesium 1.9 mg/dL (1.6-2.4); Potassium 3.7 mEq/L (3.5-5.1)
[2025-02-16] MEDS: ALBUTEROL 2.5 MG/3 ML NEB SOL ONE (06:43)
[2025-02-16] MEDS: POTASSIUM CL SA 10 MEQ TAB PO ONE (08:09)
[2025-02-16] MEDS: ALBUTEROL INHALER 200 PUFF/6.7 GM IH PRN (08:12)
--- NOTE | 2025-02-16 13:01 | P.PN ---
Date of Service: 02/16/25 Subjective: no acute events working with PT slight nausea this morning Physical Exam: GEN: Alert, oriented, NAD CV: Regular rate and rhythm, 1+ edema in bilateral thighs Pulm: Nonlabored respirations on room air, diminished at bases Integumentary: Bilateral lower extremity venous stasis dermatitis Problem List: Acute on chronic hypoxic respiratory failure secondary to acute on chronic CHF exacerbation Severe pulmonary hypertension Severe tricuspid regurgitation Pruritus IDDM2 Chronic COPD Chronic atrial fibrillation, s/p pacemaker Chronic Anemia Hyperlipidemia Hypertension Restless leg syndrome Dementia Hx of CVA Acute on chronic hypoxic respiratory failure secondary to acute on chronic CHF exacerbation Severe pulmonary hypertension Severe tricuspid regurgitation on admission, presents with anasarca, SOB. Recently discharged a few days ago for CHF exacerbation. Stable on home oxygen settings. Continue home medications as appropriate Monitor renal function while being diuresed. 02/10 - [place] increased to 7/325 q8h 02/11 - Continue IV Lasix 40 mg BID Improving. Renal function Stable. Pending SNF approval edema continues to improve 02/12 - No events overnight. Edema improving daily. Labs stable. UOP improved add scheduled nebs - pt frustrated not getting nebs when asking for PRN 02/13 - Zoloft, Albuterol inhaler added Breathing okay. No new issues. Labs stable. Edema continues to improve, UOP has been good 02/14 - Feeling nauseous this morning. +Minimal appetite. add pepcid 20 mg BID 02/15 - switch IV lasix 40 mg BID to PO lasix 40 mg daily and monitor for effectiveness/urine output 02/16 - nausea continues, Needing zofran in morning and evening. Pruritus 02/14 - Reports her legs started itching overnight Zyrtec added IDDM2 accu-cheks, SSI confirm home insulin regimen Chronic COPD continue home nebs and inhalers. Chronic atrial fibrillation, s/p pacemaker Continue Coreg, Eliquis Chronic Anemia Daily labs. Stable. Hyperlipidemia Hypertension Restless leg syndrome Dementia Hx of CVA Continue home meds as appropriate Impaired mobility Continue PT. Social service consult for discharge planning. Pending SNF placement. VTE: home eliquis Code: Full Dispo: SNF - pending approval Time Spent Managing Pts Care (In Minutes): 45
[2025-02-16 18:26] VITALS: BMI 27.0
[2025-02-16] MEDS: HYDROCODONE/APAP 7.5/325 MG TAB PO PRN (19:37)
[2025-02-16] MEDS: ALBUTEROL 2.5 MG/3 ML NEB SOL NEB PRN (20:00)
--- NOTE | 2025-02-17 16:30 | P.PN ---
Subjective Date of Service: 02/17/25 Chief Complaint: SOB Patient denies any new complaint She is stable on baseline home oxygen. Physical Examination - Vital Signs Temperature: 97.8 F Blood Pressure: 148/79 Pulse: 82 Respirations: 16 Pulse Ox (%): 97 Assessment And Plan - Plan Physical Exam: GEN: Alert, oriented, NAD CV: Regular rate and rhythm, 1+ edema in bilateral thighs Pulm: Nonlabored respirations on room air, diminished at bases Integumentary: Bilateral lower extremity venous stasis dermatitis Problem List: Acute on chronic hypoxic respiratory failure secondary to acute on chronic CHF exacerbation Severe pulmonary hypertension Severe tricuspid regurgitation Pruritus IDDM2 Chronic COPD Chronic atrial fibrillation, s/p pacemaker Chronic Anemia Hyperlipidemia Hypertension Restless leg syndrome Dementia Hx of CVA Acute on chronic hypoxic respiratory failure secondary to acute on chronic CHF exacerbation Severe pulmonary hypertension Severe tricuspid regurgitation on admission, presents with anasarca, SOB. Recently discharged a few days ago for CHF exacerbation. Stable on home oxygen settings. Continue home medications as appropriate Monitor renal function while being diuresed. S/p IV Lasix 40 mg BID, transitioned to oral lasix. Renal function Stable. Pending SNF approval edema continues to improve Pruritus On Zyrtec . IDDM2 accu-cheks, SSI Chronic COPD continue home nebs and inhalers. Chronic atrial fibrillation, s/p pacemaker Continue Coreg, Eliquis Chronic Anemia Stable. Hyperlipidemia Hypertension Restless leg syndrome Dementia Hx of CVA Continue home meds. Impaired mobility Continue PT. VTE: home eliquis Code: Full Dispo: SNF - pending approval
[2025-02-17] MEDS: CETIRIZINE HCL 5 MG TABLET PO ONE (21:48)
[2025-02-17] MEDS: KETOROLAC 30 MG/ML INJ IV ONE (21:48)
--- NOTE | 2025-02-18 17:10 | P.PN ---
Subjective Date of Service: 02/18/25 Chief Complaint: SOB Patient denies any new complaint. No issues overnight. She is stable on baseline home oxygen. Physical Examination - Vital Signs Temperature: 98.5 F Blood Pressure: 106/63 Pulse: 87 Respirations: 15 Pulse Ox (%): 92 Assessment And Plan - Plan Physical Exam: GEN: Alert, oriented, NAD CV: Regular rate and rhythm, bilateral lower extremity edema significantly improved Pulm: Nonlabored respirations on room air, diminished at bases Integumentary: Bilateral lower extremity venous stasis dermatitis Problem List: Acute on chronic hypoxic respiratory failure secondary to acute on chronic CHF exacerbation Severe pulmonary hypertension Severe tricuspid regurgitation Pruritus IDDM2 Chronic COPD Chronic atrial fibrillation, s/p pacemaker Chronic Anemia Hyperlipidemia Hypertension Restless leg syndrome Dementia Hx of CVA Acute on chronic hypoxic respiratory failure secondary to acute on chronic CHF exacerbation Severe pulmonary hypertension Severe tricuspid regurgitation on admission, presents with anasarca, SOB. Recently discharged a few days ago for CHF exacerbation. Stable on home oxygen settings. Continue home medications as appropriate Monitor renal function while being diuresed. S/p IV Lasix 40 mg BID, transitioned to oral lasix. Renal function Stable. Pending SNF approval edema continues to improve Pruritus On Zyrtec . IDDM2 accu-cheks, SSI Chronic COPD continue home nebs and inhalers. Chronic atrial fibrillation, s/p pacemaker Continue Coreg, Eliquis Chronic Anemia Stable. Hyperlipidemia Hypertension Restless leg syndrome Dementia Hx of CVA Continue home meds. Impaired mobility Continue PT. 02/18 Patient is currently stable at baseline. Anasarca significantly improved on the current dose of Lasix. Renal function has been stable. Vitals are stable. Continue current medications. Awaiting [facility] authorization for transfer to SNF. VTE: home eliquis Code: Full Dispo: SNF - pending approval
[2025-02-19] MEDS: KETOROLAC 30 MG/ML INJ IV ONE (01:41)
[2025-02-19] MEDS: ALBUTEROL 2.5 MG/3 ML NEB SOL NEB SCH (14:06)
--- NOTE | 2025-02-19 17:05 | P.PN ---
Subjective Date of Service: 02/19/25 Chief Complaint: SOB Patient denies any new complaint other than delays in her medications and nebulizer administration this morning. No issues overnight. She is stable on baseline home oxygen. Physical Examination - Vital Signs Temperature: 98.1 F Blood Pressure: 103/45 Pulse: 72 Respirations: 16 Pulse Ox (%): 91 Assessment And Plan - Plan Physical Exam: GEN: Alert, oriented, NAD CV: Regular rate and rhythm, bilateral lower extremity edema significantly improved Abdomen: Abdominal wall edema resolved. Pulm: Nonlabored respirations on room air, diminished at bases Integumentary: Bilateral lower extremity venous stasis dermatitis Problem List: Acute on chronic hypoxic respiratory failure secondary to acute on chronic CHF exacerbation Severe pulmonary hypertension Severe tricuspid regurgitation Pruritus IDDM2 Chronic COPD Chronic atrial fibrillation, s/p pacemaker Chronic Anemia Hyperlipidemia Hypertension Restless leg syndrome Dementia Hx of CVA Acute on chronic hypoxic respiratory failure secondary to acute on chronic CHF exacerbation Severe pulmonary hypertension Severe tricuspid regurgitation on admission, presents with anasarca, SOB. Recently discharged a few days ago for CHF exacerbation. Stable on home oxygen settings. Continue home medications as appropriate Monitor renal function while being diuresed. S/p IV Lasix 40 mg BID, transitioned to oral lasix. Renal function Stable. Pending SNF approval edema continues to improve Pruritus On Zyrtec . IDDM2 accu-cheks, SSI Chronic COPD continue home nebs and inhalers. Chronic atrial fibrillation, s/p pacemaker Continue Coreg, Eliquis Chronic Anemia Stable. Hyperlipidemia Hypertension Restless leg syndrome Dementia Hx of CVA Continue home meds. Impaired mobility Continue PT. 02/18 Patient is currently stable at baseline. Anasarca significantly improved on the current dose of Lasix. Renal function has been stable. Vitals are stable. Continue current medications. Awaiting SNF authorization for transfer to SNF. 02/19 Scheduled bronchodilators and nebs Continue other medications Vitals are stable Patient is clinically stable for discharge, awaiting insurance authorization for SNF. Continue PT. VTE: home eliquis Code: Full Dispo: SNF - pending approval
[2025-02-19] MEDS ORDERED: CETIRIZINE HCL 5 MG TABLET PO PRN (21:09)
[2025-02-20 10:32] VITALS: O2SAT 96
--- NOTE | 2025-02-20 14:25 | P.DS ---
Admission Date: 02/08/25 Discharge Date: 02/20/25 Disposition: TRANSFER TO [facility] Discharge Condition: FAIR Reason for Admission: SOB Brief History of Present Illness: 74-year-old female with a history of heart failure with preserved ejection fraction, A-fib, history of CVA, COPD, type 2 diabetes, hyperlipidemia, hypertension who is presenting with anasarca and shortness of breath secondary to acute heart failure exacerbation. She was brought to the emergency department from an assisted living facility where she uses 2 L nasal cannula at home. Associated symptoms include leg pain and burning sensation. Patient started having shortness of breath which became progressively getting worse and was brought to ER. Patient was just discharged from the hospital back to assisted living a few days prior. Patient was assessed in the ER and is admitted for further management of CHF exacerbation Hospital Course: Problem List: Acute on chronic hypoxic respiratory failure secondary to acute on chronic CHF exacerbation Severe pulmonary hypertension Severe tricuspid regurgitation Pruritus IDDM2 Chronic COPD Chronic atrial fibrillation, s/p pacemaker Chronic Anemia Hyperlipidemia Hypertension Restless leg syndrome Dementia Hx of CVA Patient was admitted to the medical floor and the following medical problems addressed: Acute on chronic hypoxic respiratory failure secondary to acute on chronic CHF exacerbation Severe pulmonary hypertension Severe tricuspid regurgitation on admission, presents with anasarca, SOB. Recently discharged a few days ago for CHF exacerbation. Stable on home oxygen settings. Continued home medications. Monitor renal function while being diuresed. Patient treated with IV Lasix 40 mg BID, transitioned to oral lasix. Patient also treated with scheduled nebulizers and bronchodilators. Renal function has been stable. Patient anasarca significantly improved. Pruritus On Zyrtec . IDDM2 accu-cheks, SSI Chronic COPD continue home nebs and inhalers. Chronic atrial fibrillation, s/p pacemaker Continue Coreg, Eliquis Chronic Anemia Stable. Hyperlipidemia Hypertension Restless leg syndrome Dementia Hx of CVA Continued home meds. Impaired mobility Patient received PT. Overall patient has been clinically stable with stable vitals and stable renal function. Anasarca significantly improved and almost resolved. Patient is deemed stable for discharge to shelter. Vital Signs/Physical Exam: Temp Pulse Resp BP Pulse Ox 97.8 F 74 18 138/77 96 02/20/25 12:00 02/20/25 12:00 02/20/25 12:00 02/20/25 12:02/20/25 12:00 General: Alert, In no apparent distress, Oriented x3 HEENT: Mucous membr. moist/pink Neck: Supple, JVD not distended Respiratory: Clear to auscultation bilaterally, Normal air movement Cardiovascular: No edema, Regular rate/rhythm, Normal S1 S2 Gastrointestinal: Normal bowel sounds, Soft and benign, Non-distended, No tenderness Musculoskeletal: No swelling Integumentary: No cyanosis Neurological: Normal strength at 5/5 x4 extr Laboratory Data at Discharge: WBC 5.40 thou/uL (4.3-10.9) 02/16/25 06:00 Hgb 11.4 g/dL (12.0-15.0) L 02/16/25 06:00 Hct 35.9 % (36.0-45.0) L 02/16/25 06:00 Plt Count 238 thou/uL (152-406) 02/16/25 06:00 PT 14.4 SECONDS (10-13.0) H 02/08/25 00:38 INR 1.28 02/08/25 00:38 Sodium 134 mEq/L (136-145) L 02/16/25 06:00 Potassium 3.7 mEq/L (3.5-5.1) 02/16/25 06:00 BUN 18 mg/dL (7-18) 02/16/25 06:00 Creatinine 0.86 mg/dL (0.55-1.02) 02/16/25 06:00 Glucose 254 mg/dL (74-106) H 02/16/25 06:00 Magnesium 1.9 mg/dL (1.6-2.4) 02/16/25 06:00 Total Bilirubin 0.4 mg/dL (0.2-1.0) 02/14/25 10:16 AST < 10 U/L (15-37) L 02/14/25 10:16 ALT < 14 U/L (13-56) 02/14/25 10:16 Alkaline Phosphatase 69 U/L (45-117) 02/14/25 10:16 Home Medications: Apixaban [Eliquis *] 2.5 mg PO BID 09/25/24 Alendronate Sodium 70 mg PO Q7D 10/27/24 Aspirin [Aspirin EC] 81 mg PO DAILY 10/27/24 Atorvastatin Calcium 20 mg PO BEDTIME 10/27/24 Cetirizine HCl [All Day Allergy] 10 mg PO DAILY 10/27/24 Donepezil [Aricept*] 10 mg PO DAILY 10/27/24 Ferosul Tab 325 mg PO DAILY 10/27/24 Ubrogepant [Ubrelvy] 100 mg PO SEECOM PRN 10/28/24 carvediloL [Coreg*] 3.125 mg PO BID tab 11/24/24 Mirtazapine [Remeron] 30 mg PO DAILY 12/26/24 Montelukast [Singulair*] 10 mg PO DAILY 12/26/24 Nitroglycerin 0.4 mg PO SEECOM 12/26/24 Ondansetron [Zofran (Odt)*] 4 mg PO PRN PRN 12/26/24 Oxybutynin Chloride [Oxybutynin Chloride ER] 15 mg PO DAILY 12/26/24 Pregabalin [Lyrica*] 75 mg PO BID 12/26/24 Ropinirole HCl 0.5 mg PO DAILY 12/26/24 Fluticasone/Vilanterol [Breo Ellipta 100-25 Mcg Inhalr] 1 each IH DAILY 01/23/25 Semaglutide [Ozempic] 0.5 mg SQ EVERY 7TH DAY 01/23/25 Tiotropium [place] [Spiriva] 2 spray IH DAILY 01/23/25 Furosemide [Lasix*] 40 mg PO DAILY #30 tab 02/04/25 Sildenafil Citrate [Revatio*] 20 mg PO BID #60 tab 02/04/25 Spironolactone [Aldactone*] 25 mg PO DAILY #30 tab 02/04/25 Vitamin E [Vitamin E*] 400 iu PO DAILY #30 cap 02/04/25 Albuterol Inhaler [Ventolin Inhaler*] 2 puff IH Q6H PRN 02/20/25 Albuterol Neb [Proventil 0.083% Neb Soln] 2.5 mg NEB [id number] amp 02/20/25 Famotidine [Pepcid*] 20 mg PO BID tab 02/20/25 Hydrocodone 7.5/APAP 325 [[place] 7.5/325 mg*] 1 tab PO Q8H PRN #12 tab 02/20/25 Metformin HCl [Glucophage*] 500 mg PO BIDWM #60 tab 02/20/25 Sertraline [Zoloft*] 25 mg PO DAILY tab 02/20/25 New Medications: Metformin HCl [Glucophage*] 500 mg PO BIDWM #60 tab Hydrocodone 7.5/APAP 325 [[place] 7.5/325 mg*] 1 tab PO Q8H PRN #12 tab PRN Reason: Pain Scale 5-7 (Moderate) Physician Discharge Instructions: Physician discharge instructions: Patient presented with anasarca, SOB, weakness, secondary to acute on chronic diastolic CHF exacerbation. CT chest/abd on admission noted marked diffuse edema and small bilateral pleural effusions. She was started on IV lasix and placed on her home oxygen settings and had improvement of her symptoms. Patient worked with PT throughout her stay, who felt she would benefit from shelter facility to further improve strength/endurance prior to returning home to which she was agreeable to. IV lasix was deescalated to her home dose lasix and patient continued to improve daily. Breathing and ansarca improved with diuresis. Patient was feeling better, breathing more comfortably on her home oxygen settings, and was deemed stable for discharge to SNF. Check weight around the same time each day. Keep a daily log of weight readings to take to follow up appointments for further adjustments of medications. Medications: Follow up: PCP 3-5 days Please call to schedule / confirm appointments Followup: Queenie Nice MD [Primary Care Provider] - Time spent managing pt's care (in minutes): 39
[2025-02-20 14:39] LABS: Absolute Eosinophils 0.2 K/uL (0-0.5); Absolute Lymphocytes (CBC) 0.8 K/uL (0.7-4.9); Absolute Monocytes 0.4 K/uL (0.1-1.3); Absolute Neutrophil 3.3 K/uL (1.8-8.0); Basophils % 0.8 % (0-1.3); Eosinophils % 3.8 % (0-4.4); Hematocrit 33.3 % (36.0-45.0); Hemoglobin 10.8 g/dL (12.0-15.0); Lymphocytes % 16.8 % (15.3-44.8); MCHC 32.3 g/dL (32.0-36.0); MCV 92.8 fL (80-100); MPV 8.1 fL (7.6-11.3); Monocytes % 7.9 % (3.3-12.3); Neutrophils % 70.7 % (41.7-73.7); Nucleated Red Blood Cells % 0.1 % (0-0); Platelets 222 thou/uL (152-406); RBC Red Blood Cell Count 3.59 M/uL (3.86-4.86); Red Cell Distribution Width 16.5 % (12.1-15.2)
[2025-02-20 15:16] LABS: Anion Gap 10.8 mEq/L (5.0-15.0); Potassium 3.8 mEq/L (3.5-5.1)
[2025-02-20] MEDS: HYDROMORPHONE HCL 0.5 MG/0.5 ML INJ IV ONE (16:04)
[2025-02-20] MEDS: KETOROLAC 30 MG/ML INJ IV ONE (16:04)
[2025-02-20 17:38] VITALS: BP 135/68; TEMP 98
== END 2025-02-20 17:58 | DRG 291 ==
LOC: ER 23:26 → ERHOLD 02-08 05:36 → 4TH 02-08 13:18
PROVIDERS: ADMIT Family Medicine; ATTEND Internal Medicine
DX: I11.0 Hypertensive heart disease with heart failure (principal); I50.33 Acute on chronic diastolic (congestive) heart failure; J96.21 Acute and chronic respiratory failure with hypoxia; I48.20 Chronic atrial fibrillation, unspecified; E78.00 Pure hypercholesterolemia, unspecified; G25.81 Restless legs syndrome; I27.20 Pulmonary hypertension, unspecified; I07.1 Rheumatic tricuspid insufficiency; I87.2 Venous insufficiency (chronic) (peripheral); D64.9 Anemia, unspecified; L29.9 Pruritus, unspecified; E11.65 Type 2 diabetes mellitus with hyperglycemia; J44.9 Chronic obstructive pulmonary disease, unspecified; F03.90 Unspecified dementia, unspecified severity, without behavioral disturbance, psychotic disturbance, mood disturbance, and anxiety; Z95.0 Presence of cardiac pacemaker; Z88.5 Allergy status to narcotic agent; Z88.1 Allergy status to other antibiotic agents; Z79.82 Long term (current) use of aspirin; Z79.01 Long term (current) use of anticoagulants; Z79.84 Long term (current) use of oral hypoglycemic drugs; Z86.73 Personal history of transient ischemic attack (TIA), and cerebral infarction without residual deficits; Z79.899 Other long term (current) drug therapy
CPT/HCPCS: 36415; 71045; 71250; 74176; 80048; 80053; 80076; 81001; 83735; 83880; 84484; 85025; 85027; 85610; 93005; 94640; 94760; 97110; 97161; 97530; 99285; J1171; J1790; J1940; J2270; J2405; J3535; J7613; P9047